=== PATIENT | female | born 1965 | race Caucasian/White ===

== ENCOUNTER → 2018-05-04 23:05 | Outpatient (CLI) | payer MEDICAID, SELFPAY ==
--- OUTSIDE RECORDS SUMMARY | 2018-06-16 17:43 | XMS RPT_ITS ---
:1965 Author Organization OHIP Care Team Providers Name Role Phone LISE REID Referring Unavailable VITO GUILLAUME Referring Unavailable VITO GUILLAUME Admitting Unavailable VITO GUILLAUME Attending Unavailable JEFF DESHPANDE Consulting Unavailable STEPHANIE WAGNER (PA) Referring Unavailable WAGNERSTEPHANIE KINGSLEY (PA) Referring Unavailable BORRERO, THEO Admitting Unavailable BORRERO, THEO Attending Unavailable EMMANUELLE ARAGON Consulting Unavailable PROVIDER, UNKNOWN Referring Unavailable Jaspreet Lance Primary Care Unavailable Kirby Garcia Attending Unavailable PROVIDER, UNKNOWN Referring Unavailable Jaspreet Lance Primary Care Unavailable Josep Tran Attending Unavailable Lalo Patterson FINANCIAL SYSTEMS ANALYST-C Attending Unavailable Nicollee, Efewongbe Referring Unavailable Melquiades Soto FINANCIAL SYSTEMS ANALYST-C Attending Unavailable Armando Sotoa FINANCIAL SYSTEMS ANALYST-C Referring Unavailable Olejuane, Efewongbe Primary Care Unavailable VITO GUILLAUME B Attending Unavailable LISE REID Referring Unavailable BRAYDON WILSON Attending Unavailable VIOLETA LUNA (PAC) Attending Unavailable VITO GIULLAUME Referring Unavailable VITO GUILLAUME B Attending Unavailable VITO GUILLAUME Referring Unavailable SHAYY MILLER (UNEMPLOYMENT SPECIALIST) Attending Unavailable CHARLES, MELQUIADES Issa Referring Unavailable SHAYY MILLER (UNEMPLOYMENT SPECIALIST) Attending Unavailable CHARLES, MELQUIADES L Referring Unavailable PROBLEMS PROBLEMS DATE TYPE CONDITION / CODE ATTENDING STATUS SOURCE 05/05/2018 Active Cutaneous abscess, BORRERO, Active [place] unspecified / THEO Clinic Other L02.91(ICD-10) [place] Repository 05/05/2018 Active Abnormal results of BORRERO, Active [place] liver function [facility] Other studies / [place] R94.5(ICD-10) Repository 05/05/2018 Unknown L02.222 - Furuncle Charles, Active [place] of back [any part, Melquiades FINANCIAL SYSTEMS ANALYST-C Community except buttock] / Hospital L02.222(ICD-10) Repository 05/05/2018 Unknown 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, 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 Melquiades FINANCIAL SYSTEMS ANALYST-C 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 / Z22.322(ICD-10) 02/05/2018 Admitting Opioid abuse, Radha, Active Office [facility] Diagnosis uncomplicated / [facility] F11.10(ICD-10) Repository 02/05/2018 Admitting Anxiety disorder, Radah, Active Office [facility] Diagnosis unspecified / [facility] F41.9(ICD-10) Repository 02/05/2018 Admitting Essential (primary) Radha, Active Office [facility] Diagnosis hypertension / [facility] I10(ICD-10) Repository 02/05/2018 Admitting Pure Radha, Active Office [facility] Diagnosis hypercholesterolemia [facility] , unspecified / Repository E78.00(ICD-10) 02/05/2018 Admitting Acquired absence of Radha, 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 / Repository Z90.710(ICD-10) 02/05/2018 Admitting Nicotine dependence, Radha, Active Office [facility] Diagnosis cigarettes, [facility] uncomplicated / Repository F17.210(ICD-10) 02/05/2018 Admitting Allergy status to Radha, Active Office [facility] Diagnosis oth drug/meds/biol [facility] subst status / Repository Z88.8(ICD-10) 02/05/2018 Admitting Allergy status to Radha, Active Office [facility] Diagnosis penicillin / [facility] Z88.0(ICD-10) Repository 02/05/2018 Admitting Allergy status to Radha, Active Office [facility] Diagnosis other antibiotic [facility] agents status / Repository Z88.1(ICD-10) 09/22/2017 Active Unknown / SHEDLOCK, Active [place] UNK(Unknown) VIOLETA (PAC) Clinic Main [place] Repository 09/04/2017 Active Unilateral primary NA Active [place] osteoarthritis, left Clinic Other knee / [place] M17.12(ICD-10) Repository 09/04/2017 Active Unspecified mood NA Active [place] (affective) disorder Clinic Other / F39(ICD-10) [place] Repository 09/04/2017 Active Anxiety disorder, NA Active [place] unspecified / Clinic Other F41.9(ICD-10) [place] Repository 09/04/2017 Active Hyperlipidemia, NA Active [place] unspecified / Clinic Other E78.5(ICD-10) [place] Repository 09/04/2017 Active Essential (primary) NA Active [place] hypertension / Clinic Other I10(ICD-10) [place] Repository 09/04/2017 Active Encounter for other NA Active [place] preprocedural Clinic Other examination / [place] Z01.818(ICD-10) Repository 08/08/2017 Active Pain, unspecified / NA [facility] R52(ICD-10) Clinic Other [place] Repository PROCEDURES PROCEDURES No Procedure Records FoundRESULTS RESULTS PROGRESS Observed: 05/21/2018 Status: COMPLETED Source: [place] 2:39 PM [facility] REPOSITORY HNO ID: [id number] Author: Shayy Miller Service: (none) Author Type: Nurse Practitioner Type: Progress Notes Filed: 05/21/2018 2:45 PM Note Text: ESTABLISHED PATIENT Paulina Finn is a 52 year old female presenting for Follow Up. HISTORY OF PRESENT ILLNESS Paulina is two weeks post op from an IANDD of an abscess of the upper right back. SHe is doing BID wet to dry dressings, the wound looks significantly improved with minimal surrounding induration and erythema. The size remains essentially the same however the base of the wound has pink granulation tissue. SHe will follow up in ne week and continue BID dressing changes. HISTORIES FAMILY HISTORY Problem Relation Age of Onset - Lipids Mother - Arthritis Mother - other (htn) Mother - None Father PAST MEDICAL HISTORY Diagnosis Date - Anxiety - Arthritis of left knee 09/04/2017 - Dyslipidemia, goal to be determined - HTN (hypertension) - Mood swings - Osteoarthritis PAST SURGICAL HISTORY Procedure Laterality Date - CARPAL TUNNEL - KNEE SCOPE,FULL SYNOVECT Left - PART. HYSTERECTOMY W/WO RMVL OVARIES/TUBES - PAST SURGICAL HISTORY OF 05/06/2018 Incision and drainage of right back anahi, - REMOVE TONSILS/ADENOIDS,<12 Y/O - TOTAL KNEE REPLACEMENT Right 2007 Social History Marital status: Single Spouse name: Years of education: Number of children: Social History Main Topics Smoking status: Current Every Day Smoker Packs/day: 1.00 Years: 11.00 Types: Cigarettes Start date: 06/09/2005 Smokeless tobacco: Never Used Comment: patient is trying to quit - down to 7 cigarettes per day Alcohol use: No Drug use: No Allergies: ALLERGIES Allergen Reactions - Omnicef [Cefdinir] Hives - Penicillins Hives - Vancomycin Hives - Zithromax [Azithrom* Hives - Cortisone Intolerance INCREASE IN BP FOR SEVERAL WEEKS. Medications: hydroCHLOROthiazide (HYDRODIURIL, ESIDRIX) 25 mg tablet Take 25 mg by mouth once daily. ibuprofen (MOTRIN) 600 mg tablet Take 1 tablet by mouth every 8 hours as needed for Pain. lisinopril (ZESTRIL, PRINIVIL) 40 mg tablet Take 40 mg by mouth every evening. metoprolol tartrate, short acting, (LOPRESSOR) 50 mg tablet Take 1 tablet by mouth once daily. sertraline (ZOLOFT) 100 mg tablet Take 2 tablets by mouth once daily. simvastatin (ZOCOR) 40 mg tablet Take 40 mg by mouth every evening. REVIEW OF SYSTEMS PAIN ASSESSMENT: Negative for pain, history of chronic pain, or current treatment for a chronic pain condition. GENERAL: No weight loss, malaise or fevers SKIN: See HPI PSYCH: Depression HEMATOLOGY/LYMPHOLOGY: Negative for prolonged bleeding, bruising easily or swollen nodes PHYSICAL EXAM Temp 36.6 ?C (97.8 ?F) General Appearance: Well appearing, alert, in no acute distress, well-hydrated, well nourished.. Skin: See HPI. Lungs: lungs clear to auscultation. No wheezing, rhonchi, rales. Heart: RRR without murmur, gallop, or rubs. No ectopy. Lymph Nodes: No cervical lymphadenopathy, No supraclavicular lymphadenopathy and No axillary lymphadenopathy.. Assessment IMPRESSION/PLAN ASSESSMENT/PLAN: 1. Abscess of back - ICD9: 682.2, ICD10: L02.212 - Follow up for recheck in one week - IBUPROFEN 600 MG TABLET Shayy Miller, DIANNE.MORRIS Paulina is two weeks post op from an IANDD of an abscess of the upper right back. SHe is doing BID wet to dry dressings, the wound looks significantly improved with minimal surrounding induration and erythema. The size remains essentially the same however the base of the wound has pink granulation tissue. SHe will follow up in ne week and continue BID dressing changes. CNOV Observed: 05/20/2018 Status: COMPLETED Source: [place] 2:30 PM [facility] REPOSITORY Office Visit (GENKITA) PAULINA FINN ([id number]) 1965 F Date Time Provider Department 05/20/18 2:30 PM SHAYY MILLER (MORRIS) [place] During your visit today, we recorded the following information about you: Temperature 97.8 degrees Shayy Miller APRN.CNP 05/21/2018 2:45 PM Signed ESTABLISHED PATIENT Paulina Finn is a 52 year old female presenting for Follow Up. HISTORY OF PRESENT ILLNESS Paulina is two weeks post op from an IANDD of an abscess of the upper right back. SHe is doing BID wet to dry dressings, the wound looks significantly improved with minimal surrounding induration and erythema. The size remains essentially the same however the base of the wound has pink granulation tissue. SHe will follow up in ne week and continue BID dressing changes. HISTORIES FAMILY HISTORY Problem Relation Age of Onset - Lipids Mother - Arthritis Mother - other (htn) Mother - None Father PAST MEDICAL HISTORY Diagnosis Date - Anxiety - Arthritis of left knee 09/04/2017 - Dyslipidemia, goal to be determined - HTN (hypertension) - Mood swings - Osteoarthritis PAST SURGICAL HISTORY Procedure Laterality Date - CARPAL TUNNEL - KNEE SCOPE,FULL SYNOVECT Left - PART. HYSTERECTOMY W/WO RMVL OVARIES/TUBES - PAST SURGICAL HISTORY OF 05/06/2018 Incision and drainage of right back Dr.Rose anahi - REMOVE TONSILS/ADENOIDS,<12 Y/O - TOTAL KNEE REPLACEMENT Right 2007 Social History Marital status: Single Spouse name: Years of education: Number of children: Social History Main Topics Smoking status: Current Every Day Smoker Packs/day: 1.00 Years: 11.00 Types: Cigarettes Start date: 06/09/2005 Smokeless tobacco: Never Used Comment: patient is trying to quit - down to 7 cigarettes per day Alcohol use: No Drug use: No Allergies: ALLERGIES Allergen Reactions - Omnicef [Cefdinir] Hives - Penicillins Hives - Vancomycin Hives - Zithromax [Azithrom* Hives - Cortisone Intolerance INCREASE IN BP FOR SEVERAL WEEKS. Medications: hydroCHLOROthiazide (HYDRODIURIL, ESIDRIX) 25 mg tablet Take 25 mg by mouth once daily. ibuprofen (MOTRIN) 600 mg tablet Take 1 tablet by mouth every 8 hours as needed for Pain. lisinopril (ZESTRIL, PRINIVIL) 40 mg tablet Take 40 mg by mouth every evening. metoprolol tartrate, short acting, (LOPRESSOR) 50 mg tablet Take 1 tablet by mouth once daily. sertraline (ZOLOFT) 100 mg tablet Take 2 tablets by mouth once daily. simvastatin (ZOCOR) 40 mg tablet Take 40 mg by mouth every evening. REVIEW OF SYSTEMS PAIN ASSESSMENT: Negative for pain, history of chronic pain, or current treatment for a chronic pain condition. GENERAL: No weight loss, malaise or fevers SKIN: See HPI PSYCH: Depression HEMATOLOGY/LYMPHOLOGY: Negative for prolonged bleeding, bruising easily or swollen nodes PHYSICAL EXAM Temp 36.6 ?C (97.8 ?F) General Appearance: Well appearing, alert, in no acute distress, well-hydrated, well nourished.. Skin: See HPI. Lungs: lungs clear to auscultation. No wheezing, rhonchi, rales. Heart: RRR without murmur, gallop, or rubs. No ectopy. Lymph Nodes: No cervical lymphadenopathy, No supraclavicular lymphadenopathy and No axillary lymphadenopathy.. Assessment IMPRESSION/PLAN ASSESSMENT/PLAN: 1. Abscess of back - ICD9: 682.2, ICD10: L02.212 - Follow up for recheck in one week - IBUPROFEN 600 MG TABLET Shayy Miller APRN.MORRIS Paulina is two weeks post op from an IANDD of an abscess of the upper right back. SHe is doing BID wet to dry dressings, the wound looks significantly improved with minimal surrounding induration and erythema. The size remains essentially the same however the base of the wound has pink granulation tissue. SHe will follow up in ne week and continue BID dressing changes. Referring Provider: MELQUIADES SOTO [[id number]] Allergies As of Date: 05/20/2018 Noted Allergy Reaction OMNICEF (CEFDINIR) 12/15/2006 4 - Hives PENICILLINS 12/15/2006 4 - Hives VANCOMYCIN 12/15/2006 4 - Hives ZITHROMAX (AZITHROMYCIN) 12/15/2006 4 - Hives CORTISONE 12/15/2006 5 - Intolerance Comments: INCREASE IN BP FOR SEVERAL WEEKS. Date Reviewed: 05/20/2018 Reviewed by: Judie Magdaleno LPN - Fully Assessed Reason for Visit: Follow Up [171] Primary Visit Diagnosis:Abscess of back [L02.212] Order(s):sertraline (ZOLOFT) 100 mg tabletTake 2 tablets by mouth once daily.Disp: 60 tabletRfl: 0 metoprolol tartrate, short acting, (LOPRESSOR) 50 mg tabletTake 1 tablet by mouth once daily.Disp: 30 tabletRfl: 0 ibuprofen (MOTRIN) 600 mg tabletTake 1 tablet by mouth every 8 hours as needed for Pain.Disp: 90 tabletRfl: 0 Prescriptions as of 05/20/2018 Sig: HYDROCHLOROTHIAZIDE 25 MG TAB* Take 25 mg by mouth once adam* IBUPROFEN 600 MG TABLET Take 1 tablet by mouth every * LISINOPRIL 40 MG TABLET Take 40 mg by mouth every onelia* METOPROLOL TARTRATE 50 MG TAB* Take 1 tablet by mouth once d* SERTRALINE 100 MG TABLET Take 2 tablets by mouth once * SIMVASTATIN 40 MG TABLET Take 40 mg by mouth every onelia* Problem List As Of Date 05/20/2018 Noted Resolved Lumbago [M54.5] INVALID FOR*09/04/2017 Osteoarthrosis, unspecified whether generalized*INVALID FOR*09/04/2017 Pain in joint, lower leg [M25.569] INVALID FOR*09/04/2017 Sprain of cruciate ligament of knee [S83.509A] INVALID FOR*09/04/2017 Tear of medial cartilage or meniscus of knee, c*INVALID FOR*09/04/2017 Osteoarthritis of right knee [M17.11] INVALID FOR*09/04/2017 Prepatellar bursitis [M70.40] INVALID FOR*09/04/2017 RSD lower limb [G90.529] INVALID FOR* Mechanical complication of internal orthopedic *INVALID FOR*10/03/2011 Mechanical back pain [M54.9] INVALID FOR*09/04/2017 Lumbar strain [S39.012A] INVALID FOR*09/04/2017 Lumbar spondylosis [M47.816] INVALID FOR* DDD (degenerative disc disease), lumbar [M51.36]INVALID FOR* Arthritis of knee, degenerative [M17.10] INVALID FOR*09/08/2017 More... HTN (hypertension) [I10] INVALID FOR* Dyslipidemia, goal to be determined [E78.5] INVALID FOR* Anxiety [F41.9] INVALID FOR* Mood swings (HCC) [R45.86] INVALID FOR* Arthritis of left knee [M17.12] INVALID FOR* Post-operative state [Z98.890] INVALID FOR* Sepsis (HCC) [A41.9] INVALID FOR* Cutaneous abscess of back excluding buttocks [L*INVALID FOR* Nicotine use disorder, F17.2 [F17.200] INVALID FOR* Prescriptions ordered this encounter Disp Refills Start End SERTRALINE 100 MG TABLET 60 t* 0 05/20/2018 06/19/2018 Route: ORAL Sig: Take 2 tablets by mouth once daily. METOPROLOL TARTRATE 50 MG TABLET 30 t* 0 05/20/2018 06/19/2018 Route: ORAL Sig: Take 1 tablet by mouth once daily. IBUPROFEN 600 MG TABLET 90 t* 0 05/20/2018 06/19/2018 Route: ORAL Sig: Take 1 tablet by mouth every 8 hours as needed for Pain. Medications Discontinued During This Encounter sertraline (ZOLOFT) 100 mg tablet 05/20/2018 Class: Historical Med Route: ORAL Sig: Take 200 mg by mouth once daily. Disc: Reason for discontinue is not on file. metoprolol tartrate, short acting, (* 05/20/2018 Class: Historical Med Route: ORAL Sig: Take 50 mg by mouth once daily. Disc: Reason for discontinue is not on file. Encounter Status:Closed by SHAYY MILLER on 05/21/18 PROGRESS Observed: 05/13/2018 Status: COMPLETED Source: [place] 2:20 PM [facility] REPOSITORY O ID: [id number] Author: Shayy (Pam Miller Service: (none) Author Type: Nurse Practitioner Type: Progress Notes Filed: 05/15/2018 10:29 AM Note Text: ESTABLISHED PATIENT Paulina Finn is a 52 year old female presenting for Post Op (Incision and drainage of right back carbuncle). HISTORY OF PRESENT ILLNESS: Paulina is here for follow up post op from a large abscess of the upper right back that was unroofed in the OR a week ago. The wound bed is pink and moist, skin edges are rolled. Wound measures about 3 x 3.5 CM. Dressing changed, wet to dry. She will follow up in a week. HISTORIES FAMILY HISTORY Problem Relation Age of Onset - Lipids Mother - Arthritis Mother - other (htn) Mother - None Father PAST MEDICAL HISTORY Diagnosis Date - Anxiety - Arthritis of left knee 09/04/2017 - Dyslipidemia, goal to be determined - HTN (hypertension) - Mood swings - Osteoarthritis PAST SURGICAL HISTORY Procedure Laterality Date - CARPAL TUNNEL - KNEE SCOPE,FULL SYNOVECT Left - PART. HYSTERECTOMY W/WO RMVL OVARIES/TUBES - PAST SURGICAL HISTORY OF 05/06/2018 Incision and drainage of right back carbuncle, - REMOVE TONSILS/ADENOIDS,<12 Y/O - TOTAL KNEE REPLACEMENT Right 2007 Social History Marital status: Single Spouse name: Years of education: Number of children: Social History Main Topics Smoking status: Current Every Day Smoker Packs/day: 1.00 Years: 11.00 Types: Cigarettes Start date: 06/09/2005 Smokeless tobacco: Never Used Comment: patient is trying to quit - down to 7 cigarettes per day Alcohol use: No Drug use: No Allergies: ALLERGIES Allergen Reactions - Omnicef [Cefdinir] Hives - Penicillins Hives - Vancomycin Hives - Zithromax [Azithrom* Hives - Cortisone Intolerance INCREASE IN BP FOR SEVERAL WEEKS. Medications: sulfamethoxazole-trimethoprim (BACTRIM DS) 800-160 mg per tablet Take 2 tablets by mouth twice daily for 7 days. HYDROcodone-acetaminophen (NORCO) 5-325 mg per tablet Take 1 tablet by mouth every 8 hours as needed for up to 5 days. oxyCODONE-acetaminophen (PERCOCET) 5-325 mg tablet Take 1 tablet by mouth every 6 hours as needed for up to 7 days. hydroCHLOROthiazide (HYDRODIURIL, ESIDRIX) 25 mg tablet Take 25 mg by mouth once daily. lisinopril (ZESTRIL, PRINIVIL) 40 mg tablet Take 40 mg by mouth every evening. simvastatin (ZOCOR) 40 mg tablet Take 40 mg by mouth every evening. sertraline (ZOLOFT) 100 mg tablet Take 200 mg by mouth once daily. metoprolol tartrate, short acting, (LOPRESSOR) 50 mg tablet Take 50 mg by mouth once daily. REVIEW OF SYSTEMS PAIN ASSESSMENT: Negative for pain, history of chronic pain, or current treatment for a chronic pain condition. GENERAL: No weight loss, malaise or fevers RESPIRATORY: Negative for cough, hemoptysis, wheezing, COPD, dyspnea or shortness of breath CARDIOVASCULAR: Negative for chest pain, leg swelling, hypertension, CHF or palpitations GI: No nausea, vomiting, or diarrhea SKIN: See [facility] PHYSICAL EXAM There were no vitals taken for this visit. General Appearance: Well appearing, alert, in no acute distress, well-hydrated, well nourished. and Thin. Skin: See HPI. Lungs: lungs clear to auscultation. No wheezing, rhonchi, rales. Heart: RRR without murmur, gallop, or rubs. No ectopy. Lymph Nodes: No axillary lymphadenopathy.. Assessment IMPRESSION/PLAN Paulina is here for follow up post op from a large abscess of the upper right back that was unroofed in the OR a week ago. The wound bed is pink and moist, skin edges are rolled. Wound measures about 3 x 3.5 CM. Dressing changed, wet to dry. She will follow up in a week. PETER Observed: 05/13/2018 Status: COMPLETED Source: [place] 1:30 PM [facility] REPOSITORY Office Visit ([facility]AND) PAULINA FINN ([id number]) 1965 F Date Time Provider Department 05/13/18 1:30 PM EVY, SHAYY GORDILLO During your visit today, we recorded the following information about you: Shayy Miller APRN.CNP 05/15/2018 10:29 AM Signed ESTABLISHED PATIENT Paulina Finn is a 52 year old female presenting for Post Op (Incision and drainage of right back carbuncle). HISTORY OF PRESENT ILLNESS: Paulina is here for follow up post op from a large abscess of the upper right back that was unroofed in the OR a week ago. The wound bed is pink and moist, skin edges are rolled. Wound measures about 3 x 3.5 CM. Dressing changed, wet to dry. She will follow up in a week. HISTORIES FAMILY HISTORY Problem Relation Age of Onset - Lipids Mother - Arthritis Mother - other (htn) Mother - None Father PAST MEDICAL HISTORY Diagnosis Date - Anxiety - Arthritis of left knee 09/04/2017 - Dyslipidemia, goal to be determined - HTN (hypertension) - Mood swings - Osteoarthritis PAST SURGICAL HISTORY Procedure Laterality Date - CARPAL TUNNEL - KNEE SCOPE,FULL SYNOVECT Left - PART. HYSTERECTOMY W/WO RMVL OVARIES/TUBES - PAST SURGICAL HISTORY OF 05/06/2018 Incision and drainage of right back carbuncle, - REMOVE TONSILS/ADENOIDS,<12 Y/O - TOTAL KNEE REPLACEMENT Right 2007 Social History Marital status: Single Spouse name: Years of education: Number of children: Social History Main Topics Smoking status: Current Every Day Smoker Packs/day: 1.00 Years: 11.00 Types: Cigarettes Start date: 06/09/2005 Smokeless tobacco: Never Used Comment: patient is trying to quit - down to 7 cigarettes per day Alcohol use: No Drug use: No Allergies: ALLERGIES Allergen Reactions - Omnicef [Cefdinir] Hives - Penicillins Hives - Vancomycin Hives - Zithromax [Azithrom* Hives - Cortisone Intolerance INCREASE IN BP FOR SEVERAL WEEKS. Medications: sulfamethoxazole-trimethoprim (BACTRIM DS) 800-160 mg per tablet Take 2 tablets by mouth twice daily for 7 days. HYDROcodone-acetaminophen (NORCO) 5-325 mg per tablet Take 1 tablet by mouth every 8 hours as needed for up to 5 days. oxyCODONE-acetaminophen (PERCOCET) 5-325 mg tablet Take 1 tablet by mouth every 6 hours as needed for up to 7 days. hydroCHLOROthiazide (HYDRODIURIL, ESIDRIX) 25 mg tablet Take 25 mg by mouth once daily. lisinopril (ZESTRIL, PRINIVIL) 40 mg tablet Take 40 mg by mouth every evening. simvastatin (ZOCOR) 40 mg tablet Take 40 mg by mouth every evening. sertraline (ZOLOFT) 100 mg tablet Take 200 mg by mouth once daily. metoprolol tartrate, short acting, (LOPRESSOR) 50 mg tablet Take 50 mg by mouth once daily. REVIEW OF SYSTEMS PAIN ASSESSMENT: Negative for pain, history of chronic pain, or current treatment for a chronic pain condition. GENERAL: No weight loss, malaise or fevers RESPIRATORY: Negative for cough, hemoptysis, wheezing, COPD, dyspnea or shortness of breath CARDIOVASCULAR: Negative for chest pain, leg swelling, hypertension, CHF or palpitations GI: No nausea, vomiting, or diarrhea SKIN: See HPI PHYSICAL EXAM There were no vitals taken for this visit. General Appearance: Well appearing, alert, in no acute distress, well-hydrated, well nourished. and Thin. Skin: See HPI. Lungs: lungs clear to auscultation. No wheezing, rhonchi, rales. Heart: RRR without murmur, gallop, or rubs. No ectopy. Lymph Nodes: No axillary lymphadenopathy.. Assessment IMPRESSION/PLAN Paulina is here for follow up post op from a large abscess of the upper right back that was unroofed in the OR a week ago. The wound bed is pink and moist, skin edges are rolled. Wound measures about 3 x 3.5 CM. Dressing changed, wet to dry. She will follow up in a week. Referring Provider: MELQUIADES SOTO [[id number]] Allergies As of Date: 05/13/2018 Noted Allergy Reaction OMNICEF (CEFDINIR) 12/15/2006 4 - Hives PENICILLINS 12/15/2006 4 - Hives VANCOMYCIN 12/15/2006 4 - Hives ZITHROMAX (AZITHROMYCIN) 12/15/2006 4 - Hives CORTISONE 12/15/2006 5 - Intolerance Comments: INCREASE IN BP FOR SEVERAL WEEKS. Date Reviewed: 05/13/2018 Reviewed by: Shayy Miller - Fully Assessed Reason for Visit: Post Op [174] Cmt: Incision and drainage of right back carbuncle Reason For Visit History Recorded Primary Visit Diagnosis:Cutaneous abscess of back excluding buttocks [L02.212] Prescriptions as of 05/13/2018 Sig: SULFAMETHOXAZOLE 800 MG-TRIME* Take 2 tablets by mouth twice* HYDROCODONE 5 MG-ACETAMINOPHE* Take 1 tablet by mouth every * OXYCODONE-ACETAMINOPHEN 5 MG-* Take 1 tablet by mouth every * HYDROCHLOROTHIAZIDE 25 MG TAB* Take 25 mg by mouth once adam* LISINOPRIL 40 MG TABLET Take 40 mg by mouth every onelia* SIMVASTATIN 40 MG TABLET Take 40 mg by mouth every onelia* SERTRALINE 100 MG TABLET Take 200 mg by mouth once lennie* METOPROLOL TARTRATE 50 MG TAB* Take 50 mg by mouth once adam* Problem List As Of Date 05/13/2018 Noted Resolved Lumbago [M54.5] INVALID FOR*09/04/2017 Osteoarthrosis, unspecified whether generalized*INVALID FOR*09/04/2017 Pain in joint, lower leg [M25.569] INVALID FOR*09/04/2017 Sprain of cruciate ligament of knee [S83.509A] INVALID FOR*09/04/2017 Tear of medial cartilage or meniscus of knee, c*INVALID FOR*09/04/2017 Osteoarthritis of right knee [M17.11] INVALID FOR*09/04/2017 Prepatellar bursitis [M70.40] INVALID FOR*09/04/2017 RSD lower limb [G90.529] INVALID FOR* Mechanical complication of internal orthopedic *INVALID FOR*10/03/2011 Mechanical back pain [M54.9] INVALID FOR*09/04/2017 Lumbar strain [S39.012A] INVALID FOR*09/04/2017 Lumbar spondylosis [M47.816] INVALID FOR* DDD (degenerative disc disease), lumbar [M51.36]INVALID FOR* Arthritis of knee, degenerative [M17.10] INVALID FOR*09/08/2017 More... HTN (hypertension) [I10] INVALID FOR* Dyslipidemia, goal to be determined [E78.5] INVALID FOR* Anxiety [F41.9] INVALID FOR* Mood swings (HCC) [R45.86] INVALID FOR* Arthritis of left knee [M17.12] INVALID FOR* Post-operative state [Z98.890] INVALID FOR* Sepsis (HCC) [A41.9] INVALID FOR* Cutaneous abscess of back excluding buttocks [L*INVALID FOR* Nicotine use disorder, F17.2 [F17.200] INVALID FOR* Encounter Status:Closed by SHAYY MILLER on 05/15/18 CASE MANAGEM Observed: 05/10/2018 Status: COMPLETED Source: [place] 2:30 PM [facility] OTHER [place] REPOSITORY HNO ID: [id number] Author: Shayy NealRn) ROSITA Cruz Service: Case Management Author Type: Registered Nurse Type: Care Mgt Progress Note Filed: 05/10/2018 4:37 PM Note Text: CARE MANAGEMENT PROGRESS NOTE SERVICE DATE: 05/10/2018 SERVICE TIME: 4:36 PM LOS: 5 days [facility] updated in [facility] SIGNATURE: Shayy Cruz RN PATIENT NAME: Paulina Finn DATE: May 10, 2018 TIME: 4:36 PM PAGER/CONTACT #: [phone] CASE MANAGEM Observed: 05/10/2018 Status: COMPLETED Source: [place] 2:30 PM [facility] OTHER [place] REPOSITORY HNO ID: [id number] Author: Shayy Fine) ROSITA Cruz Service: Case Management Author Type: Registered Nurse Type: Care Mgt Progress Note Filed: 05/10/2018 4:56 PM Note Text: CARE MANAGEMENT DISCHARGE NOTE SERVICE DATE: 05/10/2018 SERVICE TIME: 4:38 PM LOS: 5 days Admission Date: 05/05/2018 DISCHARGE ARRANGEMENT (list agency and phone number) Home Care - Nursing Provider: [facility] CAREGIVER ASSESSMENT: Caregiver is ready, willing and able to meet the patient's needs as recommended by the inter-professional team? Yes Patient's transition needs and plan for meeting these needs: na Does the patient have an acute stroke diagnosis, or has the patient had a stroke during this admission? No HANDOFF COMMUNICATION: Primary Care Physician: Melquiades Soto NP TRANSPORTATION ARRANGEMENTS: Car Family will transport ADDITIONAL CONTACT RESOURCES: na Discharge Information Row Name [place] in [place] on 05/06/2018 ED to Hosp-Admission (Discharged) from 05/05/2018 in [facility] Follow-Up Appointment Specialty ? ? Provider Name ? ? Address ? ? City, State, Zip ? ? Phone Number ? ? Additonal Instructions ? ? Home Health Care Agency ? [facility] Phone# ? [phone] Needs Prior to Discharge: Ready for Discharge Discharge order written for today, patient discharged home with [facility]. [facility] updated, patient agrees with discharge plan. Family will transport. SIGNATURE: Shayy Cruz RN PATIENT NAME: Paulina Finn DATE: May 10, 2018 TIME: 4:38 PM PAGER/CONTACT #: [phone] CONSULT PROG Observed: 05/10/2018 Status: COMPLETED Source: [place] 12:30 PM CLINIC OTHER CAMPUS REPOSITORY HNO ID: [id number] Author: Jamar Tyson MD Service: Infectious Disease Author Type: Physician Type: Consult Progress Note Filed: 05/10/2018 10:35 PM Note Text: INFECTIOUS DISEASE PROGRESS NOTE Patient Name: Paulina Finn INTERVAL HISTORY: Status post IANDD. Cultures w MRSA. No fevers. Back pain is better. ROS checked in details. All qs answered. Patient Active Hospital Problem List: Sepsis (HCC) (05/05/2018) Cutaneous abscess of back excluding buttocks (05/06/2018) Nicotine use disorder, F17.2 (05/07/2018) ASSESSMENT: Sepsis Cutaneous abscess of back excluding buttocks Nicotine use disorder HTN HLD OA ? PLAN: Vancomycin Vanco T and adjust as needed Follow cultures Packing and dressing changes per surgery OK to discharge on PO bactrim DS 2 tabs PO BID x 1 week MEDICATIONS: reviewed. No current hospital medications on file. PHYSICAL EXAM: Vital signs: BP 158/79 Pulse 68 Temp 36.3 ?C (97.3 ?F) (Oral) Resp 18 Ht 160 cm (5' 3) Wt 54.4 kg (120 lb) SpO2 99% BMI 21.26 kg/m? Temp (24hrs), Av.7 ?C (98.1 ?F), Min:36.2 ?C (97.2 ?F), Max:37 ?C (98.6 ?F) General: alert, oriented, NAD Lungs: bilaterally clear to auscultation Heart: regular rate and rhythm Abdomen: soft, non tender, non distended, BS+ Extremities: no edema No rashes Back abscess No joint inflammation Neck supple Lines ok No CVAT Labs: Recent Labs 05/10/18 0549 05/09/18 0528 05/08/18 0526 WBC 8.14 8.90 7.46 HB 11.4* 10.9* 10.9* HCT 35.2* 33.9* 34.4* PLT 413* 401* 373 NA 140 140 142 K 4.0 4.0 4.2 CHLOR 104 105 108* CO2 28 26 25 BUN 7 7 7 CREAT 0.66 0.65 0.61 Microbiology data: reviewed Imaging data: reviewed Jamar Tyson MD Pager: CONSULT PROG Observed: 05/10/2018 Status: COMPLETED Source: [place] 12:05 PM CLINIC OTHER CAMPUS REPOSITORY HNO ID: [id number] Author: Praful Bryant Service: General Surgery Author Type: Physician Type: Consult Progress Note Filed: 05/10/2018 12:08 PM Note Text: CONSULT PROGRESS NOTE SERVICE DATE: 05/10/2018 SERVICE TIME: 12:05 PM CONSULTING SERVICE: surgery Subjective INTERVAL HPI: doing better. DC planning completed Current hospital medications: HYDROmorphone HCl 1 mg injection (DILAUDID) 1 mg INTRAVENOUS q 3 H PRN prochlorperazine 10 mg injection (COMPAZINE) 10 mg INTRAVENOUS q 6 H PRN ondansetron orally disintegrating 4 mg tab(s) (ZOFRAN ODT) 4 mg ORAL q 6 H PRN ondansetron (PF) 4 mg injection (ZOFRAN) 4 mg INTRAVENOUS q 6 H PRN simvastatin 40 mg tab(s) (ZOCOR) 40 mg ORAL AT BEDTIME lisinopril 40 mg tab(s) (ZESTRIL, PRINIVIL) 40 mg ORAL AT BEDTIME metoprolol tartrate (short acting) 50 mg tab(s) (LOPRESSOR) 50 mg ORAL DAILY sertraline 200 mg tab(s) (ZOLOFT) 200 mg ORAL DAILY NaCl 0.9% iv infusion 100 mL/hr INTRAVENOUS CONTINUOUS acetaminophen 650 mg tab(s) (TYLENOL) 650 mg ORAL q 6 H PRN linezolid in dextrose 5% 600 mg PREMIX piggyback (ZYVOX) 600 mg INTRAVENOUS q 12 H nicotine 14 mg/24 hr 1 Patch (NICODERM) 1 Patch TRANSDERMAL DAILY nicotine -- REMOVE patch OTHER DAILY nicotine - verify patch OTHER q 8 H Objective PHYSICAL EXAM: Physical Exam Performed: GENERAL: Alert, no distress, cooperative BACK: Dressing dry and intact BP 158/79 Pulse 68 Temp (Src) 97.3 (Oral) Resp 16 Ht 5' 3 (1.60m) Wt 120 lb (54.4kg) SpO2 99% BMI 21.26 kg/(m2). DATA: Diagnostic tests reviewed for today's visit: Most recent labs and imaging results. Impression/Recommendations S/i debridement of back abscess Cont dressing changes BID @ home Home ABX per ID Ok for DC from surgery standpoin Follow up with Dr Geoff Panchal next week -- call SIGNATURE: Praful Bryant MD PATIENT NAME: Paulina Finn DATE: May 10, 2018 TIME: 12:05 PM PAGER: CASE MANAGEM Observed: 05/10/2018 Status: COMPLETED Source: [place] 10:51 AM [facility] REPOSITORY HNO ID: [id number] Author: Shayy (Rn) ROSITA Cruz Service: Case Management Author Type: Registered Nurse Type: Care Mgt Progress Note Filed: 05/10/2018 10:53 AM Note Text: CARE MANAGEMENT PROGRESS NOTE SERVICE DATE: 05/10/2018 SERVICE TIME: 10:51 AM LOS: 5 days Needs Prior to Discharge: Home Care Order;Other: See Comment;IV Antibiotics (Medical Clearance) Per RN, [facility]. Patient has been accepted, F2F and discharge order to be faxed to [phone]. Family will transport. SIGNATURE: Shayy Cruz RN PATIENT NAME: Paulina Finn DATE: May 10, 2018 TIME: 10:51 AM PAGER/CONTACT #: [phone] CNDS Observed: 05/10/2018 Status: COMPLETED Source: [place] 10:15 AM [facility] OTHER [place] REPOSITORY HNO ID: [id number] Author: Shane Gunn Service: General Internal Medicine Author Type: Physician Type: Discharge Summaries Filed: 05/10/2018 11:25 AM Note Text: DISCHARGE SUMMARY PATIENT NAME: Paulina Finn Code Status: Not on file Highest Readmission Risk Score: 17 The 30 day readmissions risk score is derived from an internally validated risk model which evaluates patient level characteristics, utilization history, medication orders and lab results up until the day of discharge. Patients with a score of 40 or above are considered highest risk for readmission. Specific patient level drivers will be listed at the bottom of the summary. Admission Information Admission Information ADMIT DATE: 05/05/2018 DISCHARGE DATE: 05/10/2018 MY DOCTORS AND MEDICAL TEAM: My Main Hospital Doctor: Theo Tyson Primary Care Provider: Melquiades Soto NP My Medical Team Members: Treatment Team: Attending Provider: Theo Tyson Consulting: Jamar Tyson MD Consulting: Emmanuelle Aragon MY CONDITION AT DISCHARGE: Stable. REASON I WAS IN THE HOSPITAL: Abscess of back, sepsis. SUMMARY OF WHAT HAPPENED WHILE I WAS IN THE HOSPITAL: Patient was admitted for above. Pt was given iv abx, I/d was done. ID and GS eval was done. Pt improved. Pt was discharged home with [facility]. OTHER PROBLEMS/DIAGNOSIS: Active Problems: Sepsis (HCC) Cutaneous abscess of back excluding buttocks Nicotine use disorder, F17.2 Resolved Problems: * No resolved hospital problems. * OPERATIONS PERFORMED WHILE IN THE HOSPITAL: IMPORTANT TEST/PROCEDURES: TEST RESULTS NOT AVAILABLE AT THIS TIME: No pending results Discharge Disposition Activity When You Leave the Hospital Resume pre-hospital activity Diet Instructions Resume your pre-hospital diet Follow Up Appointments Follow-Up Appointment When: In 4 days Patient/Parents to call for appointment?: Yes Melquiades Soto [phone] [address] PCP Requested Referral FOLLOW-UP APPOINTMENTS ALREADY SCHEDULED WITH A [facility] PROVIDER: No future appointments. Discharge Information Row Name [place] on 05/06/2018 ED to Hosp-Admission (Current) from 05/05/2018 in [facility] Medical Follow-Up Appointment Specialty ? ? Provider Name ? ? Address ? ? City, State, Zip ? ? Phone Number ? ? Additonal Instructions ? ? Home Health Care Agency ? [facility] Phone# ? [phone] ALLERGIES Allergen Reactions - Omnicef [Cefdinir] Hives - Penicillins Hives - Vancomycin Hives - Zithromax [Azithrom* Hives - Cortisone Intolerance INCREASE IN BP FOR SEVERAL WEEKS. DISCHARGE MEDICATION: Current Discharge Medication List START taking these medications sulfamethoxazole-trimethoprim (BACTRIM DS,SEPTRA DS) 2 tablets Take 2 tablets by mouth twice daily. Qty: 28 tablet Refills: 0 HYDROcodone-acetaminophen (NORCO) 1 tablet Take 1 tablet by mouth every 8 hours as needed. Earliest Fill Date: 05/10/18 Qty: 10 tablet Refills: 0 Associated Diagnoses:Abscess CONTINUE these medications which have NOT CHANGED hydroCHLOROthiazide (HYDRODIURIL, ESIDRIX) 25 mg Take 25 mg by mouth once daily. lisinopril (ZESTRIL, PRINIVIL) 40 mg Take 40 mg by mouth every evening. simvastatin (ZOCOR) 40 mg Take 40 mg by mouth every evening. sertraline (ZOLOFT) 200 mg Take 200 mg by mouth once daily. metoprolol tartrate (short acting) (LOPRESSOR) 50 mg Take 50 mg by mouth once daily. Discharge Physical Exam: VITAL SIGNS: BP 158/79 Pulse 68 Temp 36.3 ?C (97.3 ?F) (Oral) Resp 16 Ht 160 cm (5' 3) Wt 54.4 kg (120 lb) SpO2 99% BMI 21.26 kg/m? GENERAL: Alert, no distress, cooperative LUNGS: Lungs clear to auscultation, Good diaphragmatic excursion CARDIAC: Normal S1 and S2; no rubs, murmurs, or gallops The patient's risk for 30-day readmission is determined using the following contributing factors: Pt variables contributing to increased readmission risk: 12 Active Medication Orders 9.5 First Resulted Calcium During Admission 7 Most Recent BUN Result 1 Previous ED Visit (6 mos.)? 1 Number of Previous ED Visits (6 mos.) 1 Insurance - Medicaid 1 Discharge Disposition - Home Health Care 1 Number of Hospitalizations (12 mos.) TIME OF CARE: Discharge Management: I personally spent greater than 30 minutes involved in the discharge management of this patient. SIGNATURE: Shane Gunn MD PAGER/CONTACT #: DATE: May 10, 2018 TIME: 11:24 AM CBC Collected: 05/10/2018 Status: F Source: [place] 5:49 AM CLINIC OTHER CAMPUS REPOSITORY TYPE CODE TESTS RESULT OUT OF REFERENCE UNITS RANGE LAB WBC 3.70-11.00 k/uL WBC 8.14 LAB RBC 3.90-5.20 m/uL RBC 3.97 LAB HGB 11.5-15.5 g/dL Low Hemoglobin 11.4 LAB HCT 36.0-46.0 % Low Hematocrit 35.2 LAB MCV 80.0-100.0 fL MCV 88.7 LAB MCH 26.0-34.0 pG MCH 28.7 LAB MCHC 30.5-36.0 g/dL MCHC 32.4 LAB RDWCV 11.5-15.0 % RDW-CV 12.9 LAB PLTCT 150-400 k/uL Platelet High Count 413 LAB MPV 9.0-12.7 fL Low MPV 8.3 Performed By: #### CBC, CMP #### [facility] [address] [phone] COMP METABOLIC PANEL Collected: 05/10/2018 Status: F Source: [place] 5:49 AM CLINIC OTHER CAMPUS REPOSITORY TYPE CODE TESTS RESULT OUT OF REFERENCE UNITS RANGE LAB TP 6.3-8.0 g/dL Low Protein, Total 5.4 LAB ALB 3.9-4.9 g/dL Low Albumin 3.0 LAB CA 8.5-10.2 mg/dL Calcium, Total 8.5 LAB TBIL 0.2-1.3 mg/dL Low Bilirubin, Total <0.1 LAB ALKP 34-123 U/L Alkaline Phosphatase 82 LAB AST 13-35 U/L AST 34 LAB GLU 74-99 mg/dL Glucose High 102 Result Comment: The [place] [employer] (ADA) provides guidance for cutoff values for fasting glucose and random glucose. The ADA defines fasting as no caloric intake for at least 8 hours. Fas ting plasma glucose results between 100 to 125 mg/dL indicate increased risk for diabetes (prediabetes). Fasting plasma glucose results greater than or equal to 126 mg/dL meet the criteria for diagnosis of diabetes. In the absence of unequivocal hyperglycemia, results should be confirmed by repeat testing. In a patient with classic symptoms of hyperglycemia or hyperglycemic crisis, random plasma glucose results greater than or equal to 200 mg/dL meet the criteria for diagnosis of diabetes. Reference: Standards of Medical Care in Diabetes 2016, [place] [employer]. Diabetes Care. 2016.39(Suppl 1). LAB BUN 7-21 mg/dL BUN 7 LAB CRET 0.58-0.96 mg/dL Creatinine 0.66 LAB NA 136-144 mmol/L Sodium 140 LAB K 3.7-5.1 mmol/L Potassium 4.0 LAB CL 97-105 mmol/L Chloride 104 LAB CO2 22-30 mmol/L CO2 28 LAB AGAP 9-18 mmol/L Anion Gap Low 8 LAB ALT 7-38 U/L ALT 17 LAB GFRAA eGFR- Amer. >60 LAB GFRNAA . eGFR-All Other Races >60 Result Comment: eGFR (Estimated GFR) Units of measure: mL/min/1.73 meters squared eGFR is derived from the reexpressed MDRD Study equation using the following parameters: serum creatinine, age, gender and race. The creatinine assay has been calibrated to be traceable to IDMS. An eGFR <60 mL/min/1.73m2 for >3 months is consistent with chronic kidney disease. Refer to KDOQI guidelines for clinical interpretation. In patients with unstable renal function, e.g. those with acute kidney injury, the eGFR may not accurately reflect actual GFR. Performed By: #### CBC, CMP #### [facility] [address] [phone] PROGRESS Observed: 05/09/2018 Status: COMPLETED Source: [place] 10:35 AM [facility] OTHER CAMPUS REPOSITORY [facility] ID: [id number] Author: Shane Gunn Service: General Internal Medicine Author Type: Physician Type: Progress Notes Filed: 05/09/2018 10:57 AM Note Text: INTERNAL MEDICINE PROGRESS NOTE ADMITTING PHYSICIAN: Theo Tyson Subjective CHIEF COMPLAINT: s/p I and D in OR Pain is better No fever Current Facility-Administered Medications: HYDROmorphone HCl 1 mg injection (DILAUDID) 1 mg INTRAVENOUS q 3 H PRN prochlorperazine 10 mg injection (COMPAZINE) 10 mg INTRAVENOUS q 6 H PRN ondansetron orally disintegrating 4 mg tab(s) (ZOFRAN ODT) 4 mg ORAL q 6 H PRN Or ondansetron (PF) 4 mg injection (ZOFRAN) 4 mg INTRAVENOUS q 6 H PRN simvastatin 40 mg tab(s) (ZOCOR) 40 mg ORAL AT BEDTIME lisinopril 40 mg tab(s) (ZESTRIL, PRINIVIL) 40 mg ORAL AT BEDTIME metoprolol tartrate (short acting) 50 mg tab(s) (LOPRESSOR) 50 mg ORAL DAILY sertraline 200 mg tab(s) (ZOLOFT) 200 mg ORAL DAILY NaCl 0.9% iv infusion 100 mL/hr INTRAVENOUS CONTINUOUS acetaminophen 650 mg tab(s) (TYLENOL) 650 mg ORAL q 6 H PRN linezolid in dextrose 5% 600 mg PREMIX piggyback (ZYVOX) 600 mg INTRAVENOUS q 12 H nicotine 14 mg/24 hr 1 Patch (NICODERM) 1 Patch TRANSDERMAL DAILY And nicotine -- REMOVE patch OTHER DAILY And nicotine - verify patch OTHER q 8 H Objective PHYSICAL EXAM: BP 160/87 Pulse 80 Temp 37.1 ?C (98.8 ?F) (Oral) Resp 18 Ht 160 cm (5' 3) Wt 54.4 kg (120 lb) SpO2 96% BMI 21.26 kg/m? GENERAL: Alert, Mild Distress, Cooperative BACK: Back abscess is draining s/p I and D LUNGS: Lungs clear to auscultation. G CARDIAC: Normal S1 and S2; ABDOMEN: Abdomen soft, non-tender, BS normal, No masses or organomegaly EXTREMITIES: Extremities normal, no deformities, edema, clubbing or skin discoloration. Good capillary refill., No ulcers DATA: Diagnostic tests reviewed for today's visit: Most recent labs Assessment/Plan Active Problems: Sepsis (HCC) POA Cutaneous abscess of back s/p I and D HTN Anxiety Nicotine use disorder ? PLAN: Continue wound packing Await cultures IV antibiotics, fluids Pain control ID and surgical consult appreciated Resume home meds Nicotine patch Anticipate DC tomorrow Needs wound packed - C vs family to do it Medication and Non-Pharmacologic VTE Prophylaxis/Anticoagulants 05/06/181999 vte pharmacologic prophylaxis contraindicated ([place] 05/06/181999 pneumatic compression stockings ([place] 05/06/181999 activity - mobilize patient ([place] 05/05/182144 pneumatic compression stockings ([place] 05/05/182144 activity - mobilize patient ([place] VTE Prophylaxis: VTE prophylaxis appropriate SIGNATURE: Shane Gunn MD PATIENT NAME: Paulina Koo Aakash CONSULT PROG Observed: 05/09/2018 Status: COMPLETED Source: [place] 8:32 AM CLINIC OTHER CAMPUS REPOSITORY HNO ID: [id number] Author: Praful Bryant Service: General Surgery Author Type: Physician Type: Consult Progress Note Filed: 05/09/2018 8:35 AM Note Text: CONSULT PROGRESS NOTE SERVICE DATE: 05/09/2018 SERVICE TIME: 8:32 AM CONSULTING SERVICE: surgery Subjective INTERVAL HPI: doing well. Less back pain. No fevers. Tolerating dressing changes Current hospital medications: HYDROmorphone HCl 1 mg injection (DILAUDID) 1 mg INTRAVENOUS q 3 H PRN prochlorperazine 10 mg injection (COMPAZINE) 10 mg INTRAVENOUS q 6 H PRN ondansetron orally disintegrating 4 mg tab(s) (ZOFRAN ODT) 4 mg ORAL q 6 H PRN ondansetron (PF) 4 mg injection (ZOFRAN) 4 mg INTRAVENOUS q 6 H PRN simvastatin 40 mg tab(s) (ZOCOR) 40 mg ORAL AT BEDTIME lisinopril 40 mg tab(s) (ZESTRIL, PRINIVIL) 40 mg ORAL AT BEDTIME metoprolol tartrate (short acting) 50 mg tab(s) (LOPRESSOR) 50 mg ORAL DAILY sertraline 200 mg tab(s) (ZOLOFT) 200 mg ORAL DAILY NaCl 0.9% iv infusion 100 mL/hr INTRAVENOUS CONTINUOUS acetaminophen 650 mg tab(s) (TYLENOL) 650 mg ORAL q 6 H PRN linezolid in dextrose 5% 600 mg PREMIX piggyback (ZYVOX) 600 mg INTRAVENOUS q 12 H nicotine 14 mg/24 hr 1 Patch (NICODERM) 1 Patch TRANSDERMAL DAILY nicotine -- REMOVE patch OTHER DAILY nicotine - verify patch OTHER q 8 H Objective PHYSICAL EXAM: Physical Exam Performed: GENERAL: Alert, no distress, cooperative BACK: dressing removed and wound base looks good. BP 160/87 Pulse 59 Temp (Src) 98.8 (Oral) Resp 18 Ht 5' 3 (1.60m) Wt 120 lb (54.4kg) SpO2 96% BMI 21.26 kg/(m2). DATA: Diagnostic tests reviewed for today's visit: Most recent labs and imaging results. Impression/Recommendations S/i debridement of back abscess Cont dressing changes BID IV ABX per ID Ok for DC from surgery standpoint once wound care and ABX have been arranged SIGNATURE: Praful Bryant MD PATIENT NAME: Paulina Finn DATE: May 09, 2018 TIME: 8:32 AM PAGER: CBC Collected: 05/09/2018 Status: F Source: [place] 5:28 AM CLINIC OTHER CAMPUS REPOSITORY TYPE CODE TESTS RESULT OUT OF REFERENCE UNITS RANGE LAB WBC 3.70-11.00 k/uL WBC 8.90 LAB RBC 3.90-5.20 m/uL Low RBC 3.80 LAB HGB 11.5-15.5 g/dL Low Hemoglobin 10.9 LAB HCT 36.0-46.0 % Low Hematocrit 33.9 LAB MCV 80.0-100.0 fL MCV 89.2 LAB MCH 26.0-34.0 pG MCH 28.7 LAB MCHC 30.5-36.0 g/dL MCHC 32.2 LAB RDWCV 11.5-15.0 % RDW-CV 12.9 LAB PLTCT 150-400 k/uL Platelet High Count 401 LAB MPV 9.0-12.7 fL Low MPV 8.4 Performed By: #### CBC, CMP #### [facility] [address] [phone] COMP METABOLIC PANEL Collected: 05/09/2018 Status: F Source: [place] 5:28 AM CLINIC OTHER CAMPUS REPOSITORY TYPE CODE TESTS RESULT OUT OF REFERENCE UNITS RANGE LAB TP 6.3-8.0 g/dL Low Protein, Total 5.5 LAB ALB 3.9-4.9 g/dL Low Albumin 3.1 LAB CA 8.5-10.2 mg/dL Low Calcium, Total 8.3 LAB TBIL 0.2-1.3 mg/dL Low Bilirubin, Total 0.1 LAB ALKP 34-123 U/L Alkaline Phosphatase 85 LAB AST 13-35 U/L AST 29 LAB GLU 74-99 mg/dL Glucose 99 Result Comment: The [place] [employer] (ADA) provides guidance for cutoff values for fasting glucose and random glucose. The ADA defines fasting as no caloric intake for at least 8 hours. Fas ting plasma glucose results between 100 to 125 mg/dL indicate increased risk for diabetes (prediabetes). Fasting plasma glucose results greater than or equal to 126 mg/dL meet the criteria for diagnosis of diabetes. In the absence of unequivocal hyperglycemia, results should be confirmed by repeat testing. In a patient with classic symptoms of hyperglycemia or hyperglycemic crisis, random plasma glucose results greater than or equal to 200 mg/dL meet the criteria for diagnosis of diabetes. Reference: Standards of Medical Care in Diabetes 2016, [place] [employer]. Diabetes Care. 2016.39(Suppl 1). LAB BUN 7-21 mg/dL BUN 7 LAB CRET 0.58-0.96 mg/dL Creatinine 0.65 LAB NA 136-144 mmol/L Sodium 140 LAB K 3.7-5.1 mmol/L Potassium 4.0 LAB CL 97-105 mmol/L Chloride 105 LAB CO2 22-30 mmol/L CO2 26 LAB AGAP 9-18 mmol/L Anion Gap 9 LAB ALT 7-38 U/L ALT 14 LAB GFRAA eGFR- Amer. >60 LAB GFRNAA . eGFR-All Other Races >60 Result Comment: eGFR (Estimated GFR) Units of measure: mL/min/1.73 meters squared eGFR is derived from the reexpressed MDRD Study equation using the following parameters: serum creatinine, age, gender and race. The creatinine assay has been calibrated to be traceable to IDMS. An eGFR <60 mL/min/1.73m2 for >3 months is consistent with chronic kidney disease. Refer to KDOQI guidelines for clinical interpretation. In patients with unstable renal function, e.g. those with acute kidney injury, the eGFR may not accurately reflect actual GFR. Performed By: #### CBC, CMP #### [facility] [address] [phone] CONSULT PROG Observed: 05/08/2018 Status: COMPLETED Source: [place] 5:34 PM CLINIC OTHER CAMPUS REPOSITORY [facility] ID: [id number] Author: Jamar Tyson MD Service: Infectious Disease Author Type: Physician Type: Consult Progress Note Filed: 05/08/2018 10:36 PM Note Text: INFECTIOUS DISEASE PROGRESS NOTE Patient Name: Paulina Finn INTERVAL HISTORY: Status post IANDD. Cultures w MRSA. No fevers. Back pain is better. ROS checked in details. All qs answered. Patient Active Hospital Problem List: Sepsis (HCC) (05/05/2018) Cutaneous abscess of back excluding buttocks (05/06/2018) Nicotine use disorder, F17.2 (05/07/2018) ASSESSMENT: Sepsis Cutaneous abscess of back excluding buttocks Nicotine use disorder HTN HLD OA ? PLAN: Vancomycin Vanco T and adjust as needed Follow cultures Packing and dressing changes per surgery OK to discharge on PO bactrim DS 2 tabs PO BID x 1 week MEDICATIONS: reviewed. Current hospital medications: HYDROmorphone HCl 1 mg injection (DILAUDID) 1 mg INTRAVENOUS q 3 H PRN prochlorperazine 10 mg injection (COMPAZINE) 10 mg INTRAVENOUS q 6 H PRN ondansetron orally disintegrating 4 mg tab(s) (ZOFRAN ODT) 4 mg ORAL q 6 H PRN ondansetron (PF) 4 mg injection (ZOFRAN) 4 mg INTRAVENOUS q 6 H PRN simvastatin 40 mg tab(s) (ZOCOR) 40 mg ORAL AT BEDTIME lisinopril 40 mg tab(s) (ZESTRIL, PRINIVIL) 40 mg ORAL AT BEDTIME metoprolol tartrate (short acting) 50 mg tab(s) (LOPRESSOR) 50 mg ORAL DAILY sertraline 200 mg tab(s) (ZOLOFT) 200 mg ORAL DAILY NaCl 0.9% iv infusion 100 mL/hr INTRAVENOUS CONTINUOUS acetaminophen 650 mg tab(s) (TYLENOL) 650 mg ORAL q 6 H PRN linezolid in dextrose 5% 600 mg PREMIX piggyback (ZYVOX) 600 mg INTRAVENOUS q 12 H nicotine 14 mg/24 hr 1 Patch (NICODERM) 1 Patch TRANSDERMAL DAILY nicotine -- REMOVE patch OTHER DAILY nicotine - verify patch OTHER q 8 H PHYSICAL EXAM: Vital signs: BP 173/91 Pulse 70 Temp 36.9 ?C (98.4 ?F) (Oral) Resp 16 Ht 160 cm (5' 3) Wt 54.4 kg (120 lb) SpO2 99% BMI 21.26 kg/m? Temp (24hrs), Av.7 ?C (98.1 ?F), Min:36.2 ?C (97.2 ?F), Max:37 ?C (98.6 ?F) General: alert, oriented, NAD Lungs: bilaterally clear to auscultation Heart: regular rate and rhythm Abdomen: soft, non tender, non distended, BS+ Extremities: no edema No rashes Back abscess No joint inflammation Neck supple Lines ok No CVAT Labs: Recent Labs 05/08/18 0526 05/07/18 0442 05/06/18 0503 WBC 7.46 8.70 13.75* HB 10.9* 10.4* 11.5 HCT 34.4* 33.0* 35.5* PLT 373 339 346 NA 142 139 140 K 4.2 4.1 3.5* CHLOR 108* 106* 102 CO2 25 24 26 BUN 7 9 13 CREAT 0.61 0.62 0.71 Microbiology data: reviewed Imaging data: reviewed Jamar Tyson MD Pager: CONSULT PROG Observed: 05/08/2018 Status: COMPLETED Source: [place] 1:56 PM CLINIC OTHER CAMPUS REPOSITORY HNO ID: [id number] Author: Shayy Miller Service: General Surgery Author Type: Nurse Practitioner Type: Consult Progress Note Filed: 05/08/2018 2:00 PM Note Text: INPATIENT PROGRESS NOTE SERVICE DATE: 05/08/2018 SERVICE TIME: 1:56 PM INTERVAL HPI: Paulina is more comfortable today, her wound dressing was changed for a moderate amount of serous drainage. Base of wound is pink, there is yellow exudate, wound edges are rolled. No odor. Induration and redness surrounding is improved today. No fevers. Assessment/Plan Active Problems: Sepsis (HCC) POA: Yes Assessment AND Plan: per primary Cutaneous abscess of back excluding buttocks POA: Yes Assessment AND Plan: BID wet to dry dressing changes. Nicotine use disorder, F17.2 POA: Unknown Assessment AND Plan: per primary Resolved Problems: * No resolved hospital problems. * Current hospital medications: HYDROmorphone HCl 1 mg injection (DILAUDID) 1 mg INTRAVENOUS q 3 H PRN prochlorperazine 10 mg injection (COMPAZINE) 10 mg INTRAVENOUS q 6 H PRN ondansetron orally disintegrating 4 mg tab(s) (ZOFRAN ODT) 4 mg ORAL q 6 H PRN ondansetron (PF) 4 mg injection (ZOFRAN) 4 mg INTRAVENOUS q 6 H PRN simvastatin 40 mg tab(s) (ZOCOR) 40 mg ORAL AT BEDTIME lisinopril 40 mg tab(s) (ZESTRIL, PRINIVIL) 40 mg ORAL AT BEDTIME metoprolol tartrate (short acting) 50 mg tab(s) (LOPRESSOR) 50 mg ORAL DAILY sertraline 200 mg tab(s) (ZOLOFT) 200 mg ORAL DAILY NaCl 0.9% iv infusion 100 mL/hr INTRAVENOUS CONTINUOUS acetaminophen 650 mg tab(s) (TYLENOL) 650 mg ORAL q 6 H PRN linezolid in dextrose 5% 600 mg PREMIX piggyback (ZYVOX) 600 mg INTRAVENOUS q 12 H nicotine 14 mg/24 hr 1 Patch (NICODERM) 1 Patch TRANSDERMAL DAILY nicotine -- REMOVE patch OTHER DAILY nicotine - verify patch OTHER q 8 H Objective PHYSICAL EXAM: BP 138/86 Pulse 71 Temp (Src) 98.2 (Oral) Resp 18 Ht 5' 3 (1.60m) Wt 120 lb (54.4kg) SpO2 95% BMI 21.26 kg/(m2). GENERAL: Alert, no distress, cooperative SKIN: Skin color, texture, turgor normal. No rashes or lesions. LUNGS: Lungs clear to auscultation, Good diaphragmatic excursion CARDIAC: Normal S1 and S2; no rubs, murmurs, or gallops ABDOMEN: Abdomen soft, non-tender, BS normal, No masses or organomegaly EXTREMITIES: Extremities normal, no deformities, edema, clubbing or skin discoloration. Good capillary refill., No ulcers NEURO: Gait normal. Reflexes normal and symmetric. Sensation grossly intact, Cranial nerves II-XII intact PULSES: 2+ radial, 2+ carotid RECTAL: Exam deferred WOUND: Good granulation tissue , Wound edges not approximated, Reddened, Drainage serous, Erythema DATA: Diagnostic tests reviewed for today's visit: Most recent labs and imaging results. SIGNATURE: Shayy Miller APRN.CNP PATIENT NAME: Paulina Finn DATE: May 08, 2018 TIME: 1:56 PM PAGER: [phone] CASE MANAGEM Observed: 05/08/2018 Status: COMPLETED Source: [place] 12:33 PM CLINIC OTHER CAMPUS REPOSITORY HNO ID: [id number] Author: Whitney (Rn) ROSITA Anton Service: Case Management Author Type: Registered Nurse Type: Care Mgt Progress Note Filed: 05/08/2018 12:35 PM Note Text: CARE MANAGEMENT PROGRESS NOTE SERVICE DATE: 05/08/2018 SERVICE TIME: 12:33 PM LOS: 3 days Needs Prior to Discharge: Home Care Order;Other: See Comment;IV Antibiotics (Medical Clearance) EMR reviewed. [facility] can accept patient at discharge. Awaiting final ID recommendations for antibiotics. CM assigned will continue to follow. SIGNATURE: Whitney Anton RN PATIENT NAME: Paulina Finn DATE: May 08, 2018 TIME: 12:33 PM PAGER/CONTACT #: [phone] PROGRESS Observed: 05/08/2018 Status: COMPLETED Source: [place] 12:32 PM CLINIC OTHER CAMPUS REPOSITORY O ID: [id number] Author: Theo Tyson Service: General Internal Medicine Author Type: Physician Type: Progress Notes Filed: 05/08/2018 1:33 PM Note Text: INTERNAL MEDICINE PROGRESS NOTE ADMITTING PHYSICIAN: Theo Tyson Subjective CHIEF COMPLAINT: s/p I and D in OR Pain is better No fever Current Facility-Administered Medications: HYDROmorphone HCl 1 mg injection (DILAUDID) 1 mg INTRAVENOUS q 3 H PRN prochlorperazine 10 mg injection (COMPAZINE) 10 mg INTRAVENOUS q 6 H PRN ondansetron orally disintegrating 4 mg tab(s) (ZOFRAN ODT) 4 mg ORAL q 6 H PRN Or ondansetron (PF) 4 mg injection (ZOFRAN) 4 mg INTRAVENOUS q 6 H PRN simvastatin 40 mg tab(s) (ZOCOR) 40 mg ORAL AT BEDTIME lisinopril 40 mg tab(s) (ZESTRIL, PRINIVIL) 40 mg ORAL AT BEDTIME metoprolol tartrate (short acting) 50 mg tab(s) (LOPRESSOR) 50 mg ORAL DAILY sertraline 200 mg tab(s) (ZOLOFT) 200 mg ORAL DAILY NaCl 0.9% iv infusion 100 mL/hr INTRAVENOUS CONTINUOUS acetaminophen 650 mg tab(s) (TYLENOL) 650 mg ORAL q 6 H PRN linezolid in dextrose 5% 600 mg PREMIX piggyback (ZYVOX) 600 mg INTRAVENOUS q 12 H nicotine 14 mg/24 hr 1 Patch (NICODERM) 1 Patch TRANSDERMAL DAILY And nicotine -- REMOVE patch OTHER DAILY And nicotine - verify patch OTHER q 8 H Objective PHYSICAL EXAM: BP 138/86 Pulse 71 Temp 36.8 ?C (98.2 ?F) (Oral) Resp 18 Ht 160 cm (5' 3) Wt 54.4 kg (120 lb) SpO2 95% BMI 21.26 kg/m? GENERAL: Alert, Mild Distress, Cooperative BACK: Back abscess is draining s/p I and D LUNGS: Lungs clear to auscultation. Good diaphragmatic excursion. CARDIAC: Normal S1 and S2; no rubs, murmurs, or gallops ABDOMEN: Abdomen soft, non-tender, BS normal, No masses or organomegaly EXTREMITIES: Extremities normal, no deformities, edema, clubbing or skin discoloration. Good capillary refill., No ulcers DATA: Diagnostic tests reviewed for today's visit: Most recent labs Assessment/Plan Active Problems: Sepsis (HCC) POA Cutaneous abscess of back s/p I and D HTN Anxiety Nicotine use disorder ? PLAN: Continue wound packing Await cultures IV antibiotics, fluids Pain control ID and surgical consult appreciated Resume home meds Nicotine patch Anticipate DC tomorrow Needs wound packed - [facility] vs family to do it Medication and Non-Pharmacologic VTE Prophylaxis/Anticoagulants 05/06/181999 vte pharmacologic prophylaxis contraindicated ([place], [place]) 05/06/181999 pneumatic compression stockings ([place] 05/06/181999 activity - mobilize patient ([place]) 05/05/182144 pneumatic compression stockings ([place]) 05/05/182144 activity - mobilize patient ([place]) VTE Prophylaxis: VTE prophylaxis appropriate SIGNATURE: Theo Tyson MD PATIENT NAME: Paulina Finn CBC Collected: 05/08/2018 Status: F Source: [place] 5:26 AM [facility] OTHER CAMPUS REPOSITORY TYPE CODE TESTS RESULT OUT OF REFERENCE UNITS RANGE LAB WBC 3.70-11.00 k/uL WBC 7.46 LAB RBC 3.90-5.20 m/uL Low RBC 3.77 LAB HGB 11.5-15.5 g/dL Low Hemoglobin 10.9 LAB HCT 36.0-46.0 % Low Hematocrit 34.4 LAB MCV 80.0-100.0 fL MCV 91.2 LAB MCH 26.0-34.0 pG MCH 28.9 LAB MCHC 30.5-36.0 g/dL MCHC 31.7 LAB RDWCV 11.5-15.0 % RDW-CV 13.4 LAB PLTCT 150-400 k/uL Platelet Count 373 LAB MPV 9.0-12.7 fL Low MPV 8.5 Performed By: #### CBC, CMP #### [facility] [address] [phone] COMP METABOLIC PANEL Collected: 05/08/2018 Status: F Source: [place] 5:26 AM [facility] OTHER CAMPUS REPOSITORY TYPE CODE TESTS RESULT OUT OF REFERENCE UNITS RANGE LAB TP 6.3-8.0 g/dL Low Protein, Total 5.6 LAB ALB 3.9-4.9 g/dL Low Albumin 3.1 LAB CA 8.5-10.2 mg/dL Calcium, Total 8.6 LAB TBIL 0.2-1.3 mg/dL Low Bilirubin, Total 0.1 LAB ALKP 34-123 U/L Alkaline Phosphatase 87 LAB AST 13-35 U/L AST 27 LAB GLU 74-99 mg/dL Glucose High 115 Result Comment: The [place] [employer] (ADA) provides guidance for cutoff values for fasting glucose and random glucose. The ADA defines fasting as no caloric intake for at least 8 hours. Fas ting plasma glucose results between 100 to 125 mg/dL indicate increased risk for diabetes (prediabetes). Fasting plasma glucose results greater than or equal to 126 mg/dL meet the criteria for diagnosis of diabetes. In the absence of unequivocal hyperglycemia, results should be confirmed by repeat testing. In a patient with classic symptoms of hyperglycemia or hyperglycemic crisis, random plasma glucose results greater than or equal to 200 mg/dL meet the criteria for diagnosis of diabetes. Reference: Standards of Medical Care in Diabetes 2016, [place] [employer]. Diabetes Care. 2016.39(Suppl 1). LAB BUN 7-21 mg/dL BUN 7 LAB CRET 0.58-0.96 mg/dL Creatinine 0.61 LAB NA 136-144 mmol/L Sodium 142 LAB K 3.7-5.1 mmol/L Potassium 4.2 LAB CL 97-105 mmol/L Chloride High 108 LAB CO2 22-30 mmol/L CO2 25 LAB AGAP 9-18 mmol/L Anion Gap 9 LAB ALT 7-38 U/L ALT 12 LAB GFRAA eGFR- Amer. >60 LAB GFRNAA . eGFR-All Other Races >60 Result Comment: eGFR (Estimated GFR) Units of measure: mL/min/1.73 meters squared eGFR is derived from the reexpressed MDRD Study equation using the following parameters: serum creatinine, age, gender and race. The creatinine assay has been calibrated to be traceable to IDMS. An eGFR <60 mL/min/1.73m2 for >3 months is consistent with chronic kidney disease. Refer to KDOQI guidelines for clinical interpretation. In patients with unstable renal function, e.g. those with acute kidney injury, the eGFR may not accurately reflect actual GFR. Performed By: #### CBC, CMP #### [facility] [address] [phone] CONSULT PROG Observed: 05/07/2018 Status: COMPLETED Source: [place] 12:38 PM CLINIC OTHER CAMPUS REPOSITORY HNO ID: [id number] Author: Jamar Tyson MD Service: Infectious Disease Author Type: Physician Type: Consult Progress Note Filed: 05/07/2018 12:40 PM Note Text: INFECTIOUS DISEASE PROGRESS NOTE Patient Name: Paulina Finn INTERVAL HISTORY: Status post IANDD yesterday. Cultures w GPCs. No fevers. ROS checked in details. All qs answered. Patient Active Hospital Problem List: Sepsis (HCC) (05/05/2018) Cutaneous abscess of back excluding buttocks (05/06/2018) Nicotine use disorder, F17.2 (05/07/2018) ASSESSMENT: Sepsis Cutaneous abscess of back excluding buttocks Nicotine use disorder HTN HLD OA ? PLAN: Vancomycin Vanco T and adjust as needed Follow cultures Packing and dressing changes per surgery MEDICATIONS: reviewed. Current hospital medications: HYDROmorphone HCl 1 mg injection (DILAUDID) 1 mg INTRAVENOUS q 3 H PRN prochlorperazine 10 mg injection (COMPAZINE) 10 mg INTRAVENOUS q 6 H PRN ondansetron orally disintegrating 4 mg tab(s) (ZOFRAN ODT) 4 mg ORAL q 6 H PRN ondansetron (PF) 4 mg injection (ZOFRAN) 4 mg INTRAVENOUS q 6 H PRN simvastatin 40 mg tab(s) (ZOCOR) 40 mg ORAL AT BEDTIME lisinopril 40 mg tab(s) (ZESTRIL, PRINIVIL) 40 mg ORAL AT BEDTIME metoprolol tartrate (short acting) 50 mg tab(s) (LOPRESSOR) 50 mg ORAL DAILY sertraline 200 mg tab(s) (ZOLOFT) 200 mg ORAL DAILY NaCl 0.9% iv infusion 100 mL/hr INTRAVENOUS CONTINUOUS acetaminophen 650 mg tab(s) (TYLENOL) 650 mg ORAL q 6 H PRN ketorolac 15 mg injection (TORADOL) 15 mg INTRAVENOUS q 6 H PRN linezolid in dextrose 5% 600 mg PREMIX piggyback (ZYVOX) 600 mg INTRAVENOUS q 12 H nicotine 14 mg/24 hr 1 Patch (NICODERM) 1 Patch TRANSDERMAL DAILY nicotine -- REMOVE patch OTHER DAILY nicotine - verify patch OTHER q 8 H PHYSICAL EXAM: Vital signs: BP 149/97 Pulse 66 Temp 36.4 ?C (97.6 ?F) Resp 18 Ht 160 cm (5' 3) Wt 54.4 kg (120 lb) SpO2 96% BMI 21.26 kg/m? Temp (24hrs), Av.7 ?C (98.1 ?F), Min:36.2 ?C (97.2 ?F), Max:37 ?C (98.6 ?F) General: alert, oriented, NAD Lungs: bilaterally clear to auscultation Heart: regular rate and rhythm Abdomen: soft, non tender, non distended, BS+ Extremities: no edema No rashes Back abscess No joint inflammation Neck supple Lines ok No CVAT Labs: Recent Labs 05/07/18 0442 05/06/18 0503 05/05/18 1815 WBC 8.70 13.75* 20.26* HB 10.4* 11.5 13.8 HCT 33.0* 35.5* 42.1 PLT 339 346 396 INR -- -- 1.0 NA 139 140 133* K 4.1 3.5* 4.2 CHLOR 106* 102 93* CO2 24 26 27 BUN 9 13 11 CREAT 0.62 0.71 0.56* Microbiology data: reviewed Imaging data: reviewed Jamar Tyson MD Pager: Date of service: 05/07/2018 Time of service: 12:39 PM This note is not final until Authenticated by responsible provider. PROGRESS Observed: 05/07/2018 Status: COMPLETED Source: [place] 12:09 PM CLINIC OTHER CAMPUS REPOSITORY HNO ID: [id number] Author: Theo Tyson Service: General Internal Medicine Author Type: Physician Type: Progress Notes Filed: 05/07/2018 12:11 PM Note Text: INTERNAL MEDICINE PROGRESS NOTE ADMITTING PHYSICIAN: Theo Tyson Subjective CHIEF COMPLAINT: s/p I and D in OR Pain is better No fever Current Facility-Administered Medications: HYDROmorphone HCl 1 mg injection (DILAUDID) 1 mg INTRAVENOUS q 3 H PRN prochlorperazine 10 mg injection (COMPAZINE) 10 mg INTRAVENOUS q 6 H PRN ondansetron orally disintegrating 4 mg tab(s) (ZOFRAN ODT) 4 mg ORAL q 6 H PRN Or ondansetron (PF) 4 mg injection (ZOFRAN) 4 mg INTRAVENOUS q 6 H PRN simvastatin 40 mg tab(s) (ZOCOR) 40 mg ORAL AT BEDTIME lisinopril 40 mg tab(s) (ZESTRIL, PRINIVIL) 40 mg ORAL AT BEDTIME metoprolol tartrate (short acting) 50 mg tab(s) (LOPRESSOR) 50 mg ORAL DAILY sertraline 200 mg tab(s) (ZOLOFT) 200 mg ORAL DAILY NaCl 0.9% iv infusion 100 mL/hr INTRAVENOUS CONTINUOUS acetaminophen 650 mg tab(s) (TYLENOL) 650 mg ORAL q 6 H PRN ketorolac 15 mg injection (TORADOL) 15 mg INTRAVENOUS q 6 H PRN linezolid in dextrose 5% 600 mg PREMIX piggyback (ZYVOX) 600 mg INTRAVENOUS q 12 H nicotine 14 mg/24 hr 1 Patch (NICODERM) 1 Patch TRANSDERMAL DAILY And nicotine -- REMOVE patch OTHER DAILY And nicotine - verify patch OTHER q 8 H Objective PHYSICAL EXAM: BP 149/97 Pulse 66 Temp 36.4 ?C (97.6 ?F) Resp 18 Ht 160 cm (5' 3) Wt 54.4 kg (120 lb) SpO2 96% BMI 21.26 kg/m? GENERAL: Alert, Mild Distress, Cooperative BACK: Back abscess is draining s/p I and D LUNGS: Lungs clear to auscultation. Good diaphragmatic excursion. CARDIAC: Normal S1 and S2; no rubs, murmurs, or gallops ABDOMEN: Abdomen soft, non-tender, BS normal, No masses or organomegaly EXTREMITIES: Extremities normal, no deformities, edema, clubbing or skin discoloration. Good capillary refill., No ulcers DATA: Diagnostic tests reviewed for today's visit: Most recent labs Assessment/Plan Active Problems: Sepsis (HCC) POA Cutaneous abscess of back s/p I and D HTN Anxiety Nicotine use disorder ? PLAN: Await cultures IV antibiotics, fluids Pain control ID and surgical consult appreciated Resume home meds Nicotine patch Medication and Non-Pharmacologic VTE Prophylaxis/Anticoagulants 05/06/181999 vte pharmacologic prophylaxis contraindicated ([place]) 05/06/181999 pneumatic compression stockings ([place] 05/06/181999 activity - mobilize patient ([place]) 05/05/182144 pneumatic compression stockings ([place]) 05/05/182144 activity - mobilize patient ([place]) VTE Prophylaxis: VTE prophylaxis appropriate SIGNATURE: Theo Tyson MD PATIENT NAME: Paulina Finn CASE MANAGEM Observed: 05/07/2018 Status: COMPLETED Source: [place] 10:45 AM [facility] OTHER CAMPUS REPOSITORY HNO ID: [id number] Author: Whitney Anton RN Service: Case Management Author Type: Registered Nurse Type: Care Mgt Progress Note Filed: 05/07/2018 2:15 PM Note Text: CARE MANAGEMENT PROGRESS NOTE SERVICE DATE: 05/07/2018 SERVICE TIME: 10:46 AM LOS: 2 days FREEDOM OF CHOICE GIVEN: Yes 05/08/2018 Financial Disclosure Provided The patient and/or family has been given the Provider List: Yes Provider List: Home Care Preference: [facility] or [facility] Needs Prior to Discharge: To Be Determined;Home Care Order;Other: See Comment (Medical Clearance) EMR reviewed. Anticipate [facility] for wound care/dressing changes. RN CM met with patient at bedside to discuss discharge plans. Patient is agreeable to [facility] and requests a referral to [facility] as she has used them in the past or [facility]. Patient indicates that she has someone available to learn how to do dressing changes. Discharge antibiotic needs to be determined. ID consult and would cultures are pending. CM assigned will continue to follow. 1230-[facility] cannot accept. [facility] would need a [facility] Physician to follow for which patient's PCP is not. Patient is agreeable to a referral to [facility]. [facility] can accept patient when medically ready for d/c. Awaitng final ID recommendations. SIGNATURE: Whitney Anton RN PATIENT NAME: Paulina Finn DATE: May 07, 2018 TIME: 10:45 AM PAGER/CONTACT #: [phone] CONSULT PROG Observed: 05/07/2018 Status: COMPLETED Source: [place] 9:55 AM [facility] OTHER CAMPUS REPOSITORY HNO ID: [id number] Author: Shayy Miller Service: General Surgery Author Type: Nurse Practitioner Type: Consult Progress Note Filed: 05/07/2018 10:03 AM Note Text: INPATIENT PROGRESS NOTE SERVICE DATE: 05/07/2018 SERVICE TIME: 9:55 AM INTERVAL HPI: POD #1 from IANDD of a right back abscess, Dr. Panchal in to change dressing. Wound is approximately 3 x 4 cm and 0.5 - 1 cm deep. Skin edges are rolled, base of wound is pink with some yellow tissue. Surrounding induration and errythema remains 4-5 cm out from wound. She reports less pain. Drainage was bloody. Wet to dry dressing which needs to be done twice daily for at least one week. Discussed home care with case management. WBC 8.70 Assessment/Plan Active Problems: Sepsis (HCC) POA: Yes Assessment AND Plan: BID dressing changes, okay for discharge when home care is arranged. Pain medications and antibiotics per primary for home going. Cutaneous abscess of back excluding buttocks POA: Yes Assessment AND Plan: as above Nicotine use disorder, F17.2 POA: Unknown Assessment AND Plan: per primary Resolved Problems: * No resolved hospital problems. * Current hospital medications: HYDROmorphone HCl 1 mg injection (DILAUDID) 1 mg INTRAVENOUS q 3 H PRN prochlorperazine 10 mg injection (COMPAZINE) 10 mg INTRAVENOUS q 6 H PRN ondansetron orally disintegrating 4 mg tab(s) (ZOFRAN ODT) 4 mg ORAL q 6 H PRN ondansetron (PF) 4 mg injection (ZOFRAN) 4 mg INTRAVENOUS q 6 H PRN simvastatin 40 mg tab(s) (ZOCOR) 40 mg ORAL AT BEDTIME lisinopril 40 mg tab(s) (ZESTRIL, PRINIVIL) 40 mg ORAL AT BEDTIME metoprolol tartrate (short acting) 50 mg tab(s) (LOPRESSOR) 50 mg ORAL DAILY sertraline 200 mg tab(s) (ZOLOFT) 200 mg ORAL DAILY NaCl 0.9% iv infusion 100 mL/hr INTRAVENOUS CONTINUOUS acetaminophen 650 mg tab(s) (TYLENOL) 650 mg ORAL q 6 H PRN ketorolac 15 mg injection (TORADOL) 15 mg INTRAVENOUS q 6 H PRN linezolid in dextrose 5% 600 mg PREMIX piggyback (ZYVOX) 600 mg INTRAVENOUS q 12 H nicotine 14 mg/24 hr 1 Patch (NICODERM) 1 Patch TRANSDERMAL DAILY nicotine -- REMOVE patch OTHER DAILY nicotine - verify patch OTHER q 8 H Objective PHYSICAL EXAM: BP 154/84 Pulse 72 Temp (Src) 98.6 (Oral) Resp 18 Ht 5' 3 (1.60m) Wt 120 lb (54.4kg) SpO2 96% BMI 21.26 kg/(m2). GENERAL: Alert, no distress, cooperative SKIN: See HPI LUNGS: Lungs clear to auscultation, Good diaphragmatic excursion CARDIAC: Normal S1 and S2; no rubs, murmurs, or gallops WOUND: Wound edges not approximated, Drainage serosanguinous, Erythema DATA: Diagnostic tests reviewed for today's visit: Most recent labs and imaging results. SIGNATURE: Shayy Miller APRN.CNP PATIENT NAME: Paulina Finn DATE: May 07, 2018 TIME: 9:55 AM PAGER: [phone] CBC Collected: 05/07/2018 Status: F Source: [place] 4:42 AM [facility] REPOSITORY TYPE CODE TESTS RESULT OUT OF REFERENCE UNITS RANGE LAB WBC 3.70-11.00 k/uL WBC 8.70 LAB RBC 3.90-5.20 m/uL Low RBC 3.60 LAB HGB 11.5-15.5 g/dL Low Hemoglobin 10.4 LAB HCT 36.0-46.0 % Low Hematocrit 33.0 LAB MCV 80.0-100.0 fL MCV 91.7 LAB MCH 26.0-34.0 pG MCH 28.9 LAB MCHC 30.5-36.0 g/dL MCHC 31.5 LAB RDWCV 11.5-15.0 % RDW-CV 13.6 LAB PLTCT 150-400 k/uL Platelet Count 339 LAB MPV 9.0-12.7 fL Low MPV 8.8 Performed By: #### CBC, CMP #### [facility] [address] [place] [address] COMP METABOLIC PANEL Collected: 05/07/2018 Status: F Source: [place] 4:42 AM [facility] REPOSITORY TYPE CODE TESTS RESULT OUT OF REFERENCE UNITS RANGE LAB TP 6.3-8.0 g/dL Low Protein, Total 5.2 LAB ALB 3.9-4.9 g/dL Low Albumin 2.8 LAB CA 8.5-10.2 mg/dL Low Calcium, Total 8.1 LAB TBIL 0.2-1.3 mg/dL Low Bilirubin, Total <0.1 LAB ALKP 34-123 U/L Alkaline Phosphatase 85 LAB AST 13-35 U/L AST 24 LAB GLU 74-99 mg/dL Glucose High 140 Result Comment: The [place] [employer] (ADA) provides guidance for cutoff values for fasting glucose and random glucose. The ADA defines fasting as no caloric intake for at least 8 hours. Fas ting plasma glucose results between 100 to 125 mg/dL indicate increased risk for diabetes (prediabetes). Fasting plasma glucose results greater than or equal to 126 mg/dL meet the criteria for diagnosis of diabetes. In the absence of unequivocal hyperglycemia, results should be confirmed by repeat testing. In a patient with classic symptoms of hyperglycemia or hyperglycemic crisis, random plasma glucose results greater than or equal to 200 mg/dL meet the criteria for diagnosis of diabetes. Reference: Standards of Medical Care in Diabetes 2016, [place] [employer]. Diabetes Care. 2016.39(Suppl 1). LAB BUN 7-21 mg/dL BUN 9 LAB CRET 0.58-0.96 mg/dL Creatinine 0.62 LAB NA 136-144 mmol/L Sodium 139 LAB K 3.7-5.1 mmol/L Potassium 4.1 LAB CL 97-105 mmol/L Chloride High 106 LAB CO2 22-30 mmol/L CO2 24 LAB AGAP 9-18 mmol/L Anion Gap 9 LAB ALT 7-38 U/L ALT 12 LAB GFRAA eGFR- Amer. >60 LAB GFRNAA . eGFR-All Other Races >60 Result Comment: eGFR (Estimated GFR) Units of measure: mL/min/1.73 meters squared eGFR is derived from the reexpressed MDRD Study equation using the following parameters: serum creatinine, age, gender and race. The creatinine assay has been calibrated to be traceable to IDMS. An eGFR <60 mL/min/1.73m2 for >3 months is consistent with chronic kidney disease. Refer to KDOQI guidelines for clinical interpretation. In patients with unstable renal function, e.g. those with acute kidney injury, the eGFR may not accurately reflect actual GFR. Performed By: #### CBC, CMP #### [facility] [address] [place] [address] ANES POST Observed: 05/06/2018 Status: COMPLETED Source: [place] 5:57 PM [facility] REPOSITORY HNO ID: [id number] Author: Jason Garcia Service: Anesthesiology Author Type: Anesthesiologist Type: Anesthesia PostOp Filed: 05/06/2018 5:58 PM Note Text: POST ANESTHESIA EVALUATION NOTE SERVICE DATE: 05/06/2018 SERVICE TIME: 5:57 PM : 1965 Vitals: 05/06/18 0723 05/06/18 1136 05/06/18 1429 05/06/18 1718 Temp: 36.7 ?C (98.1 ?F) 36.8 ?C (98.2 ?F) 36.9 ?C (98.4 ?F) 36.2 ?C (97.2 ?F) 05/06/18 1429 05/06/18 1718 05/06/18 1730 05/06/18 1745 BP: 145/90 96/56 119/71 109/71 05/06/18 1429 05/06/18 1718 05/06/18 1730 05/06/18 1745 Pulse: 88 78 76 72 05/06/18 1530 05/06/18 1718 05/06/18 1730 05/06/18 1745 Resp: 16 16 16 16 05/06/18 1429 05/06/18 1718 05/06/18 1730 05/06/18 1745 SpO2: 100% 94% 99% 95% Validated Vital Signs: Yes POST ANES STATUS: No apparent anesthetic complications. The patient is appropriately hydrated with stable respiratory and cardiovascular status. Patient has safe and adequate airway control. The patient has appropriate pain relief and no significant post operative nausea or vomiting. The patient has achieved baseline mental status. Further assessment by Anesthesia Service: None Other Remarks: SIGNATURE: Jason Garcia MD PATIENT NAME: Paulina Finn DATE: May 06, 2018 TIME: 5:57 PM PAGER/CONTACT #: [phone] BRIEF OP NOT Observed: 05/06/2018 Status: COMPLETED Source: [place] 5:18 PM [facility] REPOSITORY HNO ID: [id number] Author: Ty Panchal Service: General Surgery Author Type: Physician Type: Brief Op Note Filed: 05/06/2018 5:19 PM Note Text: BRIEF OPERATIVE / PROCEDURE NOTE LOG ID: [id number] SURGERY/PROCEDURE DATE: 05/06/2018 INCISION/PROCEDURE START TIME: 5:03 PM INCISION CLOSE/PROCEDURE END TIME: 5:13 PM SURGEON(S)/PROCEDURALIST(S) AND DEAF/HARD OF HEARING SPECIALIST(S): Surgeon(s) and Role: * Ty Panchal - Primary No Additional Staff SURGERY/PROCEDURE(S): Incision and drainage right back carbuncle ANESTHESIA: General FINDINGS: deep SQ carbuncle ESTIMATED BLOOD LOSS: under 10 mls SPECIMENS: debrided tissue COMPLICATIONS: None PRE-OP/PRE-PROCEDURE DIAGNOSIS: same POST-OP/POST-PROCEDURE DIAGNOSIS: Back abscess SIGNATURE: Ty Panchal MD PATIENT NAME: Paulina Finn DATE: May 06, 2018 TIME: 5:18 PM PAGER/CONTACT #: SURGICAL PATHOLOGY Observed: 05/06/2018 Status: F Source: [place] 5:15 PM [facility] OTHER CAMPUS REPOSITORY Specimen originated from [facility] Specimen #: [id number] Submitting Physician: Ty Panchal M.D. FINAL DIAGNOSIS Soft tissue, right upper back, excision - Soft tissue with extensive necrosis and abscess formation. BPR/kmr 05/11/18 Benny Thornton M.D., PhD (Electronic Signature) SPECIMEN SUBMITTED A: RIGHT UPPER BACK ABSCESS CLINICAL DATA BACK ABSCESS, LMP: N/A GROSS DESCRIPTION A. Received in formalin labeled as right upper back abscess is a piece of redding-white friable soft tissue measuring 2.5 x 2.2 x 1.7 cm. Sectioning reveals a redding-white cut surface. Opener [employer] cross sections are submitted in one cassette. CARLEEN/wilda 05/07/2018 Gross examination performed at [facility], [address] [place] [address] Date of Report: 05/11/2018 Date of Procedure: 05/06/2018 Date of Receipt: 05/07/2018 Submitted by: Ty Panchal M.D. Location: 2 S Diagnostic interpretation performed at [facility], [address] [place] [address]. Performed By: #### PATHS #### [employer] [address] [place] [address] [phone] ANES PREOP Observed: 05/06/2018 Status: COMPLETED Source: [place] 4:32 PM [facility] OTHER CAMPUS REPOSITORY HNO ID: [id number] Author: Jason Garcia Service: Anesthesiology Author Type: Anesthesiologist Type: Anesthesia PreOp Filed: 05/06/2018 4:32 PM Note Text: ANESTHESIOLOGY DAY OF SURGERY NOTE SERVICE DATE: 05/06/2018 SERVICE TIME: 4:32 PM : 1965 Procedure(s) (LRB): INCISION AND DRAINAGE ABSCESS BACK SIMPLE OR SINGLE (N/A) Surgeon(s): Ty Panchal Estimated body mass index is 21.26 kg/m? as calculated from the following: Height as of this encounter: 160 cm (5' 3). Weight as of this encounter: 54.4 kg (120 lb). Most recent hematocrit and potassium results: Hematocrit 35.5 05/06/2018 Potassium 3.5 05/06/2018 ANES DOS/PREOP NOTE: Vitals: 05/06/18 1136 05/06/18 1200 05/06/18 1429 05/06/18 1530 BP: 121/77 145/90 Pulse: 76 88 Resp: Temp: 36.8 ?C (98.2 ?F) 36.9 ?C (98.4 ?F) TempSrc: Oral Oral SpO2: 99% 100% Weight: Height: ACTIVE PROBLEM LIST Rsd Lower Limb Lumbar Spondylosis Ddd (Degenerative Disc Disease), Lumbar Htn (Hypertension) Dyslipidemia, Goal to Be Determined Anxiety Mood Swings Arthritis of Left Knee Post-Operative State Sepsis (Hcc) Cutaneous Abscess of Back Excluding Buttocks PAST MEDICAL HISTORY Diagnosis Date - Anxiety - Arthritis of left knee 09/04/2017 - Dyslipidemia, goal to be determined - HTN (hypertension) - Mood swings (HCC) - Osteoarthritis PAST SURGICAL HISTORY Procedure Laterality Date - CARPAL TUNNEL - KNEE SCOPE,FULL SYNOVECT Left - PART. HYSTERECTOMY W/WO RMVL OVARIES/TUBES - REMOVE TONSILS/ADENOIDS,<12 Y/O - TOTAL KNEE REPLACEMENT Right 2008 FAMILY HISTORY Problem Relation Age of Onset - Lipids Mother - Arthritis Mother - other (htn) Mother - None Father Social History: Social History Substance Use Topics - Smoking status: Current Every Day Smoker Packs/day: 1.00 Years: 11.00 Types: Cigarettes Start date: 06/09/2005 - Smokeless tobacco: Never Used Comment: patient is trying to quit - down to 7 cigarettes per day - Alcohol use No No current facility-administered medications on file prior to encounter. Current Outpatient Prescriptions on File Prior to Encounter: sertraline (ZOLOFT) 100 mg tablet Take 200 mg by mouth once daily. metoprolol tartrate, short acting, (LOPRESSOR) 50 mg tablet Take 50 mg by mouth once daily. Current Facility-Administered Medications: [MAR Hold due to Transfer] morphine 4 mg injection 4 mg INTRAVENOUS q 3 H PRN Ty Panchal [MAR Hold due to Transfer] morphine 8 mg injection 8 mg INTRAVENOUS q 3 H PRN Ty Panchal [MAR Hold due to Transfer] HYDROmorphone HCl 1 mg injection (DILAUDID) 1 mg INTRAVENOUS q 3 H PRN Theo Marbella 1 mg at 05/06/18 1436 [MAR Hold due to Transfer] prochlorperazine 10 mg injection (COMPAZINE) 10 mg INTRAVENOUS q 6 H PRN Theo Marbella 10 mg at 05/06/18 1437 [MAR Hold due to Transfer] ondansetron orally disintegrating 4 mg tab(s) (ZOFRAN ODT) 4 mg ORAL q 6 H PRN Theo Marbella Or [MAR Hold due to Transfer] ondansetron (PF) 4 mg injection (ZOFRAN) 4 mg INTRAVENOUS q 6 H PRN Theo Marbella [MAR Hold due to Transfer] influenza vaccine 60 mcg (Patients 3 to 64 years) (PF) (FLUZONE 2018-) 0.5 mL INTRAMUSCULAR ONCE (IMMUNIZATION) Theo Tyson [MAR Hold due to Transfer] simvastatin 40 mg tab(s) (ZOCOR) 40 mg ORAL AT BEDTIME Theo Marbella 40 mg at 05/05/182232 [MAR Hold due to Transfer] lisinopril 40 mg tab(s) (ZESTRIL, PRINIVIL) 40 mg ORAL AT BEDTIME Theo Marbella 40 mg at 05/05/182232 [MAR Hold due to Transfer] metoprolol tartrate (short acting) 50 mg tab(s) (LOPRESSOR) 50 mg ORAL DAILY Theo Marbella 50 mg at 05/06/1843 [AUG Hold due to Transfer] sertraline 200 mg tab(s) (ZOLOFT) 200 mg ORAL DAILY Theo Marbella 200 mg at 05/06/18 0943 [AUG Hold due to Transfer] NaCl 0.9% iv infusion 100 mL/hr INTRAVENOUS CONTINUOUS Theo Marbella Last Rate: 100 mL/hr at 05/06/18 1107 100 mL/hr at 05/06/18 1107 [AUG Hold due to Transfer] acetaminophen 650 mg tab(s) (TYLENOL) 650 mg ORAL q 6 H PRN Theo Marbella [MAR Hold due to Transfer] ketorolac 15 mg injection (TORADOL) 15 mg INTRAVENOUS q 6 H PRN Theo Marbella 15 mg at 05/05/182238 [MAR Hold due to Transfer] linezolid in dextrose 5% 600 mg PREMIX piggyback (ZYVOX) 600 mg INTRAVENOUS q 12 H Theo Marbella Last Rate: 300 mL/hr at 05/06/18 0944 600 mg at 05/06/18 0944 [MAR Hold due to Transfer] nicotine 14 mg/24 hr 1 Patch (NICODERM) 1 Patch TRANSDERMAL DAILY Theo Marbella 1 Patch at 05/06/18 0945 And [AUG Hold due to Transfer] nicotine -- REMOVE patch OTHER DAILY Theo Marbella And [MAR Hold due to Transfer] nicotine - verify patch OTHER q 8 H Theo Marbella Allergies: ALLERGIES Allergen Reactions - Omnicef [Cefdinir] Hives - Penicillins Hives - Vancomycin Hives - Zithromax [Azithrom* Hives - Cortisone Intolerance INCREASE IN BP FOR SEVERAL WEEKS. DOS EXAM: Adequate NPO status: Yes Anesthetic risks, benefits, alternatives, personnel and consent discussed: Yes Patient agrees to proceed: Yes Previous Anesthesia: No history of adverse event. Airway Assessment: MP 2; Neck ROM: Full ROM without neurologic symptoms; Airway Evaluation: No significant abnormalities Symptoms of Sleep Apnea: None Dentition: Teeth intact Additional Physical Exam: Lungs: Patient health status unchanged since recent history and physical. See history and physical for exam findings. Cardiac: Patient health status unchanged since recent history and physical. See history and physical for exam findings. Additional Pertinent Findings: N/A Blood Products: Not anticipated for this procedure. Anesthetic Plan: General, Standard ASA Monitors Pain Management Plan: Parenteral or Oral ASA Class: 2 Other Medical Problems: None I have interviewed and examined the patient. I have reviewed the medical record and/or the pre-anesthesia evaluation, pertinent labs, and test results. Significant changes in the patient's condition since the History and Physical, not otherwise documented in primary service progress notes: No This contains updated information obtained within 48 hours of Surgery/Procedure. SIGNATURE: Jason Garcia MD PATIENT NAME: Paulina Finn DATE: May 06, 2018 TIME: 4:32 PM CSN: [id number] NURSING PROG Observed: 05/06/2018 Status: COMPLETED Source: [place] 4:04 PM [facility] OTHER CAMPUS REPOSITORY O ID: [id number] Author: Mary Bryant (Rosita) ROSITA Mckay Service: (none) Author Type: Registered Nurse Type: Nursing Progress Note Filed: 05/06/2018 4:07 PM Note Text: Nursing Progress Note Patient Name: Paulina Finn Patient Location: [place] [id number] Daily Note: 1400 Patient scheduled for surgery at 1700 Hrs. Report given to ROSITA Markham who stated pt. Would be transported in approximately 20 min. Or so. Patient is assisted up to bathroom before transport comes. This note was completed by: Mary Mckay RN Observed: 05/06/2018 Status: F Source: [place] TISSUE CULT / STAIN 4:00 PM [facility] OTHER [place] REPOSITORY Sp. Request/Comment: - Specimen received in sterile container. Smear Result - Rare Gram positive cocci --> ABNORMAL ALERT Moderate Polymorphonuclear leukocytes (NOTE) Positive result called to and read back by:Elicia YAO [address] 05/07/2018 Valerie Shields Culture Result - Few Methicillin resistant Staphylococcus aureus --> ABNORMAL ALERT ORGANISM: Methicillin resistant Staphylococcus aureus METHOD: Minimum inhibitory concentration(Vitek) Antibiotic Interp PAULIE Status Erythromycin RESISTANT >=8 F Clindamycin SUSCEPTIBLE 0.25 F Testing for inducible clindamycin resistance was performed. Tetracycline SUSCEPTIBLE <=1 F Vancomycin SUSCEPTIBLE 1 F Oxacillin RESISTANT >=4 F Oxacillin resistant staphylococci are resistant to all beta lactam antibiotics (except new cephalosporins with anti MRSA activity). Trimeth sulfameth SUSCEPTIBLE <=10 F Gentamicin SUSCEPTIBLE <=0.5 F Rifampin SUSCEPTIBLE <=0.5 F Rifampin should not be used alone for antimicrobial therapy. Daptomycin SUSCEPTIBLE 0.25 F Linezolid SUSCEPTIBLE 2 F Doxycycline SUSCEPTIBLE <=0.5 F Performed By: #### TISCUL #### [facility] [address] [place] [address] Observed: 05/06/2018 Status: F Source: [place] ANAEROBE CULTURE 4:00 PM [facility] REPOSITORY Sp. Request/Comment: - Specimen received in sterile container. Culture Result - Negative for anaerobes. Performed By: #### ANACUL #### [facility] [address] [place] [address] NURSING PROG Observed: 05/06/2018 Status: COMPLETED Source: [place] 2:16 PM [facility] REPOSITORY O ID: [id number] Author: Mary Bryant (Rn) ROSITA Mckay Service: (none) Author Type: Registered Nurse Type: Nursing Progress Note Filed: 05/06/2018 2:19 PM Note Text: Nursing Progress Note Patient Name: Paulina Finn Patient Location: [id number] Daily Note: 1415 Dr. Tyson called regarding pt. Nausea and pain. VORB for Dilaudid IV 1mg. 3 every hours PRN and Compazine 10mg Iv every 6 hr. PRN. Doctor thought changing pain medication may help pt. Order put in. This note was completed by: Mary Mckay RN CONSULT Observed: 05/06/2018 Status: COMPLETED Source: [place] 12:29 PM [facility] OTHER CAMPUS REPOSITORY HNO ID: [id number] Author: Jamar Tyson MD Service: Infectious Disease Author Type: Physician Type: Consults Filed: 05/07/2018 12:38 PM Note Text: ID CONSULT PRIMARY CARE PHYSICIAN: Melquiades Soto NP Subjective CHIEF COMPLAINT: Back abscess HPI: This is a 52 year old female who presents with HTN, OA, anxiety who presents with increasing painful swelling on the right upper back with some purulent drainage. She also has weakness and chills. She was prescribed PO Abx by PCP but this has continued to grow. She has not had recurrent problems w SSSI. PAST MEDICAL HISTORY Diagnosis Date - Anxiety - Arthritis of left knee 09/04/2017 - Dyslipidemia, goal to be determined - HTN (hypertension) - Mood swings (HCC) - Osteoarthritis PAST SURGICAL HISTORY Procedure Laterality Date - CARPAL TUNNEL - KNEE SCOPE,FULL SYNOVECT Left - PART. HYSTERECTOMY W/WO RMVL OVARIES/TUBES - REMOVE TONSILS/ADENOIDS,<12 Y/O - TOTAL KNEE REPLACEMENT Right 2007 FAMILY HISTORY Problem Relation Age of Onset - Lipids Mother - Arthritis Mother - other (htn) Mother - None Father Social History Substance Use Topics - Smoking status: Current Every Day Smoker Packs/day: 1.00 Years: 11.00 Types: Cigarettes Start date: 06/09/2005 - Smokeless tobacco: Never Used Comment: patient is trying to quit - down to 7 cigarettes per day - Alcohol use No Prescriptions Prior to Admission: hydroCHLOROthiazide (HYDRODIURIL, ESIDRIX) 25 mg tablet Take 25 mg by mouth once daily. Disp: Rfl: 05/04/2018 at 0800 lisinopril (ZESTRIL, PRINIVIL) 40 mg tablet Take 40 mg by mouth every evening. Disp: Rfl: 05/04/2018 at 2000 simvastatin (ZOCOR) 40 mg tablet Take 40 mg by mouth every evening. Disp: Rfl: 05/04/2018 at 2000 sertraline (ZOLOFT) 100 mg tablet Take 200 mg by mouth once daily. Disp: Rfl: 05/04/2018 at 0800 metoprolol tartrate, short acting, (LOPRESSOR) 50 mg tablet Take 50 mg by mouth once daily. Disp: Rfl: 05/04/2018 at 0800 ALLERGIES Allergen Reactions - Omnicef [Cefdinir] Hives - Penicillins Hives - Vancomycin Hives - Zithromax [Azithrom* Hives - Cortisone Intolerance INCREASE IN BP FOR SEVERAL WEEKS. COMPLETE REVIEW OF SYSTEMS: All systems reviewed and negative except as noted above. Objective PHYSICAL EXAM: Physical Exam Performed: Temp (24hrs), Av.7 ?C (98.1 ?F), Min:36.2 ?C (97.2 ?F), Max:37 ?C (98.6 ?F) GENERAL: Alert, Severe Distress, Cooperative SKIN: Skin color, texture, turgor normal. No rashes or lesions. HEAD/SINUSES: No significant findings EYES: PERRLA, EOMI EARS: External ears normal, canals clear NOSE: Nares normal. Septum midline. OROPHARYNX: Lips, mucosa, and tongue normal. Teeth and gums normal. Oropharynx normal. NECK: No jugulovenous distention, No carotid bruits, Carotid pulse normal contour, Supple BACK: Normal curvature, No CVAT., Positive findings: large fluctuant abscess on right upper back LUNGS: Lungs clear to auscultation, Good diaphragmatic excursion CARDIAC: Normal S1 and S2; no rubs, murmurs, or gallops ABDOMEN: Abdomen soft, non-tender, BS normal, No masses or organomegaly EXTREMITIES: Extremities normal, no deformities, edema, clubbing or skin discoloration. Good capillary refill., No ulcers NEURO: Gait normal. Reflexes normal and symmetric. Sensation grossly intact, Cranial nerves II-XII intact PULSES: 2+ radial, 2+ carotid BP 149/97 Pulse 66 Temp (Src) 97.6 (Oral) Resp 18 Ht 5' 3 (1.60m) Wt 120 lb (54.4kg) SpO2 96% BMI 21.26 kg/(m2). DATA: Diagnostic tests reviewed for today's visit: Reviewed Labs: Recent Labs 05/07/18 0442 05/06/18 0503 05/05/18 1815 WBC 8.70 13.75* 20.26* HB 10.4* 11.5 13.8 HCT 33.0* 35.5* 42.1 PLT 339 346 396 INR -- -- 1.0 NA 139 140 133* K 4.1 3.5* 4.2 CHLOR 106* 102 93* CO2 24 26 27 BUN 9 13 11 CREAT 0.62 0.71 0.56* Assessment/Plan Sepsis Cutaneous abscess of back excluding buttocks Nicotine use disorder HTN HLD OA PLAN: Vancomycin Vanco T and adjust as needed Follow cultures Packing and dressing changes per surgery SIGNATURE: Jamar Tyson MD PATIENT NAME: Paulina Finn DATE: May 06, 2018 TIME: 12:30 PM PAGER/CONTACT #: [phone] CASE MANAGEM Observed: 05/06/2018 Status: COMPLETED Source: [place] 10:20 AM [facility] OTHER [place] REPOSITORY HNO ID: [id number] Author: Whitney (Rn) ROSITA Anton Service: Case Management Author Type: Registered Nurse Type: Care Mgt Progress Note Filed: 05/06/2018 10:22 AM Note Text: CARE MANAGEMENT PROGRESS NOTE SERVICE DATE: 05/06/2018 SERVICE TIME: 10:20 AM LOS: 1 day Needs Prior to Discharge: To Be Determined;Home Care Order;IV Antibiotics;Other: See Comment (Medical Clearance) EMR reviewed. Patient admitted with Sepsis. Per General Surgery note, plan for OR for IANDD of back abscess. ID consult pending. Discharge needs to be determined. Possible HHC/Pharmacy. CM assigned will continue to follow. SIGNATURE: Whitney Anton RN PATIENT NAME: Paulina Finn DATE: May 06, 2018 TIME: 10:20 AM PAGER/CONTACT #: [phone] CONSULT Observed: 05/06/2018 Status: COMPLETED Source: [place] 9:30 AM [facility] OTHER CAMPUS REPOSITORY HNO ID: [id number] Author: Ty Panchal Service: General Surgery Author Type: Physician Type: Consults Filed: 05/06/2018 11:01 AM Note Text: CONSULT: General Surgery SERVICE SERVICE DATE: 05/06/2018 SERVICE TIME: 9:30 AM REASON FOR CONSULT: abscess to right upper back REQUESTING PHYSICIAN: Dr. Ayanna Tyson MD PRIMARY CARE PHYSICIAN: Melquiades Soto NP Subjective Ms. Finn is a 52 year old female who presents for a large abscess to her right upper back x 1 week. She states it started out as a pimple, to which she started applying peroxide to it but it continued to grow. She sought treatment at her PCP's office this past Friday when it began to weep, whom started her on a PO antibiotic regimen consisting of Flagyl and Bactrim. She was advised to go to the ED because her PCP felt the area required an IANDD. Patient states she has been taking the PO antibiotics as prescribed until she came to the hospital. Review of patients MAR indicates patient is now receiving Zyvox 600mg IV q12h. Assessment of area shows a large draining abscess to patients right upper back, with approximate measurements reading 9cm x 9cm. The central region is open and draining a moderate amount of serosanguinous discharge that is purulent. Area is negative for any foul odor. Surrounding tissue is edematous, erythematous, and positive for induration. Approximately 1.5cm- 2cm in circumference. A small area of fluctuance is noted at approximately 3 o' clock. WBC has a downward trend from initiation of IV ATB yesterday, going from 20.26 to 13.75 today. Wound culture does read positive for rare gram positive cocci without polymorphnuclear leukocytes. Blood cultures are negative for growth x 24 hours. Impression/Recommendations Active Problems: Sepsis (HCC) POA: Yes Assessment AND Plan: Continue IV ATB q12h per positive wound culture results. Area does require additional surgical intervention via IANDD to site, but patient is unwilling to have a bedside procedure completed. She is requesting to have it completed in the OR; Dr. Aragon has been notified. Patient placed NPO with instructions provided to patient. Nursing staff notified. Continue to dress area PRN with ABD, and admin PRN pain medication as prescribed. FUNCTIONAL STATUS: Independent PAST MEDICAL HISTORY Diagnosis Date - Anxiety - Arthritis of left knee 09/04/2017 - Dyslipidemia, goal to be determined - HTN (hypertension) - Mood swings (HCC) - Osteoarthritis PAST SURGICAL HISTORY Procedure Laterality Date - CARPAL TUNNEL - KNEE SCOPE,FULL SYNOVECT Left - PART. HYSTERECTOMY W/WO RMVL OVARIES/TUBES - REMOVE TONSILS/ADENOIDS,<12 Y/O - TOTAL KNEE REPLACEMENT Right 2007 FAMILY HISTORY Problem Relation Age of Onset - Lipids Mother - Arthritis Mother - other (htn) Mother - None Father Social History Substance Use Topics - Smoking status: Current Every Day Smoker Packs/day: 1.00 Years: 11.00 Types: Cigarettes Start date: 06/09/2005 - Smokeless tobacco: Never Used Comment: patient is trying to quit - down to 7 cigarettes per day - Alcohol use No Prescriptions Prior to Admission: hydroCHLOROthiazide (HYDRODIURIL, ESIDRIX) 25 mg tablet Take 25 mg by mouth once daily. Disp: Rfl: 05/04/2018 at 0800 lisinopril (ZESTRIL, PRINIVIL) 40 mg tablet Take 40 mg by mouth every evening. Disp: Rfl: 05/04/2018 at 1999 simvastatin (ZOCOR) 40 mg tablet Take 40 mg by mouth every evening. Disp: Rfl: 05/04/2018 at 1999 sertraline (ZOLOFT) 100 mg tablet Take 200 mg by mouth once daily. Disp: Rfl: 05/04/2018 at 0800 metoprolol tartrate, short acting, (LOPRESSOR) 50 mg tablet Take 50 mg by mouth once daily. Disp: Rfl: 05/04/2018 at 0800 Current hospital medications: influenza vaccine 60 mcg (Patients 3 to 64 years) (PF) (FLUZONE 2017-) 0.5 mL INTRAMUSCULAR ONCE (IMMUNIZATION) simvastatin 40 mg tab(s) (ZOCOR) 40 mg ORAL AT BEDTIME lisinopril 40 mg tab(s) (ZESTRIL, PRINIVIL) 40 mg ORAL AT BEDTIME metoprolol tartrate (short acting) 50 mg tab(s) (LOPRESSOR) 50 mg ORAL DAILY sertraline 200 mg tab(s) (ZOLOFT) 200 mg ORAL DAILY NaCl 0.9% iv infusion 100 mL/hr INTRAVENOUS CONTINUOUS ondansetron orally disintegrating 4 mg tab(s) (ZOFRAN ODT) 4 mg ORAL q 6 H PRN ondansetron (PF) 4 mg injection (ZOFRAN) 4 mg INTRAVENOUS q 6 H PRN acetaminophen 650 mg tab(s) (TYLENOL) 650 mg ORAL q 6 H PRN ketorolac 15 mg injection (TORADOL) 15 mg INTRAVENOUS q 6 H PRN linezolid in dextrose 5% 600 mg PREMIX piggyback (ZYVOX) 600 mg INTRAVENOUS q 12 H nicotine 14 mg/24 hr 1 Patch (NICODERM) 1 Patch TRANSDERMAL DAILY nicotine -- REMOVE patch OTHER DAILY nicotine - verify patch OTHER q 8 H morphine 2 mg injection 2 mg INTRAVENOUS q 3 H PRN Allergies As of Date: 05/05/2018 Allergen Noted Reaction OMNICEF [CEFDINIR] 12/15/2006 Hives PENICILLINS 12/15/2006 Hives VANCOMYCIN 12/15/2006 Hives ZITHROMAX [AZITHROMYCIN] 12/15/2006 Hives CORTISONE 12/15/2006 Intolerance Fully Assessed 05/05/2018 COMPLETE REVIEW OF SYSTEMS: PAIN ASSESSMENT: CURRENTLY HAVING PAIN; LOCATION/DISTRIBUTION: right upper back PAIN SCALE: 10 on 0-10 scale per patient PAIN CHARACTER: soreness, tenderness and throbbing GENERAL: No weight loss, malaise or fevers HEENT: Negative for frequent or significant headaches, No changes in hearing or vision, no nose bleeds or other nasal problems NECK: Negative for lumps, goiter, pain and significant neck swelling RESPIRATORY: Cough; dry, patient is a current everyday smoker CARDIOVASCULAR: Negative for chest pain, leg swelling, CHF or palpitations, Hypertension GI: No nausea, vomiting, or diarrhea : No history of dysuria, frequency or incontinence [id number] ARMOR CREWMAN: Not reviewed MUSCULOSKELETAL: Negative for joint pain or swelling, back pain or muscle pain SKIN: Positive for frequent acne with scarring PSYCH: Positive for mood swings HEMATOLOGY/LYMPHOLOGY: Negative for prolonged bleeding, bruising easily or swollen nodes ENDOCRINE: Negative for cold or heat intolerance, polyuria, polydipsia and goiter NEURO: No history of headaches, syncope, paralysis, seizures or tremors Objective PHYSICAL EXAM: GENERAL: Alert, Severe Distress, Cooperative SKIN: Positive findings: Erythema: back, Scar: back HEAD/SINUSES: No significant findings EYES: EOMI EARS: External ears normal, canals clear NOSE: Nares normal. Septum midline. OROPHARYNX: Lips, mucosa, and tongue normal. Teeth and gums normal. Oropharynx normal. NECK: No jugulovenous distention, No carotid bruits, Carotid pulse normal contour, Supple BACK: Back symmetric, Normal curvature, ROM normal, No CVAT. LUNGS: Positive findings: diminished breath sounds R mid posterior, R lower posterior, L mid posterior and L lower posterior CARDIAC: Normal S1 and S2; no rubs, murmurs, or gallops BREASTS: Symmetrical to inspection., No dimpling or skin changes., Normal consistency, no palpable masses., Normal nipples without discharge., No axillary lymphadenopathy., Exam deferred ABDOMEN: Soft, nontender EXTREMITIES: Extremities normal, no deformities, edema, clubbing or skin discoloration. Good capillary refill., No ulcers NEURO: Gait normal. Reflexes normal and symmetric. Sensation grossly intact, Cranial nerves II-XII intact PULSES: 2+ radial RECTAL: Exam deferred WOUND: Wound edges not approximated, Reddened, Drainage serosanguinous and purulent, Erythema, edema, non-odorous, 9cm x 9cm with induration 1.5cm-2cm circumference and fluctuance at 3 o'clock PRESSURE ULCERS: None Patient Vitals for the past 24 hrs: BP Temp Temp src Pulse Resp SpO2 Height Weight 05/06/18 0723 133/77 36.7 ?C (98.1 ?F) Oral 82 18 97 % - - 05/06/18 0446 128/80 37.2 ?C (99 ?F) Oral 78 20 99 % - - 05/05/18 2316 117/66 37.3 ?C (99.1 ?F) Oral 90 18 97 % - - 05/05/18 2105 114/67 36.7 ?C (98.1 ?F) Oral 88 18 95 % 160 cm (5' 3) 54.4 kg (120 lb) 05/05/18 1738 132/70 36.7 ?C (98.1 ?F) Oral (!) 120 18 97 % - 54.4 kg (120 lb) Body mass index is 21.26 kg/m?. DATA: Diagnostic tests reviewed for today's visit: Most recent labs and imaging results. Impression/Recommendations Active Problems: Sepsis (HCC) POA: Yes Assessment AND Plan: Continue IV ATB q12h per positive wound culture results. Area does require additional surgical intervention via IANDD to site, but patient is unwilling to have a bedside procedure completed. She is requesting to have it completed in the OR; Dr. Aragon has been notified. Patient placed NPO with instructions provided to patient. Nursing staff notified. Continue to dress area PRN with ABD, and admin PRN pain medication as prescribed. Resolved Problems: * No resolved hospital problems. * SIGNATURE: Sepideh Wharton Apn Student PATIENT NAME: Paulina Finn DATE: May 06, 2018 TIME: 9:30 AM PAGER: [phone] Attending Note I have personally performed a face to face assessment of the patient and have reviewed the DERREK note. My lamas findings include: Exam is significant for the large carbuncle as noted. Will proceed with operative IANDD this afternoon. Other additions or changes: As edited Signature: Ty Panchal MD Date: 05/06/2018 Time: 11:00 AM HISTORY PHYSICAL Observed: 05/06/2018 Status: COMPLETED Source: [place] 9:00 AM CLINIC OTHER CAMPUS REPOSITORY HNO ID: [id number] Author: Theo Tyson Service: General Internal Medicine Author Type: Physician Type: HANDP Filed: 05/07/2018 12:24 AM Note Text: HISTORY AND PHYSICAL EXAMINATION SERVICE DATE: 05/06/2018 SERVICE TIME: 9 AM PRIMARY CARE PHYSICIAN: Melquiades Soto NP Subjective CHIEF COMPLAINT: Abscess on upper back HPI: This is a 52 year old female with a PMH of HTN, OA, anxiety who presents with increasing painful swelling on the right upper back with some purulent drainage. She also has weakness and chills. She was prescribed PO Abx by PCP but this has continued to grow PAST MEDICAL HISTORY Diagnosis Date - Anxiety - Arthritis of left knee 09/04/2017 - Dyslipidemia, goal to be determined - HTN (hypertension) - Mood swings (HCC) - Osteoarthritis PAST SURGICAL HISTORY Procedure Laterality Date - CARPAL TUNNEL - KNEE SCOPE,FULL SYNOVECT Left - PART. HYSTERECTOMY W/WO RMVL OVARIES/TUBES - REMOVE TONSILS/ADENOIDS,<12 Y/O - TOTAL KNEE REPLACEMENT Right 2007 FAMILY HISTORY Problem Relation Age of Onset - Lipids Mother - Arthritis Mother - other (htn) Mother - None Father Social History Substance Use Topics - Smoking status: Current Every Day Smoker Packs/day: 1.00 Years: 11.00 Types: Cigarettes Start date: 06/09/2005 - Smokeless tobacco: Never Used Comment: patient is trying to quit - down to 7 cigarettes per day - Alcohol use No Prescriptions Prior to Admission: hydroCHLOROthiazide (HYDRODIURIL, ESIDRIX) 25 mg tablet Take 25 mg by mouth once daily. Disp: Rfl: 05/04/2018 at 0800 lisinopril (ZESTRIL, PRINIVIL) 40 mg tablet Take 40 mg by mouth every evening. Disp: Rfl: 05/04/2018 at 1999 simvastatin (ZOCOR) 40 mg tablet Take 40 mg by mouth every evening. Disp: Rfl: 05/04/2018 at 1999 sertraline (ZOLOFT) 100 mg tablet Take 200 mg by mouth once daily. Disp: Rfl: 05/04/2018 at 0800 metoprolol tartrate, short acting, (LOPRESSOR) 50 mg tablet Take 50 mg by mouth once daily. Disp: Rfl: 05/04/2018 at 0800 ALLERGIES Allergen Reactions - Omnicef [Cefdinir] Hives - Penicillins Hives - Vancomycin Hives - Zithromax [Azithrom* Hives - Cortisone Intolerance INCREASE IN BP FOR SEVERAL WEEKS. COMPLETE REVIEW OF SYSTEMS: All systems reviewed and negative except as noted above. Objective PHYSICAL EXAM: Physical Exam Performed: BP 135/79 Pulse 80 Temp (Src) 98.6 (Oral) Resp 18 Ht 5' 3 (1.60m) Wt 120 lb (54.4kg) SpO2 97% BMI 21.26 kg/(m2). GENERAL: Alert, Severe Distress, Cooperative SKIN: Skin color, texture, turgor normal. No rashes or lesions. HEAD/SINUSES: No significant findings EYES: PERRLA, EOMI EARS: External ears normal, canals clear NOSE: Nares normal. Septum midline. OROPHARYNX: Lips, mucosa, and tongue normal. Teeth and gums normal. Oropharynx normal. NECK: No jugulovenous distention, No carotid bruits, Carotid pulse normal contour, Supple BACK: Normal curvature, No CVAT., Positive findings: large fluctuant abscess on right upper back LUNGS: Lungs clear to auscultation, Good diaphragmatic excursion CARDIAC: Normal S1 and S2; no rubs, murmurs, or gallops ABDOMEN: Abdomen soft, non-tender, BS normal, No masses or organomegaly EXTREMITIES: Extremities normal, no deformities, edema, clubbing or skin discoloration. Good capillary refill., No ulcers NEURO: Gait normal. Reflexes normal and symmetric. Sensation grossly intact, Cranial nerves II-XII intact PULSES: 2+ radial, 2+ carotid DATA: Diagnostic tests reviewed for today's visit: Most recent labs Most recent imaging Assessment/Plan Active Problems: Sepsis (HCC) POA Cutaneous abscess of back HTN Anxiety Nicotine use disorder PLAN: IV antibiotics, fluids Pain control ID and surgical consult appreciated Resume home meds Nicotine patch Medication and Non-Pharmacologic VTE Prophylaxis/Anticoagulants 05/06/181999 vte pharmacologic prophylaxis contraindicated ([place], [place]) 05/06/181999 pneumatic compression stockings ([place] 05/06/181999 activity - mobilize patient ([place] 05/05/182144 pneumatic compression stockings ([place] 05/05/182144 activity - mobilize patient ([place]) VTE Prophylaxis: VTE prophylaxis appropriate SIGNATURE: Theo Tyson MD PATIENT NAME: Paulina Finn DATE: May 06, 2018 CBC Collected: 05/06/2018 Status: F Source: [place] 5:03 AM [facility] REPOSITORY TYPE CODE TESTS RESULT OUT OF REFERENCE UNITS RANGE LAB WBC 3.70-11.00 k/uL WBC High 13.75 LAB RBC 3.90-5.20 m/uL RBC 3.92 LAB HGB 11.5-15.5 g/dL Hemoglobin 11.5 LAB HCT 36.0-46.0 % Low Hematocrit 35.5 LAB MCV 80.0-100.0 fL MCV 90.6 LAB MCH 26.0-34.0 pG MCH 29.3 LAB MCHC 30.5-36.0 g/dL MCHC 32.4 LAB RDWCV 11.5-15.0 % RDW-CV 13.6 LAB PLTCT 150-400 k/uL Platelet Count 346 LAB MPV 9.0-12.7 fL Low MPV 8.8 Performed By: #### CBC, CMP #### [facility] [address] [place] [address] COMP METABOLIC PANEL Collected: 05/06/2018 Status: F Source: [place] 5:03 AM [facility] OTHER [place] REPOSITORY TYPE CODE TESTS RESULT OUT OF REFERENCE UNITS RANGE LAB TP 6.3-8.0 g/dL Low Protein, Total 5.7 LAB ALB 3.9-4.9 g/dL Low Albumin 3.1 LAB CA 8.5-10.2 mg/dL Low Calcium, Total 8.3 LAB TBIL 0.2-1.3 mg/dL Bilirubin, Total 0.2 LAB ALKP 34-123 U/L Alkaline High Phosphatase 128 LAB AST 13-35 U/L AST 31 LAB GLU 74-99 mg/dL Glucose 96 Result Comment: The [place] Diabetes [employer] (ADA) provides guidance for cutoff values for fasting glucose and random glucose. The ADA defines fasting as no caloric intake for at least 8 hours. Fas ting plasma glucose results between 100 to 125 mg/dL indicate increased risk for diabetes (prediabetes). Fasting plasma glucose results greater than or equal to 126 mg/dL meet the criteria for diagnosis of diabetes. In the absence of unequivocal hyperglycemia, results should be confirmed by repeat testing. In a patient with classic symptoms of hyperglycemia or hyperglycemic crisis, random plasma glucose results greater than or equal to 200 mg/dL meet the criteria for diagnosis of diabetes. Reference: Standards of Medical Care in Diabetes 2016, [place] Diabetes Association. Diabetes Care. 2016.39(Suppl 1). LAB BUN 7-21 mg/dL BUN 13 LAB CRET 0.58-0.96 mg/dL Creatinine 0.71 LAB NA 136-144 mmol/L Sodium 140 LAB K 3.7-5.1 mmol/L Potassium Low 3.5 LAB CL 97-105 mmol/L Chloride 102 LAB CO2 22-30 mmol/L CO2 26 LAB AGAP 9-18 mmol/L Anion Gap 12 LAB ALT 7-38 U/L ALT 17 LAB GFRAA eGFR- Amer. >60 LAB GFRNAA . eGFR-All Other Races >60 Result Comment: eGFR (Estimated GFR) Units of measure: mL/min/1.73 meters squared eGFR is derived from the reexpressed MDRD Study equation using the following parameters: serum creatinine, age, gender and race. The creatinine assay has been calibrated to be traceable to IDMS. An eGFR <60 mL/min/1.73m2 for >3 months is consistent with chronic kidney disease. Refer to KDOQI guidelines for clinical interpretation. In patients with unstable renal function, e.g. those with acute kidney injury, the eGFR may not accurately reflect actual GFR. Performed By: #### CBC, CMP #### [facility] [address] [place] [address] OPERATIVE NO Observed: 05/06/2018 Status: COMPLETED Source: [place] 12:00 AM CLINIC OTHER CAMPUS REPOSITORY O ID: [id number] Author: Ty Panchal Service: General Surgery Author Type: Physician Type: Operative Report Filed: 05/07/2018 6:35 AM Note Text: [facility] - Operative Report PAULINA FINN : 1965 AGE: 52. SEX: F PATIENT TYPE: I HOSP [facility] [place]: [facility] LOCATION: [facility] ATTENDING PHYSICIAN: Ty Panchal M.D. CSN NUMBER: [id number] DATE OF SURGERY/PROCEDURE: 05/06/2018 INCISION/PROCEDURE START TIME: 5:03 PM INCISION CLOSE/PROCEDURE END TIME: 5:13 PM PREOPERATIVE DIAGNOSIS: Large carbuncle of the right upper back. POSTOPERATIVE DIAGNOSIS: Large carbuncle of the right upper back. SURGEON: Ty Panchal M.D. DEAF/HARD OF HEARING SPECIALIST: No Additional Staff SURGERY/PROCEDURE: Incision and drainage of right back carbuncle. ANESTHESIA: General INDICATIONS: The patient is a nearly 53-year-old female who presented with about a 10-day history reported of infection on her back. It has expanded to about 10 x 10 centimeters with a large necrotic center and multiple draining pustular sites consistent with a large carbuncle. She presents now for surgical debridement. DESCRIPTION OF PROCEDURE: After evaluation, the patient was taken to the operating room and placed on the operating table in the prone candi-knife position. After administration of conscious awake sedation, the upper back area was prepped with ChloraPrep and draped in a sterile manner. Xylocaine 1% plain mixed with Marcaine 0.5% with epinephrine was injected locally, total volume infused approximately 12 mL. An elliptical incision was made including the entire necrotic core of the middle of the wound, and dissection was carried down sharply to the fascia. All that area was excised. There were still pockets of purulence beneath the edges of the wound. These were opened using the cautery to allow complete drainage through the midpoint of the wound. No undrained pockets of purulence were identified at the end of the procedure. After hemostasis was obtained with cautery, a dry dressing was applied. The patient was awakened and transported to the recovery room in stable condition, having tolerated the procedure well. Sponge and needle counts were correct. Ty Panchal M.D. [id number] /[id number] NURSING PROG Observed: 05/05/2018 Status: COMPLETED Source: [place] 9:42 PM [facility] REPOSITORY HNO ID: [id number] Author: Jenna NealRn) ROSITA Llanos Service: (none) Author Type: Registered Nurse Type: Nursing Progress Note Filed: 05/05/2018 9:44 PM Note Text: Nursing Progress Note Patient Name: Paulina Finn Patient Location: [facility]/[id number] Daily Note: Pt admitted to [facility] in stable condition. Admission assessment completed, orders received. 2 home medications put in tower: SMZ-TMP DS 800-160mg tablets, metronidazole 250mg tablets, 1 pack of cigarettes. Pt educated on safety plan and fall prevention. Call light in place This note was completed by: Jenna Llanos RN CASE MANAGEM Observed: 05/05/2018 Status: COMPLETED Source: [place] 8:32 PM [facility] REPOSITORY HNO ID: [id number] Author: Dora NealRn) ROSITA Galeas Service: (none) Author Type: Registered Nurse Type: Care Mgt Progress Note Filed: 05/05/2018 8:51 PM Note Text: CARE MANAGEMENT: ASSESSMENT AND DISCHARGE PLAN SERVICE DATE: 05/05/2018 SERVICE TIME: 8:32 PM facilities engineer met with patient at bedside in the emergency department. Introduction made and role of case management explained. Patient states she is agreeable to assessment questions. Assessment information provided by electronic medical record and patient. 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 No Advance Directive: Current Advance Directive: None Poly Area Supervisor Attempted to Assist with AD Completion: Yes Action: Patient Unwilling Patient declines copies of Advance Directives. Health Literacy: 1. How often do you need to have someone help you when you read instructions, pamphlets, or other written material from your doctor or pharmacy? Sometimes - 3 2. How confident are you filling out medical forms by yourself? Somewhat - 3 If Patient scores > 3 on either question, the following interventions were put into place: Use of plain language and active listening with Patient and family, Teach back methods employed to ensure comprehension and Use concrete and specific phrases, avoid medical jargon FUNCTIONAL AND COGNITIVE/BEHAVIORAL PRIOR TO ADMISSION: Baseline Mental Status: Alert AND Oriented, Person, Place , Time and Situation Functional Status: Independent Does Patient Currently Receive Any Community Services or Home Care? None Equipment Prior to Admission: None Has the Patient Been in a [facility] Facility in the Past 30 days? No SOCIAL: Living Arrangement: Home Lives With: Friend/Curtis Financial Resources: Unemployed Primary Contact: Primary Emergency Contact: Marianne Palacios [address] [place] [address] [facility] Mobile Relation: Mother Supportive: Yes Other Important Patient Contacts: None Caregiver Assessment: Caregiver is ready, willing and able to meet the patient's needs as recommended by the inter-professional team? No Caregiver Needed Patient's transition needs and plan for meeting these needs: Home/Self Care Does the patient have an acute stroke diagnosis, or has the patient had a stroke during this admission? No Medication Adherence: I am convinced of the importance of my prescription medication: Agree completely - 0 I worry that my prescription medication will do more harm than good to me Disagree completely - 0 I feel financially burdened by my [id number]-[id number] expenses for my prescription medication: Disagree completely - 0 Patient is categorized as low risk < 2 Patient states her pharmacy preference is: [facility] in [place] Are you interested in bedside delivery of your medications? No Food Concerns: In the Last Month, Have You had Trouble Getting Food? No trouble getting food During the Last Month, Have You Worried Whether Your Food Would Run Out Before You Had Enough Money to Buy More? No Is the Patient Psychosocially Complex? No ASSESSMENT AND PLAN: Medical Needs: 2 or more chronic diseases Psychosocial Needs: Mental Health Diagnosis: Anxiety - Mood Swings FREEDOM OF CHOICE EXPLAINED: Yes Commerce of Choice explained to patient POTENTIAL TRANSITION PLANS Discharge Needs: To Be Determined Potential discharge Need May include Home IV Antibiotics [facility] Patient informed Care Management is available to aid in discharge planning needs. Primary Care Physician: Melquiades Soto FINANCIAL SYSTEMS ANALYST - Summary of Care to be sent at discharge. SIGNATURE: Dora Galeas RN PATIENT NAME: Paulina Finn DATE: May 05, 2018 TIME: 8:32 PM PAGER/CONTACT #: [phone] PLAN OF CARE Observed: 05/05/2018 Status: COMPLETED Source: [place] 8:13 PM CLINIC OTHER CAMPUS REPOSITORY O ID: [id number] Author: Dhara Josue (Pharmacist) Service: Pharmacy Author Type: Pharmacist Type: Plan of Care Filed: 05/05/2018 8:20 PM Note Text: MEDICATION HISTORY Patient Name:nNeka Finn : 1965 Source of history:Patient: Reliability of source: Appears reliable, clearly identified: Medication name, Medication dose, Medication route, Medication frequency and Timing of last dose Medication Nonadherence Identified: No barriers noted; unable to confirm fill history with pharmacy (pharmacy currently closed); last fill dates linked in [facility] are from November, December, and January 2018 for 15 or 30 days supply of all medications The above information represents the best possible medication history: Yes Additional comments: ? Medications removed: ? Alprazolam ? Vitamin C ? Aspirin ? Percocet 5/325 mg ? Medications adjusted: ? Lisinopril - sig (dose AND route) ? Simvastatin - sig (route) ? Medications added: ? None ? Allergy list modifications: ? None Allergies: ALLERGIES Allergen Reactions - Omnicef [Cefdinir] Hives - Penicillins Hives - Vancomycin Hives - Zithromax [Azithrom* Hives - Cortisone Intolerance INCREASE IN BP FOR SEVERAL WEEKS. Preferred Pharmacy: [facility] [place] Current FOREST EXAMINER Medications: Prior to Admission medications as of 05/05/182012 Medication Sig Last Dose Taking hydroCHLOROthiazide (HYDRODIURIL, ESIDRIX) 25 mg tablet Take 25 mg by mouth once daily. 05/05/2018 at 0800 Yes lisinopril (ZESTRIL, PRINIVIL) 40 mg tablet Take 40 mg by mouth every evening. 05/04/2018 at 1999 Yes simvastatin (ZOCOR) 40 mg tablet Take 40 mg by mouth every evening. 05/04/2018 at 1999 Yes sertraline (ZOLOFT) 100 mg tablet Take 200 mg by mouth once daily. metoprolol tartrate, short acting, (LOPRESSOR) 50 mg tablet Take 50 mg by mouth once daily. DHARA JOSUE, PHARMACIST May 05, 2018 8:13 PM WOUND Observed: 05/05/2018 Status: F Source: [place] CULTURE/STAIN 7:08 PM [facility] OTHER [place] REPOSITORY Sp. Request/Comment: - Eswab Smear Result - Rare Gram positive cocci --> ABNORMAL ALERT No Polymorphonuclear Leukocytes Culture Result - Many Methicillin resistant Staphylococcus aureus --> ABNORMAL ALERT ORGANISM: Methicillin resistant Staphylococcus aureus METHOD: Minimum inhibitory concentration(Vitek) Antibiotic Interp PAULIE Status Erythromycin RESISTANT >=8 F Clindamycin SUSCEPTIBLE 0.25 F Testing for inducible clindamycin resistance was performed. Tetracycline SUSCEPTIBLE <=1 F Vancomycin SUSCEPTIBLE 1 F Oxacillin RESISTANT >=4 F Oxacillin resistant staphylococci are resistant to all beta lactam antibiotics (except new cephalosporins with anti MRSA activity). Trimeth sulfameth SUSCEPTIBLE <=10 F Gentamicin SUSCEPTIBLE <=0.5 F Rifampin SUSCEPTIBLE <=0.5 F Rifampin should not be used alone for antimicrobial therapy. Daptomycin SUSCEPTIBLE 0.25 F Linezolid SUSCEPTIBLE 2 F Doxycycline SUSCEPTIBLE <=0.5 F Performed By: #### WCUL #### [facility] [address] [address] C-REACTIVE PROTEIN Collected: 05/05/2018 Status: F Source: [place] 6:30 PM [facility] REPOSITORY TYPE CODE TESTS RESULT OUT OF REFERENCE UNITS RANGE LAB CRP <0.9 mg/dL High C-Reactive 24.4 Protein Performed By: #### CRP #### [facility] [address] [place] [address] #### WSR #### [facility] [address] [address] SED RATE WESTERGREN Collected: 05/05/2018 Status: F Source: [place] 6:30 PM [facility] REPOSITORY TYPE CODE TESTS RESULT OUT OF REFERENCE UNITS RANGE LAB WSR 0-20 mm/hr Sed Rate High W[place]gren 43 Performed By: #### CRP #### [facility] [address] [facility] [phone] #### WSR #### [facility] [address] [place], [place] [address] ED NOTE Observed: 05/05/2018 Status: COMPLETED Source: [place] 6:27 PM [facility] OTHER [place] REPOSITORY HNO ID: [id number] Author: Mukund (Medic) Enzo Douglas Service: (none) Author Type: Legislative Advocate and Weatherseal Technician Type: ED Notes Filed: 05/05/2018 6:27 PM Note Text: Blood cultures drawn and sent X 2 Observed: 05/05/2018 Status: F Source: [place] BLOOD CULTURE 6:25 PM [facility] REPOSITORY Culture Result - No growth 5 days Performed By: #### BLCUL #### [facility] [address] [address] PROTIME Collected: 05/05/2018 Status: F Source: [place] 6:15 PM [facility] REPOSITORY TYPE CODE TESTS RESULT OUT OF RANGE REFERENCE UNITS LAB PSEC 9.7-13.0 sec PT Sec 10.6 LAB INR 0.9-1.3 PT INR 1.0 Result Comment: Vitamin K Antagonist (VKA) Therapeutic Range: INR 2 to 3 (Target INR of 2.5) Note: For patients treated with VKA drugs, such as warfarin, the [place] [employer] 2012 Guideline recommends a therapeutic INR range of 2 to 3 (target INR of 2.5). This recommendation includes high-risk patients with antiphospholipid syndrome with previous arterial or venous thromboembolism, current-generation mechanical or bioprosthetic aortic heart valve replacement. Note: Patients with mechanical aortic valve replacement and additional risk factors for thromboembolic events (atrial fibrillation, previous thromboembolism, LV dysfunction, hypercoagulable conditions) or an older generation mechanical AVR (i.e., ball in-Cage) or any mechanical MVR should have a INR therapeutic range of 2.5 to 3.5 (target INR of 3). Wendy GH, et al. Chest 2012, 141:7S-47S May RA, et al. [facility] 2017, 70: 252-289 Performed By: #### PT, CMP, CBCDIF #### [facility] [address] [facility] [phone] COMP METABOLIC PANEL Collected: 05/05/2018 Status: F Source: [place] 6:15 PM CLINIC OTHER CAMPUS REPOSITORY TYPE CODE TESTS RESULT OUT OF REFERENCE UNITS RANGE LAB TP 6.3-8.0 g/dL Protein, Total 7.2 LAB ALB 3.9-4.9 g/dL Low Albumin 3.8 LAB CA 8.5-10.2 mg/dL Calcium, Total 9.5 LAB TBIL 0.2-1.3 mg/dL Bilirubin, Total 0.3 LAB ALKP 34-123 U/L Alkaline High Phosphatase 156 LAB AST 13-35 U/L AST High 46 LAB GLU 74-99 mg/dL Glucose High 160 Result Comment: The [place] Diabetes Association (ADA) provides guidance for cutoff values for fasting glucose and random glucose. The ADA defines fasting as no caloric intake for at least 8 hours. Fas ting plasma glucose results between 100 to 125 mg/dL indicate increased risk for diabetes (prediabetes). Fasting plasma glucose results greater than or equal to 126 mg/dL meet the criteria for diagnosis of diabetes. In the absence of unequivocal hyperglycemia, results should be confirmed by repeat testing. In a patient with classic symptoms of hyperglycemia or hyperglycemic crisis, random plasma glucose results greater than or equal to 200 mg/dL meet the criteria for diagnosis of diabetes. Reference: Standards of Medical Care in Diabetes 2016, [place] [employer] Association. Diabetes Care. 2016.39(Suppl 1). LAB BUN 7-21 mg/dL BUN 11 LAB CRET 0.58-0.96 mg/dL Creatinine Low 0.56 LAB NA 136-144 mmol/L Sodium Low 133 LAB K 3.7-5.1 mmol/L Potassium 4.2 LAB CL 97-105 mmol/L Chloride Low 93 LAB CO2 22-30 mmol/L CO2 27 LAB AGAP 9-18 mmol/L Anion Gap 13 LAB ALT 7-38 U/L ALT 24 LAB GFRAA eGFR- Amer. >60 LAB GFRNAA . eGFR-All Other Races >60 Result Comment: eGFR (Estimated GFR) Units of measure: mL/min/1.73 meters squared eGFR is derived from the reexpressed MDRD Study equation using the following parameters: serum creatinine, age, gender and race. The creatinine assay has been calibrated to be traceable to IDMS. An eGFR <60 mL/min/1.73m2 for >3 months is consistent with chronic kidney disease. Refer to KDOQI guidelines for clinical interpretation. In patients with unstable renal function, e.g. those with acute kidney injury, the eGFR may not accurately reflect actual GFR. Performed By: #### PT, CMP, CBCDIF #### [facility] [address] [place] [address] CBC AND DIFFERENTIAL Collected: 05/05/2018 Status: F Source: [place] 6:15 PM CLINIC OTHER [place] REPOSITORY TYPE CODE TESTS RESULT OUT OF REFERENCE UNITS RANGE LAB WBC 3.70-11.00 k/uL WBC High 20.26 LAB RBC 3.90-5.20 m/uL RBC 4.71 LAB HGB 11.5-15.5 g/dL Hemoglobin 13.8 LAB HCT 36.0-46.0 % Hematocrit 42.1 LAB MCV 80.0-100.0 fL MCV 89.4 LAB MCH 26.0-34.0 pG MCH 29.3 LAB MCHC 30.5-36.0 g/dL MCHC 32.8 LAB RDWCV 11.5-15.0 % RDW-CV 13.8 LAB PLTCT 150-400 k/uL Platelet Count 396 LAB MPV 9.0-12.7 fL MPV Low 8.6 LAB NEUT % Neut% 95 LAB ALYMP % Lymph% 4 LAB AMONO % [place]% 1 LAB RBCMOR Red Cell Morph SEE COMMENT Result Comment: Unremarkable LAB PLTEST Platelet Platelet Estimate estimate adequate Performed By: #### PT, CMP, CBCDIF #### [facility] [address] [place] [address] Observed: 05/05/2018 Status: F Source: [place] BLOOD CULTURE 6:15 PM [facility] REPOSITORY Culture Result - No growth 5 days Performed By: #### BLCUL #### [facility] [address] [place], [place] [address] ED PROV NOTE Observed: 05/05/2018 Status: COMPLETED Source: [place] 5:59 PM [facility] OTHER [place] REPOSITORY HNO ID: [id number] Author: Rosales Perales MD Service: (none) Author Type: Physician Type: ED Provider Notes Filed: 05/05/2018 9:38 PM Note Text: ED Provider Note Patient Name: Paulina Finn SERVICE DATE: 05/05/18 History Patient presents with: Abscess This is a 52-year-old female presenting to the ER with complaints of an abscess to the right side of her upper back for a week. She states she's been hot and cold but not sure if she's been running a fever. She saw a physician at [place] yesterday was placed on Flagyl and Bactrim which she has been taking. She was told it would need to be cut out. It is open and draining. Denies IV drug abuse. PAST MEDICAL HISTORY Diagnosis Date - Anxiety - Arthritis of left knee 09/04/2017 - Dyslipidemia, goal to be determined - HTN (hypertension) - Mood swings (HCC) - Osteoarthritis PAST SURGICAL HISTORY Procedure Laterality Date - CARPAL TUNNEL - KNEE SCOPE,FULL SYNOVECT Left - PART. HYSTERECTOMY W/WO RMVL OVARIES/TUBES - REMOVE TONSILS/ADENOIDS,<12 Y/O - TOTAL KNEE REPLACEMENT Right 2007 FAMILY HISTORY Problem Relation Age of Onset - Lipids Mother - Arthritis Mother - other (htn) Mother - None Father Social History Social History Main Topics - Smoking status: Current Every Day Smoker Packs/day: 1.00 Years: 11.00 Types: Cigarettes Start date: 06/09/2005 - Smokeless tobacco: Never Used Comment: patient is trying to quit - down to 7 cigarettes per day - Alcohol use No - Drug use: No - Sexual activity: Not on file ALLERGIES Allergen Reactions - Omnicef [Cefdinir] Hives - Penicillins Hives - Vancomycin Hives - Zithromax [Azithrom* Hives - Cortisone Intolerance INCREASE IN BP FOR SEVERAL WEEKS. Review of Systems Constitutional: Negative. Negative for activity change, chills and fever. HENT: Negative. Negative for congestion, ear pain, rhinorrhea and sore throat. Eyes: Negative. Negative for pain, discharge and redness. Respiratory: Negative. Negative for cough, chest tightness and shortness of breath. Cardiovascular: Negative. Negative for chest pain. Gastrointestinal: Negative. Negative for abdominal pain, diarrhea, nausea and vomiting. Endocrine: Negative. Genitourinary: Negative. Negative for dysuria, frequency and urgency. Musculoskeletal: Negative. Negative for arthralgias, back pain and myalgias. Skin: Positive for wound. Neurological: Negative. Negative for dizziness, weakness, light-headedness and headaches. Psychiatric/Behavioral: Negative. Physical Exam BP 132/70 Pulse 120 Temp (Src) 98.1 (Oral) Resp 18 Wt 120 lb (54.4kg) SpO2 97% Physical Exam Constitutional: She is oriented to person, place, and time. She appears well-developed and well-nourished. HENT: Head: Normocephalic and atraumatic. Mouth/Throat: Oropharynx is clear and moist. Eyes: Pupils are equal, round, and reactive to light. Conjunctivae and EOM are normal. Neck: Normal range of motion. Neck supple. Cardiovascular: Regular rhythm, normal heart sounds and intact distal pulses. tachycardia Pulmonary/Chest: Effort normal and breath sounds normal. Abdominal: Soft. Bowel sounds are normal. Musculoskeletal: Normal range of motion. Neurological: She is alert and oriented to person, place, and time. Skin: Skin is warm and dry. There is erythema. Large grapefruit size abscess to the right upper back with purulent discharge Psychiatric: She has a normal mood and affect. Vitals reviewed. Diagnostic Testing ED Labs Ordered and Reviewed COMP METABOLIC PANEL - Abnormal; Notable for the following: Result Value Ref Range Albumin 3.8 (*) 3.9 - 4.9 g/dL Alkaline Phosphatase 156 (*) 34 - 123 U/L AST 46 (*) 13 - 35 U/L Glucose 160 (*) 74 - 99 mg/dL Creatinine 0.56 (*) 0.58 - 0.96 mg/dL Sodium 133 (*) 136 - 144 mmol/L Chloride 93 (*) 97 - 105 mmol/L All other components within normal limits CBC + DIFF - Abnormal; Notable for the following: WBC 20.26 (*) 3.70 - 11.00 k/uL MPV 8.6 (*) 9.0 - 12.7 fL All other components within normal limits PROTHROMBIN TIME/PT BLOOD CULTURE DRAW BLOOD CULTURE DRAW WOUND CULTURE AND GRAM STAIN Procedures ED Course / Clinical Impression Clinical Impressions as of May 05 1943 Abscess Elevated liver function tests MDM / Disposition / Plan MDM The medical record is reviewed The nursing notes are reviewed The vitals are reviewed and patient is tachycardia Comorbid conditions include: none Hx, exam and clinical data are most suggestive of 52-year-old having an abscess to the right side of her upper back for a week that is open and draining in the size of a grapefruit. She was placed on Flagyl and Bactrim yesterday. Alkaline phosphatase is 156 AST is 46 sodium is 133 she is receiving fluids. Glucose is 160. INR is 1. Her white count is 20.26. She was started on linezolid. Blood cultures are pending. She'll be admitted to the hospital with a surgical consult. The patient was ADMITTED TO: Regular nursing floor. Condition at time of disposition: stable SIGNATURE: MAX Jeffries (Pa) 05/05/181942 Attending Note I have personally performed a face to face assessment of the patient and have reviewed the PA/CLASSICS TEACHER note. My lamas findings include: History is Patient came in for a wound check. She said over the past several days she is developed swelling of her upper back which she thinks is an abscess. She has never had this before. She has felt hot and cold, but is unaware of any fever. No rash or swelling elsewhere. No other acute complaints. Exam is a large swollen erythematous raised area which is fluctuant on the middle of her upper back. There is diffuse induration and central ulceration of the superficial skin. The rest of her back exam is normal. She appears to have localized abscess with cellulitis. Lungs are clear. Heart regular rate and rhythm. The rest of her preliminary exam unremarkable. Assessment/Plan are IV on x-ray given. Labs are sent. She does have an elevated white blood cell count. Glucose was 160. We did not feel comfortable draining this right away. I believe that IV antiemetics were initially necessary prior to drainage based on the appearance. Patient was admitted to regular nursing floor please refer to DEIRDRE dictation for further details. Other additions or changes: None Signature: Rosales Perales MD Date: 05/05/2018 Time: 9:36 PM Rosales Perales MD 05/05/[id number] ED NOTE Observed: 05/05/2018 Status: COMPLETED Source: [place] 5:41 PM CLINIC OTHER CAMPUS REPOSITORY HNO ID: [id number] Author: Paola NealRn) ROSITA Villanueva Service: Nursing Author Type: Registered Nurse Type: ED Notes Filed: 05/05/2018 5:42 PM Note Text: Pt has abscess on her back that her doctor said should be assessed in the ER. She has abx prescribed yesterday from doc. Abscess has been present for 1 week. OFFICE VISIT Observed: 05/05/2018 Status: F Source: [place] 11:54 AM [facility] REPOSITORY After Hours [facility] Medicine [address] [place] [address] OFFICE VISIT Date of Service: 05/04/18 MR#: [id number] Acct: [id number] Name: PAULINA FINN Rep #: [id number] : 1965 Provider: ACACIA Soto Age/Sex: 52/F Location: [facility] Status: Signed Intake Vital Signs05/04/18 Height 5 ft 3 in 05/04/18 Weight: 125 lb Intake Visit Reasons: PIMPLE/CYST ON BACK Allergies Penicillins Allergy (Severe, Verified 02/26/18 10:47) rash cortisone Adverse Reaction (Severe, Verified 02/26/18 10:47) Other Medications acetaminophen 500 mg tablet 500 mg PO BID PRN #60 tab 02/26/18 [Rx Confirmed 02/26/18] buspirone 5 mg tablet 5 mg PO BID #60 tab 02/26/18 [Rx Confirmed 02/26/18] gabapentin 100 mg tablet 100 mg PO TID tab 02/26/18 [History Confirmed 02/26/18] guaifenesin ER 600 mg tablet, extended release 12 hr 600 mg PO Q12H #20 tab 02/26/18 [Rx Confirmed 02/26/18] loperamide 2 mg tablet 2 mg PO BID PRN #10 tab 02/26/18 [Rx Confirmed 02/26/18] melatonin 10 mg tablet 10 mg PO HS PRN #30 tab 02/26/18 [Rx Confirmed 02/26/18] metoprolol tartrate 25 mg tablet 25 mg PO BID 02/26/18 [History Confirmed 02/26/18] sertraline 100 mg tablet 200 mg PO DAILY tab 02/26/18 [History Confirmed 02/26/18] simvastatin 40 mg tablet 40 mg PO QHS 02/26/18 [History Confirmed 02/26/18] hydrochlorothiazide 12.5 mg tablet 12.5 mg PO DAILY #30 tab 05/04/18 [Rx Confirmed 05/04/18] lisinopril 40 mg tablet 40 mg PO QHS #30 tab 05/04/18 [Rx Confirmed 05/04/18] metronidazole 250 mg tablet 250 mg PO TID 10 Days #30 tab 05/04/18 [Rx Confirmed 05/04/18] sulfamethoxazole 800 mg-trimethoprim 160 mg tablet 1 tab PO BID 10 Days #20 tab 05/04/18 [Rx Confirmed 05/04/18] PFSH Medical History Anxiety (Chronic) History of substance abuse (Acute) Hypertension (Chronic) History of hysterectomy (Acute) Arthritis (Chronic) Surgical History History of carpal tunnel release (Acute) History of knee replacement (Acute) Family History Mother Arthritis Hypertension Diabetes Father Arthritis Anxiety Grandmother Cancer pancreas Social History Smoking Status: Current every day smoker alcohol intake: never substance use type: former substance user Date of last use: 02/11/2018, heroin what type of physical activity do you participate in: walking frequency: daily HPI HPI (General) HPI HPI: PAULINA FINN, is a 52 F who presents to the office today for huge open boil on her upper back She states it started as a little pimple and has grown to a huge hard mas thta was oozing pus She is currently living with a friend. She states she has not been picking at it she states its been ruining her clothes and draining everywhere. I discussed the fact I cannot doing anything she needs to see a surgeon I did cultures aerobic and anaerobic and started her a bactrim and metronidazole for now May be MRSA not sure till cultures return. She also need her BP meds refilled and can do that today ROS Skin Skin: Positive for lesions, skin swelling, wounds and skin ulcer Exam Const Constitutional: Yes cooperative, Yes healthy appearing Orientation: Yes alert and awake Resp Effort AND Inspection: Yes normal respiratory effort Auscultation: Yes clear to auscultation bilaterally Cardio Palpitation: Yes normal PMI Rate: Yes regular rate Rhythm: Yes regular rhythm GI Inspection: Yes normal to inspection Auscultation: Yes normal bowel sounds Skin General: no rashes or lesions noted Lesions: Yes no lesions Wounds: Yes wounds noted (upper back boil open and huge ) Neuro General: Yes alert Psych Appearance: Positive grossly normal Mood: Positive congruent mood Affect: Positive normal affect Assessment AND Plan Problems 1. MRSA (methicillin resistant staph aureus) culture positive Z22.322 2. Boil, back L02.222 3. Essential hypertension I10 Patient Instructions Take the antibiotics and the metronidazole till gone with food or after eating Go to the hospital for surgical removal cultures done of the wound aerobic and anaerobics follow up after for further refills Orders Orders: Medications New: Refilled: Coding Level of Care Code Off vis,est,level 3 Diagnoses MRSA (methicillin resistant staph aureus) culture positive Z22.322 Boil, back L02.222 Essential hypertension I10 Hypertension type: essential hypertension 05/05/18 1154 <Electronically signed by Melquiades HOBBS> Date Melquiades HOBBS CC: GEETA Observed: 05/05/2018 Status: COMPLETED Source: [place] 12:00 AM CLINIC OTHER CAMPUS REPOSITORY Letter Text May 05, 2018 Paulina Finn [address] [facility] [address] Dear Ms. Finn, The nurses and staff of [facility] hope this letter finds you feeling well and progressing in your recovery. Our staff would like to thank you for trusting and choosing us for your health care needs. It was an honor for us to provide your nursing care. We know that placing our Patients First and maintaining a culture of continuous improvement each and every day, are essential to the success of our organization. I hope your stay with us has been positive. We want to hear from you. If you have any comments, questions or concerns about your hospital stay, please feel free to contact me, Ana Jimenez RN ([phone]) or email me at, [email or web address] Additionally, you will receive a survey in the mail asking you to rate the care you received while in the hospital. Please take the time to complete and send back the survey, as it is essential to our continued success. I personally review all the results and would appreciate your feedback. Thank you in advance for your participation and thank you for choosing the [facility] for your health needs. Sincerely, Nurse Continuous Washer Operator: Ana Jimenez RN ([phone]) [facility] Unit: 2 [facility] Letter Text May 10, 2018 Paulina Finn [address] [facility] [address] Dear Ms. Finn, The nurses and staff of [facility] hope this letter finds you feeling well and progressing in your recovery. Our staff would like to thank you for trusting and choosing us for your health care needs. It was an honor for us to provide your nursing care. We know that placing our Patients First and maintaining a culture of continuous improvement each and every day, are essential to the success of our organization. I hope your stay with us has been positive. We want to hear from you. If you have any comments, questions or concerns about your hospital stay, please feel free to contact me, Ana Jimenez RN ([phone]) or email me at, [email or web address] Additionally, you will receive a survey in the mail asking you to rate the care you received while in the hospital. Please take the time to complete and send back the survey, as it is essential to our continued success. I personally review all the results and would appreciate your feedback. Thank you in advance for your participation and thank you for choosing the [facility] for your health needs. Sincerely, Nurse Continuous Washer Operator: Ana Jimenez RN ([phone]) [facility] Unit: 2 [facility] Observed: 05/05/2018 Status: COMPLETED Source: [place] 12:00 AM CLINIC OTHER CAMPUS REPOSITORY Patient:Paulina Finn MRN: <[id number]> Height:5' 3(1.6 m) Weight:120 lb (54.432 kg) Outpatient Medications as of 05/06/18: hydroCHLOROthiazide (HYDRODIURIL, ESIDRIX) 25 mg tablet lisinopril (ZESTRIL, PRINIVIL) 40 mg tablet simvastatin (ZOCOR) 40 mg tablet sertraline (ZOLOFT) 100 mg tablet metoprolol tartrate, short acting, (LOPRESSOR) 50 mg tablet Admission/Clinic Administered Medications as of 05/06/18: morphine 4 mg injection morphine 8 mg injection HYDROmorphone HCl 1 mg injection (DILAUDID) prochlorperazine 10 mg injection (COMPAZINE) ondansetron orally disintegrating 4 mg tab(s) (ZOFRAN ODT) ondansetron (PF) 4 mg injection (ZOFRAN) influenza vaccine 60 mcg (Patients 3 to 64 years) (PF) (FLUZONE 2018) simvastatin 40 mg tab(s) (ZOCOR) lisinopril 40 mg tab(s) (ZESTRIL, PRINIVIL) metoprolol tartrate (short acting) 50 mg tab(s) (LOPRESSOR) sertraline 200 mg tab(s) (ZOLOFT) NaCl 0.9% iv infusion acetaminophen 650 mg tab(s) (TYLENOL) ketorolac 15 mg injection (TORADOL) linezolid in dextrose 5% 600 mg PREMIX piggyback (ZYVOX) nicotine 14 mg/24 hr 1 Patch (NICODERM) nicotine -- REMOVE patch nicotine - verify patch Problem List: RSD lower limb [G90.529] Lumbar spondylosis [M47.816] DDD (degenerative disc disease), lumbar [M51.36] HTN (hypertension) [I10] Dyslipidemia, goal to be determined [E78.5] Anxiety [F41.9] Mood swings [R45.86] Arthritis of left knee [M17.12] Post-operative state [Z98.890] Sepsis (HCC) [A41.9] Cutaneous abscess of back excluding buttocks [L02.212] Allergies: Omnicef [Cefdinir] Penicillins Vancomycin Zithromax [Azithromycin] Cortisone Date Verified: 05/06/18 Lab Values Lab Value Units Date High Low POTA* 3.5 mmol/L 05/06/2018 5.1 3.7 PAUL* 35.5 % 05/06/2018 46.0 36.0 No progress notes entered within the past 30 days Observed: 05/04/2018 Status: F Source: [place] CULTURE, DEEP WOUND 8:15 PM [facility] REPOSITORY Gram Stain Gram Stain 3+ White Blood Cells 1+ Red Blood Cells 1+ Gram positive cocci in clusters Wound Culture RESULTS CALLED TO MELQUIADES SOTO 05/07/18 0942 Yoon Carrillo. Copy of report sent to Infection Control Printer [id number] 05/07/18 9062 DCANNON. ORGANISM 1: Meth. resistant Staph. aureus Amount Growth 3+ Meth. resistant Staph. aureus: REACTION Benzylpenicillin NF >=0.5 R Cefoxitin *NF + Clindamycin $$ <=0.25 S Inducable Clindamycin Resistan - Erythromycin $ >=8 R Gentamicin $ <=0.5 S Levofloxacin $ 0.25 S Linezolid $$$$ 2 S Oxacillin NF >=4 R Tigecycline $$$$ <=0.12 S Rifampin $$ <=0.5 S Tetracycline NF <=1 S Trimethoprim/Sulfametho $ <=10 S Vancomycin $ 1 S (NF) indicates non-formulary drug at [facility]. Approval by Infectious Disease Specialist required before non-formulary drugs may be ordered and/or dispensed. * CLSI guidelines does not recommend testing of cephalosporins. This interpretation is deduced from Beta-lactam/penicillin results. Cult, Anaerobic No anaerobic bacteria isolated. Performed By: #### M100.1500 #### [facility] [address] [place], [address] INTERNAL MEDICINE Observed: 02/27/2018 Status: F Source: [place] OFFICE VISIT 5:13 PM [facility] REPOSITORY [facility] [address] [place] [address] [place] [address] OFFICE VISIT Date of Service: 02/26/18 MR#: [id number] Acct: [id number] Name: PAULINA FINN Rep #: [id number] : 1965 Provider: Lalo Patterson NP Age/Sex: 52/F Location: [facility] Status: Signed Intake Vital Signs02/26/18 Height 5 ft 3 in Intake Visit Reasons: [facility] PHYSICAL Chief Complaint: BP medication needs regulated Is patient in pain?: Yes (slight headache) Pain scale (1-10): 4 Allergies Penicillins Allergy (Severe, Verified 02/26/18 10:47) rash cortisone Adverse Reaction (Severe, Verified 02/26/18 10:47) Other Medications acetaminophen 500 mg tablet 500 mg PO BID PRN #60 tab 02/26/18 [Rx Confirmed 02/26/18] buspirone 5 mg tablet 5 mg PO BID #60 tab 02/26/18 [Rx Confirmed 02/26/18] gabapentin 100 mg tablet 100 mg PO TID tab 02/26/18 [History Confirmed 02/26/18] guaifenesin ER 600 mg tablet, extended release 12 hr 600 mg PO Q12H #20 tab 02/26/18 [Rx Confirmed 02/26/18] hydrochlorothiazide 12.5 mg tablet 12.5 mg PO DAILY 02/26/18 [History Confirmed 02/26/18] lisinopril 40 mg tablet 40 mg PO QHS #30 tab 02/26/18 [Rx Confirmed 02/26/18] loperamide 2 mg tablet 2 mg PO BID PRN #10 tab 02/26/18 [Rx Confirmed 02/26/18] melatonin 10 mg tablet 10 mg PO HS PRN #30 tab 02/26/18 [Rx Confirmed 02/26/18] metoprolol tartrate 25 mg tablet 25 mg PO BID 02/26/18 [History Confirmed 02/26/18] sertraline 100 mg tablet 200 mg PO DAILY tab 02/26/18 [History Confirmed 02/26/18] simvastatin 40 mg tablet 40 mg PO QHS 02/26/18 [History Confirmed 02/26/18] PFSH Medical History Anxiety (Chronic) History of substance abuse (Acute) Hypertension (Chronic) History of carpal tunnel release (Acute) Arthritis (Chronic) Surgical History History of hysterectomy (Acute) History of knee replacement (Acute) Family History Mother Arthritis Hypertension Diabetes Father Arthritis Anxiety Grandmother Cancer pancreas Social History Smoking Status: Current every day smoker alcohol intake: never substance use type: former substance user Date of last use: 02/11/2018, heroin what type of physical activity do you participate in: walking frequency: daily HPI HPI Chief Complaint: BP medication needs regulated Details: PAULINA FINN, is a 52 F who presents to the office today for acute visit of anxiety, insomnia, and diarrhea. She is currently in the [facility] program for heroin use. Her past medical history includes anxiety, HTN, and HX of substance abuse. Patient entered detox on February 11, 2018 at [facility]. Patient stated she last used heroin that was snorted on February 11, 2018. Patient stated she was placed on gabapentin to help with her detox symptoms for 30 days. A list was provided of her medications from the [facility] and reviewed with patient. Patient also had concerns of insomnia. Patient stated at the detox center she was provided trazodone 50 mg at bedtime to help her sleep. At the [facility] she is not currently taking anything for her insomnia and is no longer permitted to utilize trazodone throughout the program. Patient stated that she has a history of anxiety and before was prescribed Xanax. She currently takes Zoloft but stated it is not controlling her anxiety and that she has increased anxiety after going through detox. Patient also stated that she has diarrhea every time that she eats meals after going through detox program and has been taking Imodium as needed with relief. She is requesting a prescription for Imodium. Patient stated that she had a URI that started a couple of weeks ago and had a chest xray which was negative that was done at the detox center. She stated her symptoms are improving with the use of Mucinex. patient is requesting a prescription for Mucinex. Patient stated she smokes 1/2 pack of cigarettes per day and is not interesting in quitting at this time. Otherwise, patient denies headache, chest pain or tightness, SOB, n/v, palpitations, or syncope episodes. ROS Const Constitutional: Positive for sleep problems (trouble falling asleep and staying asleep) and headache(s); no weight change, body ache, chills, fatigue, fever(s), change in appetite, snoring, weakness, frequent falls or excessive sweating Eyes Eyes: No change in vision, eye pain, light sensitivity or blurry vision ENT ENT: Positive for headache(s); no abnormal hearing, ear pain, tinnitus, nasal congestion, sore throat or neck pain Resp Respiratory: Positive for wheezing; no snoring, cough or shortness of breath Cardio Cardiology: No excessive sweating, chest pain at rest, chest pain with exertion, shortness of breath, dyspnea on exertion, palpitations, orthopnea or lightheadedness Gastro GI: Positive for diarrhea; no abdominal pain, change in bowel habits, constipation, vomiting, nausea/dyspepsia or cramping Genitourinary-Female: No burning urination, painful urination, urinary incontinence, urinary frequency, abnormal vaginal bleeding, pelvic pain or other Musc Musculoskeletal: No neck pain, abnormal walking, joint pain, back pain, limited range of motion, numbness, tingling or muscle weakness Skin Skin: No redness, dry skin, itching, lesions, wounds or rash Neuro Neurology: Positive for headache(s) and other (shakiness); no weakness, frequent falls, abnormal hearing, abnormal walking, numbness, tingling, abnormal speech, dizziness or memory loss Psych Psychiatric: No change in appetite, No memory loss, Positive for anxiety, No depression, No Thoughts of harming yourself/Others Endo Endocrine: No fatigue, excessive sweating, cold intolerance, increased thirst/drinking, heat intolerance, flushing or increased hunger Aller/Imm Allergy/Immunologic: Positive for wheezing; no itchy eyes, hives or seasonal allergy symptoms Paul/Lymp Hematologic/Lymphatic: No easy bleeding, easy bruising or enlarged lymph nodes Exam Const General: cooperative, comfortable, no acute distress Nutritional Appearance: average body habitus, well nourished Orientation: alert, oriented x3 Limitations: mental status not altered [facility] Head: normal to inspection Ears: hearing grossly normal bilaterally Nose: external nose normal Eyes General: appearance normal, both eyes and all related structures Resp Effort AND Inspection: normal respiratory effort, able to speak in complete sentences Auscultation: Left: Inspiratory Wheezes (bases scattered), Right: Inspiratory Wheezes (bases scattered), Bilateral: Clear to Auscultation Cardio Palpation: normal PMI Rate: regular rate Heart Sounds: S1 normal, S2 normal, normal S1 and S2, no click, no gallops, no murmurs, no rubs GI Inspection: normal to inspection Auscultation: normal bowel sounds, no hyperactive bowel sounds, no hypoactive bowel sounds Palpation: soft, no hepatosplenomegaly Musc Musculoskeletal: No joint tenderness, decreased ROM or muscle weakness Skin General: no rashes or lesions noted, elasticity normal, turgor normal Lesions: no lesions Rashes: no rashes Neuro General: alert, awake, oriented x3, CN's II-XI intact bilaterally Speech: speech normal Gait: normal gait Motor: muscle tone normal throughout Extrem General: normal to inspection, normal gait, no edema, no pedal edema Psych Appearance: grossly normal Mental Status: mental status grossly normal Mood: anxious mood Affect: anxious affect Speech and Movement: speech and movement normal Attitude: cooperative Thought Process: flight of ideas (moving from subject to subject quickly ) Judgment: fair Assessment AND Plan 1. HTN (hypertension) I10 Plan Hypertension: Controlled on current medications, will not make any adjustments at this time. Will continue with current medication regimen, risk factor reduction, and lifestyle modifications. Discussed dietary changes that should be considered which include reducing the amount of sodium intake. Patient to follow up in 2-4 weeks to formally establish care as this visit was mainly focused on acute concerns. Will request records from previous pcp. Discussed red flag symptoms and when to seek urgent medical attention. 2. Anxiety F41.9 Plan Patient has a chronic history of anxiety which has increased after going through the detox program. patient will be started on buspirone 5 mg BID. Discussed red flag symptoms and when to seek urgent medical care. 3. Insomnia G47.00 Plan Patient started to have insomnia while going through detox. patient will be prescribed melatonin 10 mg QHS prn. Discussed sleep hygiene and limiting caffeine intake. 4. URI, acute J06.9 Plan Symptoms are resolving, continue to take Mucinex as needed. 5. History of substance abuse Z87.898 Plan Patient will continue to remain at the [facility] for substance abuse rehab. 6. Tobacco abuse Z72.0 Plan Patient smokes 1/2 packs of cigarettes per day. Denies discussion of smoking cessation at this time. 7. Diarrhea R19.7 Plan Patient started to develop diarrhea while going through detox program. Patient to continue to take Imodium as needed. Diarrhea is most likely secondary to her withdrawal symptoms and has been gradually improving. If it continues to be a problem may need further investigation. Plan Detail Other Medications New: Follow Up Follow up in 2-4 weeks to establish care Coding Level of Care Code Off vis,new,level 3 Diagnoses HTN (hypertension) I10 Anxiety F41.9 Insomnia G47.00 URI, acute J06.9 History of substance abuse Z87.898 Tobacco abuse Z72.0 Diarrhea R19.7 02/27/18 1713 <Electronically signed by Lalo HOBBS> Date Lalo HOBBS Cosigner Signature: Date (if applicable) CC: Observed: 02/16/2018 Status: F Source: [employer] INFLUENZA/RSV BY PCR 3:37 PM SYSTEM REPOSITORY Flu A PCR --> Status: F NEGATIVE Flu B PCR --> Status: F NEGATIVE RSV PCR --> Status: F NEGATIVE Method: FDA-Approved PCR Assay by Cepheid Method: FDA-Approved PCR Assay by Cepheid Performed By: #### INFPC #### [facility] [address] [place] [id number] QUANTIFERON Collected: 02/16/2018 Status: F Source: [employer] 3:17 PM SYSTEM REPOSITORY TYPE CODE TESTS RESULT OUT OF REFERENCE UNITS RANGE LAB QTF Negative NA Quantiferon Negative Performed By: #### QTF #### [facility] [address] [place] [address] CR CHEST PA/LAT Observed: 02/16/2018 Status: F Source: [employer] 3:14 PM SYSTEM REPOSITORY Patient Name: PAULINA FINN Diagnostic Radiology Exam Date/Time 02/16/2018 14:50:16 EDT Exam CR Chest PA/LAT Ordering Physician MORRIS MILLS RITA A Accession Number [id number] CPT4 Codes 18967 () Reason For Exam congestion; diminished breath sounds; wheezing/rhonchi; concern for pneumonia Report CLINICAL INDICATION: Detox. Heroin Abuse Frontal and lateral plain films of the chest were obtained. COMPARISON: None FINDINGS: The cardiac silhouette is within normal limits. No focal consolidation is seen within the lungs. No pleural effusion or pneumothorax is identified. IMPRESSION: No acute cardiopulmonary disease. Report Dictated on Final Dictated: 02/16/2018 3:14 pm Dictating Physician: MD DISLA LAURA Signed Date and Time: 02/16/2018 3:16 pm Signed by: MD DISLA LAURA Transcribed Date and Time: 02/16/2018 3:14 WBC COUNT,AUTO Collected: 02/15/2018 Status: F Source: [employer] 6:10 AM SYSTEM REPOSITORY TYPE CODE TESTS RESULT OUT OF RANGE REFERENCE UNITS LAB IWBC 3.6-10.7 10*3/uL Normal WBC 8.1 Performed By: #### WBCNT, BMP3 #### [facility] [address] [place] [address] BASIC METABOLIC PANEL Collected: 02/15/2018 Status: F Source: [employer] 6:10 AM SYSTEM REPOSITORY TYPE CODE TESTS RESULT OUT OF RANGE REFERENCE UNITS LAB NA3 135-145 mmol/L Sodium Normal 142 LAB K3 3.5-5.1 mmol/L Normal Potassium 4.1 LAB CL3 98-109 mmol/L Chloride Normal 106 LAB CO23 21-32 mmol/L Carbon Normal Dioxide 29 LAB ANIN3 NA Anion Gap 7 LAB GLUC3 70-100 mg/dL High Glucose 131 LAB BUN3 7-25 mg/dL Urea Normal Nitrogen 13 LAB CRET3 0.55-1.40 mg/dL Normal Creatinine 0.76 LAB GF3BR >60 mL/min eGFR > 60.0 LAB GF3WR >60 mL/min eGFR OTHER > 60.0 Result Comment: Source- MDRD equation with creatinine calibration to IDMS(NKDEP) eGFR not recommended for drug dose adjustment LAB CA3 8.2-10.1 mg/dL Normal Calcium 8.4 Performed By: #### WBCNT, BMP3 #### [employer] [address] [address] WBC COUNT,AUTO Collected: 02/13/2018 Status: F Source: [employer] 6:33 AM SYSTEM REPOSITORY TYPE CODE TESTS RESULT OUT OF RANGE REFERENCE UNITS LAB IWBC 3.6-10.7 10*3/uL High WBC 11.2 Performed By: #### WBCNT #### [facility] [address] [place] [id number] HEMOGRAM W/ AUTODIFF Collected: 02/11/2018 Status: F Source: [employer] 6:25 PM SYSTEM REPOSITORY TYPE CODE TESTS RESULT OUT OF REFERENCE UNITS RANGE LAB IWBC 3.6-10.7 10*3/uL WBC High 16.6 LAB RBC 3.80-5.20 10*6/uL RBC Normal 4.71 LAB HGB 11.7-16.0 g/dL Hemoglobin Normal 13.7 LAB HCT 35.0-47.0 % Hematocrit Normal 41.1 LAB MCV 79.0-98.0 fL MCV Normal 87.3 LAB MCH 26.0-34.0 pg MCH Normal 29.2 LAB MCHC 32.0-36.0 % MCHC Normal 33.5 LAB RDW 11.5-14.5 % RDW Normal 14.0 LAB PLT 140-440 10*3/uL Platelet Normal 380 LAB MPV 7.4-10.4 fL MPV Normal 7.5 LAB GRAN% 40.0-80.0 % Granulocytes Normal 67.8 LAB LYMP% 20.0-40.0 % Lymphocytes Normal 23.7 LAB MONO% 2.0-10.0 % Monocytes Normal 7.3 LAB EOS% 1.0-6.0 % Low Eosinophils 0.7 LAB BAS% 0.0-2.0 % Basophils Normal 0.5 LAB ANC 1.8-7.0 10*3/uL Abs High Neutrophile Cnt 11.3 LAB ALC 1.0-4.3 10*3/uL Abs Lymph Cnt Normal 3.9 LAB AMC 0.0-0.8 10*3/uL Abs Monocyte High Cnt 1.2 LAB AEC 0.0-0.5 10*3/uL Abs Eosin Cnt Normal 0.1 LAB ABC 0.0-0.2 10*3/uL Abs Baso Cnt Normal 0.1 Performed By: #### HEMDF, CMP3, ETOH4 #### [facility] [address] [place] [phone] COMP METABOLIC PANEL Collected: 02/11/2018 Status: F Source: [employer] 6:25 PM SYSTEM REPOSITORY TYPE CODE TESTS RESULT OUT OF RANGE REFERENCE UNITS LAB NA3 137-145 mmol/L Sodium Normal 141 LAB K3 3.5-5.1 mmol/L Low Potassium 3.1 LAB CL3 98-107 mmol/L Chloride Normal 98 LAB CO23 22-30 mmol/L High Carbon Dioxide 36 LAB ANIN3 NA Anion Gap 7 LAB GLUC3 70-100 mg/dL High Glucose 114 LAB BUN3 7-20 mg/dL Urea Normal Nitrogen 19 LAB CRET3 0.52-1.25 mg/dL Normal Creatinine 0.76 LAB GF3BR >60 mL/min eGFR > 60.0 LAB GF3WR >60 mL/min eGFR OTHER > 60.0 Result Comment: Source- MDRD equation with creatinine calibration to IDMS(NKDEP) eGFR not recommended for drug dose adjustment LAB CA3 8.4-10.4 mg/dL Calcium Normal 9.5 LAB ALB3 3.5-5.0 g/dL Albumin, Serum Normal 4.5 LAB TP3 6.3-8.2 g/dL Total Protein Normal 7.1 LAB BILT3 0.2-1.3 mg/dL Normal Bilirubin,Total 0.3 LAB ALKP3 38-126 U/L Alkaline Normal Phosphatase 99 LAB ALT3 13-69 U/L ALT (SGPT) Normal 25 LAB AST3 15-46 U/L High AST (SGOT) 53 Performed By: #### HEMDF, CMP3, ETOH4 #### [facility] [address] [place] [id number] ETHANOL SERUM/PLASMA Collected: 02/11/2018 Status: F Source: [employer] 6:25 PM SYSTEM REPOSITORY TYPE CODE TESTS RESULT OUT OF RANGE REFERENCE UNITS LAB ETOH3 0.000-0.010 g/dL Normal < 0.010 Ethanol-Seru m/Plasma Result Comment: NOTE: This result is for medical treatment only. Analysis performed using non-forensic procedures. Performed By: #### HEMDF, CMP3, ETOH4 #### [facility] [address] [place] [id number] DRUGS OF ABUSE Collected: 02/11/2018 Status: F Source: [employer] 6:25 PM SYSTEM REPOSITORY TYPE CODE TESTS RESULT OUT OF REFERENCE UNITS RANGE LAB AMP3 NA Amphetamines, Ur Negative LAB BARB3 NA Barbiturates, Ur Negative LAB BENZ3 NA Benzodiazepines, Negative Ur LAB COC3 NA Cocaine, Ur Negative LAB METH3 NA Methadone, Ur Negative LAB OPI3 NA Opiates, Ur Positive LAB OXY3 NA Oxycodone/Oxymorph Negative ine,Ur LAB PCP3 NA Phencyclidine (PCP), Ur Negative Result Comment: The expected value for all of the drugs listed above is Negative. The following drugs or drug groups have been screened for by Immunoassay at the following thresholds: Amphetamine class (1000 ng/mL), Barbiturates (200 ng/mL), Benzodiazepines (200 ng/mL), Cocaine (300 ng/mL), Methadone (300 ng/mL), Opiates (300 ng/mL), Oxycodone (100 ng/mL), and PCP (25 ng/mL). NOTE: These results are for medical treatment only. Analysis performed using non-forensic procedures. Performed By: #### DRGA4, UAMAC, UAMIC #### [facility] [address] [address] URINALYSIS,MACRO Collected: 02/11/2018 Status: F Source: [employer] 6:25 PM SYSTEM REPOSITORY TYPE CODE TESTS RESULT OUT OF REFERENCE UNITS RANGE LAB APPUR Clear NA Appearance slcloudy LAB COLUR Lt. Yellow NA Color yellow LAB USG 1.005-1.030 NA Specific Normal [place],Urine 1.010 LAB UPH 5.0-8.0 NA pH,Urine Normal 8.0 LAB ULUK Negative NA Leukocytes NEG LAB UNIT Negative NA Nitrites NEG LAB UPRO Negative mg/dL Total Protein,Urine 25 LAB UGLU Negative mg/dL Glucose,Urine NORM LAB UKET Negative mg/dL Ketone,Urine NEG LAB UURO 0-1 mg/dL Urobilinogen NORM LAB UBIL Negative NA Bilirubin,Ur NEG LAB UBLD Negative {RBC}/uL Occult Blood,Ur 250 Performed By: #### DRGA4, UAMAC, UAMIC #### [facility] [employer] [address] [address] URINALYSIS,MICROSCOPIC Collected: Status: F Source: [facility] 02/11/2018 6:25 PM HEALTH SYSTEM REPOSITORY TYPE CODE TESTS RESULT OUT OF REFERENCE UNITS RANGE LAB WBCU 0-5 /[HPF] WBC,Urine 0 - 2 LAB RBCU 0-2 /[HPF] RBC,Urine 26 - 50 LAB EPIU 3-5 /[HPF] Epithelial Cells 0 - 2 LAB JENIFFER Negative NA Bacteria Few (1-5) Performed By: #### DRGA4, UAMAC, UAMIC #### [facility] [employer] [address] [address] HEMOGRAM W/ AUTODIFF Collected: 02/05/2018 Status: F Source: [employer] 2:44 PM SYSTEM REPOSITORY TYPE CODE TESTS RESULT OUT OF REFERENCE UNITS RANGE LAB IWBC 3.6-10.7 10*3/uL WBC Normal 7.6 LAB RBC 3.80-5.20 10*6/uL RBC Normal 4.76 LAB HGB 11.7-16.0 g/dL Hemoglobin Normal 13.8 LAB HCT 35.0-47.0 % Hematocrit Normal 41.8 LAB MCV 79.0-98.0 fL MCV Normal 87.8 LAB MCH 26.0-34.0 pg MCH Normal 29.0 LAB MCHC 32.0-36.0 % MCHC Normal 33.0 LAB RDW 11.5-14.5 % RDW Normal 14.5 LAB PLT 140-440 10*3/uL Platelet Normal 324 LAB MPV 7.4-10.4 fL Low MPV 7.1 LAB GRAN% 40.0-80.0 % Granulocytes High 86.6 LAB LYMP% 20.0-40.0 % Low Lymphocytes 11.0 LAB MONO% 2.0-10.0 % Monocytes Normal 2.2 LAB EOS% 1.0-6.0 % Low Eosinophils 0.0 LAB BAS% 0.0-2.0 % Basophils Normal 0.2 LAB ANC 1.8-7.0 10*3/uL Abs Normal Neutrophile Cnt 6.6 LAB ALC 1.0-4.3 10*3/uL Low Abs Lymph Cnt 0.8 LAB AMC 0.0-0.8 10*3/uL Abs Monocyte Normal Cnt 0.2 LAB AEC 0.0-0.5 10*3/uL Abs Eosin Cnt Normal 0.0 LAB ABC 0.0-0.2 10*3/uL Abs Baso Cnt Normal 0.0 Performed By: #### HEMDF, CMP3, MG3, LIPA4 #### [facility] [address] [place] [id number] COMP METABOLIC PANEL Collected: 02/05/2018 Status: F Source: [employer] 2:44 PM SYSTEM REPOSITORY TYPE CODE TESTS RESULT OUT OF RANGE REFERENCE UNITS LAB NA3 137-145 mmol/L Sodium Normal 141 LAB K3 3.5-5.1 mmol/L Normal Potassium 4.1 LAB CL3 98-107 mmol/L Chloride Normal 103 LAB CO23 22-30 mmol/L Carbon Normal Dioxide 30 LAB ANIN3 NA Anion Gap 8 LAB GLUC3 70-100 mg/dL High Glucose 167 LAB BUN3 7-20 mg/dL Urea Normal Nitrogen 18 LAB CRET3 0.52-1.25 mg/dL Normal Creatinine 0.63 LAB GF3BR >60 mL/min eGFR > 60.0 LAB GF3WR >60 mL/min eGFR OTHER > 60.0 Result Comment: Source- MDRD equation with creatinine calibration to IDMS(NKDEP) eGFR not recommended for drug dose adjustment LAB CA3 8.4-10.4 mg/dL Calcium Normal 9.7 LAB ALB3 3.5-5.0 g/dL Albumin, Serum Normal 4.7 LAB TP3 6.3-8.2 g/dL Total Protein Normal 7.4 LAB BILT3 0.2-1.3 mg/dL Normal Bilirubin,Total 0.6 LAB ALKP3 38-126 U/L Alkaline Normal Phosphatase 83 LAB ALT3 13-69 U/L ALT (SGPT) Normal 18 LAB AST3 15-46 U/L High AST (SGOT) 54 Performed By: #### HEMDF, CMP3, MG3, LIPA4 #### [facility] [address] [place] [address] MAGNESIUM Collected: 02/05/2018 Status: F Source: [employer] 2:44 PM SYSTEM REPOSITORY TYPE CODE TESTS RESULT OUT OF RANGE REFERENCE UNITS LAB MG3 1.6-2.3 mg/dL Normal Magnesium 1.8 Performed By: #### HEMDF, CMP3, MG3, LIPA4 #### [facility] [address] [place] [address] LIPASE Collected: 02/05/2018 Status: F Source: [employer] 2:44 PM SYSTEM REPOSITORY TYPE CODE TESTS RESULT OUT OF RANGE REFERENCE UNITS LAB LIPA4 23-300 U/L Normal Lipase 66 Performed By: #### HEMDF, CMP3, MG3, LIPA4 #### [facility] [address] [place] [id number] HCG,URINE QUAL Collected: 02/05/2018 Status: F Source: [employer] 2:[employer] PM SYSTEM REPOSITORY TYPE CODE TESTS RESULT OUT OF REFERENCE UNITS RANGE LAB HCGUR Negative NA Negative HCG,Urine Qual Result Comment: is the most common reason for HCG in urine, although choriocarcinoma, hydatidiform mole, and certain nontropho- blastic malignancies also result in detectable urinary HCG levels. Sensitivity = 20mIU/mL. Performed By: #### HCGUR, UAMAC, UAMIC #### [facility] [address] [place] [id number] URINALYSIS,MACRO Collected: 02/05/2018 Status: F Source: [employer] 2:44 PM SYSTEM REPOSITORY TYPE CODE TESTS RESULT OUT OF REFERENCE UNITS RANGE LAB APPUR Clear NA Appearance slcloudy LAB COLUR Lt. Yellow NA Color yellow LAB USG 1.005-1.030 NA Specific Normal [place],Urine 1.010 LAB UPH 5.0-8.0 NA pH,Urine Normal 8.0 LAB ULUK Negative NA Leukocytes NEG LAB UNIT Negative NA Nitrites NEG LAB UPRO Negative mg/dL Total Protein,Urine 25 LAB UGLU Negative mg/dL Glucose,Urine NORM LAB UKET Negative mg/dL Ketone,Urine NEG LAB UURO 0-1 mg/dL Urobilinogen NORM LAB UBIL Negative NA Bilirubin,Ur NEG LAB UBLD Negative {RBC}/uL Occult Blood,Ur NEG Performed By: #### HCGUR, UAMAC, UAMIC #### [facility] [address] [place] [address] URINALYSIS,MICROSCOPIC Collected: Status: F Source: [facility] 02/05/2018 2:44 PM HEALTH SYSTEM REPOSITORY TYPE CODE TESTS RESULT OUT OF REFERENCE UNITS RANGE LAB WBCU 0-5 /[HPF] 0 WBC,Urine - 2 LAB RBCU 0-2 /[HPF] 1 RBC,Urine - 3 LAB EPIU 3-5 /[HPF] 6 Epithelial Cells - 15 LAB JENIFFER Negative NA Bacteria Moderate (6-50) LAB AMPH Negative NA Amorphous Many (51-100) Phosphates Performed By: #### HCGUR, UAMAC, UAMIC #### [facility] [address] [place] [address] OBSOLETE Observed: 11/25/2017 Status: COMPLETED Source: [facility] 12:00 AM CLINIC OTHER CAMPUS REPOSITORY Refill (ME4S) PAULINA FINN ([id number]) 1965 F Date Time Provider Department 11/25/17 VITO GUILLAUME ME4S During your visit today, we recorded the following information about you: Gene Gonzalez, PSA 11/25/2017 10:49 AM Signed Paulina is requesting refill of percocet. She is taking 2 tabs every 8 hours around the clock. She has 4 tabs left and will run out tomorrow. Please advise. Pt will need called to [facility] when prescribed. Lance Loya APRN.UNEMPLOYMENT SPECIALIST 11/25/2017 1:26 PM Signed I called and spoke with Paulina. I asked what else she was doing to wean herself from the Percocet. She instructed me she has been taking Advil in between to help with the pain. She has recently gone back to work and has had difficulty performing her job due to the pain. I will wean her prescription down to Percocet 1 tab every 12 hours as needed for 7 days. I instructed her to take Tylenol in place of the Percocet and continue with the Advil. I told her I would not write any more narcotic medication for her. She agreed with this treatment plan. Lance Loya APRN.UNEMPLOYMENT SPECIALIST November 25, 2017 1:24 PM Allergies As of Date: 11/25/2017 Noted Allergy Reaction OMNICEF (CEFDINIR) 12/15/2006 4 - Hives PENICILLINS 12/15/2006 4 - Hives VANCOMYCIN 12/15/2006 4 - Hives ZITHROMAX (AZITHROMYCIN) 12/15/2006 4 - Hives CORTISONE 12/15/2006 5 - Intolerance Comments: INCREASE IN BP FOR SEVERAL WEEKS. Date Reviewed: 11/05/2017 Reviewed by: Vida Ceballos Ma - Fully Assessed Reason for Visit: Refill Request [94] Visit Diagnosis:Acute post-operative pain [G89.18] Order(s):Order #: [id number] Prescriptions as of 11/25/2017 Sig: OXYCODONE-ACETAMINOPHEN 5 MG-* Take 1 tablet by mouth every * ASCORBIC ACID (VITAMIN C) 500* Take 1 tablet by mouth twice * ASPIRIN 325 MG TABLET,DELAYED* Take 1 tablet by mouth twice * SERTRALINE 100 MG TABLET Take 200 mg by mouth once lennie* METOPROLOL TARTRATE 50 MG TAB* Take 50 mg by mouth once adam* LISINOPRIL 40 MG TABLET DAILY AT 6 PM. SIMVASTATIN 40 MG TABLET 40 mg DAILY AT 6 PM. HYDROCHLOROTHIAZIDE 25 MG TAB* Take 25 mg by mouth once adam* ALPRAZOLAM 0.5 MG TABLET Take one tablet as needed for* Problem List As Of Date 11/25/2017 Noted Resolved Lumbago [M54.5] INVALID FOR*09/04/2017 Osteoarthrosis, unspecified whether generalized*INVALID FOR*09/04/2017 Pain in joint, lower leg [M25.569] INVALID FOR*09/04/2017 Sprain of cruciate ligament of knee [S83.509A] INVALID FOR*09/04/2017 Tear of medial cartilage or meniscus of knee, c*INVALID FOR*09/04/2017 Osteoarthritis of right knee [M17.11] INVALID FOR*09/04/2017 Prepatellar bursitis [M70.40] INVALID FOR*09/04/2017 RSD lower limb [G90.529] INVALID FOR* Mechanical complication of internal orthopedic *INVALID FOR*10/03/2011 Mechanical back pain [M54.9] INVALID FOR*09/04/2017 Lumbar strain [S39.012A] INVALID FOR*09/04/2017 Lumbar spondylosis [M47.816] INVALID FOR* DDD (degenerative disc disease), lumbar [M51.36]INVALID FOR* Arthritis of knee, degenerative [M17.10] INVALID FOR*09/08/2017 More... HTN (hypertension) [I10] INVALID FOR* Dyslipidemia, goal to be determined [E78.5] INVALID FOR* Anxiety [F41.9] INVALID FOR* Mood swings (HCC) [F39] INVALID FOR* Arthritis of left knee [M17.12] INVALID FOR* Post-operative state [Z98.890] INVALID FOR* Prescriptions ordered this encounter Disp Refills Start End OXYCODONE-ACETAMINOPHEN 5 MG-325 MG * 14 t* 0 11/25/2017 12/02/2017 Class: Print RX Route: ORAL Sig: Take 1 tablet by mouth every 12 hours as needed for Pain (acute post op pain) for up to 7 days. Earliest Fill Date: 11/25/17 Medications Discontinued During This Encounter oxyCODONE-acetaminophen (PERCOCET) 5* 42 t* 0 11/19/2017 11/25/2017 Class: Print RX Route: ORAL Sig: Take 1-2 tablets by mouth every 8 hours as needed for Pain (acute post op pain) for up to 7 days. Earliest Fill Date: 11/19/17 Disc: Reason for discontinue is not on file. Encounter Status:Closed by LANCE LOYA on 11/25/17 OBSOLETE Observed: 11/18/2017 Status: COMPLETED Source: [facility] 12:00 AM CLINIC OTHER CAMPUS REPOSITORY Refill (ME4S) PAULINA FINN ([id number]) 1965 F Date Time Provider Department 11/18/17 VITO GUILLAUME ME4S During your visit today, we recorded the following information about you: Gene Gonzalez, PSA 11/18/2017 10:01 AM Signed Patient requesting another refill of percocet. She is aware Violeta is trying to wean her down. She is hoping for one more refill. Would like to [facility] in [place] tomorrow. Please advise how you would like to address this. Thanks. Violeta Luna M.S. PA-C 11/18/2017 10:33 AM Signed OK to write Christiano. Thanks Vega Coleman PA-C, APRN.UNEMPLOYMENT SPECIALIST 11/18/2017 10:39 AM Signed Patient is S/P L TKA. OARRS checked and patient is being weaned and taking medication appropriately. Verified with DEIRDRE Mcdaniel. Will refill rx. Allergies As of Date: 11/18/2017 Noted Allergy Reaction OMNICEF (CEFDINIR) 12/15/2006 4 - Hives PENICILLINS 12/15/2006 4 - Hives VANCOMYCIN 12/15/2006 4 - Hives ZITHROMAX (AZITHROMYCIN) 12/15/2006 4 - Hives CORTISONE 12/15/2006 5 - Intolerance Comments: INCREASE IN BP FOR SEVERAL WEEKS. Date Reviewed: 11/05/2017 Reviewed by: Vida Ceballos Ma - Fully Assessed Reason for Visit: Refill Request [94] Visit Diagnosis:Acute post-operative pain [G89.18] Order(s):[START ON 11/19/2017] Order #: [id number] Prescriptions as of 11/18/2017 Sig: OXYCODONE-ACETAMINOPHEN 5 MG-* Take 1-2 tablets by mouth onelia* MELOXICAM 7.5 MG TABLET Take 1 tablet by mouth once d* ASCORBIC ACID (VITAMIN C) 500* Take 1 tablet by mouth twice * ASPIRIN 325 MG TABLET,DELAYED* Take 1 tablet by mouth twice * SERTRALINE 100 MG TABLET Take 200 mg by mouth once lennie* METOPROLOL TARTRATE 50 MG TAB* Take 50 mg by mouth once adam* LISINOPRIL 40 MG TABLET DAILY AT 6 PM. SIMVASTATIN 40 MG TABLET 40 mg DAILY AT 6 PM. HYDROCHLOROTHIAZIDE 25 MG TAB* Take 25 mg by mouth once adam* ALPRAZOLAM 0.5 MG TABLET Take one tablet as needed for* Problem List As Of Date 11/18/2017 Noted Resolved Lumbago [M54.5] INVALID FOR*09/04/2017 Osteoarthrosis, unspecified whether generalized*INVALID FOR*09/04/2017 Pain in joint, lower leg [M25.569] INVALID FOR*09/04/2017 Sprain of cruciate ligament of knee [S83.509A] INVALID FOR*09/04/2017 Tear of medial cartilage or meniscus of knee, c*INVALID FOR*09/04/2017 Osteoarthritis of right knee [M17.11] INVALID FOR*09/04/2017 Prepatellar bursitis [M70.40] INVALID FOR*09/04/2017 RSD lower limb [G90.529] INVALID FOR* Mechanical complication of internal orthopedic *INVALID FOR*10/03/2011 Mechanical back pain [M54.9] INVALID FOR*09/04/2017 Lumbar strain [S39.012A] INVALID FOR*09/04/2017 Lumbar spondylosis [M47.816] INVALID FOR* DDD (degenerative disc disease), lumbar [M51.36]INVALID FOR* Arthritis of knee, degenerative [M17.10] INVALID FOR*09/08/2017 More... HTN (hypertension) [I10] INVALID FOR* Dyslipidemia, goal to be determined [E78.5] INVALID FOR* Anxiety [F41.9] INVALID FOR* Mood swings (HCC) [F39] INVALID FOR* Arthritis of left knee [M17.12] INVALID FOR* Post-operative state [Z98.890] INVALID FOR* Prescriptions ordered this encounter Disp Refills Start End OXYCODONE-ACETAMINOPHEN 5 MG-325 MG * 42 t* 0 11/19/2017 11/26/2017 Class: Print RX Route: ORAL Sig: Take 1-2 tablets by mouth every 8 hours as needed for Pain (acute post op pain) for up to 7 days. Earliest Fill Date: 11/19/17 Medications Discontinued During This Encounter oxyCODONE-acetaminophen (PERCOCET) 5* 42 t* 0 11/11/2017 11/18/2017 Class: Print RX Route: ORAL Sig: Take 1-2 tablets by mouth every 8 hours as needed for up to 7 days. for pain. Earliest Fill Date: 11/11/17 Disc: Reason for discontinue is not on file. Encounter Status:Closed by LANCE LOYA on 11/18/17 OBSOLETE Observed: 11/11/2017 Status: COMPLETED Source: [place] 12:00 AM [facility] REPOSITORY Refill (ME4S) PAULINA FINN ([id number]) 1965 F Date Time Provider Department 11/11/17 VITO GUILLAUME ME4S During your visit today, we recorded the following information about you: ARMIN Pena 11/11/2017 3:32 PM Signed Paulina calling to get refill. Saw dr guillaume last week who modified her work restrictions. 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 Pt agreeable to switching to 1 every 6 hours per Marlene request. Violeta Luna M.S. PA-C 11/11/2017 3:56 PM Signed Rx printed and given to Gene for brass pickler. Violeta uLna M.S. PA-C Allergies As of Date: 11/11/2017 Noted Allergy Reaction OMNICEF (CEFDINIR) 12/15/2006 4 - Hives PENICILLINS 12/15/2006 4 - Hives VANCOMYCIN 12/15/2006 4 - Hives ZITHROMAX (AZITHROMYCIN) 12/15/2006 4 - Hives CORTISONE 12/15/2006 5 - Intolerance Comments: INCREASE IN BP FOR SEVERAL WEEKS. Date Reviewed: 11/05/2017 Reviewed by: Vida Ceballos Ma - Fully Assessed Reason for Visit: Refill Request [94] Visit Diagnosis:Acute post-operative pain [G89.18] Order(s):Order #: [id number] Prescriptions as of 11/11/2017 Sig: OXYCODONE-ACETAMINOPHEN 5 MG-* Take 1-2 tablets by mouth onelia* MELOXICAM 7.5 MG TABLET Take 1 tablet by mouth once d* ASCORBIC ACID (VITAMIN C) 500* Take 1 tablet by mouth twice * ASPIRIN 325 MG TABLET,DELAYED* Take 1 tablet by mouth twice * SERTRALINE 100 MG TABLET Take 200 mg by mouth once lennie* METOPROLOL TARTRATE 50 MG TAB* Take 50 mg by mouth once adam* LISINOPRIL 40 MG TABLET DAILY AT 6 PM. SIMVASTATIN 40 MG TABLET 40 mg DAILY AT 6 PM. HYDROCHLOROTHIAZIDE 25 MG TAB* Take 25 mg by mouth once adam* ALPRAZOLAM 0.5 MG TABLET Take one tablet as needed for* Problem List As Of Date 11/11/2017 Noted Resolved Lumbago [M54.5] INVALID FOR*09/04/2017 Osteoarthrosis, unspecified whether generalized*INVALID FOR*09/04/2017 Pain in joint, lower leg [M25.569] INVALID FOR*09/04/2017 Sprain of cruciate ligament of knee [S83.509A] INVALID FOR*09/04/2017 Tear of medial cartilage or meniscus of knee, c*INVALID FOR*09/04/2017 Osteoarthritis of right knee [M17.11] INVALID FOR*09/04/2017 Prepatellar bursitis [M70.40] INVALID FOR*09/04/2017 RSD lower limb [G90.529] INVALID FOR* Mechanical complication of internal orthopedic *INVALID FOR*10/03/2011 Mechanical back pain [M54.9] INVALID FOR*09/04/2017 Lumbar strain [S39.012A] INVALID FOR*09/04/2017 Lumbar spondylosis [M47.816] INVALID FOR* DDD (degenerative disc disease), lumbar [M51.36]INVALID FOR* Arthritis of knee, degenerative [M17.10] INVALID FOR*09/08/2017 More... HTN (hypertension) [I10] INVALID FOR* Dyslipidemia, goal to be determined [E78.5] INVALID FOR* Anxiety [F41.9] INVALID FOR* Mood swings (HCC) [F39] INVALID FOR* Arthritis of left knee [M17.12] INVALID FOR* Post-operative state [Z98.890] INVALID FOR* Prescriptions ordered this encounter Disp Refills Start End OXYCODONE-ACETAMINOPHEN 5 MG-325 MG * 42 t* 0 11/11/2017 11/18/2017 Class: Print RX Route: ORAL Sig: Take 1-2 tablets by mouth every 8 hours as needed for up to 7 days. for pain. Earliest Fill Date: 11/11/17 Medications Discontinued During This Encounter oxyCODONE-acetaminophen (PERCOCET) 5* 60 t* 0 11/05/2017 11/11/2017 Class: Print RX Route: ORAL Sig: Take 1-2 tablets by mouth every 6 hours as needed for up to 7 days. for pain. Disc: Reason for discontinue is not on file. Encounter Status:Closed by GENE GONZALEZ on 11/12/17 PROGRESS Observed: 11/05/2017 Status: COMPLETED Source: [place] 11:17 AM [facility] [place] REPOSITORY HNO ID: [id number] Author: Vito Guillaume Service: (none) Author Type: Physician Type: Progress Notes Filed: 11/05/2017 11:36 AM Note Text: Ortho Knee Follow Up Note Narrative Referring Provider: Vito Guillaume MD [facility] [address] [address] PCP: Lise Garcia MD IMPRESSION/PLAN: Patient follows up now 6 weeks from a left total knee replacement. She has return to work is walking quite a bit which I feel is responsible for the swelling in her left leg. Although she has completed home therapy, she was not referred for outpatient therapy which we will begin now. She will continue to stay on meloxicam 7.5 milligrams a day and she was given additional prescription for Percocet. She will follow-up in 3 months. Additionally we will restrict her work routine. She will remain on the care path until the next visit. 52 year old female s/p Left Total Knee Replacement completed on 09-08-2017. IMPRESSION: At normal post-operative stage of recovery. PLAN: Continue current conservative treatment. Modify medical management: Continue current medications. Patient Reassurance: Normal post-operative course discussed with patient. Progress appears to be with the normal speed of recovery. Patient reassured and supported. All questions answered. Follow up 3 months No X-Rays Needed Paulina Finn presents today for a a routine 1st post-op visit ACTIVE PROBLEM LIST Rsd Lower Limb Lumbar Spondylosis Ddd (Degenerative Disc Disease), Lumbar Htn (Hypertension) Dyslipidemia, Goal to Be Determined Anxiety Mood Swings (Hcc) Arthritis of Left Knee Post-Operative State Status post op: Left Total Knee Replacement BMI: Body mass index is 19.49 kg/m?. Post-operative recovery was complicated by uneventful/none. Patient rates his condition as improving. Does the patient still experience pain? see MIDAS Form Post Op discharge patient location: in home. Functional Assessment is as follows: completed home PT and is ready to begin outpatient PT. Functional difficulties: Interferes with sleep and Arising from chair. Pain Medication: Narcotic and Non-narcotic Currently Ambulating with: no ambulation aides EXAM: POST OP KNEE Left Post-Operative Knee Ambulates with a: limp favoring the left. SKIN: Appropriate postop appearance, No evidence of erythema, warmth, discharge or drainage and No evidence of warmth or erythema. Range of motion is lacking a few degrees secondary to tight hamstrings degrees in extension and 100 degrees of flexion. Extension La degrees Pain with ROM:No There is Mild effusion. Mal-alignment: No Tender to the palpation of Medial femoral condyle Neurovascular Status: Sensation Intact and Moves foot and ankle up AND down Stability:Anterior/Posterior- Yes, stable and Varus/Valgus- Yes, stable Quad strength: improving Imagin. Implants are well aligned. Implants are well fixed. Provider: Vito Guillaume MD FACS Completed by: Vito Guillaume MD FACS CNOV Observed: 11/05/2017 Status: COMPLETED Source: [place] 11:00 AM [facility] REPOSITORY Office Visit (ORTHBR) PAULINA FINN ([id number]) 1965 F Date Time Provider Department 11/05/17 11:00 AM VITO GUILLAUME During your visit today, we recorded the following information about you: Weight Height 49.9 kg 1.6 m Vito Guillaume MD FACS 11/05/2017 11:36 AM Signed Ortho Knee Follow Up Note Narrative Referring Provider: Vito Guillaume MD FACS [address] [address] PCP: Lise Garcia MD IMPRESSION/PLAN: Patient follows up now 6 weeks from a left total knee replacement. She has return to work is walking quite a bit which I feel is responsible for the swelling in her left leg. Although she has completed home therapy, she was not referred for outpatient therapy which we will begin now. She will continue to stay on meloxicam 7.5 milligrams a day and she was given additional prescription for Percocet. She will follow-up in 3 months. Additionally we will restrict her work routine. She will remain on the care path until the next visit. 52 year old female s/p Left Total Knee Replacement completed on 09-08-2017. IMPRESSION: At normal post-operative stage of recovery. PLAN: Continue current conservative treatment. Modify medical management: Continue current medications. Patient Reassurance: Normal post-operative course discussed with patient. Progress appears to be with the normal speed of recovery. Patient reassured and supported. All questions answered. Follow up 3 months No X-Rays Needed Paulina Finn presents today for a a routine 1st post-op visit ACTIVE PROBLEM LIST Rsd Lower Limb Lumbar Spondylosis Ddd (Degenerative Disc Disease), Lumbar Htn (Hypertension) Dyslipidemia, Goal to Be Determined Anxiety Mood Swings (Hcc) Arthritis of Left Knee Post-Operative State Status post op: Left Total Knee Replacement BMI: Body mass index is 19.49 kg/m?. Post-operative recovery was complicated by uneventful/none. Patient rates his condition as improving. Does the patient still experience pain? see MIDAS Form Post Op discharge patient location: in home. Functional Assessment is as follows: completed home PT and is ready to begin outpatient PT. Functional difficulties: Interferes with sleep and Arising from chair. Pain Medication: Narcotic and Non-narcotic Currently Ambulating with: no ambulation aides EXAM: POST OP KNEE Left Post-Operative Knee Ambulates with a: limp favoring the left. SKIN: Appropriate postop appearance, No evidence of erythema, warmth, discharge or drainage and No evidence of warmth or erythema. Range of motion is lacking a few degrees secondary to tight hamstrings degrees in extension and 100 degrees of flexion. Extension La degrees Pain with ROM:No There is Mild effusion. Mal-alignment: No Tender to the palpation of Medial femoral condyle Neurovascular Status: Sensation Intact and Moves foot and ankle up AND down Stability:Anterior/Posterior- Yes, stable and Varus/Valgus- Yes, stable Quad strength: improving Imagin. Implants are well aligned. Implants are well fixed. Provider: Vito Guillaume MD FACS Completed by: Vito Guillaume MD FACS Referring Provider: VITO GUILLAUME [[id number]] Allergies As of Date: 11/05/2017 Noted Allergy Reaction OMNICEF (CEFDINIR) 12/15/2006 4 - Hives PENICILLINS 12/15/2006 4 - Hives VANCOMYCIN 12/15/2006 4 - Hives ZITHROMAX (AZITHROMYCIN) 12/15/2006 4 - Hives CORTISONE 12/15/2006 5 - Intolerance Comments: INCREASE IN BP FOR SEVERAL WEEKS. Date Reviewed: 11/05/2017 Reviewed by: Vida Ceballos Ma - Fully Assessed Reason for Visit: Post Op Left Knee [Other] Visit Diagnosis:Acute post-operative pain [G89.18] Order(s):PHYSICAL THERAPY EVALUATION [[id number]] Order #: [id number]: 1 oxyCODONE-acetaminophen (PERCOCET) 5-325 mg tabletTake 1-2 tablets by mouth every 6 hours as needed for up to 7 days. for pain.Disp: 60 tabletRfl: 0 Prescriptions as of 11/05/2017 Sig: OXYCODONE-ACETAMINOPHEN 5 MG-* Take 1-2 tablets by mouth onelia* MELOXICAM 7.5 MG TABLET Take 1 tablet by mouth once d* SERTRALINE 100 MG TABLET Take 200 mg by mouth once lennie* METOPROLOL TARTRATE 50 MG TAB* Take 50 mg by mouth once adam* LISINOPRIL 40 MG TABLET DAILY AT 6 PM. SIMVASTATIN 40 MG TABLET 40 mg DAILY AT 6 PM. HYDROCHLOROTHIAZIDE 25 MG TAB* Take 25 mg by mouth once adam* ALPRAZOLAM 0.5 MG TABLET Take one tablet as needed for* ASCORBIC ACID (VITAMIN C) 500* Take 1 tablet by mouth twice * ASPIRIN 325 MG TABLET,DELAYED* Take 1 tablet by mouth twice * Problem List As Of Date 11/05/2017 Noted Resolved Lumbago [M54.5] INVALID FOR*09/04/2017 Osteoarthrosis, unspecified whether generalized*INVALID FOR*09/04/2017 Pain in joint, lower leg [M25.569] INVALID FOR*09/04/2017 Sprain of cruciate ligament of knee [S83.509A] INVALID FOR*09/04/2017 Tear of medial cartilage or meniscus of knee, c*INVALID FOR*09/04/2017 Osteoarthritis of right knee [M17.11] INVALID FOR*09/04/2017 Prepatellar bursitis [M70.40] INVALID FOR*09/04/2017 RSD lower limb [G90.529] INVALID FOR* Mechanical complication of internal orthopedic *INVALID FOR*10/03/2011 Mechanical back pain [M54.9] INVALID FOR*09/04/2017 Lumbar strain [S39.012A] INVALID FOR*09/04/2017 Lumbar spondylosis [M47.816] INVALID FOR* DDD (degenerative disc disease), lumbar [M51.36]INVALID FOR* Arthritis of knee, degenerative [M17.10] INVALID FOR*09/08/2017 More... HTN (hypertension) [I10] INVALID FOR* Dyslipidemia, goal to be determined [E78.5] INVALID FOR* Anxiety [F41.9] INVALID FOR* Mood swings (HCC) [F39] INVALID FOR* Arthritis of left knee [M17.12] INVALID FOR* Post-operative state [Z98.890] INVALID FOR* Prescriptions ordered this encounter Disp Refills Start End OXYCODONE-ACETAMINOPHEN 5 MG-325 MG * 60 t* 0 11/05/2017 11/12/2017 Class: Print RX Route: ORAL Sig: Take 1-2 tablets by mouth every 6 hours as needed for up to 7 days. for pain. Medications Discontinued During This Encounter oxyCODONE-acetaminophen (PERCOCET) 5* 84 t* 0 10/08/2017 11/05/2017 Class: Print RX Route: ORAL Sig: Take 1-2 tablets by mouth every 4 hours as needed for Pain (acute post op pain) for up to 7 days. Disc: Reason for discontinue is not on file. oxyCODONE-acetaminophen (PERCOCET) 5* 56 t* 0 10/29/2017 11/05/2017 Class: Print RX Route: ORAL Sig: Take 1-2 tablets by mouth every 6 hours as needed for up to 7 days. for pain. Earliest Fill Date: 10/29/17 Disc: Reason for discontinue is not on file. Letter Text Paulina Finn [facility] Vito Guillaume M.D. [address] [place] [address] Paulina [place] [address] [facility] [address] November 05, 2017 TO WHOM IT MAY CONCERN: This is to certify that Paulina Finn has been under my care and is able to work with the following restriction: she is limited to working 5 hours a day, and is to elevate the knee when swollen. Sincerely yours, Vito Guillaume M.D. (Electronically signed) Encounter Status:Closed by VITO GUILLAUME MD, FACS on 11/05/17 OBSOLETE Observed: 10/29/2017 Status: COMPLETED Source: [place] 12:00 AM CLINIC OTHER CAMPUS REPOSITORY Refill (ME4S) PAULINA FINN ([id number]) 1965 F Date Time Provider Department 10/29/17 VITO GUILLAUME ME4S During your visit today, we recorded the following information about you: Gene Nakitaana maria, PSA 10/29/2017 9:38 AM Signed Paulina requesting refill of oxycodone. She is taking about 6 pills a day. She is back to work and having a hard time with being up on her feet all day. She has follow up on 11/05. Would like to brass pickler script tomorrow at [place] [facility]. Please call patient to confirm when script will be ready. Thanks. Violeta Luna M.S. PA-C 10/29/2017 1:31 PM Signed Rx printed and given to Vida to call patient for brass pickler tomorrow. Vega Coleman PA-C, Ma 10/29/2017 1:57 PM Signed Left a detailed voice mail Script is at [facility] Allergies As of Date: 10/29/2017 Noted Allergy Reaction OMNICEF (CEFDINIR) 12/15/2006 4 - Hives PENICILLINS 12/15/2006 4 - Hives VANCOMYCIN 12/15/2006 4 - Hives ZITHROMAX (AZITHROMYCIN) 12/15/2006 4 - Hives CORTISONE 12/15/2006 5 - Intolerance Comments: INCREASE IN BP FOR SEVERAL WEEKS. Date Reviewed: 09/22/2017 Reviewed by: Violeta Luna (Pac) - Fully Assessed Reason for Visit: Refill Request [94] Visit Diagnosis:Acute post-operative pain [G89.18] Order(s):Order #: [id number] Prescriptions as of 10/29/2017 Sig: OXYCODONE-ACETAMINOPHEN 5 MG-* Take 1-2 tablets by mouth onelia* MELOXICAM 7.5 MG TABLET Take 1 tablet by mouth once d* OXYCODONE-ACETAMINOPHEN 5 MG-* Take 1-2 tablets by mouth onelia* ASCORBIC ACID (VITAMIN C) 500* Take 1 tablet by mouth twice * ASPIRIN 325 MG TABLET,DELAYED* Take 1 tablet by mouth twice * SERTRALINE 100 MG TABLET Take 200 mg by mouth once lennie* METOPROLOL TARTRATE 50 MG TAB* Take 50 mg by mouth once adam* LISINOPRIL 40 MG TABLET DAILY AT 6 PM. SIMVASTATIN 40 MG TABLET 40 mg DAILY AT 6 PM. HYDROCHLOROTHIAZIDE 25 MG TAB* Take 25 mg by mouth once adam* ALPRAZOLAM 0.5 MG TABLET Take one tablet as needed for* Problem List As Of Date 10/29/2017 Noted Resolved Lumbago [M54.5] INVALID FOR*09/04/2017 Osteoarthrosis, unspecified whether generalized*INVALID FOR*09/04/2017 Pain in joint, lower leg [M25.569] INVALID FOR*09/04/2017 Sprain of cruciate ligament of knee [S83.509A] INVALID FOR*09/04/2017 Tear of medial cartilage or meniscus of knee, c*INVALID FOR*09/04/2017 Osteoarthritis of right knee [M17.11] INVALID FOR*09/04/2017 Prepatellar bursitis [M70.40] INVALID FOR*09/04/2017 RSD lower limb [G90.529] INVALID FOR* Mechanical complication of internal orthopedic *INVALID FOR*10/03/2011 Mechanical back pain [M54.9] INVALID FOR*09/04/2017 Lumbar strain [S39.012A] INVALID FOR*09/04/2017 Lumbar spondylosis [M47.816] INVALID FOR* DDD (degenerative disc disease), lumbar [M51.36]INVALID FOR* Arthritis of knee, degenerative [M17.10] INVALID FOR*09/08/2017 More... HTN (hypertension) [I10] INVALID FOR* Dyslipidemia, goal to be determined [E78.5] INVALID FOR* Anxiety [F41.9] INVALID FOR* Mood swings (HCC) [F39] INVALID FOR* Arthritis of left knee [M17.12] INVALID FOR* Post-operative state [Z98.890] INVALID FOR* Prescriptions ordered this encounter Disp Refills Start End OXYCODONE-ACETAMINOPHEN 5 MG-325 MG * 56 t* 0 10/29/2017 11/05/2017 Class: Print RX Route: ORAL Sig: Take 1-2 tablets by mouth every 6 hours as needed for up to 7 days. for pain. Earliest Fill Date: 10/29/17 Medications Discontinued During This Encounter oxyCODONE-acetaminophen (PERCOCET) 5* 56 t* 0 10/22/2017 10/29/2017 Class: Print RX Route: ORAL Sig: Take 1-2 tablets by mouth every 6 hours as needed for up to 7 days. for pain. Earliest Fill Date: 10/22/17 Disc: Reason for discontinue is not on file. Encounter Status:Closed by VIDA CEBALLOS MA on 10/29/17 OBSOLETE Observed: 10/21/2017 Status: COMPLETED Source: [place] 12:00 AM CL[facility] OTHER CAMPUS REPOSITORY Refill (ME4S) PAULINA FINN ([id number]) 1965 F Date Time Provider Department 10/21/17 VITO GUILLAUME ME4S During your visit today, we recorded the following information about you: Gene Gonzalez, PSA 10/21/2017 3:40 PM Signed Paulina gomes voicemail requesting refill of percocet. TKA 09/08/17. She can be called at [phone]. Please advise. 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 She would like one more refill of the Percocet. I told her that this would be the last refill of Percocet and we would have to give her something license clerk next time. I am going to start her on Mobic 7.5 mg daily. Thelma Hawthorne APRN.UNEMPLOYMENT SPECIALIST 9:26 AM Allergies As of Date: 10/21/2017 Noted Allergy Reaction OMNICEF (CEFDINIR) 12/15/2006 4 - Hives PENICILLINS 12/15/2006 4 - Hives VANCOMYCIN 12/15/2006 4 - Hives ZITHROMAX (AZITHROMYCIN) 12/15/2006 4 - Hives CORTISONE 12/15/2006 5 - Intolerance Comments: INCREASE IN BP FOR SEVERAL WEEKS. Date Reviewed: 09/22/2017 Reviewed by: Violeta Luna (Pac) - Fully Assessed Reason for Visit: Refill Request [94] Visit Diagnosis:Acute post-operative pain [G89.18] Order(s):Order #: [id number] Order #: [id number] Prescriptions as of 10/21/2017 Sig: OXYCODONE-ACETAMINOPHEN 5 MG-* Take 1-2 tablets by mouth onelia* MELOXICAM 7.5 MG TABLET Take 1 tablet by mouth once d* OXYCODONE-ACETAMINOPHEN 5 MG-* Take 1-2 tablets by mouth onleia* ASCORBIC ACID (VITAMIN C) 500* Take 1 tablet by mouth twice * ASPIRIN 325 MG TABLET,DELAYED* Take 1 tablet by mouth twice * SERTRALINE 100 MG TABLET Take 200 mg by mouth once lennie* METOPROLOL TARTRATE 50 MG TAB* Take 50 mg by mouth once adam* LISINOPRIL 40 MG TABLET DAILY AT 6 PM. SIMVASTATIN 40 MG TABLET 40 mg DAILY AT 6 PM. HYDROCHLOROTHIAZIDE 25 MG TAB* Take 25 mg by mouth once adam* ALPRAZOLAM 0.5 MG TABLET Take one tablet as needed for* Problem List As Of Date 10/21/2017 Noted Resolved Lumbago [M54.5] INVALID FOR*09/04/2017 Osteoarthrosis, unspecified whether generalized*INVALID FOR*09/04/2017 Pain in joint, lower leg [M25.569] INVALID FOR*09/04/2017 Sprain of cruciate ligament of knee [S83.509A] INVALID FOR*09/04/2017 Tear of medial cartilage or meniscus of knee, c*INVALID FOR*09/04/2017 Osteoarthritis of right knee [M17.11] INVALID FOR*09/04/2017 Prepatellar bursitis [M70.40] INVALID FOR*09/04/2017 RSD lower limb [G90.529] INVALID FOR* Mechanical complication of internal orthopedic *INVALID FOR*10/03/2011 Mechanical back pain [M54.9] INVALID FOR*09/04/2017 Lumbar strain [S39.012A] INVALID FOR*09/04/2017 Lumbar spondylosis [M47.816] INVALID FOR* DDD (degenerative disc disease), lumbar [M51.36]INVALID FOR* Arthritis of knee, degenerative [M17.10] INVALID FOR*09/08/2017 More... HTN (hypertension) [I10] INVALID FOR* Dyslipidemia, goal to be determined [E78.5] INVALID FOR* Anxiety [F41.9] INVALID FOR* Mood swings (HCC) [F39] INVALID FOR* Arthritis of left knee [M17.12] INVALID FOR* Post-operative state [Z98.890] INVALID FOR* Prescriptions ordered this encounter Disp Refills Start End OXYCODONE-ACETAMINOPHEN 5 MG-325 MG * 56 t* 0 10/22/2017 10/29/2017 Class: Print RX Route: ORAL Sig: Take 1-2 tablets by mouth every 6 hours as needed for up to 7 days. for pain. Earliest Fill Date: 10/22/17 MELOXICAM 7.5 MG TABLET 30 t* 0 10/22/2017 11/21/2017 Route: ORAL Sig: Take 1 tablet by mouth once daily. Medications Discontinued During This Encounter oxyCODONE-acetaminophen (PERCOCET) 5* 56 t* 0 10/15/2017 10/22/2017 Class: Print RX Route: ORAL Sig: Take 1-2 tablets by mouth every 6 hours as needed for up to 7 days. for pain. Earliest Fill Date: 10/15/17 Disc: Reason for discontinue is not on file. Encounter Status:Closed by GENE GONZALEZ on 10/24/17 OBSOLETE Observed: 10/14/2017 Status: COMPLETED Source: [place] 12:00 AM [facility] [place] REPOSITORY Refill (ME4S) PAULINA FINN ([id number]) 1965 F Date Time Provider Department 10/14/17 VITO GUILLAUME ME4S During your visit today, we recorded the following information about you: Gene Gonzalez (Psa) 10/14/2017 4:02 PM Signed Pt requesting refill of percocet. She is taking mainly 2 every 6 hours. Would like to brass pickler in our outpt pharmacy tomorrow morning. Has had a rough transition back to work. 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 She is to discuss with Dr Guillaume next week or will call back if it gets worse. Thelma Hawthorne (Dairy Cattle Farmer) 10/15/2017 8:54 AM Signed Patient still using her Percocet regularly; working her job. Will refill. Thelma Hawthorne APRN.UNEMPLOYMENT SPECIALIST 8:53 AM Allergies As of Date: 10/14/2017 Noted Allergy Reaction OMNICEF (CEFDINIR) 12/15/2006 4 - Hives PENICILLINS 12/15/2006 4 - Hives VANCOMYCIN 12/15/2006 4 - Hives ZITHROMAX (AZITHROMYCIN) 12/15/2006 4 - Hives CORTISONE 12/15/2006 5 - Intolerance Comments: INCREASE IN BP FOR SEVERAL WEEKS. Date Reviewed: 09/22/2017 Reviewed by: Violeta Luna ([facility]) - Fully Assessed Reason for Visit: Refill Request [94] Visit Diagnosis:Acute post-operative pain [G89.18] Order(s):Order #: [id number] Prescriptions as of 10/14/2017 Sig: OXYCODONE-ACETAMINOPHEN 5 MG-* Take 1-2 tablets by mouth onelia* OXYCODONE-ACETAMINOPHEN 5 MG-* Take 1-2 tablets by mouth onelia* ASCORBIC ACID (VITAMIN C) 500* Take 1 tablet by mouth twice * ASPIRIN 325 MG TABLET,DELAYED* Take 1 tablet by mouth twice * SERTRALINE 100 MG TABLET Take 200 mg by mouth once lennie* METOPROLOL TARTRATE 50 MG TAB* Take 50 mg by mouth once adam* LISINOPRIL 40 MG TABLET DAILY AT 6 PM. SIMVASTATIN 40 MG TABLET 40 mg DAILY AT 6 PM. HYDROCHLOROTHIAZIDE 25 MG TAB* Take 25 mg by mouth once adam* ALPRAZOLAM 0.5 MG TABLET Take one tablet as needed for* Problem List As Of Date 10/14/2017 Noted Resolved Lumbago [M54.5] INVALID FOR*09/04/2017 Osteoarthrosis, unspecified whether generalized*INVALID FOR*09/04/2017 Pain in joint, lower leg [M25.569] INVALID FOR*09/04/2017 Sprain of cruciate ligament of knee [S83.509A] INVALID FOR*09/04/2017 Tear of medial cartilage or meniscus of knee, c*INVALID FOR*09/04/2017 Osteoarthritis of right knee [M17.11] INVALID FOR*09/04/2017 Prepatellar bursitis [M70.40] INVALID FOR*09/04/2017 RSD lower limb [G90.529] INVALID FOR* Mechanical complication of internal orthopedic *INVALID FOR*10/03/2011 Mechanical back pain [M54.9] INVALID FOR*09/04/2017 Lumbar strain [S39.012A] INVALID FOR*09/04/2017 Lumbar spondylosis [M47.816] INVALID FOR* DDD (degenerative disc disease), lumbar [M51.36]INVALID FOR* Arthritis of knee, degenerative [M17.10] INVALID FOR*09/08/2017 More... HTN (hypertension) [I10] INVALID FOR* Dyslipidemia, goal to be determined [E78.5] INVALID FOR* Anxiety [F41.9] INVALID FOR* Mood swings (HCC) [F39] INVALID FOR* Arthritis of left knee [M17.12] INVALID FOR* Post-operative state [Z98.890] INVALID FOR* Prescriptions ordered this encounter Disp Refills Start End OXYCODONE-ACETAMINOPHEN 5 MG-325 MG * 56 t* 0 10/15/2017 10/22/2017 Class: Print RX Route: ORAL Sig: Take 1-2 tablets by mouth every 6 hours as needed for up to 7 days. for pain. Earliest Fill Date: 10/15/17 Medications Discontinued During This Encounter oxyCODONE-acetaminophen (PERCOCET) 5* 56 t* 0 10/08/2017 10/15/2017 Class: Print RX Route: ORAL Sig: Take 1-2 tablets by mouth every 6 hours as needed for up to 7 days. for pain. Earliest Fill Date: 10/08/17 Disc: Reason for discontinue is not on file. Encounter Status:Closed by THELMA HAWTHORNE CNP on 10/15/17 OBSOLETE Observed: 10/08/2017 Status: COMPLETED Source: [place] 12:00 AM [facility] OTHER [facility] REPOSITORY Refill (ME4S) PAULINA FINN ([id number]) 1965 F Date Time Provider Department 10/08/17 VITO GUILLAUME ME4S During your visit today, we recorded the following information about you: ARMIN Pena 10/08/2017 9:37 AM Signed Pt requesting refill of percocet. Will brass pickler in our outpt pharmacy. Allergies As of Date: 10/08/2017 Noted Allergy Reaction OMNICEF (CEFDINIR) 12/15/2006 4 - Hives PENICILLINS 12/15/2006 4 - Hives VANCOMYCIN 12/15/2006 4 - Hives ZITHROMAX (AZITHROMYCIN) 12/15/2006 4 - Hives CORTISONE 12/15/2006 5 - Intolerance Comments: INCREASE IN BP FOR SEVERAL WEEKS. Date Reviewed: 09/22/2017 Reviewed by: Violeta Luna (Pac) - Fully Assessed Reason for Visit: Refill Request [94] Visit Diagnosis:Acute post-operative pain [G89.18] Order(s):Order #: [id number] Prescriptions as of 10/08/2017 Sig: OXYCODONE-ACETAMINOPHEN 5 MG-* Take 1-2 tablets by mouth onelia* OXYCODONE-ACETAMINOPHEN 5 MG-* Take 1-2 tablets by mouth onelia* X OXYCODONE-ACETAMINOPHEN 5 MG-* Take 1-2 tablets by mouth onelia* DOCUSATE SODIUM 100 MG CAPSULE Take 1 capsule by mouth twice* POLYETHYLENE GLYCOL 3350 17 G* Take 1 Packet by mouth once d* ASCORBIC ACID (VITAMIN C) 500* Take 1 tablet by mouth twice * ASPIRIN 325 MG TABLET,DELAYED* Take 1 tablet by mouth twice * SERTRALINE 100 MG TABLET Take 200 mg by mouth once lennie* METOPROLOL TARTRATE 50 MG TAB* Take 50 mg by mouth once adam* LISINOPRIL 40 MG TABLET DAILY AT 6 PM. SIMVASTATIN 40 MG TABLET 40 mg DAILY AT 6 PM. HYDROCHLOROTHIAZIDE 25 MG TAB* Take 25 mg by mouth once adam* ALPRAZOLAM 0.5 MG TABLET Take one tablet as needed for* Problem List As Of Date 10/08/2017 Noted Resolved Lumbago [M54.5] INVALID FOR*09/04/2017 Osteoarthrosis, unspecified whether generalized*INVALID FOR*09/04/2017 Pain in joint, lower leg [M25.569] INVALID FOR*09/04/2017 Sprain of cruciate ligament of knee [S83.509A] INVALID FOR*09/04/2017 Tear of medial cartilage or meniscus of knee, c*INVALID FOR*09/04/2017 Osteoarthritis of right knee [M17.11] INVALID FOR*09/04/2017 Prepatellar bursitis [M70.40] INVALID FOR*09/04/2017 RSD lower limb [G90.529] INVALID FOR* Mechanical complication of internal orthopedic *INVALID FOR*10/03/2011 Mechanical back pain [M54.9] INVALID FOR*09/04/2017 Lumbar strain [S39.012A] INVALID FOR*09/04/2017 Lumbar spondylosis [M47.816] INVALID FOR* DDD (degenerative disc disease), lumbar [M51.36]INVALID FOR* Arthritis of knee, degenerative [M17.10] INVALID FOR*09/08/2017 More... HTN (hypertension) [I10] INVALID FOR* Dyslipidemia, goal to be determined [E78.5] INVALID FOR* Anxiety [F41.9] INVALID FOR* Mood swings (HCC) [F39] INVALID FOR* Arthritis of left knee [M17.12] INVALID FOR* Post-operative state [Z98.890] INVALID FOR* Prescriptions ordered this encounter Disp Refills Start End OXYCODONE-ACETAMINOPHEN 5 MG-325 MG * 56 t* 0 10/08/2017 10/15/2017 Class: Print RX Route: ORAL Sig: Take 1-2 tablets by mouth every 6 hours as needed for up to 7 days. for pain. Earliest Fill Date: 10/08/17 Medications Discontinued During This Encounter oxyCODONE-acetaminophen (PERCOCET) 5* 56 t* 0 10/01/2017 10/08/2017 Class: Print RX Route: ORAL Sig: Take 1-2 tablets by mouth every 6 hours as needed for up to 7 days. for pain. Earliest Fill Date: 10/01/17 Disc: Reason for discontinue is not on file. Encounter Status:Closed by THELMA HAWTHORNE CNP on 10/08/17 CNCO Observed: 10/08/2017 Status: COMPLETED Source: [place] 12:00 AM [facility] REPOSITORY Letter Text Paulina Finn [facility] Vito Guillaume M.D. [address] [place] [address] Paulina A Aakash [address] [place] [id number] October 08, 2017 TO WHOM IT MAY CONCERN: This is to certify that Paulina Finn has been under my care and can return to work from , October 09 every other day for 5 hours for 3 weeks and then we will re assess and progress her activity as tolerated. Paulina Finn may return to work on October 09 with the following instructions: work every other day for 5 hours with a break as needed. . Sincerely yours, Vito Guillaume M.D. (Electronically signed) OBSOLETE Observed: 10/01/2017 Status: COMPLETED Source: [place] 12:00 AM [facility] OTHER CAMPUS REPOSITORY Refill (ME4S) PAULINA FINN ([id number]) 1965 F Date Time Provider Department 10/01/17 VITO GUILLAUME4S During your visit today, we recorded the following information about you: Gene Gonzalez, PSA 10/01/2017 10:33 AM Signed Paulina requesting refill of pain meds. Taking 2 tabs every 6 hours. Still having trouble with steps And ROM has improved since she saw Violeta. Would like to brass pickler in our outpt pharmacy around 12pm today. Thelma Hawthorne APRN.MORRIS 10/01/2017 11:16 AM Signed Patient is S/P Left TKA of 09/08/17 and decreasing Walton use. Will refill. Thelma Hawthorne APRN.M[facility]RIS 11:14 AM Allergies As of Date: 10/01/2017 Noted Allergy Reaction OMNICEF (CEFDINIR) 12/15/2006 4 - Hives PENICILLINS 12/15/2006 4 - Hives VANCOMYCIN 12/15/2006 4 - Hives ZITHROMAX (AZITHROMYCIN) 12/15/2006 4 - Hives CORTISONE 12/15/2006 5 - Intolerance Comments: INCREASE IN BP FOR SEVERAL WEEKS. Date Reviewed: 09/22/2017 Reviewed by: Violeta Luna (Pac) - Fully Assessed Reason for Visit: Refill Request [94] Visit Diagnosis:Acute post-operative pain [G89.18] Order(s):Order #: [id number] Prescriptions as of 10/01/2017 Sig: OXYCODONE-ACETAMINOPHEN 5 MG-* Take 1-2 tablets by mouth onelia* OXYCODONE-ACETAMINOPHEN 5 MG-* Take 1-2 tablets by mouth onelia* DOCUSATE SODIUM 100 MG CAPSULE Take 1 capsule by mouth twice* POLYETHYLENE GLYCOL 3350 17 G* Take 1 Packet by mouth once d* ASCORBIC ACID (VITAMIN C) 500* Take 1 tablet by mouth twice * ASPIRIN 325 MG TABLET,DELAYED* Take 1 tablet by mouth twice * SERTRALINE 100 MG TABLET Take 200 mg by mouth once lennie* METOPROLOL TARTRATE 50 MG TAB* Take 50 mg by mouth once adam* LISINOPRIL 40 MG TABLET DAILY AT 6 PM. SIMVASTATIN 40 MG TABLET 40 mg DAILY AT 6 PM. HYDROCHLOROTHIAZIDE 25 MG TAB* Take 25 mg by mouth once adam* ALPRAZOLAM 0.5 MG TABLET Take one tablet as needed for* Problem List As Of Date 10/01/2017 Noted Resolved Lumbago [M54.5] INVALID FOR*09/04/2017 Osteoarthrosis, unspecified whether generalized*INVALID FOR*09/04/2017 Pain in joint, lower leg [M25.569] INVALID FOR*09/04/2017 Sprain of cruciate ligament of knee [S83.509A] INVALID FOR*09/04/2017 Tear of medial cartilage or meniscus of knee, c*INVALID FOR*09/04/2017 Osteoarthritis of right knee [M17.11] INVALID FOR*09/04/2017 Prepatellar bursitis [M70.40] INVALID FOR*09/04/2017 RSD lower limb [G90.529] INVALID FOR* Mechanical complication of internal orthopedic *INVALID FOR*10/03/2011 Mechanical back pain [M54.9] INVALID FOR*09/04/2017 Lumbar strain [S39.012A] INVALID FOR*09/04/2017 Lumbar spondylosis [M47.816] INVALID FOR* DDD (degenerative disc disease), lumbar [M51.36]INVALID FOR* Arthritis of knee, degenerative [M17.10] INVALID FOR*09/08/2017 More... HTN (hypertension) [I10] INVALID FOR* Dyslipidemia, goal to be determined [E78.5] INVALID FOR* Anxiety [F41.9] INVALID FOR* Mood swings (HCC) [F39] INVALID FOR* Arthritis of left knee [M17.12] INVALID FOR* Post-operative state [Z98.890] INVALID FOR* Prescriptions ordered this encounter Disp Refills Start End OXYCODONE-ACETAMINOPHEN 5 MG-325 MG * 56 t* 0 10/01/2017 10/08/2017 Class: Print RX Route: ORAL Sig: Take 1-2 tablets by mouth every 6 hours as needed for up to 7 days. for pain. Earliest Fill Date: 10/01/17 Medications Discontinued During This Encounter oxyCODONE-acetaminophen (PERCOCET) 5* 56 t* 0 09/22/2017 10/01/2017 Class: Print RX Route: ORAL Sig: Take 1-2 tablets by mouth every 6 hours as needed for up to 7 days. for pain. Disc: Reason for discontinue is not on file. Encounter Status:Closed by THELMA HAWTHORNE CNP on 10/01/17 PROGRESS Observed: 09/22/2017 Status: COMPLETED Source: [place] 2:59 PM [facility] [place] REPOSITORY HNO ID: [id number] Author: Violeta Luna (Pac) Service: (none) Author Type: Physician Bottom Brusher Type: Progress Notes Filed: 09/22/2017 3:02 PM Note Text: Paulina is status post a left total knee replacement done September 08, 2017. Patient was staying with her mother for only a few days because they do not get along. She's been taking care of herself and doing quite a bit of stuff herself. She did get a lot of swelling which has resolved. She is having home physical therapy. She denies any calf pain or shortness of breath. Patient's insurance would not cover Lovenox so she is taking aspirin twice a day. On exam surgical wound is well approximated with no evidence of infection. Range of motion is 0-75?. Calf is soft and nontender. Patella tracks midline. Today the ends of Monocryl suture were snipped. Postoperative wound care was discussed with the patient. Today she was given a prescription for Percocet No. 56. She'll follow-up with Dr. Guillaume in 1 month. She'll call she has any questions or concerns. Violeta Luna M.S. PA-C This note was partially generated using gBox voice recognition system. CNOV Observed: 09/22/2017 Status: COMPLETED Source: [place] 2:30 PM [facility] REPOSITORY Office Visit (ORMDNA) PAULINA FINN ([id number]) 1965 F Date Time Provider Department 09/22/17 2:30 PM VIOLETA LUNA ([facility]) VINCE During your visit today, we recorded the following information about you: Amie Self Ma 09/22/2017 2:37 PM Signed Patient presents with: Surgical Followup: L TKA 09/08/17 Violeta Luna M.S. PA-C 09/22/2017 3:02 PM Signed Paulina is status post a left total knee replacement done September 08, 2017. Patient was staying with her mother for only a few days because they do not get along. She's been taking care of herself and doing quite a bit of stuff herself. She did get a lot of swelling which has resolved. She is having home physical therapy. She denies any calf pain or shortness of breath. Patient's insurance would not cover Lovenox so she is taking aspirin twice a day. On exam surgical wound is well approximated with no evidence of infection. Range of motion is 0-75?. Calf is soft and nontender. Patella tracks midline. Today the ends of Monocryl suture were snipped. Postoperative wound care was discussed with the patient. Today she was given a prescription for Percocet No. 56. She'll follow-up with Dr. Guillaume in 1 month. She'll call she has any questions or concerns. Violeta Luna M.S. MAX This note was partially generated using gBox voice recognition system. Referring Provider: VITO GUILLAUME [[id number]] Allergies As of Date: 09/22/2017 Noted Allergy Reaction OMNICEF (CEFDINIR) 12/15/2006 4 - Hives PENICILLINS 12/15/2006 4 - Hives VANCOMYCIN 12/15/2006 4 - Hives ZITHROMAX (AZITHROMYCIN) 12/15/2006 4 - Hives CORTISONE 12/15/2006 5 - Intolerance Comments: INCREASE IN BP FOR SEVERAL WEEKS. Date Reviewed: 09/22/2017 Reviewed by: Violeta (Lew Luna - Fully Assessed Reason for Visit: Surgical Followup [104] Cmt: L TKA 09/08/17 Primary Visit Diagnosis:Acute post-operative pain [G89.18] Other Visit Diagnosis:Post-operative state [Z98.890] Order(s):oxyCODONE-acetaminophen (PERCOCET) 5-325 mg tabletTake 1-2 tablets by mouth every 6 hours as needed for up to 7 days. for pain.Disp: 56 tabletRfl: 0 Prescriptions as of 09/22/2017 Sig: OXYCODONE-ACETAMINOPHEN 5 MG-* Take 1-2 tablets by mouth onelia* ASCORBIC ACID (VITAMIN C) 500* Take 1 tablet by mouth twice * ASPIRIN 325 MG TABLET,DELAYED* Take 1 tablet by mouth twice * SERTRALINE 100 MG TABLET Take 200 mg by mouth once lennie* METOPROLOL TARTRATE 50 MG TAB* Take 50 mg by mouth once adam* LISINOPRIL 40 MG TABLET DAILY AT 6 PM. SIMVASTATIN 40 MG TABLET 40 mg DAILY AT 6 PM. HYDROCHLOROTHIAZIDE 25 MG TAB* Take 25 mg by mouth once adam* ALPRAZOLAM 0.5 MG TABLET Take one tablet as needed for* OXYCODONE-ACETAMINOPHEN 5 MG-* Take 1-2 tablets by mouth onelia* DOCUSATE SODIUM 100 MG CAPSULE Take 1 capsule by mouth twice* POLYETHYLENE GLYCOL 3350 17 G* Take 1 Packet by mouth once d* Medication notes this encounter DOCUSATE SODIUM 100 MG CAPSULE >> Amie Self Ma 09/22/2017 2:37 PM >> AMIE SELF MA [facility] Sep 22, 2017 2:37 PM D/C POLYETHYLENE GLYCOL 3350 17 GRAM ORAL POWDER PACKET >> Amie Self Ma 09/22/2017 2:37 PM >> AMIE SELF MA [facility] Sep 22, 2017 2:37 PM D/C Problem List As Of Date 09/22/2017 Noted Resolved Lumbago [M54.5] INVALID FOR*09/04/2017 Osteoarthrosis, unspecified whether generalized*INVALID FOR*09/04/2017 Pain in joint, lower leg [M25.569] INVALID FOR*09/04/2017 Sprain of cruciate ligament of knee [S83.509A] INVALID FOR*09/04/2017 Tear of medial cartilage or meniscus of knee, c*INVALID FOR*09/04/2017 Osteoarthritis of right knee [M17.11] INVALID FOR*09/04/2017 Prepatellar bursitis [M70.40] INVALID FOR*09/04/2017 RSD lower limb [G90.529] INVALID FOR* Mechanical complication of internal orthopedic *INVALID FOR*10/03/2011 Mechanical back pain [M54.9] INVALID FOR*09/04/2017 Lumbar strain [S39.012A] INVALID FOR*09/04/2017 Lumbar spondylosis [M47.816] INVALID FOR* DDD (degenerative disc disease), lumbar [M51.36]INVALID FOR* Arthritis of knee, degenerative [M17.10] INVALID FOR*09/08/2017 More... HTN (hypertension) [I10] INVALID FOR* Dyslipidemia, goal to be determined [E78.5] INVALID FOR* Anxiety [F41.9] INVALID FOR* Mood swings (HCC) [F39] INVALID FOR* Arthritis of left knee [M17.12] INVALID FOR* Post-operative state [Z98.890] INVALID FOR* Visit Notes: >> Amie Self Ma [facility] Sep 22, 2017 2:34 PM Status: Signed Patient presents with: Surgical Followup: L TKA 09/08/17 Prescriptions ordered this encounter Disp Refills Start End OXYCODONE-ACETAMINOPHEN 5 MG-325 MG * 56 t* 0 09/22/2017 09/29/2017 Class: Print RX Route: ORAL Sig: Take 1-2 tablets by mouth every 6 hours as needed for up to 7 days. for pain. Encounter Status:Closed by Vega LUNA PA-C on 09/22/17 OBSOLETE Observed: 09/16/2017 Status: COMPLETED Source: [place] 12:00 AM CLINIC OTHER CAMPUS REPOSITORY Refill (ME4S) PAULINA FINN ([id number]) 1965 F Date Time Provider Department 09/16/17 PAULA RAYMUNDO W[place]4S During your visit today, we recorded the following information about you: Gene Gonzalez, ARMIN 09/16/2017 10:08 AM Signed Patient calling for a refill of percocet. She is taking 1- 2 every 4 hours and would like to brass pickler in our outpt pharmacy tomorrow (mother may come). Thelma Hawthorne APRN.CNP 09/16/2017 10:14 AM Signed Patient is S/P Left TKA of 09/08/17 and currently taking Percocet as prescribed. Will write. Thelma Hawthorne APRN.UNEMPLOYMENT SPECIALIST 10:11 AM Allergies As of Date: 09/16/2017 Noted Allergy Reaction OMNICEF (CEFDINIR) 12/15/2006 4 - Hives PENICILLINS 12/15/2006 4 - Hives VANCOMYCIN 12/15/2006 4 - Hives ZITHROMAX (AZITHROMYCIN) 12/15/2006 4 - Hives CORTISONE 12/15/2006 5 - Intolerance Comments: INCREASE IN BP FOR SEVERAL WEEKS. Date Reviewed: 09/09/2017 Reviewed by: Sanchez Fine) ROSITA Brown - Fully Assessed Reason for Visit: Refill Request [94] Visit Diagnosis:Primary osteoarthritis of left knee [M17.12] Order(s):Order #: [id number] Prescriptions as of 09/16/2017 Sig: OXYCODONE-ACETAMINOPHEN 5 MG-* Take 1-2 tablets by mouth onelia* DOCUSATE SODIUM 100 MG CAPSULE Take 1 capsule by mouth twice* POLYETHYLENE GLYCOL 3350 17 G* Take 1 Packet by mouth once d* ASCORBIC ACID (VITAMIN C) 500* Take 1 tablet by mouth twice * ASPIRIN 325 MG TABLET,DELAYED* Take 1 tablet by mouth twice * SERTRALINE 100 MG TABLET Take 200 mg by mouth once lennie* METOPROLOL TARTRATE 50 MG TAB* Take 50 mg by mouth once adam* LISINOPRIL 40 MG TABLET DAILY AT 6 PM. SIMVASTATIN 40 MG TABLET 40 mg DAILY AT 6 PM. HYDROCHLOROTHIAZIDE 25 MG TAB* Take 25 mg by mouth once adam* ALPRAZOLAM 0.5 MG TABLET Take one tablet as needed for* Problem List As Of Date 09/16/2017 Noted Resolved Lumbago [M54.5] INVALID FOR*09/04/2017 Osteoarthrosis, unspecified whether generalized*INVALID FOR*09/04/2017 Pain in joint, lower leg [M25.569] INVALID FOR*09/04/2017 Sprain of cruciate ligament of knee [S83.509A] INVALID FOR*09/04/2017 Tear of medial cartilage or meniscus of knee, c*INVALID FOR*09/04/2017 Osteoarthritis of right knee [M17.11] INVALID FOR*09/04/2017 Prepatellar bursitis [M70.40] INVALID FOR*09/04/2017 RSD lower limb [G90.529] INVALID FOR* Mechanical complication of internal orthopedic *INVALID FOR*10/03/2011 Mechanical back pain [M54.9] INVALID FOR*09/04/2017 Lumbar strain [S39.012A] INVALID FOR*09/04/2017 Lumbar spondylosis [M47.816] INVALID FOR* DDD (degenerative disc disease), lumbar [M51.36]INVALID FOR* Arthritis of knee, degenerative [M17.10] INVALID FOR*09/08/2017 More... HTN (hypertension) [I10] INVALID FOR* Dyslipidemia, goal to be determined [E78.5] INVALID FOR* Anxiety [F41.9] INVALID FOR* Mood swings (HCC) [F39] INVALID FOR* Arthritis of left knee [M17.12] INVALID FOR* Post-operative state [Z98.890] INVALID FOR* Prescriptions ordered this encounter Disp Refills Start End OXYCODONE-ACETAMINOPHEN 5 MG-325 MG * 84 t* 0 09/16/2017 09/23/2017 Class: Print RX Route: ORAL Sig: Take 1-2 tablets by mouth every 4 hours as needed for Pain (acute post op pain) for up to 7 days. Earliest Fill Date: 09/16/17 Medications Discontinued During This Encounter oxyCODONE-acetaminophen (PERCOCET) 5* 84 t* 0 09/09/2017 09/16/2017 Class: Print RX Route: ORAL Sig: Take 1-2 tablets by mouth every 4 hours as needed for Pain (acute post op pain) for up to 7 days. Disc: Reason for discontinue is not on file. Encounter Status:Closed by GENE GONZALEZ on 09/19/17 PLAN OF CARE Observed: 09/09/2017 Status: COMPLETED Source: [place] 4:03 PM [facility] OTHER CAMPUS REPOSITORY O ID: [id number] Author: Ana Hooper (Data Center Operator) Service: (none) Author Type: (none) Type: Plan of Care Filed: 09/09/2017 4:04 PM Note Text: RESEARCH AND DEVELOPMENT ENGINEER BEDSIDE DELIVERY SURVEY 1. Patient to use [facility] Bedside Delivery - YES 2. If fax, patient would like us to fax prescriptions to Pharmacy of choice a. Pharmacy: b. Location: c. Phone: 3. Insurance card on file - YES 4. Credit card for payment - YES PHARMACY BEDSIDE DELIVERY SERVICE Patient Name: Paulina Finn The marked outpatient medications were Filled at: [place] and delivered to the patient's bedside to 400-1 Medication List START taking these medications X ascorbic acid (vitamin C) 500 mg tablet Commonly known as: VITAMIN C Take 1 tablet by mouth twice daily with meals. X aspirin, enteric coated 325 mg EC tablet Commonly known as: ECOTRIN Take 1 tablet by mouth twice daily. X docusate sodium 100 mg capsule Commonly known as: COLACE Take 1 capsule by mouth twice daily. X oxyCODONE-acetaminophen 5-325 mg tablet Commonly known as: PERCOCET Take 1-2 tablets by mouth every 4 hours as needed for Pain (acute post op pain) for up to 7 days. X polyethylene glycol 3350 17 gram packet Commonly known as: MIRALAX, GLYCOLAX Take 1 Packet by mouth once daily. Start taking on: 09/10/2017 CONTINUE taking these medications ALPRAZolam 0.5 mg tablet Commonly known as: XANAX Take one tablet as needed for panic attacks hydroCHLOROthiazide 25 mg tablet Commonly known as: HYDRODIURIL, ESIDRIX Take 25 mg by mouth once daily. lisinopril 40 mg tablet Commonly known as: ZESTRIL, PRINIVIL DAILY AT 6 PM. metoprolol tartrate (short acting) 50 mg tablet Commonly known as: LOPRESSOR sertraline 100 mg tablet Commonly known as: ZOLOFT simvastatin 40 mg tablet Commonly known as: ZOCOR 40 mg DAILY AT 6 PM. STOP taking these medications ADVIL ORAL mupirocin 2 % ointment Commonly known as: BACTROBAN Ana Hooper (Lysanda) PAGER: [phone] September 09, 2017 4:03 PM PROGRESS Observed: 09/09/2017 Status: COMPLETED Source: [place] 3:42 PM [facility] REPOSITORY HNO ID: [id number] Author: Thelma Justin) Marine Service: Orthopaedic Surgery Author Type: Nurse Practitioner Type: Progress Notes Filed: 09/09/2017 3:46 PM Note Text: Patient refused to take the Lovenox injections at home. I instructed her to the possible risk of blood clots to the lung (Pulmonary Embolus), DVT (Deep Vein Thrombosis and possible . EC Aspirin will be substituted for Enoxaparin. I consulted with Dr. Guillaume and Dr. Deshpande for the discharge and orders. Patient signed a refusal for treatment form. Thelma Hawthorne APRN.[facility] 3:45 PM CASE MANAGEM Observed: 09/09/2017 Status: COMPLETED Source: [place] 3:20 PM [facility] REPOSITORY HNO ID: [id number] Author: Jami Ferreira RN Service: Case Management Author Type: Registered Nurse Type: Care Mgt Progress Note Filed: 09/09/2017 3:22 PM Note Text: CARE MANAGEMENT DISCHARGE NOTE SERVICE DATE: 09/09/2017 SERVICE TIME: 3:20 PM LOS: 1 day Admission Date: 09/08/2017 DISCHARGE ARRANGEMENT (list agency and phone number) Home care Provider: [facility] [employer] CAREGIVER ASSESSMENT: Caregiver is ready, willing and able to meet the patient's needs as recommended by the inter-professional team? Yes Patient's transition needs and plan for meeting these needs: [facility] Does the patient have an acute stroke diagnosis, or has the patient had a stroke during this admission? No HANDOFF COMMUNICATION: Primary Care Physician: Dr. Lance Vogel Summary of care being sent to PCP and [facility] TRANSPORTATION ARRANGEMENTS: Car - Mother to transport ADDITIONAL CONTACT RESOURCES: NA Discharge Information Patient Update from 08/18/2017 in Orthopaedics Admission (Current) from 09/08/2017 in [facility] Care Agency [facility] Start of Care 09/11/17 Needs Prior to Discharge: Ready for Discharge Discharge order written for today. Met with the patient and notified her that Lv MARMOLEJOS's name and number is listed on her discharge instructions with a start of care date of 09/11/17. Notified [employer] of patients discharge home today. SIGNATURE: Jami Ferreira PATIENT NAME: Paulina Finn DATE: September 09, 2017 TIME: 3:20 PM PAGER/CONTACT #: [phone] CNDS Observed: 09/09/2017 Status: COMPLETED Source: [place] 3:04 PM [facility] OTHER CAMPUS REPOSITORY HNO ID: [id number] Author: Vito Guillaume Service: Orthopaedic Surgery Author Type: Physician Type: Discharge Summaries Filed: 09/10/2017 8:49 AM Note Text: DISCHARGE SUMMARY PATIENT NAME: Paulina Finn Admission Information Admission Information ADMIT DATE: 09/08/2017 DISCHARGE DATE: 09/09/17 MY DOCTORS AND MEDICAL TEAM: My Main Hospital Doctor: Vito Guillaume Primary Care Provider: Lise Garcia MD My Medical Team Members: Treatment Team: Attending Provider: Vito Guillaume Consulting: Jeff Deshpande MY CONDITION AT DISCHARGE: Stable REASON I WAS IN THE HOSPITAL: Arthritis of the knee, degerative SUMMARY OF WHAT HAPPENED WHILE I WAS IN THE HOSPITAL: S/P Left Total Knee Arthroplasty was performed by Dr. Guillaume without complication. Both Physical and Occupational Therapy was initiated and you progressed to be discharged to home with home health care on 09/09/17. There were no signs of DVT (Deep Vein Thrombosis) or Pulmonary Embolus upon discharge. OTHER PROBLEMS/DIAGNOSIS: Principal Problem (Resolved): Arthritis of knee, degenerative Active Problems: Post-operative state OPERATIONS PERFORMED WHILE IN THE HOSPITAL: Left Total Knee Arthroplasty IMPORTANT TEST/PROCEDURES: No procedures performed TEST RESULTS NOT AVAILABLE AT THIS TIME: No pending results Patient signed AMA to take Enoxaparin. She was instructed on all risks including possible and verbalized understanding. EC Aspirin will be substituted. Discharge Disposition Discharge Disposition: Home With Home Care Additional Provider to Provider Information: Principal Problem (Resolved): Arthritis of knee, degenerative POA: Yes Assessment AND Plan: S/P Right Total Knee Arthroplasty Active Problems: Post-operative state POA: Yes Assessment AND Plan: continue Physical Therapy at home FOLLOW-UP APPOINTMENTS ALREADY SCHEDULED WITH A [facility] PROVIDER: Future Appointments Date Time Provider Department Center 09/22/2017 2:30 PM Violeta (Pac) Jimmie [facility] [place] DISCHARGE MEDICATION: Hide copied text Hover for attribution information POSTOP NOTE ORTHOPEDIC ? SERVICE DATE: 09/09/2017 SERVICE TIME: 9:04 AM ? IMPRESSION/PLAN: S/P Procedure(s) (LRB): ARTHROPLASTY REPLACE JOINT TOTAL KNEE (Left) on 09/08/2017 Physical Therapy evaluation DVT prophylaxis: with Lovenox and Intermittent pneumatic compression device (IPCD) Pain control; med changed to Percocet Antibiotics: Discontinuing Antibiotics after 24 hours Case Management for discharge planning ? A CTIVE PROBLEM LIST Rsd Lower Limb Lumbar Spondylosis Ddd (Degenerative Disc Disease), Lumbar Htn (Hypertension) Dyslipidemia, Goal to Be Determined Anxiety Mood Swings (Hcc) Arthritis of Left Knee Post-Operative State ? ? POST OPERATIVE COMPLICATIONS: Complicated by uneventful/none ? SUBJECTIVE: Patient states that they are comfortable Poor control knee(s) pain. Denies incisional pain. ? OBJECTIVE: VITAL SIGNS: BP 110/61 Pulse 76 Temp 36.8 ?C (98.2 ?F) (Oral) Resp 16 Ht 160 cm (5' 3) Wt 54.4 kg (120 lb) SpO2 97% BMI 21.26 kg/m2 INTAKE AND OUTPUT: ? Intake/Output Summary (Last 24 hours) at 09/09/17 09 Last data filed at 09/09/17627 ? Gross per 24 hour Intake 2514 ml Output 427 ml Net 2087 ml ? ?? PHYSICAL EXAMINATION: Left Lower Extremity: Dorsalis pedis pulses palpable. Posterior tibial pulses palpable. Dorsi flexion 5/5. Plantar flexion 5/5. Extensor hallucis extension: 5/5. Sensory intact to light touch L1-S1. Dressing clean, dry and intact. Surgical site no drainage and skin edges well approximated. ? Problem Review and Assessment: Skin and Abdominal Wall: Patient monitored, no new events overnight Cardiovascular and Vascular: Patient monitored, no new events overnight and HTN Respiratory: Patient monitored, no new events overnight; nicotine use Endocrine and Metabolic: Patient monitored, no new events overnight Gastrointestinal: Patient monitored, no new events overnight Genitourinary and Nephrology: Patient monitored, no new events overnight Behavioral, Cerebrovascular and Nervous: Patient monitored, no new events overnight and Anxiety, mood swings Infectious: Patient monitored, no new events overnight ? LABS: ? Recent Labs ? 09/09/17 0546 HB 10.4* HCT 33.1* ? ? DATA: Diagnostic tests reviewed for today's visit:? Most recent labs ? SIGNATURE: Thelma Hawthorne APRN.CNP PATIENT NAME: Paulina Finn DATE: September 09, 2017 TIME: 9:04 AM PAGER/CONTACT #: [phone] ? Cosigned by: Vito Guillaume at 09/09/2017 10:09 AM Revision History ? Date/Time User Provider Type Action ? 09/09/2017 10:09 AM Vito Guillaume Physician Cosign ? 09/09/2017 ?9:11 AM Thelma Jsutin) Marine Nurse Practitioner Sign ? 09/09/2017 ?9:10 AM Thelma Hawthorne Nurse Practitioner Sign ? View Details Report ? Patient was recommended to be discharged on Lovenox. The patient refused Lovenox understanding the significant increased risk due to both deep vein thrombosis and possible pulmonary embolism. The patient understands and assumes the risk that this is AGAINST MEDICAL ADVICE. Patient was given in order to take 325 milligrams of aspirin twice a day for 3 weeks. TIME OF CARE: Discharge Management: I personally spent greater than 30 minutes involved in the discharge management of this patient. More than 50% of my time was spent counseling patient on wound management, pain management, symptoms to notify our office and follow up. SIGNATURE: Thelma Hawthorne APRN.CNP PAGER/CONTACT #: DATE: September 09, 2017 TIME: 3:05 PM THERAPY NT Observed: 09/09/2017 Status: COMPLETED Source: [place] 2:46 PM [facility] OTHER CAMPUS REPOSITORY HNO ID: [id number] Author: Paulina (Ot/L) Teja Service: Occupational Therapy Author Type: Occupational Therapist Type: Therapy (PT/OT/Speech/Resp) Filed: 09/09/2017 3:23 PM Note Text: Occupational Therapy Evaluation SERVICE DATE: 09/09/2017 SERVICE TIME: 1400 to 1424 ROOM: [place] [address] Recommended Discharge Disposition: Home Recommended Discharge Disposition Comments: No post-acute OT needs identified at this time Anticipated Discharge Needs: Physical Assist at Home;Supervision at Home Physical Assist at Home for: Transportation;Shopping;Self Care;Safety;Meals;Laundry;Cleaning Supervision at Home due to: (initially for optimal safety post-op) OT Recommendations to Nursing: To Bathroom for ADL?s /and or Toileting;ADL?s in chair;Transfer to Chair;With assist of 1 person;OOB for meals Equipment: Commode-3 in 1;Wheeled Walker (gait belt) OT 6 Clicks Score: 20 Precautions/Activity Restrictions: Total Knee Replacement;Weight Bearing Restrictions;Fall Risk;Lines/Tubes/Drains Extremity With Weight Bearing Restricted: Left Lower Extremity Left Lower Extremity Weight Bearing Status: WBAT ASSESSMENT: Pt presents with expected pain, functional mobility and ADL performance impairments s/p L TKA, impacting her ability to function without assist from caregivers. Requires no more than SBA for bed mobility, sit to stand transfers, functional mobility (forward/retro steps) with FWW and simulated lower body dressing task. Pt receptive to therapist feedback/recommendations, however, appears anxious and distracted by family phone calls during session. Pt would benefit from an additional OT session during acute stay to address carryover of safe techniques for functional tasks, as limited session performed this date, secondary to pt's recent return to supine. Anticipate pt to progress well during acute stay and d/c home with no OT needs, as pt reports of family support. Patient Disposition at Start of Session: Supine in Bed (just returned to bed by PCNA) Patient Disposition at End of Session: Supine in Bed;Call Bobo in Reach;SCDs Tolerated Full Session (however, shortened session, as pt just returned to supine upon OT arrival) Occupational Therapy Problem List: Functional Mobility Impairment;Impaired Self Care Patient /Caregiver Goals: Go Home Goals for Plan of Care: Grooming with: Supervision (at sink) Lower Body Dressing with: Supervision Chair Transfer with: Supervision Toilet Transfer with: Supervision Progress Toward Goals: Progressing as expected Rehab Potential: Good PLAN: Treatment Frequency (times per week): 1 (one additional OT session) Current admission Treatment Interventions: Education;Self Care / Home Management;Functional Mobility Training Plan of Care developed with: Patient TREATMENT INTERVENTIONS: Therapy Diagnosis: Decreased activities of daily living (ADL) Interventions Provided: Evaluation;Therapeutic Activity (60627);Self Retirement Management (85285) $ Evaluation-Low (04844) Billed Units: 1 unit Therapeutic Activity (44501) Treatment Minutes: 4 0 units Skilled Intervention(s): Instructed pt in supine to sit pushing with upper extremities to sit up with safe technique. Instructed and verbally cued pt in sit to stand technique with proper hand placement and body positioning at edge of bed, as pt initially attempts to pull up on walker handles. Pt instructed and verbally cued in sequencing of steps, proper posture, effective use of BUEs and staying within frame of walker during functional mobility forward/retro. Instructed and verbally cued pt in stand to sit technique with lower extremities touching bed and reaching back for surface. Pt instructed in safe technique for sit to supine. Self Retirement Management (58898) Treatment Minutes: 11 1 unit Skilled Intervention(s): Pt educated in role of OT. Pt educated in importance of out of bed activity (active participation in daily care, sitting in chair for meals and throughout day for one hr increments if asymptomatic) for rehabilitation and to prevent functional decline. Pt educated in TKA post-op precautions and WB status LLE. Pt educated in safe technique to don/doff pants/underwear and socks. Pt educated on benefits of use of long handled sponge for increased independence during lower body bathing. Pt educated in home safety: Sitting versus standing for bathing/dressing, pet safety, use of walker bag/basket to carry items in order to keep hands on walker at all times, supervision during bathing, maintaining clear and well-lit pathways throughout home, assessing self for dizziness/lightheadedness upon changes in position. Pt provided with Total Knee Replacement OT instructional handout. Pt instructed and facilitated with how to properly don ice man and parameters for use. Pt educated in importance of use of call button for all needs and to call and wait for nursing/therapist assistance for all out of bed/chair activity. Education in OT POC and discharge recommendation with rationale. Total Timed Code Treatment Minutes: 15 Total Treatment Time (minutes): 24 (-3 min for UNEMPLOYMENT SPECIALIST) FUNCTIONAL G CODE: OT 6 Clicks Score: 20 (09/09/17 1400) Self Care Current Status (G8987): CJ (09/09/17 1400) Self Care Goal Status (G8988): CJ (09/09/17 1400) Based on clinical assessment and the score on the 6 Clicks Functional Assessment Tool, the G code and corresponding severity modifiers are documented above. SUBJECTIVE: Current Hospital Course: Chart reviewed; Patient is a 52 year old female s/p L TKA on 09/08/17. Reason for Occupational Therapy Consult: Recent changes in ability to perform self care s/p L TKA Relevant Past Medical History: Anxiety, R TKA Patient Report: I just want to know what's going on. Am I going home or not? My mom keeps calling and it's making my anxiety worse. Home Environment Patient Lives With: Self/Alone (will be staying with mother) Assistance Available: 24 Hour (from mother) Entry To Home: Stairs;With Rail Number Of Stairs Into Home: 4 Number Of Stairs To Bed/Bath: 1 (step to living room) Laundry: mother to complete Equipment Owned: Commode-Raised;Crutch(es);Grab Bars-Shower;Wheeled Walker Prior Functional Level: Within Functional Limits (Ind with ADLs, no use of AD, + driving, + working) OBJECTIVE: Responsiveness: Alert;Awake Follows Commands: 3-step Commands Psychosocial: Hx of anxiety; noted anxiety during session CURRENT FUNCTIONAL STATUS: Current Activities of Daily Living Assist Level Feeding Independent (per clinical judgment) Grooming Stand By Assistance (per clinical judgment at sink) Bathing Upper Body Set Up (per clinical judgment seated) Bathing Lower Body Minimal Assistance (per clinical judgment) Dressing Upper Body Set Up (per clinical judgment seated) Dressing Lower Body Stand By Assistance (simulated task for socks at EOB) Toileting Stand By Assistance (per clinical judgment) Functional Mobility Assist Level Rolling Supine to Sit Supervision (HOB flat; to R side) Sit to Supine Stand By Assistance (HOB flat; from R side) Scooting Supervision (to EOB) Sit to Stand Stand By Assistance (from bed to walker level) Stand to Sit Stand By Assistance (walker level to bed) Bed to Chair Toilet/Commode Functional Mobility Stand By Assistance (forward/retro steps (3x) ) Wheeled Walker -Gait belt used during functional mobility and transfers for optimal safety Hand Dominance: Right Range Of Motion: Within Functional Limits Strength: Within Functional Limits Balance: Dynamic Standing;Static Standing;Static Sitting;Dynamic Sitting Static Sitting Balance: Independent Dynamic Sitting Balance: Stand By Assistance Static Standing Balance: Stand By Assistance Dynamic Standing Balance: Stand By Assistance Activity Tolerance: (denied lightheadedness/dizziness) Vital Signs Pre Assessment: O2 Equipment Pre O2 Equipment: Room Air Please see discipline specific clinical documentation flowsheet for complete details for this therapy evaluation/treatment. SIGNATURE: Paulina Lezama OT/Issa PATIENT NAME: Paulina Arellanokendrick DATE: September 09, 2017 TIME: 2:47 PM PAGER: [phone] THERAPY NT Observed: 09/09/2017 Status: COMPLETED Source: [place] 1:48 PM [facility] REPOSITORY O ID: [id number] Author: Angela Black Service: Physical Therapy Author Type: Aviation Electrical Technician Type: Therapy (PT/OT/Speech/Resp) Filed: 09/09/2017 1:52 PM Note Text: Attestation signed by Mansi Roberson at 09/09/2017 5:22 PM I reviewed and agree with the documentation corresponding to this therapy visit. SIGNATURE: Mansi Roberson PT DATE: September 09, 2017 TIME: 5:22 PM Physical Therapy Treatment SERVICE DATE: 09/09/2017 SERVICE TIME: 1321 to 1342 ROOM: [place] [address] Recommended Discharge Disposition: Home PT Recommended Discharge Disposition Comments: Pt functioning below baseline with decline in performance in functional activity indicating a need for continued therapy post acute stay to safely progress strenthening, ROM and balance. Anticipated Discharge Needs: Physical Assist at Home;Supervision at Home Physical Assist at Home for: Cleaning;Laundry;Meals;Shopping;Transportation Supervision at Home due to: (initially for safety) Recommended Discharge Equipment: No equipment needs anticipated PT Recommendations to Nursing: Ambulate with device;To bathroom;In halls;Transfer to/from chair;OOB for Meals;With assist of 1 person Device: Wheeled Walker PT 6 Clicks Score: 22 Precautions/Activity Restrictions: Total Knee Replacement;Weight Bearing Restrictions;Fall Risk;Lines/Tubes/Drains Extremity With Weight Bearing Restricted: Left Lower Extremity Left Lower Extremity Weight Bearing Status: WBAT ASSESSMENT : Patient cooperative throughout session however, intermittently becomes agitated throughout session. Patient frustrated at potential of having to stay another night. Patient able to tolerate gait training and seated exercises with no adverse effects and minimal complaints of pain. Patient is no more than CGA/SBA with all functional mobility and gait training. Patient Disposition at Start of Session: Supine in Bed;SCDs Patient Disposition at End of Session: OOB in Chair;Call Bobo in Reach;SCDs (Ice to L Knee) Tolerated Full Session Physical Therapy Problem List: Pain;Safety Deficits;Decreased Activity Tolerance;Decreased Range Of Motion;Balance Impaired Patient /Caregiver Goals: Go Home (with Home PT and assist of mom) Goals for Plan of Care: Able to perform HEP with: Independent (to increase functional strength) Transfer supine to/from sit with: Supervision (HOB flat, no use of bed rails to sit EOB) Transfer sit to/from stand with: Supervision (LRAD to move bed to chair) Ambulate with: Supervision Distance: 150-200 Device: (LRAD to navigate home environment) Ambulate up and down curb step with: Stand By Assistance Device: (LRAD to reach living room) Ambulate up and down steps with: Stand By Assistance Number of steps: 4 Device: Rail (LRAD to enter home) Car transfer with: Verbal Cues Only (to safely enter/exit car. ) ROM: L knee AROM 0 - 90 degrees to increase ease with functional activity. Progress Toward Goals: Progressing as expected Rehab Potential: Good PLAN: Treatment Frequency (times per week): 7;BID Current admission Treatment Interventions: Education;Joint Mobility;Strengthening;Functional Mobility Training;Balance Training;Neuromuscular Re-education;Modalities Modalities: Ice Plan of Care developed with: Patient TREATMENT INTERVENTIONS: Therapy Diagnosis: Difficulty walking-musculoskeletal Interventions Provided: Therapeutic Exercise (37187);Therapeutic Activity (36119);Gait Training (95406) Therapeutic Exercise (55762) Treatment Minutes: 8 0 units Skilled Intervention(s): Instruction in seated therapeutic exercise for bilateral AP, GS with 5 second hold; L LE only heel slides, LAQ x 10 reps each Verbal and tactile cuing provided for correct performance of exercises Gait Training (24388) Treatment Minutes: 10 1 unit Skilled Intervention(s): Instruction in sequencing, gait pattern, step-to gait pattern Instruction in correction of gait deviations, cues for upright posture, safety, and increased heel/toe progression Instruction in WB precautions, WBAT L LE Instruction in use of equipment, cues for sequence and pattern Total Timed Code Treatment Minutes: 18 (-time for patient to use bathroom) Total Treatment Time (minutes): 21 FUNCTIONAL G CODE: PT 6 Clicks Score: 22 (09/09/17 1342) Mobility: Walking and Moving Around Current Status (G8978): CJ (09/08/17 1600) Mobility: Walking and Moving Around Goal Status (G8979): CH (09/08/17 1600) Based on clinical assessment and the score on the 6 Clicks Functional Assessment Tool, the G code and corresponding severity modifiers are documented above. SUBJECTIVE: Current Hospital Course: Chart reviewed and no significant medical updates relevant to therapy were noted Reason for Physical Therapy Consult : post musculoskeletal surgery Relevant Past Medical History: Pt presents s/p L TKA 09/08/2017. PMH: anxiety, HTN, HLD. PSH: R TKA Patient Report: Patient supine in bed upon arrival, agreeable to participate in PT. Patient states, The This morning said I could go home if I did good with therapy. I am doing good so I don't understand why I cannot go home. Patient appropriate for PT per RNSanchez. Home Environment Patient Lives With: Self/Alone (will be staying with mother) Assistance Available: 24 Hour (from mother) Entry To Home: Stairs;With Rail Number Of Stairs Into Home: 4 Number Of Stairs To Bed/Bath: 1 (step to living room) Laundry: mother to complete Equipment Owned: Commode-Raised;Crutch(es);Grab Bars-Shower;Wheeled Walker Prior Functional Level: Within Functional Limits (Ind with ADLs, no use of AD, + driving, + working) OBJECTIVE: CURRENT FUNCTIONAL STATUS: Current Functional Mobility Assist Level Additional Information Rolling Supine to Sit Supervision (HOB 20 degrees, no use of rails) Sit to Supine Other: See Comment (patient in bed side chair at end of treatment) Scooting Supervision (forward to EOB) Sit to Stand Stand By Assistance (with FWW) Stand to Sit Stand By Assistance (with FWW) Bed to Chair Toilet/Commode Contact Guard Assistance Gait Stand By Assistance (step-to gait) Gait Device: Wheeled Walker Gait Distance (feet): 100'x1 Stairs Contact Guard Assistance ([id number]) Stairs Device: Cane;Rail Number of Stairs: 4 (x2 consecutive trails) Curb Step Contact Guard Assistance Wheeled Walker Car Transfer Set Up Gait Deviations Left Lower Extremity: Weight bearing decreased;Heel strike during initial stance decreased;Push-off during terminal stance decreased;Step length decreased General Gait Deviations: Sandrita decreased;Step length decreased;Flexed trunk posture Patient sitting up in bedside chair, denies symptoms at this time, call bobo and personal belongings in reach, denies any further questions, concerns or needs from FOREST EXAMINER at this time. Gait belt in place for safety with all functional mobility. RN (Sanchez) aware of patient status. Discussed with patient sitting up for no longer than 1 hr and calling for assistance 100% of the time. Balance: Static Sitting;Dynamic Sitting;Static Standing;Dynamic Standing Static Sitting Balance: Independent Dynamic Sitting Balance: Independent Static Standing Balance: Stand By Assistance Dynamic Standing Balance: Stand By Assistance Please see discipline specific clinical documentation flowsheet for complete details for this therapy evaluation/treatment. SIGNATURE: Angela Black PTA PATIENT NAME: Paulina Finn DATE: September 09, 2017 TIME: 1:48 PM PAGER/CONTACT #: [phone] CASE MANAGEM Observed: 09/09/2017 Status: COMPLETED Source: [place] 12:30 PM [facility] REPOSITORY HNO ID: [id number] Author: Jami NealRn) ROSITA Ferreira Service: Case Management Author Type: Registered Nurse Type: Care Mgt Progress Note Filed: 09/09/2017 12:31 PM Note Text: CARE MANAGEMENT PROGRESS NOTE SERVICE DATE: 09/09/2017 SERVICE TIME: 12:31 PM LOS: 1 day Needs Prior to Discharge: Other: See Comment (Medical Clearance) [facility] able to accept, start of care 09/11/17. CM department will continue to follow for DC needs. SIGNATURE: Jami Ferreira PATIENT NAME: Paulina Finn DATE: September 09, 2017 TIME: 12:30 PM PAGER/CONTACT #: [phone] CASE MANAGEM Observed: 09/09/2017 Status: COMPLETED Source: [place] 12:04 PM [facility] REPOSITORY HNO ID: [id number] Author: Jami Fine) ROSITA Ferreira Service: Case Management Author Type: Registered Nurse Type: Care Mgt Progress Note Filed: 09/09/2017 12:05 PM Note Text: CARE MANAGEMENT PROGRESS NOTE SERVICE DATE: 09/09/2017 SERVICE TIME: 12:04 PM LOS: 1 day Needs Prior to Discharge: Other: See Comment (Accepting [facility] agency) [facility] Patients mother address sent to [facility]. CM department will continue to follow for DC needs. SIGNATURE: Jami Ferreira PATIENT NAME: Paulina Finn DATE: September 09, 2017 TIME: 12:04 PM PAGER/CONTACT #: [phone] THERAPY NT Observed: 09/09/2017 Status: COMPLETED Source: [place] 12:00 PM [facility] REPOSITORY HNO ID: [id number] Author: Angela Black Service: Physical Therapy Author Type: Aviation Electrical Technician Type: Therapy (PT/OT/Speech/Resp) Filed: 09/09/2017 12:05 PM Note Text: Attestation signed by Mansi (Pt) Karol at 09/09/2017 5:23 PM I reviewed and agree with the documentation corresponding to this therapy visit. SIGNATURE: Mansi Roberson, PT DATE: September 09, 2017 TIME: 5:23 PM Physical Therapy Treatment SERVICE DATE: 09/09/2017 SERVICE TIME: 1035 to 1112 ROOM: [place] [address] Recommended Discharge Disposition: Home PT Recommended Discharge Disposition Comments: Pt functioning below baseline with decline in performance in functional activity indicating a need for continued therapy post acute stay to safely progress strenthening, ROM and balance. Anticipated Discharge Needs: Physical Assist at Home;Supervision at Home Physical Assist at Home for: Cleaning;Laundry;Meals;Shopping;Transportation Supervision at Home due to: (initially for safety) Recommended Discharge Equipment: No equipment needs anticipated PT Recommendations to Nursing: Ambulate with device;To bathroom;In halls;Transfer to/from chair;OOB for Meals;With assist of 1 person Device: Wheeled Walker PT 6 Clicks Score: 22 Precautions/Activity Restrictions: Total Knee Replacement;Weight Bearing Restrictions;Fall Risk;Lines/Tubes/Drains Extremity With Weight Bearing Restricted: Left Lower Extremity Left Lower Extremity Weight Bearing Status: WBAT ASSESSMENT : Patient cooperative throughout session, notes poor pain control. Patient successfully able to progress ambulation distance, initiate stair training and perform seated exercises with no adverse effects. Patient is no more than CGA with all functional mobility and gait training. Patient Disposition at Start of Session: SCDs;Other: See Comment (L sidelying in bed) Patient Disposition at End of Session: Supine in Bed;Call Bobo in Reach;SCDs (Ice to L Knee) Tolerated Full Session Physical Therapy Problem List: Pain;Safety Deficits;Decreased Activity Tolerance;Decreased Range Of Motion;Balance Impaired Patient /Caregiver Goals: Go Home (with Home PT and assist of mom) Goals for Plan of Care: Able to perform HEP with: Independent (to increase functional strength) Transfer supine to/from sit with: Supervision (HOB flat, no use of bed rails to sit EOB) Transfer sit to/from stand with: Supervision (LRAD to move bed to chair) Ambulate with: Supervision Distance: 150-200 Device: (LRAD to navigate home environment) Ambulate up and down curb step with: Stand By Assistance Device: (LRAD to reach living room) Ambulate up and down steps with: Stand By Assistance Number of steps: 4 Device: Rail (LRAD to enter home) Car transfer with: Verbal Cues Only (to safely enter/exit car. ) ROM: L knee AROM 0 - 90 degrees to increase ease with functional activity. Progress Toward Goals: Progressing as expected Rehab Potential: Good PLAN: Treatment Frequency (times per week): 7;BID Current admission Treatment Interventions: Education;Joint Mobility;Strengthening;Functional Mobility Training;Balance Training;Neuromuscular Re-education;Modalities Modalities: Ice Plan of Care developed with: Patient TREATMENT INTERVENTIONS: Therapy Diagnosis: Difficulty walking-musculoskeletal Interventions Provided: Therapeutic Exercise (62709);Therapeutic Activity (51893);Gait Training (58894) Therapeutic Exercise (58112) Treatment Minutes: 10 1 unit Skilled Intervention(s): Instruction in seated therapeutic exercise for bilateral AP, QS with 5 sec hold, GS with 5 second hold; L LE only heel slides, LAQ x 10 reps each Verbal and tactile cuing provided for correct performance of exercises Re-emphasized the importance of frequent performance of anti-embolic exercises Therapeutic Activity (17292) Treatment Minutes: 5 0 units Skilled Intervention(s): Instructed patient in supine to sit pushing with upper extremities to sit up Instructed patient in sit to supine using safe, effective technique Instruction in sit to stand technique with proper hand placement and body positioning at edge of bed/chair Instruction in stand to sit technique with lower extremities touching chair/bed and reaching back for surface Educated patient on correct performance car transfers, patient verbalized understanding and has no further questions or concerns for FOREST EXAMINER. Gait Training (35743) Treatment Minutes: 20 1 unit Skilled Intervention(s): Instruction in sequencing, gait pattern, step-to gait pattern Instruction in correction of gait deviations, cues for upright posture, safety, and increased heel/toe progression Instruction in WB precautions, WBAT L LE Instruction in stair negotiation, [id number]. Demonstration provided for safety and sequencing. Patient with good follow through. Instruction in use of equipment, cues for sequence and pattern Total Timed Code Treatment Minutes: 35 (-time to obtain equipment) Total Treatment Time (minutes): 37 FUNCTIONAL G CODE: PT 6 Clicks Score: 22 (09/09/17 1112) Mobility: Walking and Moving Around Current Status (G8978): CJ (09/08/17 1600) Mobility: Walking and Moving Around Goal Status (G8979): CH (09/08/17 1600) Based on clinical assessment and the score on the 6 Clicks Functional Assessment Tool, the G code and corresponding severity modifiers are documented above. SUBJECTIVE: Current Hospital Course: Chart reviewed and no significant medical updates relevant to therapy were noted Reason for Physical Therapy Consult : post musculoskeletal surgery Relevant Past Medical History: Pt presents s/p L TKA 09/08/2017. PMH: anxiety, HTN, HLD. PSH: R TKA Patient Report: Patient supine in bed upon arrival, agreeable to participate in PT. Patient states, It is so painful and I am freezing. Patient appropriate for PT per RNSanchez. Home Environment Patient Lives With: Self/Alone (will be staying with mother) Assistance Available: 24 Hour (from mother) Entry To Home: Stairs;With Rail Number Of Stairs Into Home: 4 Number Of Stairs To Bed/Bath: 1 (step to living room) Laundry: mother to complete Equipment Owned: Commode-Raised;Crutch(es);Grab Bars-Shower;Wheeled Walker Prior Functional Level: Within Functional Limits (Ind with ADLs, no use of AD, + driving, + working) OBJECTIVE: CURRENT FUNCTIONAL STATUS: Current Functional Mobility Assist Level Additional Information Rolling Supine to Sit Supervision (HOB flat, no use of rails) Sit to Supine Supervision (HOB flat, no use of rails) Scooting Supervision (forward/retro in bed) Sit to Stand Stand By Assistance (with FWW) x3 trials from EOB, cues for hand placement (patient with poor follow through) Stand to Sit Stand By Assistance (with FWW) Cues for hand placement and L LE extension Bed to Chair Toilet/Commode Gait Stand By Assistance (step-to gait) Gait Device: Wheeled Walker Gait Distance (feet): 158'x1 Stairs Contact Guard Assistance ([id number]) Stairs Device: Cane;Rail Number of Stairs: 4 (x2 consecutive trails) Curb Step Contact Guard Assistance Wheeled Walker Car Transfer Set Up Discussed with patient, patient verbalizes understanding Gait Deviations Left Lower Extremity: Weight bearing decreased;Heel strike during initial stance decreased;Push-off during terminal stance decreased;Step length decreased General Gait Deviations: Sandrita decreased;Step length decreased;Flexed trunk posture Patient supine in bed, denies symptoms at this time, call bobo and personal belongings in reach, denies any further questions, concerns or needs from FOREST EXAMINER at this time. Gait belt in place for safety with all functional mobility. RN (Sanchez) aware of patient status. Discussed with patient sitting up for no longer than 1 hr and calling for assistance 100% of the time. Balance: Static Sitting;Dynamic Sitting;Static Standing;Dynamic Standing Static Sitting Balance: Independent Dynamic Sitting Balance: Independent Static Standing Balance: Stand By Assistance Dynamic Standing Balance: Stand By Assistance Please see discipline specific clinical documentation flowsheet for complete details for this therapy evaluation/treatment. SIGNATURE: Angela Black PTA PATIENT NAME: Paulina Finn DATE: September 09, 2017 TIME: 12:00 PM PAGER/CONTACT #: [phone] THERAPY NT Observed: 09/09/2017 Status: COMPLETED Source: [place] [facility] 10:50 AM CLINIC OTHER CAMPUS REPOSITORY O ID: [id number] Author: Paulina Espinal/Charito Lezama Service: Occupational Therapy Author Type: Occupational Therapist Type: Therapy (PT/OT/Speech/Resp) Filed: 09/09/2017 10:50 AM Note Text: OCCUPATIONAL THERAPY MISSED VISIT SERVICE DATE: 09/09/2017 SERVICE TIME: 1047 to 1047 ROOM: [place] [address] Attempted Evaluation. Patient not seen due to Another service at bedside: Physical Therapy. Will re-attempt as schedule allows. SIGNATURE: Paulina Lezama OT/Issa PATIENT NAME: Paulina Watkinsronikendrick DATE: September 09, 2017 TIME: 10:50 AM PAGER/CONTACT #: [phone] CASE MGT INIT Observed: 09/09/2017 Status: COMPLETED Source: [facility] 10:16 AM CLINIC OTHER CAMPUS REPOSITORY HNO ID: [id number] Author: Jami (Rn) ROSITA Ferreira Service: Case Management Author Type: Registered Nurse Type: Care Mgt Initial Assessment Filed: 09/09/2017 10:20 AM Note Text: CARE MANAGEMENT: ASSESSMENT AND DISCHARGE PLAN SERVICE DATE: 09/09/2017 SERVICE TIME: 10:16 AM PRIMARY CARE PHYSICIAN: Dr. 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 No Advance Directive: Current Advance Directive: None Poly Area Supervisor Assisted with AD Completion: No Unable to Assist Due To:: Other: See Comment (Patient stated she did not wish to receive the AD packet at this time) Health Literacy: 1. How often do you need to have someone help you when you read instructions, pamphlets, or other written material from your doctor or pharmacy? Never - 1 2. How confident are you filling out medical forms by yourself? Extremely - 1 If Patient scores > 3 on either question, the following interventions were put into place: Patient did not score > 3 FUNCTIONAL AND COGNITIVE/BEHAVIORAL PRIOR TO ADMISSION: Baseline Mental Status: Alert AND Oriented, Person, Place , Time and Situation Functional Status: Independent Does Patient Currently Receive Any Community Services or Home Care? None Equipment Prior to Admission: Crutches Walker Has the Patient Been in a [facility] Facility in the Past 30 days? No SOCIAL: Living Arrangement: Home Lives With: Alone Financial Resources: Unemployed Primary Contact: Extended Emergency Contact Information Primary Emergency Contact: Marianne Palacios Address: [address] Mobile Relation: Mother Supportive: Yes Other Important Patient Contacts: None Caregiver Assessment: Caregiver is ready, willing and able to meet the patient's needs as recommended by the inter-professional team? Yes Patient's transition needs and plan for meeting these needs: TBD Does the patient have an acute stroke diagnosis, or has the patient had a stroke during this admission? No Medication Adherence: I am convinced of the importance of my prescription medication: Agree completely - 0 I worry that my prescription medication will do more harm than good to me Disagree mostly - 0 I feel financially burdened by my [id number] expenses for my prescription medication: Disagree mostly -0 Patient is categorized as low risk < 2 Are you interested in bedside delivery of your medications? No Food Concerns: In the Last Month, Have You had Trouble Getting Food? No trouble getting food During the Last Month, Have You Worried Whether Your Food Would Run Out Before You Had Enough Money to Buy More? No Is the Patient Psychosocially Complex? No ASSESSMENT AND PLAN: Medical Needs: None Psychosocial Needs: None FREEDOM OF CHOICE EXPLAINED: Yes 09/09/17 Financial Disclosure Provided The patient and/or family has been given the Provider List: Yes Provider List: Home Care POTENTIAL TRANSITION PLANS Home OT/PT Review of the chart and met with the patient. The patient stated that she lives alone but will be staying at her mother's home for a while at discharge in [place]. P.T recommending home P.T. The patient stated she will call her mother and get her mother's address for [facility] services. [facility] list of agencies left with the patient to review. CM department will follow up for choices. CM department will continue to follow for DC needs. SIGNATURE: Jami Ferreira PATIENT NAME: Paulina Finn DATE: September 09, 2017 TIME: 10:16 AM PAGER/CONTACT #: [phone] NURSING PROG Observed: 09/09/2017 Status: COMPLETED Source: [facility] 9:46 AM CLINIC OTHER CAMPUS REPOSITORY O ID: [id number] Author: Sanchez (Rn) ROSITA Brown Service: Nursing Author Type: Registered Nurse Type: Nursing Progress Note Filed: 09/09/2017 9:48 AM Note Text: Nursing Progress Note Patient Name: Paulina Finn Patient Location: [id number] 0815- Assessment complete. Left knee latasha wrap DANDI. Patient very anxious, C/o 8/10 pain. Assisted patient to bathroom and bedside chair without incident. 0845- Medicated with Xanax 0.5 mg and Walton 2 tablets for pain and anxiety. Patient worried about going home with mom as they don't always get along. This note was completed by: Sanchez Brown RN PROGRESS Observed: 09/09/2017 Status: COMPLETED Source: [place] 9:34 AM CLINIC OTHER CAMPUS REPOSITORY HNO ID: [id number] Author: Jeff Deshpande Service: General Internal Medicine Author Type: Physician Type: Progress Notes Filed: 09/09/2017 3:03 PM Note Text: INPATIENT CONSULT PROGRESS NOTES Patient Name: Paulina Finn DATE of SERVICE: 09/09/17 TIME of SERVICE:8:34 CONSULTING SERVICE: Medicine,post op # 1 INTERVAL HPI: uneventful night, pain is fairly control, poor UO Patient seen and examined: Discussed with RN. Vitals/Meds/Labs/U/O reviewed Alert AND Oriented NO nausea, vomiting NO light headedness, NO shortness of breathe Dry oral mucosa CVS ? RRR Lungs ? Clear to auscultation Abdomen ? soft,NT, + BS LLE ? Ankle No edema RLE ? Ankle No edema MEDICATIONS: Current hospital medications: oxyCODONE-acetaminophen 5-325 mg 1-2 tablet (PERCOCET) 1-2 tablet ORAL q 4 H PRN ALPRAZolam 0.5 mg tab(s) (XANAX) 0.5 mg ORAL BID PRN simvastatin 40 mg tab(s) (ZOCOR) 40 mg ORAL DAILY AT 6 PM lisinopril 40 mg tab(s) (ZESTRIL, PRINIVIL) 40 mg ORAL DAILY AT 6 PM metoprolol tartrate (short acting) 50 mg tab(s) (LOPRESSOR) 50 mg ORAL DAILY sertraline 200 mg tab(s) (ZOLOFT) 200 mg ORAL DAILY hydroCHLOROthiazide 25 mg tab(s) (HYDRODIURIL, ESIDRIX) 25 mg ORAL DAILY NaCl 0.9% iv infusion 100 mL/hr INTRAVENOUS CONTINUOUS morphine 2 mg injection 2 mg INTRAVENOUS q 2 H PRN ketorolac 15 mg injection (TORADOL) 15 mg INTRAVENOUS q 6 H ondansetron orally disintegrating 4 mg tab(s) (ZOFRAN ODT) 4 mg ORAL q 6 H PRN ondansetron (PF) 4 mg injection (ZOFRAN) 4 mg INTRAVENOUS q 6 H PRN magnesium hydroxide 400 mg/5 mL 30 mL (MOM) 30 mL ORAL DAILY PRN aluminum-magnesium hydroxide-simethicone 200-200-20 mg/5 mL 30 mL (MAALOX,MYLANTA,MAG-AL PLUS) 30 mL ORAL q 6 H PRN ascorbic acid (vitamin C) 500 mg tab(s) (VITAMIN C) 500 mg ORAL BID w MEALS docusate sodium 100 mg cap(s) (COLACE) 100 mg ORAL BID enoxaparin 30 mg injection (LOVENOX) 30 mg SUBCUTANEOUS q 12 H polyethylene glycol 3350 17 g packet (MIRALAX, GLYCOLAX) 17 g ORAL DAILY PHYSICAL EXAM: Patient Vitals for the past 24 hrs: BP Temp Temp src Pulse Resp SpO2 09/09/17 0928 122/69 36.7 ?C (98.1 ?F) Oral 64 18 98 % 09/09/17 0821 110/61 - - 76 - - 09/09/17 0720 - - - - - 09/09/17 0530 - - - - - 09/09/17 0323 110/61 36.8 ?C (98.2 ?F) Oral 76 16 97 % 09/09/17 0032 - - - - - 09/09/17 0002 120/72 36.8 ?C (98.2 ?F) Oral 75 16 98 % 09/08/17 2350 - - - - - 09/08/17 2241 116/72 36.9 ?C (98.4 ?F) Oral 74 18 99 % 09/08/172151 - - - - - 96 % 09/08/172114 - - - - - 09/08/17 2020 92/59 36.8 ?C (98.2 ?F) Oral 74 20 96 % 09/08/17 1430 114/70 36.5 ?C (97.7 ?F) Oral 69 16 100 % 09/08/17 1352 120/74 36.4 ?C (97.5 ?F) Oral 71 16 100 % 09/08/17 1312 133/82 36.7 ?C (98.1 ?F) Oral 74 20 100 % 09/08/17 1254 121/80 - - 73 16 100 % 09/08/17 1245 130/86 - - 75 16 99 % 09/08/17 1230 126/88 - - 77 16 99 % 09/08/17 1215 130/95 - - 80 16 100 % 09/08/17 1202 127/81 37.2 ?C (99 ?F) Temporal Art 80 16 100 % Body mass index is 21.26 kg/(m2). DATA: CBC: Recent Labs 09/09/17 0546 WBC 7.74 RBC 3.55* HB 10.4* HCT 33.1* PLT 169 MCV 93.2 MCH 29.3 MPV 9.7 Coags: No results for input(s): INR, APTT in the last 24 hours. Invalid input(s): PT CMP: Recent Labs 09/09/17 0546 NA 141 K 3.5* CHLOR 104 CO2 29 BUN 23* CREAT 0.90 GLUC 150* CA 8.2* ANION 8* ASSESSMENT AND PLAN: A. OA S/P - Total Knee Unilateral: left, DVT prophylaxis with Lovenox and ICDs Continue PT/OT HTN stable HPL on statin Anxiety continue xanax Continue iv fluid SIGNATURE: Jeff Deshpande MD Discussed with Thelma Stack to discharge home. Med reviewed. PROGRESS Observed: 09/09/2017 Status: COMPLETED Source: [place] 9:03 AM CLINIC OTHER CAMPUS REPOSITORY O ID: [id number] Author: Thelma Akhtar (Pam Hawthorne Service: Orthopaedic Surgery Author Type: Nurse Practitioner Type: Progress Notes Filed: 09/09/2017 9:11 AM Note Text: POSTOP NOTE ORTHOPEDIC SERVICE DATE: 09/09/2017 SERVICE TIME: 9:04 AM IMPRESSION/PLAN: S/P Procedure(s) (LRB): ARTHROPLASTY REPLACE JOINT TOTAL KNEE (Left) on 09/08/2017 Physical Therapy evaluation DVT prophylaxis: with Lovenox and Intermittent pneumatic compression device (IPCD) Pain control; med changed to Percocet Antibiotics: Discontinuing Antibiotics after 24 hours Case Management for discharge planning ACTIVE PROBLEM LIST Rsd Lower Limb Lumbar Spondylosis Ddd (Degenerative Disc Disease), Lumbar Htn (Hypertension) Dyslipidemia, Goal to Be Determined Anxiety Mood Swings (Hcc) Arthritis of Left Knee Post-Operative State POST OPERATIVE COMPLICATIONS: Complicated by uneventful/none SUBJECTIVE: Patient states that they are comfortable Poor control knee(s) pain. Denies incisional pain. OBJECTIVE: VITAL SIGNS: BP 110/61 Pulse 76 Temp 36.8 ?C (98.2 ?F) (Oral) Resp 16 Ht 160 cm (5' 3) Wt 54.4 kg (120 lb) SpO2 97% BMI 21.26 kg/m2 INTAKE AND OUTPUT: Intake/Output Summary (Last 24 hours) at 09/09/17903 Last data filed at 09/09/17 0628 Gross per 24 hour Intake 2514 ml Output 427 ml Net 2087 ml PHYSICAL EXAMINATION: Left Lower Extremity: Dorsalis pedis pulses palpable. Posterior tibial pulses palpable. Dorsi flexion 5/5. Plantar flexion 5/5. Extensor hallucis extension: 5/5. Sensory intact to light touch L1-S1. Dressing clean, dry and intact. Surgical site no drainage and skin edges well approximated. Problem Review and Assessment: Skin and Abdominal Wall: Patient monitored, no new events overnight Cardiovascular and Vascular: Patient monitored, no new events overnight and HTN Respiratory: Patient monitored, no new events overnight; nicotine use Endocrine and Metabolic: Patient monitored, no new events overnight Gastrointestinal: Patient monitored, no new events overnight Genitourinary and Nephrology: Patient monitored, no new events overnight Behavioral, Cerebrovascular and Nervous: Patient monitored, no new events overnight and Anxiety, mood swings Infectious: Patient monitored, no new events overnight LABS: Recent Labs 09/09/17 0546 HB 10.4* HCT 33.1* DATA: Diagnostic tests reviewed for today's visit: Most recent labs SIGNATURE: Thelma Hawthorne APRN.MORRIS PATIENT NAME: Paulina Finn DATE: September 09, 2017 TIME: 9:04 AM PAGER/CONTACT #: [phone] CBC Collected: 09/09/2017 Status: F Source: [place] 5:46 AM CLINIC OTHER CAMPUS REPOSITORY TYPE CODE TESTS RESULT OUT OF REFERENCE UNITS RANGE LAB WBC 3.70-11.00 k/uL WBC 7.74 LAB RBC 3.90-5.20 m/uL Low RBC 3.55 LAB HGB 11.5-15.5 g/dL Low Hemoglobin 10.4 LAB HCT 36.0-46.0 % Low Hematocrit 33.1 LAB MCV 80.0-100.0 fL MCV 93.2 LAB MCH 26.0-34.0 pG MCH 29.3 LAB MCHC 30.5-36.0 g/dL MCHC 31.4 LAB RDWCV 11.5-15.0 % RDW-CV 12.1 LAB PLTCT 150-400 k/uL Platelet Count 169 LAB MPV 9.0-12.7 fL MPV 9.7 Performed By: #### CBC, BMP #### [facility] [address] [facility] [phone] BASIC METABOLIC PANL Collected: 09/09/2017 Status: F Source: [place] 5:46 AM CLINIC OTHER CAMPUS REPOSITORY TYPE CODE TESTS RESULT OUT OF REFERENCE UNITS RANGE LAB GLU 74-99 mg/dL High Glucose 150 Result Comment: The [place] [employer] (ADA) provides guidance for cutoff values for fasting glucose and random glucose. The ADA defines fasting as no caloric intake for at least 8 hours. Fas ting plasma glucose results between 100 to 125 mg/dL indicate increased risk for diabetes (prediabetes). Fasting plasma glucose results greater than or equal to 126 mg/dL meet the criteria for diagnosis of diabetes. In the absence of unequivocal hyperglycemia, results should be confirmed by repeat testing. In a patient with classic symptoms of hyperglycemia or hyperglycemic crisis, random plasma glucose results greater than or equal to 200 mg/dL meet the criteria for diagnosis of diabetes. Reference: Standards of Medical Care in Diabetes 2016, [place] [employer]. Diabetes Care. 2016.39(Suppl 1). LAB BUN 7-21 mg/dL BUN High 23 LAB CRET 0.58-0.96 mg/dL Creatinine 0.90 LAB NA 136-144 mmol/L Sodium 141 LAB K 3.7-5.1 mmol/L Low Potassium 3.5 LAB CL 97-105 mmol/L Chloride 104 LAB CO2 22-30 mmol/L CO2 29 LAB AGAP 9-18 mmol/L Low Anion Gap 8 LAB CA 8.5-10.2 mg/dL Low Calcium, Total 8.2 LAB GFRAA eGFR- Amer. >60 LAB GFRNAA . eGFR-All Other Races >60 Result Comment: eGFR (Estimated GFR) Units of measure: mL/min/1.73 meters squared eGFR is derived from the reexpressed MDRD Study equation using the following parameters: serum creatinine, age, gender and race. The creatinine assay has been calibrated to be traceable to IDMS. An eGFR <60 mL/min/1.73m2 for >3 months is consistent with chronic kidney disease. Refer to KDOQI guidelines for clinical interpretation. In patients with unstable renal function, e.g. those with acute kidney injury, the eGFR may not accurately reflect actual GFR. Performed By: #### CBC, BMP #### [facility] [address] [place] [address] NURSING PROG Observed: 09/08/2017 Status: COMPLETED Source: [place] 10:53 PM [facility] REPOSITORY HNO ID: [id number] Author: Yeimi (Rn) ROSITA Loera Service: (none) Author Type: Registered Nurse Type: Nursing Progress Note Filed: 09/08/2017 10:54 PM Note Text: Nursing Progress Note Patient Name: Paulina Finn Patient Location: [place] [address] Daily Note: 2245 Up to bedside commode to void. Voided 100 yellow urine. States feels she is emptying her bladder. No lightheadedness or dizziness when up. Bladder scan shows no residual urine. This note was completed by: Yeimi Loera RN THERAPY NT Observed: 09/08/2017 Status: COMPLETED Source: [place] 4:56 PM [facility] REPOSITORY HNO ID: [id number] Author: Mansi NealPt) Karol Service: Physical Therapy Author Type: Physical Therapist Type: Therapy (PT/OT/Speech/Resp) Filed: 09/08/2017 5:09 PM Note Text: Physical Therapy Evaluation SERVICE DATE: 09/08/2017 SERVICE TIME: 1600 to 1642 ROOM: [place] [address] Recommended Discharge Disposition: Home PT Recommended Discharge Disposition Comments: Pt functioning below baseline with decline in performance in functional activity indicating a need for continued therapy post acute stay to safely progress strenthening, ROM and balance. Anticipated Discharge Needs: Physical Assist at Home;Supervision at Home Physical Assist at Home for: Cleaning;Laundry;Meals;Shopping;Transportation Supervision at Home due to: (initially for safety) Recommended Discharge Equipment: No equipment needs anticipated PT Recommendations to Nursing: Ambulate with device;To bathroom;In halls;Transfer to/from chair;OOB for Meals;With assist of 1 person Device: Wheeled Walker PT 6 Clicks Score: 20 Precautions/Activity Restrictions: Total Knee Replacement;Weight Bearing Restrictions;Fall Risk;Lines/Tubes/Drains Extremity With Weight Bearing Restricted: Left Lower Extremity Left Lower Extremity Weight Bearing Status: WBAT ASSESSMENT : AAROM L knee flexion in supine to 55 degrees Patient presents with decreased strength, balance and left knee ROM s/p L TKA making functional activity difficult at this time. Pt is initially groggy but with increased movement pt becomes more alert and follows cues and commands appropriately throughout. Pt is CGA to SBA with activity, cane be impulsive but follows cues for slowed pace and safety with activity. Pt would benefit from continued PT post acute stay to address deficits and safely progress activity for increased safety and independence at home. Patient Disposition at Start of Session: Supine in Bed Patient Disposition at End of Session: OOB in Chair;Call Bobo in Re[place] (nursing present) Tolerated Full Session Physical Therapy Problem List: Pain;Safety Deficits;Decreased Activity Tolerance;Decreased Range Of Motion;Decreased Strength;Functional Mobility Impairment;Balance Impaired Patient /Caregiver Goals: Go Home Goals for Plan of Care: Able to perform HEP with: Independent (to increase functional strength) Transfer supine to/from sit with: Supervision (HOB flat, no use of bed rails to sit EOB) Transfer sit to/from stand with: Supervision (LRAD to move bed to chair) Ambulate with: Supervision Distance: 150-200 Device: (LRAD to navigate home environment) Ambulate up and down curb step with: Stand By Assistance Device: (LRAD to reach living room) Ambulate up and down steps with: Stand By Assistance Number of steps: 4 Device: Rail (LRAD to enter home) Car transfer with: Verbal Cues Only (to safely enter/exit car. ) ROM: L knee AROM 0 - 90 degrees to increase ease with functional activity. Rehab Potential: Good PLAN: Treatment Frequency (times per week): 7;BID Current admission Treatment Interventions: Education;Joint Mobility;Strengthening;Functional Mobility Training;Balance Training;Neuromuscular Re-education;Modalities Modalities: Ice Plan of Care developed with: Patient TREATMENT INTERVENTIONS: Therapy Diagnosis: Difficulty walking-musculoskeletal Interventions Provided: Evaluation;Therapeutic Activity (29636);Gait Training (03612) $ Evaluation-Low (81036) Billed Units: 1 unit Therapeutic Activity (78984) Treatment Minutes: 15 1 unit Skilled Intervention(s): Instructed patient in supine to sit pushing with upper extremities to sit up cued for safe pace and to avoid bed rails Instructed patient in sit to supine using safe, effective technique Education: Pt educated in role of PT during acute stay and PT POC, weight bearing status, TKA precautions with demonstrations provided, effects of nerve block/spinal, importance of OOB activity with nursing to reduce risk of functional decline, purpose of anti-embolic exercises and performs 10 reps ankle pumps, quad sets with 3-5 sec hold and glute sets and educated on parameters of performance, rationale for discharge recommendation of home PT, use of call light 100% of the time for assist, parameters for safe home going, rationale for equipment recommendation for safe ambulation and stair negotiation, caution with positioning of surgical LE if sleeping in recliner 10 reps LLE supine heel slides performed with knee ROM obtained - see above Discharge sheet issued with the following topics discussed: Indications and contraindications to activity, signs/symptoms of DVT and infections and actions to be taken if suspected, parameters of cryotherapy, proper technique for elevation, importance of balance between activity and rest. Verbal cues provided for safety with performing pericare while in standing Gait Training (79507) Treatment Minutes: 14 1 unit Skilled Intervention(s): Instruction in sit to stand technique with proper hand placement and body positioning at edge of bed/chair, reinforcement for proper hand placement and safe pace Instruction in stand to sit technique with LE's touching chair/bed and reaching back for surface, reinforcement for safe approach to surface, proper hand placement and controlled descent to sit Instruction in sequencing, gait pattern with step to pattern with initial demonstration provided and initial navigation of walker by PT Instruction in correction of gait deviations, safe distance to walker, safe walker placement, safe pace, improved posture and to maintain forward visual gaze as able Instruction in use of equipment, cues for sequence and pattern Modified stand pivot transfer from bed to chair to bed with use of wheeled walker for steps to turn with cues for increased use of UEs for assist Total Timed Code Treatment Minutes: 29 Total Treatment Time (minutes): 42 SUBJECTIVE: Current Hospital Course: Chart reviewed; Reason for Physical Therapy Consult : post musculoskeletal surgery Relevant Past Medical History: Pt presents s/p L TKA 09/08/2017. PMH: anxiety, HTN, HLD. PSH: R TKA Patient Report: Pt in bed upon entry and is agreeable to PT, ok per nursing to treat. Home Environment Patient Lives With: Self/Alone (will be staying with mother) Assistance Available: 24 Hour (from mother) Entry To Home: Stairs;With Rail Number Of Stairs Into Home: 4 Number Of Stairs To Bed/Bath: 1 (step to living room) Laundry: mother to complete Equipment Owned: Commode-Raised;Crutch(es);Grab Bars-Shower;Wheeled Walker Prior Functional Level: Within Functional Limits (Ind with ADLs, no use of AD, + driving, + working) OBJECTIVE: Range Of Motion: Within Functional Limits Except Location ROM Not WFL: Knee Left Knee ROM: AAROM flexion to 55 degrees, bulky dressing in place Strength: Within Functional Limits Except Location Strength Not WFL: Hip Flexion;Knee Flexion;Knee Extension;Ankle Dorsiflexion Left Hip Flexion Strength: 3-/5 Left Knee Flexion Strength: 3-/5 Left Knee Extension Strength: 3-/5 Left Ankle Dorsiflexion Strength: 4/5 CURRENT FUNCTIONAL STATUS: Current Functional Mobility Assist Level Additional Information Rolling Supine to Sit Stand By Assistance HOB flat, performed x 2 trials Sit to Supine Stand By Assistance Scooting Stand By Assistance Sit to Stand Contact Guard Assistance X 3 trials, steady throughout,quick pace noted Stand to Sit Contact Guard Assistance Bed to Chair Contact Guard Assistance Modified stand pivot from bed to BSC to bed with wheeled walker Toilet/Commode Gait Contact Guard Assistance Gait Device: Wheeled Walker Gait Distance (feet): 70 Step to pattern throughout, requires initial walker placement by PT as visual cue with good carry over thereafter Stairs Curb Step Car Transfer Gait Deviations Left Lower Extremity: Weight bearing decreased;Stance time decreased;Heel strike during initial stance decreased;Push- off during terminal stance decreased General Gait Deviations: Sandrita decreased;Step length decreased Balance: Static Sitting;Dynamic Sitting;Static Standing;Dynamic Standing Static Sitting Balance: Independent Dynamic Sitting Balance: Independent Static Standing Balance: Contact Guard Assistance Dynamic Standing Balance: Contact Guard Assistance -Patient in chair with nursing present post-treatment, call bobo and personal belongings in reach, RN notified of patient status, denies needs at this time. -Gait belt in place for safety with all functional mobility -Lines/Tubes/Drains: Intact and as follows: peripheral IV Please see discipline specific clinical documentation flowsheet for complete details for this therapy evaluation/treatment. SIGNATURE: Mansi Roberson, PT PATIENT NAME: Paulina Finn DATE: September 08, 2017 TIME: 4:56 PM PAGER/CONTACT #: [phone] NURSING PROG Observed: 09/08/2017 Status: COMPLETED Source: [place] 2:22 PM [facility] REPOSITORY HNO ID: [id number] Author: Skylar NealRn) Bharathi, RN Service: (none) Author Type: Registered Nurse Type: Nursing Progress Note Filed: 09/08/2017 2:26 PM Note Text: Nursing Progress Note Patient Name: Paulina Finn Patient Location: [facility]0400/OP-[id number] Daily Note:1330 Pt received via bed from PACU after left total knee replacement, and admitted to 400 bed 1. She is very sleepy but is able to answer admission questions. Denies pain at this time. Oriented to call system and bed controls. This note was completed by: Skylar Garvin, RN NURSING PROG Observed: 09/08/2017 Status: COMPLETED Source: [place] 1:50 PM [facility] OTHER [place] REPOSITORY HNO ID: [id number] Author: Angely NealRn) ROSITA Parrish Service: Nursing Author Type: Registered Nurse Type: Nursing Progress Note Filed: 09/08/2017 2:42 PM Note Text: Nursing Progress Note Patient Name: Paulina Finn Patient Location: [facility]-0400/TK-[id number]-5060-1 Daily Note: pt received from PACU. Report received. See assessment. Call light within reach. This note was completed by: Angely Parrish RN ANES POST Observed: 09/08/2017 Status: COMPLETED Source: [place] 1:29 PM [facility] OTHER CAMPUS REPOSITORY HNO ID: [id number] Author: Oriana Jimenes Service: Anesthesiology Author Type: Anesthesiologist Type: Anesthesia PostOp Filed: 09/08/2017 1:29 PM Note Text: POST ANESTHESIA EVALUATION NOTE SERVICE DATE: 09/08/2017 SERVICE TIME: 1:29 PM : 1965 Vitals: 09/08/17 0927 09/08/17 1202 09/08/17 1312 Temp: 36.6 ?C (97.9 ?F) 37.2 ?C (99 ?F) 36.7 ?C (98.1 ?F) 09/08/17 1230 09/08/17 1245 09/08/17 1254 09/08/17 1312 BP: 126/88 130/86 121/80 133/82 09/08/17 1230 09/08/17 1245 09/08/17 1254 09/08/17 1312 Pulse: 77 75 73 74 09/08/17 1230 09/08/17 1245 09/08/17 1254 09/08/17 1312 Resp: 16 16 16 20 09/08/17 1230 09/08/17 1245 09/08/17 1254 09/08/17 1312 SpO2: 99% 99% 100% 100% Validated Vital Signs: Yes POST ANES STATUS: No apparent anesthetic complications. The patient is appropriately hydrated with stable respiratory and cardiovascular status. Patient has safe and adequate airway control. The patient has appropriate pain relief and no significant post operative nausea or vomiting. The patient has achieved baseline mental status. Further assessment by Anesthesia Service: None Other Remarks: SIGNATURE: Oriana Jimenes MD PATIENT NAME: Paulina Finn DATE: September 08, 2017 TIME: 1:29 PM PAGER/CONTACT #: [phone] XR KNEE 2V AP/LAT Observed: 09/08/2017 Status: F Source: [facility] 12:26 PM [facility] REPOSITORY * * *Final Report* * * DATE OF EXAM: Sep 08 2017 12:26PM MDX 5206 - XR KNEE 2V AP/LAT LT / PROCEDURE REASON: Post-operative state * * * * Physician Interpretation * * * * PROCEDURE: Left knee INDICATION: Post-operative state. TECHNIQUE: XR KNEE 2V AP/LAT LT COMPARISON: 08/08/2017 FINDINGS: There is a new total knee arthroplasty in satisfactory position with associated postoperative soft tissue changes. No fracture is seen. 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: PSCB Transcribe Date/Time: Sep 08 2017 12:36P Dictated by : RAGHU SAMPSON MD This examination was interpreted and the report reviewed and electronically signed by: RAGHU SAMPSON MD on Sep 08 2017 12:36PM EST [id number] OP NOT Observed: 09/08/2017 Status: COMPLETED Source: [place] 11:36 AM [facility] REPOSITORY HNO ID: [id number] Author: Vito Guillaume Service: Orthopaedic Surgery Author Type: Physician Type: Brief Op Note Filed: 09/08/2017 11:40 AM Note Text: TOTAL KNEE ARTHROPLASTY BRIEF OPERATIVE / PROCEDURE NOTE LOG ID: [id number] Surgery/Procedure Date: 09/08/2017 Incision/Procedure Start Time: 10:26 AM Incision Close/Procedure End Time: Surgeon(s)/Proceduralist(s) and Bottom Brusher(s): Surgeon(s) and Role: * Vito Guillaume - Primary Nurse Practitioner: Paulina Jimenez Physician Bottom Brusher: Ameena Rojo Procedure(s): Procedure(s) (LRB): ARTHROPLASTY REPLACE JOINT TOTAL KNEE (Left) Anesthesia: General Peripheral Block Type: Saphenous/Adductor Approach: Median parapatellar Findings: OA left knee Estimated Blood Loss: 0 ml Specimens: None Complications: None Implant: Implant Name Type Inv. Item Serial No. Pepper Picker Lot No. LRB No. Used CEMENT SIMPLEX BONE HIGH VISCOSITY - [id number] Cement / Putty CEMENT SIMPLEX BONE HIGH VISCOSITY STRY/[facility] [id number] Left 1 INSERT TRIATHLON 2 X3 9MM TIBIAL CONDYLAR STABILIZED KNEE - [id number] Joint - Knee INSERT TRIATHLON 2 X3 9MM TIBIAL CONDYLAR STABILIZED KNEE [employer]Y/[employer] [id number] Left 1 COMPONENT TRIATHLON 3 FEMORAL CRUCIATE RETAIN CEMENTED KNEE LEFT - [id number] Joint - Hip COMPONENT TRIATHLON 3 FEMORAL CRUCIATE RETAIN CEMENTED KNEE LEFT [employer] [employer] [id number] Left 1 BASEPLATE TRIATHLON 2 TIBIAL PRIMARY CEMENT KNEE - [id number] Plate BASEPLATE TRIATHLON 2 TIBIAL PRIMARY CEMENT KNEE [employer] [id number] Left 1 COMPONENT TRIATHLON 32MM ASYMMETRIC X3 10MM PATELLAR KNEE - [id number] Joint - Patella COMPONENT TRIATHLON 32MM ASYMMETRIC X3 10MM PATELLAR KNEE [employer] [id number] Left 1 Bearing Surface: Fixed Fixation: Cemented SSI Risk Factors: None, non-antibiotic cement will be used. Constraint: Cruciate Retaining Other: None Pre-Op/Pre-Procedure Diagnosis: Arthritis of knee, degenerative [M17.10] Post-Op/Post-Procedure Diagnosis: Arthritis of knee, degenerative [M17.10] Weight Bearing Status: Full Weight Bearing SIGNATURE: Vito Guillaume MD [facility] PATIENT NAME: Paulina Finn DATE: September 08, 2017 TIME: 11:36 AM PAGER/CONTACT #: STEPHENIE PREOP Observed: 09/08/2017 Status: COMPLETED Source: [place] 9:23 AM [facility] REPOSITORY [facility] ID: [id number] Author: Oriana Jimenes Service: Anesthesiology Author Type: Anesthesiologist Type: Anesthesia PreOp Filed: 09/08/2017 9:26 AM Note Text: ANESTHESIOLOGY DAY OF SURGERY NOTE SERVICE DATE: 09/08/2017 SERVICE TIME: 9:23 AM : 1965 Procedure(s) (LRB): ARTHROPLASTY REPLACE JOINT TOTAL KNEE (Left) Surgeon(s): Vito Guillaume Estimated body mass index is 21.26 kg/(m2) as calculated from the following: Height as of 09/04/17: 160 cm (5' 3). Weight as of 09/04/17: 54.4 kg (120 lb). Most recent hematocrit and potassium results: Hematocrit 39.3 09/04/2017 Potassium 4.2 09/04/2017 ANES DOS/PREOP NOTE: Vitals: There were no vitals filed for this visit. ACTIVE PROBLEM LIST Rsd Lower Limb Lumbar Spondylosis Ddd (Degenerative Disc Disease), Lumbar Arthritis of Knee, Degenerative Htn (Hypertension) Dyslipidemia, Goal to Be Determined Anxiety Mood Swings (Hcc) Arthritis of Left Knee PAST MEDICAL HISTORY Diagnosis Date - Anxiety - Arthritis of left knee 09/04/2017 - Dyslipidemia, goal to be determined - HTN (hypertension) - Mood swings (HCC) - Osteoarthritis PAST SURGICAL HISTORY Procedure Laterality Date - CARPAL TUNNEL - KNEE SCOPE,FULL SYNOVECT Left - PART. HYSTERECTOMY W/WO RMVL OVARIES/TUBES - REMOVE TONSILS/ADENOIDS,<11 Y/O - TOTAL KNEE REPLACEMENT Right 2008 FAMILY HISTORY Problem Relation Age of Onset - Lipids Mother - Arthritis Mother - htn [OTHER] Mother - None Father Social History: Social History Substance Use Topics - Smoking status: Current Every Day Smoker Packs/day: 1.00 Years: 11.00 Types: Cigarettes Start date: 06/09/2005 - Smokeless tobacco: Never Used Comment: patient is trying to quit - down to 7 cigarettes per day - Alcohol use No No current facility-administered medications on file prior to encounter. Current Outpatient Prescriptions on File Prior to Encounter: LISINOPRIL 40 mg ORAL tablet DAILY AT 6 PM. SIMVASTATIN 40 mg ORAL tablet 40 mg DAILY AT 6 PM. hydrochlorothiazide 25 mg ORAL tablet Take 25 mg by mouth once daily. ALPRAZolam (XANAX) 0.5 mg ORAL tablet Take one tablet as needed for panic attacks Current Facility-Administered Medications: lactated ringers infusion 75 mL/hr INTRAVENOUS CONTINUOUS Violeta (Pac) S[place] Last Rate: 75 mL/hr at 09/08/17918 75 mL/hr at 09/08/17918 clindamycin 600 mg in D5W 50 mL (CLEOCIN) 600 mg INTRAVENOUS Pre-Op Once Violeta (Pac) Shedlock tranexamic acid 1,000 mg in NaCl 0.9% 100 mL (CYKLOKAPRON) 1,000 mg INTRAVENOUS Pre-Op Once Violeta (Pac) [place] tranexamic acid 1,000 mg in NaCl 0.9% 100 mL (CYKLOKAPRON) 1,000 mg INTRAVENOUS ONCE Violeta (Pac) S[place]lock Allergies: ALLERGIES Allergen Reactions - Omnicef [Cefdinir] Hives - Penicillins Hives - Vancomycin Hives - Zithromax [Azithrom* Hives - Cortisone Intolerance INCREASE IN BP FOR SEVERAL WEEKS. DOS EXAM: Adequate NPO Status: Yes Anesthetic Risks, Benefits, Alternatives, Personnel and Consent Discussed: Yes Patient agrees to proceed: Yes Previous Anesthesia: No history of adverse event Airway Assessment: MP 1; Neck ROM: Full ROM without neurologic symptoms; Airway Evaluation: No significant abnormalities Symptoms of Sleep Apnea: Hypertension and Age over 50 (52 year old) Dentition: Teeth intact Additional Physical Exam: Lungs: Patient health status unchanged since recent history and physical. See history and physical for exam findings. Cardiac: Patient health status unchanged since recent history and physical. See history and physical for exam findings. Additional Pertinent Findings: N/A Blood Products: Not anticipated for this procedure Anesthetic Plan: General Anesthetic Monitoring: Standard ASA Monitors Pain Management Plan: Parenteral or Oral and Peripheral Nerve Block ASA Class: 3 Other Medical Problems: None Chronic Beta Angelica medication administered within 24 hours: Yes I have interviewed and examined the patient. I have reviewed the medical record and/or the pre-anesthesia evaluation, pertinent labs, and test results. Significant changes in the patient's condition since the History and Physical, not otherwise documented in primary service progress notes: No This contains updated information obtained within 48 hours of Surgery/Procedure. SIGNATURE: Oriana Jimenes MD PATIENT NAME: Paulina Finn DATE: September 08, 2017 TIME: 9:23 AM CSN: [id number] PT ED Observed: 09/08/2017 Status: COMPLETED Source: [place] 9:20 AM [facility] REPOSITORY HNO ID: [id number] Author: Haja Fine) ROSITA Hughes Service: (none) Author Type: Registered Nurse Type: Patient Education Filed: 09/08/2017 9:20 AM Note Text: PRE OP LEARNING ASSESSMENT PROCEDURE/SURGERY: left total knee replacement READINESS TO LEARN COGNITIVE ABILITY: Alert and oriented MOTIVATION TO LEARN: Interested FAMILY SUPPORT: High - Very involved in pt care PATIENT LEARNS BEST BY: Individual Instruction FACTORS AFFECTING LEARNING: None PHYSICAL LIMITATIONS AFFECTING LEARNING: None Electronically Signed By: Haja Hughes RN In Department: [facility] SURGERY OPERATIVE NO Observed: 09/08/2017 Status: COMPLETED Source: [place] 12:00 AM [facility] REPOSITORY HNO ID: [id number] Author: Vtio Guillaume Service: Orthopaedic Surgery Author Type: Physician Type: Operative Report Filed: 09/08/2017 2:05 PM Note Text: [facility]- Operative Report PAULINA FINN : 1965 AGE: 52 SEX: F ACCTNUM: [id number] [facility]: [facility] LOCATION: [facility] ATTENDING PHYSICIAN: Vito Guillaume M.D. DATE OF PROCEDURE: 09/08/2017 SURGEON: Vito Guillaume M.D. DEAF/HARD OF HEARING SPECIALIST: Chen Mistry ANESTHESIA: General. PREOPERATIVE DIAGNOSIS(ES): Left knee primary osteoarthritis. POSTOPERATIVE DIAGNOSIS(ES): Same. NAME OF OPERATION: Left total knee replacement. INDICATIONS: The patient was seen with complaints of left knee pain attributable to the above problems and elected to undergo a surgical procedure. ESTIMATED BLOOD LOSS: 0. SPECIMENS: None. START TIME: 1026. COMPLETION TIME: 1145. PROCEDURE: The patient was brought to the operating room and laid supine on the operating table. General anesthesia was administered by the Anesthesia Department without complication. The left knee was prepped and draped in the usual sterile fashion. The left leg was then elevated and exsanguinated using an Esmarch bandage with the tourniquet elevated to 250 mmHg. Anterior longitudinal incision was made using a #10 blade scalpel. A median parapatellar incision was then made with the patella inverted laterally. The anterior horns of the medial and lateral meniscus were removed as was the fat pad for visualization. After pre-drilling, the distal femoral guide was placed, an intramedullary type guide. A distal cut was made appropriately as indicated on the femur. Osteophytes were removed from the medial and lateral aspects of the distal femur. After this had been completed, an extramedullary guide was applied around the tibia. The proximal tibial cut was made at the appropriate orientation ensuring not to disturb the distal fibers of the PCL attachment on the posterior aspect of the tibia. The anterior cruciate ligament, it should be noted, was absent upon entry into the knee. Next, the medial osteophytes were removed from the tibia. After these medial releases, the medial osteophytes had been removed. The knee was checked with the Bandtastic gap tool with joint needed to be balanced in extension. Next, the sizing guide was placed. Size was determined for the distal femur. The anterior, posterior, and chamfer cuts were made utilizing a 4-in-1 cutting guide. After this had been completed, the trial tibial base plate with the appropriate side was placed. Trial insert was placed and the femoral trial component was placed. The knee was taken through a full range of motion, was obtained with excellent medial and lateral stability in all phases of flexion. Next, the tibial articular surface was removed with a high-speed oscillating saw. The appropriate tibial component was applied over drill holes that were made. Excellent tracking was seen. All trial components were removed and drill holes were made to accept the pegs in the femoral component. All trial components had been removed. All bony surfaces pulsatile lavaged and suctioned dry. At this point, 60 cc of 0.25% Marcaine without epinephrine were injected into the posterior, medial, lateral aspects of the joint capsule in addition to the distal femoral periosteum and proximal tibial periosteum. Excess local was suctioned. The bony surfaces were dried with Ray-Danis and the following Bandtastic triiJenton components were utilized. A size 2 tibial base plate coupled with a size 3 cruciate retaining distal femoral component, which was cemented and then, a size 9 cruciate retaining fixed bearing polyethylene insert was snapped and locked into place. A 32-mm patellar button was cemented. Excess cement was removed sharply. The knee was held in extension. Patella was held clamped until cement had firmed. After the cement had firmed, the knee was again copiously lavaged and suctioned dry. Extensor mechanism was reapproximated using [id number] nonabsorbable braided suture. Skin was closed using absorbable subcutaneous suture followed by a subcuticular stitch and a bulky sterile compressive dressing was applied. The patient was taken from the operating room to recovery room in awake and stable condition. There were no complications. Primary surgeon performed the entire procedure with the first front ventilator helping with wound closure, dressing application, and protection of neurovascular structures. Vito Guillaume M.D. Orthopedic Surgery JBS:[id number] /[id number] SURGICAL PATHOLOGY Observed: 09/08/2017 Status: F Source: [place] 12:00 AM [facility] OTHER CAMPUS REPOSITORY Specimen originated from [facility] Specimen #: [id number] Submitting Physician: Vito Guillaume M.D. FINAL DIAGNOSIS Knee, left, arthroplasty - Degenerative joint disease. K/wilda 09/12/2017 Nilesh Hernadez MD (Electronic Signature) SPECIMEN SUBMITTED A: LEFT KNEE BONE CLINICAL DATA ARTHRITIS OF KNEE DEGENERATIVE LEFT TOTAL KNEE REPLACEMENT GROSS DESCRIPTION A. Received in formalin labeled left knee bone are multiple segments of bone with articulating surfaces aggregating to 14.7 x 7.4 x 1.4 cm. Sections consistent with tibial plateau and femoral condyle are present. The articulating cartilage is roughened. Areas of eburnation and osteophyte formation are not present. Upon sectioning, subchondral cysts and necrosis are not present. [employer] sections are submitted in formalin in one cassette following a period of decalcification. KVB/glw 09/09/2017 Gross examination performed at [facility], [address] [place] [address] Date of Report: 09/12/2017 Date of Procedure: 09/08/2017 Date of Receipt: 09/08/2017 Submitted by: Vito Guillaume M.D. Location: 4 S Diagnostic interpretation performed at [facility], [address] [place] [address]. Performed By: #### PATHS #### [employer] [address] [place] [address] [phone] CONSULT Observed: 09/08/2017 Status: COMPLETED Source: [place] 12:00 AM CLIN[facility] OTHER CAMPUS REPOSITORY HNO ID: [id number] Author: Jeff Deshpande Service: General Internal Medicine Author Type: Physician Type: Consults Filed: 09/14/2017 9:49 PM Note Text: [facility]- Consultation PAULINA FINN : 1965 AGE: 52 SEX: F [facility] [id number] [facility] LOCATION: [id number] ATTENDING PHYSICIAN: Vito Guillaume M.D. DATE OF CONSULTATION: 09/08/2017 REASON FOR CONSULTATION: Postop medical management. HISTORY: This is a 52-year-old white female whose significant medical history includes osteoarthritis, hypertension, hyperlipidemia, anxiety. The patient underwent elective left total knee arthroplasty under general anesthesia. The patient had an uneventful intraoperative course. Postoperatively, the patient did well with the first round of physical therapy without experiencing any nausea, lightheadedness, dizziness, shortness of breath, or palpitation. PAST MEDICAL HISTORY: As mentioned above. PAST SURGICAL HISTORY: Includes hysterectomy, carpal tunnel surgery, arthroscopic knee surgery, right total knee replacement in 2007. FAMILY HISTORY: Positive for arthritis. SOCIAL HISTORY: She smoked 1 pack for 11 years, quit in 2005. She does not drink alcohol. MEDICATIONS: Her current medication list reviewed. ALLERGIES: She is allergic to Omnicef, caused hives; penicillin, hives; vancomycin, hives; Zithromax, hives; cortisone, intolerance. REVIEW OF SYSTEMS: HEENT/Neck: No history of glaucoma. No history of TIA or CVA. No history of chronic cough, wheezing, dyspnea with exertion. No history of asthma or COPD. No history of coronary artery disease, congestive heart failure, cardiac arrhythmia. No history of rheumatic heart disease. No history of bleeding peptic ulcer disease, hepatitis, colitis. Claims good appetite. Regular bowel movement. No history of recent urinary tract infection. No history of renal calculi. No history of diabetes or hypothyroidism. No history of DVTs or paresthesia of the feet. PHYSICAL EXAM: General: Young white female. The patient is alert, oriented, in no acute distress. HEENT: Sclerae anicteric. Good carotid pulse felt. No carotid bruit. No thyromegaly appreciated. Lungs: Clear to auscultation bilaterally. Cardiac: Sounds S1, S2 regular. Unable to appreciate murmur, gallop, or rub. Abdomen: Soft, nontender, nondistended. No mass felt. Lower Extremities: No ankle edema noted. ASSESSMENT/PLAN: 1. Osteoarthritis, status post left total knee arthroplasty. Deep vein thrombosis prophylaxis ordered by Dr. Guillaume. 2. Hypertension. Continue lisinopril and metoprolol. 3. Hyperlipidemia. Continue simvastatin. 4. Anxiety. Continue alprazolam. 5. See parameters for the BP meds. Jeff Deshpande M.D. Internal Medicine [id number] NURSING PROG Observed: 09/05/2017 Status: COMPLETED Source: [place] 8:38 AM CLINIC OTHER CAMPUS REPOSITORY HNO ID: [id number] Author: Ale (Rn) ROSITA Snyder Service: (none) Author Type: Registered Nurse Type: Nursing Progress Note Filed: 09/05/2017 9:11 AM Note Text: PACC Nurse Progress Note History AND Physical: PACC Visit Date: 09/04/2017 Original HANDP Date: 09/04/2017 ED visit Date: N/A Outside HANDP Scanned Date: N/A Labs Within Last 6 Months: CBC: Date 09/04/2017 WNL BMP/CMP: Date 09/04/2017 within acceptable limits for planned procedure. glucose 91 HBA1C: Date 12/24/2016 = 6.4 Pre DM per patient UA: Date 09/04/2017 1+ blood noted in UA Urine C+S: Date 09/04/2017 results in process STAAMP: Date 09/04/2017- negative TYPE AND SCREEN: Date 09/04/2017 in [facility]. Has previous blood type in [facility] Iron TIBC, Ferritin 09/04/2017 WNL Imaging Within Last 12 Months: Knee X-ray 08/08/2017 results in [facility] Cardiac Testing: EKG in last 12 Months: Yes: Date: 09/04/2017, Comment: Final results pending, unconfirmed EKG results scanned in [facility] Last Menstrual Period: LMP Date: N/A Postmenopausal >1yr: Yes, S/P Hysterectomy: Yes BMI Percentile (PEDS): N/A Risk Assessment: N/A Anesthesia Review: N/A Narrative: Urine culture 09/04/2017 in process. Final EKG 09/04/2017 results pending ( unconfirmed results scanned in [facility]) Called and spoke to patient re: blood glucose 91 from 09/04/2017 and A1C results from 12/2016 = 6.4. Patient reports she has been told she is borderline/pre diabetic. Encouraged patient to follow prudent diet and follow up with PCP. Patient verbalized understanding. Pre-op Considerations: Hysterectomy Pre Diabetic Has previous blood type in [facility]. TANDS 09/04/2017 in [facility] Urine culture 09/04/2017 in process. FYI staff message sent to and Shakira Luna PA that urine culture results are still in process. Chart Check: Completed- Urine culture in process. Final EKG results pending Ale Snyder RN September 05, 2017 0908 CBC AND DIFFERENTIAL Collected: 09/04/2017 Status: F Source: [place] 12:11 PM CLINIC OTHER CAMPUS REPOSITORY TYPE CODE TESTS RESULT OUT OF REFERENCE UNITS RANGE LAB WBC 3.70-11.00 k/uL WBC 8.99 LAB RBC 3.90-5.20 m/uL RBC 4.22 LAB HGB 11.5-15.5 g/dL Hemoglobin 12.9 LAB HCT 36.0-46.0 % Hematocrit 39.3 LAB MCV 80.0-100.0 fL MCV 93.1 LAB MCH 26.0-34.0 pG MCH 30.6 LAB MCHC 30.5-36.0 g/dL MCHC 32.8 LAB RDWCV 11.5-15.0 % RDW-CV 12.0 LAB PLTCT 150-400 k/uL Platelet Count 280 LAB MPV 9.0-12.7 fL MPV 10.3 LAB ANEUT % Neut% 69.8 LAB AANEUT 1.45-7.50 k/uL Abs Neut 6.27 LAB ALYMP % Lymph% 22.1 LAB AALYMP 1.00-4.00 k/uL Abs Lymph 1.99 LAB AMONO % [place]% 6.1 LAB AAMONO <0.87 k/uL Abs [place] 0.55 LAB AEOS % Eosin% 1.6 LAB AAEOS <0.46 k/uL Abs Eosin 0.14 LAB ABASO % Baso% 0.4 LAB AABASO <0.11 k/uL Abs Baso 0.04 LAB AUNRBC 0 /100 WBC NRBCs 0.0 LAB ABNRBC <0.01 k/uL Absolute nRBC <0.01 LAB DTYP DTYPE Auto Diff Performed By: #### CBCDIF, CMP, IRON #### [facility] [address] [place] [id number] COMP METABOLIC PANEL Collected: 09/04/2017 Status: F Source: [place] 12:11 PM CLINIC OTHER CAMPUS REPOSITORY TYPE CODE TESTS RESULT OUT OF REFERENCE UNITS RANGE LAB TP 6.3-8.0 g/dL Protein, Total 6.6 LAB ALB 3.9-4.9 g/dL Albumin 4.1 LAB CA 8.5-10.2 mg/dL Calcium, Total 9.2 LAB TBIL 0.2-1.3 mg/dL Bilirubin, Total 0.3 LAB ALKP 32-117 U/L Alkaline Phosphatase 69 LAB AST 13-35 U/L AST High 38 LAB GLU 74-99 mg/dL Glucose 91 Result Comment: The [place] [employer] (ADA) provides guidance for cutoff values for fasting glucose and random glucose. The ADA defines fasting as no caloric intake for at least 8 hours. Fas ting plasma glucose results between 100 to 125 mg/dL indicate increased risk for diabetes (prediabetes). Fasting plasma glucose results greater than or equal to 126 mg/dL meet the criteria for diagnosis of diabetes. In the absence of unequivocal hyperglycemia, results should be confirmed by repeat testing. In a patient with classic symptoms of hyperglycemia or hyperglycemic crisis, random plasma glucose results greater than or equal to 200 mg/dL meet the criteria for diagnosis of diabetes. Reference: Standards of Medical Care in Diabetes 2016, [place] [employer]. Diabetes Care. 2016.39(Suppl 1). LAB BUN 7-21 mg/dL BUN 12 LAB CRET 0.58-0.96 mg/dL Creatinine 0.73 LAB NA 136-144 mmol/L Sodium 140 LAB K 3.7-5.1 mmol/L Potassium 4.2 LAB CL 97-105 mmol/L Chloride 98 LAB CO2 22-30 mmol/L CO2 High 31 LAB AGAP 9-18 mmol/L Anion Gap 11 LAB ALT 7-38 U/L ALT 11 LAB GFRAA eGFR- Amer. >60 LAB GFRNAA . eGFR-All Other Races >60 Result Comment: eGFR (Estimated GFR) Units of measure: mL/min/1.73 meters squared eGFR is derived from the reexpressed MDRD Study equation using the following parameters: serum creatinine, age, gender and race. The creatinine assay has been calibrated to be traceable to IDSC. An eGFR <60 mL/min/1.73m2 for >3 months is consistent with chronic kidney disease. Refer to KDOQI guidelines for clinical interpretation. In patients with unstable renal function, e.g. those with acute kidney injury, the eGFR may not accurately reflect actual GFR. Performed By: #### CBCDIF, CMP, IRON #### [facility] [address] [place] [id number] IRON AND TIBC Collected: 09/04/2017 Status: F Source: [place] 12:11 PM [facility] OTHER CAMPUS REPOSITORY TYPE CODE TESTS RESULT OUT OF REFERENCE UNITS RANGE LAB IRN 41-186 ug/dL Iron 51 LAB TIBC 232-386 ug/dL TIBC 349 LAB SAT 15-57 % Transferrin Saturatn 15 Performed By: #### CBCDIF, CMP, IRON #### [facility] [address] [place] [address] TYPE AND SCR (30D) Collected: 09/04/2017 Status: F Source: [place] 12:10 PM [facility] OTHER CAMPUS REPOSITORY TYPE CODE TESTS RESULT OUT OF REFERENCE UNITS RANGE LAB %ABR O ABO/RH(D) POSITIVE LAB % Antibody NEG Screen Performed By: #### [id number] #### [facility] [address] [facility] [phone] URINALYSIS WITH Collected: 09/04/2017 Status: F Source: [facility] 12:10 PM [facility] OTHER CAMPUS REPOSITORY TYPE CODE TESTS RESULT OUT OF RANGE REFERENCE UNITS LAB UCOL Yellow Color Yellow LAB [facility] Clear Clarity Abnormal Cloudy Alert LAB UGLUC Negative mg/dL Glucose, Urine Negative LAB UBIL Negative Bilirubin, Urine Negative LAB UKET Negative Ketones, Urine Negative LAB USPG 1.005-1.030 Specific [place], Ur 1.014 LAB UHGB Negative Abnormal Hemoglobin/Blood, 1+ Alert Ur LAB UPH 4.5-8.0 pH 6.0 LAB UPROT Negative mg/dL Protein, Urine Negative LAB UUROB Normal Urobilinogen Normal LAB UNITR Negative Nitrites Negative LAB ULKEST Negative Leukest Negative LAB UCOM Comments SEE COMMENT Result Comment: N/A LAB UMCOM Urine SEE Paulie Comment COMMENT Result Comment: N/A LAB UWBC 0-5 /HPF WBC 0-5 LAB URBC 0-3 /HPF RBC 0-3 LAB UEPI /HPF Epithelial SEE Cells COMMENT Result Comment: Few Squamous Epithelial Cells Performed By: #### UAWMIC #### [place] [id number] [place] [address] FERRITIN Collected: 09/04/2017 Status: F Source: [place] 12:10 PM [facility] REPOSITORY TYPE CODE TESTS RESULT OUT OF REFERENCE UNITS RANGE LAB FERR 14.7-205.1 ng/mL Ferritin 47.6 Performed By: #### FERR #### [place] [address] Observed: 09/04/2017 Status: F Source: [place] URINE CULTURE 12:10 PM [facility] REPOSITORY Sp. Request/Comment: - Specimen received in preservative Culture Result - <10,000 CFU/ml Lactose positive gram negative bacilli --> ABNORMAL ALERT Insignificant colony count. No further workup. --> ABNORMAL ALERT Performed By: #### URCUL #### [place] [address] HISTORY PHYSICAL Observed: 09/04/2017 Status: COMPLETED Source: [place] 11:46 AM [facility] REPOSITORY HNO ID: [id number] Author: Stephanie Wagner (Pa) Service: (none) Author Type: Physician Bottom Brusher Type: HANDP Filed: 09/05/2017 4:48 PM Note Text: HISTORY AND PHYSICAL EXAMINATION SERVICE DATE: 09/04/2017 SERVICE TIME: 11:46 AM PRIMARY CARE PHYSICIAN: Lise Garcia MD REASON FOR VISIT: Paulina Finn is a 52 year old female who is scheduled for left TKA at the request of Dr. Vito Guillaume for consultation. My final recommendation will be communicated back to the requesting physician by way of shared medical record or letter. The patient has the following: ACTIVE PROBLEM LIST Rsd Lower Limb Lumbar Spondylosis Ddd (Degenerative Disc Disease), Lumbar Arthritis of Knee, Degenerative Htn (Hypertension) Dyslipidemia, Goal to Be Determined Anxiety Mood Swings (Hcc) Arthritis of Left Knee Subjective CHIEF COMPLAINT: left knee pain HPI: Paulina Finn is a 52 year old female that presents c/o a 2 year history of left knee pain that has worsened with time. s/p left knee arthroscopy. No h/o injury. Pain is constant and described as throbbing, aching and shooting in nature. Pain does not radiate. +edema Aggravating factors include nothing. Alleviated by icing and elevation. Advil prn. Previous treatments include as above. Scheduled for left TKA on 09/08. Denies recent illness, fever or chills. PAST MEDICAL HISTORY Diagnosis Date - Anxiety - Arthritis of left knee 09/04/2017 - Dyslipidemia, goal to be determined - HTN (hypertension) - Mood swings (HCC) - Osteoarthritis PAST SURGICAL HISTORY Procedure Laterality Date - CARPAL TUNNEL - KNEE SCOPE,FULL SYNOVECT Left - PART. HYSTERECTOMY W/WO RMVL OVARIES/TUBES - REMOVE TONSILS/ADENOIDS,<11 Y/O - TOTAL KNEE REPLACEMENT Right 2007 FAMILY HISTORY Problem Relation Age of Onset - Lipids Mother - Arthritis Mother - htn [OTHER] Mother - None Father SOCIAL HISTORY: Social History Marital status: Single Spouse name: Years of education: Number of children: Social History Main Topics Smoking status: Current Every Day Smoker Packs/day: 1.00 Years: 11.00 Types: Cigarettes Start date: 06/09/2005 Smokeless status: Never Used Comment: patient is trying to quit - down to 7 cigarettes per day Alcohol use: No Drug use: No Prior to Admission medications as of 09/04/17 1146 Medication Sig Last Dose Taking metoprolol tartrate, short acting, (LOPRESSOR) 50 mg tablet Take 50 mg by mouth once daily. LISINOPRIL 40 mg ORAL tablet DAILY AT 6 PM. SIMVASTATIN 40 mg ORAL tablet 40 mg DAILY AT 6 PM. hydrochlorothiazide 25 mg ORAL tablet Take 25 mg by mouth once daily. ALPRAZolam (XANAX) 0.5 mg ORAL tablet Take one tablet as needed for panic attacks No medication comments found. ALLERGIES Allergen Reactions - Omnicef [Cefdinir] Hives - Penicillins Hives - Vancomycin Hives - Zithromax [Azithrom* Hives - Cortisone Intolerance INCREASE IN BP FOR SEVERAL WEEKS. REVIEW OF SYSTEMS: PAIN ASSESSMENT: Pain Pain Score: 7/10 Pain Location: Knee-Left Description: Aching Frequency: Continuous Intervention: Relaxation;Reposition;Cold;Heat General: No weight loss, malaise or fevers. 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 Respiratory: Smoker; No history of current cough, dyspnea, bronchitis or pneumonia in the last 6 weeks. No history of asthma or COPD Cardiovascular: HTN-treated; HLD-treated; Negative for chest pain, orthopnea, PND, dizziness, lightheadedness or syncope. Negative for heart murmur. Negative for palpitations or arrhythmia. Negative for h/o DVT/PE. Negative for LE edema. No WI or heart surgery. EKG 2012: Vent. Rate : 080 BPM ? ? Atrial Rate : 080 BPM P-R Int : 134 ms ?QRS Dur : 078 ms QT Int : 372 ms ? ? ? P-R-T Axes : 043 067 046 degrees QTc Int : 429 ms NORMAL SINUS RHYTHM NORMAL ECG NO PREVIOUS ECGS AVAILABLE GI: No history of GI symptoms or problems. No history of esophageal varices, recent ascites, or ETOH greater than 2 drinks per day. : h/o kidney stones with no surgical intervention; No UTI sxs; No CKD. 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 : Denies, No LMP recorded. Patient has had a hysterectomy. Endocrine: No history of diabetes. Has not taken steroids within the past 30 days. No history of endocrinological symptoms or problems. Hematology: No history of bleeding or clotting disorder. Pt is not taking anti-coagulation or platelet medications. No history of hematological symptoms or problems. Oncology: No history of CA metastasis, chemo within 30 days, or radiotherapy within 90 days. Has not lost 10% of body wt in 6 months. No history of oncological symptoms or problems. Psych: Anxiety, mood swings on RXs Musculoskeletal: See HPI; No back pain Skin: Negative for lesions, rash and itching. Objective PHYSICAL EXAM: VITALS: BP 103/78 Pulse 70 Temp (Src) 97.8 (Tympanic) Resp 16 Ht 5' 3 (1.60m) Wt 120 lb (54.4kg) SpO2 93% BMI 21.26 kg/(m2). General: Alert and oriented, No acute distress Skin: Normal color, no rash, no lesions. HEENT: EOM, pupils equal, round and reactive., No carotid bruits Cardiovascular: Normal S1 AND S2, no rubs, murmurs or gallops. No JVD. Pulse regular. Lungs: Normal breath sounds, no wheezes or crackles., No chest deformities or chest wall tenderness. Abdomen: Soft, non-tender, no rigidity., No masses or organomegaly. Extremities: No deformity, no edema or tenderness, no joint swelling or clubbing. Neurological: Normal cognition and motor skills. Gait normal. No weakness or sensory deficit. Pulses: Carotid and radial pulses normal +2. Diagnostic tests reviewed for today's visit: Lab Value Units Date High Low HB No results within date range. HCT No results within date range. WBC No results within date range. PLT No results within date range. NA No results within date range. K No results within date range. GLUC No results within date range. BUN No results within date range. CREAT No results within date range. PTSEC No results within date range. INR No results within date range. APTT No results within date range. ALT No results within date range. AST No results within date range. TBILI No results within date range. TSH No results within date range. Lab Value Units Date High Low HCGQT No results within date range. UHCG No results within date range. HCG, BODY* No results within date range. Lab Value Units Date High Low ABORHD No results within date range. ABSCREEN No results within date range. Hemoglobin A1C (%) Date Value 12/24/2016 6.4 09/18/2010 5.6 Most recent labs Most recent imaging Most recent EKG: see CV ROS All in Epic Assessment ASSESSMENT Patient has the following medical conditions: Multiple antibiotic allergies HTN-treated HLD-treated S/p right TKA Anxiety-RX Mood swings-RX Smoker METS: Climb a flight of stairs or walk up a hill (5.50 METs) Patient denies any chest pain or undue shortness of breath with the above physical activity. ASA Class: 2 ANESTHESIA FINDINGS: Intubation History: No history of difficult intubation Significant Anesthesia Considerations: None Airway Exam: General: Normal appearance Mallampati Score is CLASS I ULBT: Class I - Lower incisors can bite the upper lip above the keith line Neck: Normal appearance and function, Distance from hyoid to mentum during neck extension is at least 3 finger breaths Mouth: Normal tongue size and Mouth opening greater than 2 finger breaths Dentition: Intact Airway History: No abnormal airway history STOP BANG Score: Criteria: Hypertension Age over 50 (52 year old) Score = 2 PLAN This patient is optimally prepared for surgery pending LABS and EKG. RX for Mupirocin sent to pharmacy. Pt to begin today. Email sent to anesthesia requesting they review EKG and advise if cardiology consult needed befor surgery Friday. CONSULTS: Patient does not require consults for optimization at this time. see plan above. The Following Tests/Procedures Have Been Initiated: Orders Placed This Encounter SAPCR CBC + DIFF COMP METABOLIC PANEL FERRITIN BLD IRON + TIBC URINALYSIS WITH MICROSCOPIC TYPE + SCREEN,30 DAY URINE CULTURE Order Specific Question: Source Answer: URINE-MIDSTREAM CLEAN CATCH EKG Planned Anesthetic: General Instructions Given to Patient: Patient given verbal and written preop instructions and voices comprehension and compliance. SIGNATURE: Stephanie Wagner PA-C PATIENT NAME: Paulina Koo Aakash DATE: September 04, 2017 TIME: 11:46 AM PAGER/CONTACT #: [facility] PCR Collected: 09/04/2017 Status: F Source: [place] 11:30 AM [facility] REPOSITORY TYPE CODE TESTS RESULT OUT OF REFERENCE UNITS RANGE LAB SAS Nasal S aureus Spec Source LAB MRSRES Negative for MRSA MRSA by PCR. PCR LAB SARES Negative for Staph Staphylococcus aureus PCR aureus by PCR. Performed By: #### SAPCR #### [facility] [address] [place] [address] [facility] [address] [place] [address] HOSP Observed: 09/04/2017 Status: COMPLETED Source: [place] 11:20 AM [facility] REPOSITORY PAT (PREANME) PAULINA FINN ([id number]) 1965 F Date Time Provider Department 09/04/17 11:20 AM [facility] 1 PREANME During your visit today, we recorded the following information about you: Temperature Pulse Respiration Blood pressure 97.8 degrees 70/minute 16/minute 103/78 Weight Height 54.4 kg 1.6 m Stephanie Wagner PA-C 09/05/2017 4:48 PM Addendum HISTORY AND PHYSICAL EXAMINATION SERVICE DATE: 09/04/2017 SERVICE TIME: 11:46 AM PRIMARY CARE PHYSICIAN: Lise Garcia MD REASON FOR VISIT: Paulina Finn is a 52 year old female who is scheduled for left TKA at the request of Dr. Vito Guillaume for consultation. My final recommendation will be communicated back to the requesting physician by way of shared medical record or letter. The patient has the following: ACTIVE PROBLEM LIST Rsd Lower Limb Lumbar Spondylosis Ddd (Degenerative Disc Disease), Lumbar Arthritis of Knee, Degenerative Htn (Hypertension) Dyslipidemia, Goal to Be Determined Anxiety Mood Swings (Hcc) Arthritis of Left Knee Subjective CHIEF COMPLAINT: left knee pain HPI: Paulina Finn is a 52 year old female that presents c/o a 2 year history of left knee pain that has worsened with time. s/p left knee arthroscopy. No h/o injury. Pain is constant and described as throbbing, aching and shooting in nature. Pain does not radiate. +edema Aggravating factors include nothing. Alleviated by icing and elevation. Advil prn. Previous treatments include as above. Scheduled for left TKA on 09/08. Denies recent illness, fever or chills. PAST MEDICAL HISTORY Diagnosis Date - Anxiety - Arthritis of left knee 09/04/2017 - Dyslipidemia, goal to be determined - HTN (hypertension) - Mood swings (HCC) - Osteoarthritis PAST SURGICAL HISTORY Procedure Laterality Date - CARPAL TUNNEL - KNEE SCOPE,FULL SYNOVECT Left - PART. HYSTERECTOMY W/WO RMVL OVARIES/TUBES - REMOVE TONSILS/ADENOIDS,ANDlt;11 Y/O - TOTAL KNEE REPLACEMENT Right 2007 FAMILY HISTORY Problem Relation Age of Onset - Lipids Mother - Arthritis Mother - htn [OTHER] Mother - None Father SOCIAL HISTORY: Social History Marital status: Single Spouse name: Years of education: Number of children: Social History Main Topics Smoking status: Current Every Day Smoker Packs/day: 1.00 Years: 11.00 Types: Cigarettes Start date: 06/09/2005 Smokeless status: Never Used Comment: patient is trying to quit - down to 7 cigarettes per day Alcohol use: No Drug use: No Prior to Admission medications as of 09/04/17 1146 Medication Sig Last Dose Taking metoprolol tartrate, short acting, (LOPRESSOR) 50 mg tablet Take 50 mg by mouth once daily. LISINOPRIL 40 mg ORAL tablet DAILY AT 6 PM. SIMVASTATIN 40 mg ORAL tablet 40 mg DAILY AT 6 PM. hydrochlorothiazide 25 mg ORAL tablet Take 25 mg by mouth once daily. ALPRAZolam (XANAX) 0.5 mg ORAL tablet Take one tablet as needed for panic attacks No medication comments found. ALLERGIES Allergen Reactions - Omnicef [Cefdinir] Hives - Penicillins Hives - Vancomycin Hives - Zithromax [Azithrom* Hives - Cortisone Intolerance INCREASE IN BP FOR SEVERAL WEEKS. REVIEW OF SYSTEMS: PAIN ASSESSMENT: Pain Pain Score: 7/10 Pain Location: Knee-Left Description: Aching Frequency: Continuous Intervention: Relaxation;Reposition;Cold;Heat General: No weight loss, malaise or fevers. 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 Respiratory: Smoker; No history of current cough, dyspnea, bronchitis or pneumonia in the last 6 weeks. No history of asthma or COPD Cardiovascular: HTN-treated; HLD-treated; Negative for chest pain, orthopnea, PND, dizziness, lightheadedness or syncope. Negative for heart murmur. Negative for palpitations or arrhythmia. Negative for h/o DVT/PE. Negative for LE edema. No WI or heart surgery. EKG 2012: Vent. Rate : 080 BPM ? ? Atrial Rate : 080 BPM P-R Int : 134 ms ?QRS Dur : 078 ms QT Int : 372 ms ? ? ? P-R-T Axes : 043 067 046 degrees QTc Int : 429 ms NORMAL SINUS RHYTHM NORMAL ECG NO PREVIOUS ECGS AVAILABLE GI: No history of GI symptoms or problems. No history of esophageal varices, recent ascites, or ETOH greater than 2 drinks per day. : h/o kidney stones with no surgical intervention; No UTI sxs; No CKD. 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 : Denies, No LMP recorded. Patient has had a hysterectomy. Endocrine: No history of diabetes. Has not taken steroids within the past 30 days. No history of endocrinological symptoms or problems. Hematology: No history of bleeding or clotting disorder. Pt is not taking anti-coagulation or platelet medications. No history of hematological symptoms or problems. Oncology: No history of CA metastasis, chemo within 30 days, or radiotherapy within 90 days. Has not lost 10% of body wt in 6 months. No history of oncological symptoms or problems. Psych: Anxiety, mood swings on RXs Musculoskeletal: See HPI; No back pain Skin: Negative for lesions, rash and itching. Objective PHYSICAL EXAM: VITALS: BP 103/78 Pulse 70 Temp (Src) 97.8 (Tympanic) Resp 16 Ht 5' 3ANDquot; (1.60m) Wt 120 lb (54.4kg) SpO2 93% BMI 21.26 kg/(m2). General: Alert and oriented, No acute distress Skin: Normal color, no rash, no lesions. HEENT: EOM, pupils equal, round and reactive., No carotid bruits Cardiovascular: Normal S1 ANDamp; S2, no rubs, murmurs or gallops. No JVD. Pulse regular. Lungs: Normal breath sounds, no wheezes or crackles., No chest deformities or chest wall tenderness. Abdomen: Soft, non-tender, no rigidity., No masses or organomegaly. Extremities: No deformity, no edema or tenderness, no joint swelling or clubbing. Neurological: Normal cognition and motor skills. Gait normal. No weakness or sensory deficit. Pulses: Carotid and radial pulses normal +2. Diagnostic tests reviewed for today's visit: Lab Value Units Date High Low HB No results within date range. HCT No results within date range. WBC No results within date range. PLT No results within date range. NA No results within date range. K No results within date range. GLUC No results within date range. BUN No results within date range. CREAT No results within date range. PTSEC No results within date range. INR No results within date range. APTT No results within date range. ALT No results within date range. AST No results within date range. TBILI No results within date range. TSH No results within date range. Lab Value Units Date High Low HCGQT No results within date range. UHCG No results within date range. HCG, BODY* No results within date range. Lab Value Units Date High Low ABORHD No results within date range. ABSCREEN No results within date range. Hemoglobin A1C (%) Date Value 12/24/2016 6.4 09/18/2010 5.6 Most recent labs Most recent imaging Most recent EKG: see CV ROS All in Epic Assessment ASSESSMENT Patient has the following medical conditions: Multiple antibiotic allergies HTN-treated HLD-treated S/p right TKA Anxiety-RX Mood swings-RX Smoker METS: Climb a flight of stairs or walk up a hill (5.50 METs) Patient denies any chest pain or undue shortness of breath with the above physical activity. ASA Class: 2 ANESTHESIA FINDINGS: Intubation History: No history of difficult intubation Significant Anesthesia Considerations: None Airway Exam: General: Normal appearance Mallampati Score is CLASS I ULBT: Class I - Lower incisors can bite the upper lip above the keith line Neck: Normal appearance and function, Distance from hyoid to mentum during neck extension is at least 3 finger breaths Mouth: Normal tongue size and Mouth opening greater than 2 finger breaths Dentition: Intact Airway History: No abnormal airway history STOP BANG Score: Criteria: Hypertension Age over 50 (52 year old) Score = 2 PLAN This patient is optimally prepared for surgery pending LABS and EKG. RX for Mupirocin sent to pharmacy. Pt to begin today. Email sent to anesthesia requesting they review EKG and advise if cardiology consult needed befor surgery Friday. CONSULTS: Patient does not require consults for optimization at this time. see plan above. The Following Tests/Procedures Have Been Initiated: Orders Placed This Encounter SAPCR CBC + DIFF COMP METABOLIC PANEL FERRITIN BLD IRON + TIBC URINALYSIS WITH MICROSCOPIC TYPE + SCREEN,30 DAY URINE CULTURE Order Specific Question: Source Answer: URINE-MIDSTREAM CLEAN CATCH EKG Planned Anesthetic: General Instructions Given to Patient: Patient given verbal and written preop instructions and voices comprehension and compliance. SIGNATURE: Stephanie Wagner PA-C PATIENT NAME: Paulina Finn DATE: September 04, 2017 TIME: 11:46 AM PAGER/CONTACT #: Stephanie Wagner PA-C 09/04/2017 12:02 PM Signed PATIENT PREOPERATIVE INSTRUCTIONS Vito Guillaume MD has scheduled you for your procedure at this surgery center: [facility]: [phone] -- [address] [facility] [address]. Please read below carefully for your personalized instructions. Blood Thinning Medications: - Stop NSAIDS (Ibuprofen, Advil, Aleve, Motrin, Celebrex, Mobic, etc.) 7 days before surgery, as directed by your surgeon. - Stop Aspirin 7 days before surgery, as directed by your surgeon. - Stop Vitamin E, ALL multi-vitamins, herbals and dietary supplements 7 days before surgery. - You may take Tylenol (Acetaminophen) or any of your pain medications that do not contain aspirin or NSAIDS as needed. Dietary Restrictions: - No solid food after midnight. - You may have 12 ounces of clear liquids (water, clear juices such as apple juice or gatorade, carbonated beverages, clear tea, black coffee, jello) until 2 hours before scheduled arrival at facility. Pain Medications: - Your pain medication may cause thinning of your blood. Please see directions for Blood Thinning Medications. Medications: Approved medications to take the morning of surgery with a sip of water: Metoprolol, Simvastatin, Zoloft and Xanax - Your pain medication may cause thinning of your blood. Please see directions for Blood Thinning Medications. If you start any new medications after today's visit, please contact the surgery center above. Important Reminders: - Candy, mints, gum and tobacco products are NOT permitted the morning of surgery. - Hearing aids, dentures and glasses may be worn the morning of surgery. - NO jewelry, body piercings, makeup, nail chilean, hairpins or contacts are to be worn the day of surgery. - CHG wipes provided with instructions. If you develop symptoms such as a fever, cold, or flu, or have other changes to your health within TWO DAYS of scheduled surgery or the morning of surgery, please contact the surgery center above. Personal Belongings: - Leave ALL valuables and money at home or with family members. Arrival Time for Surgery: - The Surgery Center or hospital where you are having surgery will call the afternoon before surgery (or Friday for Friday surgery) with a scheduled arrival time. - If you have not heard by 4 pm, please contact the surgery center above. Please be aware that emergency situations arise, which may delay or change your surgical time. If this happens, we will notify you as soon as possible and regret any inconvenience. Stephanie Wagner PA-C Referring Provider: VITO GUILLAUME [[id number]] Allergies As of Date: 09/04/2017 Noted Allergy Reaction OMNICEF (CEFDINIR) 12/15/2006 4 - Hives PENICILLINS 12/15/2006 4 - Hives VANCOMYCIN 12/15/2006 4 - Hives ZITHROMAX (AZITHROMYCIN) 12/15/2006 4 - Hives CORTISONE 12/15/2006 5 - Intolerance Comments: INCREASE IN BP FOR SEVERAL WEEKS. Date Reviewed: 09/04/2017 Reviewed by: Stephanie Wagner (Pa) - Fully Assessed Reason for Visit: Pre-Op Exam [87] Cmt: left knee pain Reason For Visit History Recorded Primary Visit Diagnosis:Preop examination [Z01.818] Other Visit Diagnoses:Arthritis of left knee [M17.12] Essential hypertension [I10] Dyslipidemia, goal to be determined [E78.5] Anxiety [F41.9] Mood swings (HCC) [F39] Order(s):ECG COMPLETE W INTERPRETATION [ECG01] Order #: [id number] FUTURE STAPH AUREUS PCR [SQSAPCR] Order #: [id number]. #:[id number] mupirocin (BACTROBAN) 2 % ointmentApply 1/2 inch of ointment with a Qtip to both nostrils in the morning AND evening for 5 consecutive days before surgeryDisp: 1 TubeRfl: 0 CBC + DIFF [SQCBCDIF] Order #: [id number] FUTURE COMP METABOLIC PANEL [SQCMP] Order #: [id number] FUTURE TYPE + SCREEN,30 DAY [AGAFHN25] Order #: [id number] FUTURE FERRITIN BLD [SQFERR] Order #: [id number] FUTURE IRON + TIBC [SQIRON] Order #: [id number] FUTURE URINE CULTURE [SQURCUL] Order #: [id number] FUTURE URINALYSIS WITH MICROSCOPIC [SQUAWMIC] Order #: [id number] FUTURE Prescriptions as of 09/04/2017 Sig: SERTRALINE 100 MG TABLET Take 200 mg by mouth once lennie* ADVIL ORAL Take by mouth as needed. MUPIROCIN 2 % TOPICAL OINTMENT Apply 1/2 inch of ointment wi* METOPROLOL TARTRATE 50 MG TAB* Take 50 mg by mouth once adam* LISINOPRIL 40 MG TABLET DAILY AT 6 PM. SIMVASTATIN 40 MG TABLET 40 mg DAILY AT 6 PM. HYDROCHLOROTHIAZIDE 25 MG TAB* Take 25 mg by mouth once adam* ALPRAZOLAM 0.5 MG TABLET Take one tablet as needed for* Problem List As Of Date 09/04/2017 Noted Resolved Lumbago [M54.5] INVALID FOR*09/04/2017 Osteoarthrosis, unspecified whether generalized*INVALID FOR*09/04/2017 Pain in joint, lower leg [M25.569] INVALID FOR*09/04/2017 Sprain of cruciate ligament of knee [S83.509A] INVALID FOR*09/04/2017 Tear of medial cartilage or meniscus of knee, c*INVALID FOR*09/04/2017 Osteoarthritis of right knee [M17.11] INVALID FOR*09/04/2017 Prepatellar bursitis [M70.40] INVALID FOR*09/04/2017 RSD lower limb [G90.529] INVALID FOR* Mechanical complication of internal orthopedic *INVALID FOR*10/03/2011 Mechanical back pain [M54.9] INVALID FOR*09/04/2017 Lumbar strain [S39.012A] INVALID FOR*09/04/2017 Lumbar spondylosis [M47.816] INVALID FOR* DDD (degenerative disc disease), lumbar [M51.36]INVALID FOR* Arthritis of knee, degenerative [M17.10] INVALID FOR* More... HTN (hypertension) [I10] INVALID FOR* Dyslipidemia, goal to be determined [E78.5] INVALID FOR* Anxiety [F41.9] INVALID FOR* Mood swings (HCC) [F39] INVALID FOR* Arthritis of left knee [M17.12] INVALID FOR* Other instructions from your clinician: PATIENT PREOPERATIVE INSTRUCTIONS Vito Guillaume MD has scheduled you for your procedure at this surgery center: [facility]: [phone] -- [address] [facility] [address]. Please read below carefully for your personalized instructions. Blood Thinning Medications: - Stop NSAIDS (Ibuprofen, Advil, Aleve, Motrin, Celebrex, Mobic, etc.) 7 days before surgery, as directed by your surgeon. - Stop Aspirin 7 days before surgery, as directed by your surgeon. - Stop Vitamin E, ALL multi-vitamins, herbals and dietary supplements 7 days before surgery. - You may take Tylenol (Acetaminophen) or any of your pain medications that do not contain aspirin or NSAIDS as needed. Dietary Restrictions: - No solid food after midnight. - You may have 12 ounces of clear liquids (water, clear juices such as apple juice or gatorade, carbonated beverages, clear tea, black coffee, jello) until 2 hours before scheduled arrival at facility. Pain Medications: - Your pain medication may cause thinning of your blood. Please see directions for Blood Thinning Medications. Medications: Approved medications to take the morning of surgery with a sip of water: Metoprolol, Simvastatin, Zoloft and Xanax - Your pain medication may cause thinning of your blood. Please see directions for Blood Thinning Medications. If you start any new medications after today's visit, please contact the surgery center above. Important Reminders: - Candy, mints, gum and tobacco products are NOT permitted the morning of surgery. - Hearing aids, dentures and glasses may be worn the morning of surgery. - NO jewelry, body piercings, makeup, nail chilean, hairpins or contacts are to be worn the day of surgery. - CHG wipes provided with instructions. If you develop symptoms such as a fever, cold, or flu, or have other changes to your health within TWO DAYS of scheduled surgery or the morning of surgery, please contact the surgery center above. Personal Belongings: - Leave ALL valuables and money at home or with family members. Arrival Time for Surgery: - The Surgery Center or hospital where you are having surgery will call the afternoon before surgery (or Friday for Friday surgery) with a scheduled arrival time. - If you have not heard by 4 pm, please contact the surgery center above. Please be aware that emergency situations arise, which may delay or change your surgical time. If this happens, we will notify you as soon as possible and regret any inconvenience. Stephanie Wagner PA-C Prescriptions ordered this encounter Disp Refills Start End MUPIROCIN 2 % TOPICAL OINTMENT * 0 09/04/2017 Sig: Apply 1/2 inch of ointment with a Qtip to both nostrils in the morning AND evening for 5 consecutive days before surgery Medications Discontinued During This Encounter sertraline 100 mg ORAL tablet 0 12/11/2010 09/04/2017 Class: Med Update Route: ORAL Sig: Take 200 mg by mouth once daily. Disc: Reason for discontinue is not on file. Encounter Status:Closed by STEPHANIE WAGNER PA-C on 09/04/17 PROGRESS Observed: 09/04/2017 Status: COMPLETED Source: [place] 11:04 AM [facility] REPOSITORY HNO ID: [id number] Author: Braydon Wilson Service: (none) Author Type: Physician Type: Progress Notes Filed: 09/04/2017 11:05 AM Note Text: Subjective HPI Paulina Finn is a 52 year old female who presents with left ear blockage. Patient states for the last 5 months or so her left ear is been blocked. Patient is having no other complaints appearing loss on the left patient does have some neck pain as well patient is a smoker. ROS General Weight loss: No Fatigue: No Night sweats:No Cardiac Chest pain:No Fast heart rate:No Swelling in the feet:No Respiratory Short of breath:No Cough:No Wheezing:No Gastrointestinal Nausea:No Vomiting:No Indigestion:No Past medical history family history social history reviewed Objective Physical Exam PHYSICAL EXAM: There were no vitals taken for this visit. General: Patient is awake, alert, NAD. Voice is normal. Skin: normal Eyes: Extraocular motion and Gaze is normal. Ears: Right external auditory canal is normal. TMJ: normal. Bilateral cerumen removed Right tympanic membranes normal. Left external auditory canal is normal. Left tympanic membrane normal. Nose: Septum is normal. Turbinates are normal. Nasopharynx:normal Oral Cavity/Oropharynx: Lips normal Dentition normal Tongue normal. Tonsils normal. Palate and uvula normal. Pharynx posterior normal Hypopharynx: Base of tongue normal Pyriform sinus normal. Larynx: Vocal cords normal. Epiglottis normal. Post cricoid normal. Salivary glands: Parotid normal. Submandibular and sublingual normal. Thyroid: normal. Lymphatic/Neck: Lymph nodes normal. Neurologic: Facial nerve normal. ASSESSMENT/PLAN: 1. Conductive hearing loss of left ear with unrestricted hearing of right ear - ICD9: 389.05, ICD10: H90.12 (primary diagnosis) 2. Impacted cerumen of both ears - ICD9: 380.4, ICD10: H61.23 I'll up as needed Braydon Wilson MD CNOV Observed: 09/04/2017 Status: COMPLETED Source: [place] 9:30 AM [facility] REPOSITORY Office Visit (OTOLMM) PAULINA FINN ([id number]) 1965 F Date Time Provider Department 09/04/17 9:30 AM BRAYDON WILSON OTELENA During your visit today, we recorded the following information about you: Braydon Wilson MD 09/04/2017 11:05 AM Signed Subjective HPI Paulina Finn is a 52 year old female who presents with left ear blockage. Patient states for the last 5 months or so her left ear is been blocked. Patient is having no other complaints appearing loss on the left patient does have some neck pain as well patient is a smoker. ROS General Weight loss: No Fatigue: No Night sweats:No Cardiac Chest pain:No Fast heart rate:No Swelling in the feet:No Respiratory Short of breath:No Cough:No Wheezing:No Gastrointestinal Nausea:No Vomiting:No Indigestion:No Past medical history family history social history reviewed Objective Physical Exam PHYSICAL EXAM: There were no vitals taken for this visit. General: Patient is awake, alert, NAD. Voice is normal. Skin: normal Eyes: Extraocular motion and Gaze is normal. Ears: Right external auditory canal is normal. TMJ: normal. Bilateral cerumen removed Right tympanic membranes normal. Left external auditory canal is normal. Left tympanic membrane normal. Nose: Septum is normal. Turbinates are normal. Nasopharynx:normal Oral Cavity/Oropharynx: Lips normal Dentition normal Tongue normal. Tonsils normal. Palate and uvula normal. Pharynx posterior normal Hypopharynx: Base of tongue normal Pyriform sinus normal. Larynx: Vocal cords normal. Epiglottis normal. Post cricoid normal. Salivary glands: Parotid normal. Submandibular and sublingual normal. Thyroid: normal. Lymphatic/Neck: Lymph nodes normal. Neurologic: Facial nerve normal. ASSESSMENT/PLAN: 1. Conductive hearing loss of left ear with unrestricted hearing of right ear - ICD9: 389.05, ICD10: H90.12 (primary diagnosis) 2. Impacted cerumen of both ears - ICD9: 380.4, ICD10: H61.23 I'll up as needed Barydon Wilson MD Referring Provider: SELF [[id number]] Allergies As of Date: 09/04/2017 Noted Allergy Reaction OMNICEF (CEFDINIR) 12/15/2006 4 - Hives PENICILLINS 12/15/2006 4 - Hives VANCOMYCIN 12/15/2006 4 - Hives ZITHROMAX (AZITHROMYCIN) 12/15/2006 4 - Hives CORTISONE 12/15/2006 5 - Intolerance Comments: INCREASE IN BP FOR SEVERAL WEEKS. Date Reviewed: 09/04/2017 Reviewed by: Braydon Wilson - Fully Assessed Reason for Visit: Ear Problem [38] Cmt: left ear blocked for 5 months, no pain Primary Visit Diagnosis:Conductive hearing loss of left ear with unrestricted hearing of right ear [H90.12] Other Visit Diagnosis:Impacted cerumen of both ears [H61.23] Prescriptions as of 09/04/2017 Sig: METOPROLOL TARTRATE 50 MG TAB* Take 50 mg by mouth once adam* LISINOPRIL 40 MG TABLET DAILY AT 6 PM. SIMVASTATIN 40 MG TABLET 40 mg DAILY AT 6 PM. HYDROCHLOROTHIAZIDE 25 MG TAB* Take 25 mg by mouth once adam* SERTRALINE 100 MG TABLET Take 200 mg by mouth once lennie* ALPRAZOLAM 0.5 MG TABLET Take one tablet as needed for* Problem List As Of Date 09/04/2017 Noted Resolved LUMBAGO [M54.5] INVALID FOR* OSTEOARTHROS NOS-L/LEG [M17.10] INVALID FOR* PAIN IN JOINT, LOWER LEG [M25.569] INVALID FOR* SPRAIN CRUCIATE LIG KNEE [S83.509A] INVALID FOR* Tear of Medial Cartilage or Meniscus of Knee, C*INVALID FOR* Osteoarthritis of right knee [M17.11] INVALID FOR* Prepatellar bursitis [M70.40] INVALID FOR* RSD lower limb [G90.529] INVALID FOR* Mechanical complication of internal orthopedic *INVALID FOR*10/03/2011 Mechanical back pain [M54.9] INVALID FOR* Lumbar strain [S39.012A] INVALID FOR* Lumbar spondylosis [M47.816] INVALID FOR* DDD (degenerative disc disease), lumbar [M51.36]INVALID FOR* Arthritis of knee, degenerative [M17.10] INVALID FOR* More... Encounter Status:Closed by BRAYDON WILSON MD on 09/04/17 PROGRESS Observed: 09/01/2017 Status: COMPLETED Source: [place] 2:32 PM [facility] REPOSITORY HNO ID: [id number] Author: Christina Cochran (Pharmacist) Service: Pharmacy Author Type: Pharmacist Type: Progress Notes Filed: 09/01/2017 2:36 PM Note Text: MEDICATION HISTORY Patient Name:Nneka Finn : 1965 Source of history:Patient: Reliability of source: Appears reliable, clearly identified: Medication name, Medication dose, Medication route and Medication frequency Medication Nonadherence Identified: No barriers noted The above information represents the best possible medication history: Yes Additional comments: Patient was instructed to hold no medications before surgery. Patient was also instructed not to take HCTZ the morning of surgery. Patient is allowed to take metoprolol and sertraline the morning of surgery per PAT. Allergies were confirmed by patient. Patient has had an influenza vaccination within the past 12 months and is up to date on their vaccinations (pneumonia). Allergies: ALLERGIES Allergen Reactions - Omnicef [Cefdinir] Hives - Penicillins Hives - Vancomycin Hives - Zithromax [Azithrom* Hives - Cortisone Intolerance INCREASE IN BP FOR SEVERAL WEEKS. 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 Yes LISINOPRIL 40 mg ORAL tablet DAILY AT 6 PM. SIMVASTATIN 40 mg ORAL tablet 40 mg DAILY AT 6 PM. hydrochlorothiazide 25 mg ORAL tablet Take 25 mg by mouth once daily. sertraline 100 mg ORAL tablet Take 200 mg by mouth once daily. ALPRAZolam (XANAX) 0.5 mg ORAL tablet Take one tablet as needed for panic attacks Christina Cochran, Pharmacist September 01, 2017 2:32 PM HOSP Observed: 08/18/2017 Status: COMPLETED Source: [place] 12:00 AM [facility] REPOSITORY Patient:Paulina Finn MRN: <[id number]> Height:5' 3(1.6 m) Weight:120 lb (54.432 kg) Outpatient Medications as of 09/08/17: sertraline (ZOLOFT) 100 mg tablet IBUPROFEN (ADVIL ORAL) mupirocin (BACTROBAN) 2 % ointment metoprolol tartrate, short acting, (LOPRESSOR) 50 mg tablet LISINOPRIL 40 mg ORAL tablet SIMVASTATIN 40 mg ORAL tablet hydrochlorothiazide 25 mg ORAL tablet ALPRAZolam (XANAX) 0.5 mg ORAL tablet Admission/Clinic Administered Medications as of 09/08/17: lactated ringers infusion clindamycin 600 mg in D5W 50 mL (CLEOCIN) tranexamic acid 1,000 mg in NaCl 0.9% 100 mL (CYKLOKAPRON) tranexamic acid 1,000 mg in NaCl 0.9% 100 mL (CYKLOKAPRON) Problem List: RSD lower limb [G90.529] Lumbar spondylosis [M47.816] DDD (degenerative disc disease), lumbar [M51.36] Arthritis of knee, degenerative [M17.10] HTN (hypertension) [I10] Dyslipidemia, goal to be determined [E78.5] Anxiety [F41.9] Mood swings (HCC) [F39] Arthritis of left knee [M17.12] Allergies: Omnicef [Cefdinir] Penicillins Vancomycin Zithromax [Azithromycin] Cortisone Date Verified: 09/08/17 Lab Values Lab Value Units Date High Low POTA* 4.2 mmol/L 09/04/2017 5.1 3.7 PAUL* 39.3 % 09/04/2017 46.0 36.0 Progress Notes ([facility]): Braydon Wilson MD 09/04/2017 11:05 AM Signed Subjective HPI Paulina Finn is a 52 year old female who presents with left ear blockage. Patient states for the last 5 months or so her left ear is been blocked. Patient is having no other complaints appearing loss on the left patient does have some neck pain as well patient is a smoker. ROS General Weight loss: No Fatigue: No Night sweats:No Cardiac Chest pain:No Fast heart rate:No Swelling in the feet:No Respiratory Short of breath:No Cough:No Wheezing:No Gastrointestinal Nausea:No Vomiting:No Indigestion:No Past medical history family history social history reviewed Objective Physical Exam PHYSICAL EXAM: There were no vitals taken for this visit. General: Patient is awake, alert, NAD. Voice is normal. Skin: normal Eyes: Extraocular motion and Gaze is normal. Ears: Right external auditory canal is normal. TMJ: normal. Bilateral cerumen removed Right tympanic membranes normal. Left external auditory canal is normal. Left tympanic membrane normal. Nose: Septum is normal. Turbinates are normal. Nasopharynx:normal Oral Cavity/Oropharynx: Lips normal Dentition normal Tongue normal. Tonsils normal. Palate and uvula normal. Pharynx posterior normal Hypopharynx: Base of tongue normal Pyriform sinus normal. Larynx: Vocal cords normal. Epiglottis normal. Post cricoid normal. Salivary glands: Parotid normal. Submandibular and sublingual normal. Thyroid: normal. Lymphatic/Neck: Lymph nodes normal. Neurologic: Facial nerve normal. ASSESSMENT/PLAN: 1. Conductive hearing loss of left ear with unrestricted hearing of right ear - ICD9: 389.05, ICD10: H90.12 (primary diagnosis) 2. Impacted cerumen of both ears - ICD9: 380.4, ICD10: H61.23 I'll up as needed Braydon Wilson MD Progress Notes (): Christina Cochran, Pharmacist 09/01/2017 2:36 PM Signed MEDICATION HISTORY Patient Name:Nneka Finn : 1965 Source of history:Patient: Reliability of source: Appears reliable, clearly identified: Medication name, Medication dose, Medication route and Medication frequency Medication Nonadherence Identified: No barriers noted The above information represents the best possible medication history: Yes Additional comments: Patient was instructed to hold no medications before surgery. Patient was also instructed not to take HCTZ the morning of surgery. Patient is allowed to take metoprolol and sertraline the morning of surgery per PAT. Allergies were confirmed by patient. Patient has had an influenza vaccination within the past 12 months and is up to date on their vaccinations (pneumonia). Allergies: ALLERGIES Allergen Reactions - Omnicef [Cefdinir] Hives - Penicillins Hives - Vancomycin Hives - Zithromax [Azithrom* Hives - Cortisone Intolerance INCREASE IN BP FOR SEVERAL WEEKS. 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 Yes LISINOPRIL 40 mg ORAL tablet DAILY AT 6 PM. SIMVASTATIN 40 mg ORAL tablet 40 mg DAILY AT 6 PM. hydrochlorothiazide 25 mg ORAL tablet Take 25 mg by mouth once daily. sertraline 100 mg ORAL tablet Take 200 mg by mouth once daily. ALPRAZolam (XANAX) 0.5 mg ORAL tablet Take one tablet as needed for panic attacks Christina Cochran, Pharmacist September 01, 2017 2:32 PM Ale Snyder RN, RN 09/05/2017 9:11 AM Addendum PACC Nurse Progress Note History AND Physical: PACC Visit Date: 09/04/2017 Original HANDP Date: 09/04/2017 ED visit Date: N/A Outside HANDP Scanned Date: N/A Labs Within Last 6 Months: CBC: Date 09/04/2017 WNL BMP/CMP: Date 09/04/2017 within acceptable limits for planned procedure. glucose 91 HBA1C: Date 12/24/2016 = 6.4 Pre DM per patient UA: Date 09/04/2017 1+ blood noted in UA Urine C+S: Date 09/04/2017 results in process STAAMP: Date 09/04/2017- negative TYPE AND SCREEN: Date 09/04/2017 in [facility]. Has previous blood type in [facility] Iron TIBC, Ferritin 09/04/2017 WNL Imaging Within Last 12 Months: Knee X-ray 08/08/2017 results in [facility] Cardiac Testing: EKG in last 12 Months: Yes: Date: 09/04/2017, Comment: Final results pending, unconfirmed EKG results scanned in [facility] Last Menstrual Period: LMP Date: N/A Postmenopausal >1yr: Yes, S/P Hysterectomy: Yes BMI Percentile (PEDS): N/A Risk Assessment: N/A Anesthesia Review: N/A Narrative: Urine culture 09/04/2017 in process. Final EKG 09/04/2017 results pending ( unconfirmed results scanned in [facility]) Called and spoke to patient re: blood glucose 91 from 09/04/2017 and A1C results from 12/2016 = 6.4. Patient reports she has been told she is borderline/pre diabetic. Encouraged patient to follow prudent diet and follow up with PCP. Patient verbalized understanding. Pre-op Considerations: Hysterectomy Pre Diabetic Has previous blood type in [facility]. TANDS 09/04/2017 in [facility] Urine culture 09/04/2017 in process. I staff message sent to and Shakira GILMORE that urine culture results are still in process. Chart Check: Completed- Urine culture in process. Final EKG results pending Ale Snyder RN September 05, 2017 0908 Previous Version Haja Hughes RN, RN 09/08/2017 9:20 AM Signed PRE OP LEARNING ASSESSMENT PROCEDURE/SURGERY: left total knee replacement READINESS TO LEARN COGNITIVE ABILITY: Alert and oriented MOTIVATION TO LEARN: Interested FAMILY SUPPORT: High - Very involved in pt care PATIENT LEARNS BEST BY: Individual Instruction FACTORS AFFECTING LEARNING: None PHYSICAL LIMITATIONS AFFECTING LEARNING: None Electronically Signed By: Haja Hughes RN In Department: [facility] Oriana Jimenes MD 09/08/2017 9:26 AM Signed ANESTHESIOLOGY DAY OF SURGERY NOTE SERVICE DATE: 09/08/2017 SERVICE TIME: 9:23 AM : 1965 Procedure(s) (LRB): ARTHROPLASTY REPLACE JOINT TOTAL KNEE (Left) Surgeon(s): Vito Guillaume Estimated body mass index is 21.26 kg/(m2) as calculated from the following: Height as of 09/04/17: 160 cm (5' 3). Weight as of 09/04/17: 54.4 kg (120 lb). Most recent hematocrit and potassium results: Hematocrit 39.3 09/04/2017 Potassium 4.2 09/04/2017 ANES DOS/PREOP NOTE: Vitals: There were no vitals filed for this visit. ACTIVE PROBLEM LIST Rsd Lower Limb Lumbar Spondylosis Ddd (Degenerative Disc Disease), Lumbar Arthritis of Knee, Degenerative Htn (Hypertension) Dyslipidemia, Goal to Be Determined Anxiety Mood Swings (Hcc) Arthritis of Left Knee PAST MEDICAL HISTORY Diagnosis Date - Anxiety - Arthritis of left knee 09/04/2017 - Dyslipidemia, goal to be determined - HTN (hypertension) - Mood swings (HCC) - Osteoarthritis PAST SURGICAL HISTORY Procedure Laterality Date - CARPAL TUNNEL - KNEE SCOPE,FULL SYNOVECT Left - PART. HYSTERECTOMY W/WO RMVL OVARIES/TUBES - REMOVE TONSILS/ADENOIDS,<11 Y/O - TOTAL KNEE REPLACEMENT Right 2008 FAMILY HISTORY Problem Relation Age of Onset - Lipids Mother - Arthritis Mother - htn [OTHER] Mother - None Father Social History: Social History Substance Use Topics - Smoking status: Current Every Day Smoker Packs/day: 1.00 Years: 11.00 Types: Cigarettes Start date: 06/09/2005 - Smokeless tobacco: Never Used Comment: patient is trying to quit - down to 7 cigarettes per day - Alcohol use No No current facility-administered medications on file prior to encounter. Current Outpatient Prescriptions on File Prior to Encounter: LISINOPRIL 40 mg ORAL tablet DAILY AT 6 PM. SIMVASTATIN 40 mg ORAL tablet 40 mg DAILY AT 6 PM. hydrochlorothiazide 25 mg ORAL tablet Take 25 mg by mouth once daily. ALPRAZolam (XANAX) 0.5 mg ORAL tablet Take one tablet as needed for panic attacks Current Facility-Administered Medications: lactated ringers infusion 75 mL/hr INTRAVENOUS CONTINUOUS Violeta (Pac) Shedlock Last Rate: 75 mL/hr at 09/08/17918 75 mL/hr at 09/08/17918 clindamycin 600 mg in D5W 50 mL (CLEOCIN) 600 mg INTRAVENOUS Pre-Op Once Ivoleta (Pac) Shedlock tranexamic acid 1,000 mg in NaCl 0.9% 100 mL (CYKLOKAPRON) 1,000 mg INTRAVENOUS Pre-Op Once Violeta (Pac) Shedlock tranexamic acid 1,000 mg in NaCl 0.9% 100 mL (CYKLOKAPRON) 1,000 mg INTRAVENOUS ONCE Violeta (Pac) Shedlock Allergies: ALLERGIES Allergen Reactions - Omnicef [Cefdinir] Hives - Penicillins Hives - Vancomycin Hives - Zithromax [Azithrom* Hives - Cortisone Intolerance INCREASE IN BP FOR SEVERAL WEEKS. DOS EXAM: Adequate NPO Status: Yes Anesthetic Risks, Benefits, Alternatives, Personnel and Consent Discussed: Yes Patient agrees to proceed: Yes Previous Anesthesia: No history of adverse event Airway Assessment: MP 1; Neck ROM: Full ROM without neurologic symptoms; Airway Evaluation: No significant abnormalities Symptoms of Sleep Apnea: Hypertension and Age over 50 (52 year old) Dentition: Teeth intact Additional Physical Exam: Lungs: Patient health status unchanged since recent history and physical. See history and physical for exam findings. Cardiac: Patient health status unchanged since recent history and physical. See history and physical for exam findings. Additional Pertinent Findings: N/A Blood Products: Not anticipated for this procedure Anesthetic Plan: General Anesthetic Monitoring: Standard ASA Monitors Pain Management Plan: Parenteral or Oral and Peripheral Nerve Block ASA Class: 3 Other Medical Problems: None Chronic Beta Angelica medication administered within 24 hours: Yes I have interviewed and examined the patient. I have reviewed the medical record and/or the pre-anesthesia evaluation, pertinent labs, and test results. Significant changes in the patient's condition since the History and Physical, not otherwise documented in primary service progress notes: No This contains updated information obtained within 48 hours of Surgery/Procedure. SIGNATURE: Oriana Jimenes MD PATIENT NAME: Paulina Arellanokendrick DATE: September 08, 2017 TIME: 9:23 AM CSN: [id number] HOSP Observed: 08/18/2017 Status: COMPLETED Source: [place] 12:00 AM [facility] REPOSITORY Patient Update (ORMDNA) AAKASHPAULINA ([id number]) 1965 F Date Time Provider Department 08/18/17 VIOLETA LUNA ([facility]) ORMDNA During your visit today, we recorded the following information about you: Allergies As of Date: 08/18/2017 Noted Allergy Reaction OMNICEF (CEFDINIR) 12/15/2006 4 - Hives PENICILLINS 12/15/2006 4 - Hives VANCOMYCIN 12/15/2006 4 - Hives ZITHROMAX (AZITHROMYCIN) 12/15/2006 4 - Hives CORTISONE 12/15/2006 5 - Intolerance Comments: INCREASE IN BP FOR SEVERAL WEEKS. Date Reviewed: 05/29/2014 Reviewed by: Sophia (Rosita) ROSITA Peck - Fully Assessed Primary Visit Diagnosis:Pre-op testing [Z01.818] Order(s):SURGICAL REQUEST - ELECTIVE [[id number]] Order #: [id number]: 1 HANDP FOR SURGERY [[id number]] Order #: [id number] Prescriptions as of 08/18/2017 Sig: TAMSULOSIN 0.4 MG CAPSULE Take 1 capsule by mouth daily* LISINOPRIL 40 MG TABLET SIMVASTATIN 40 MG TABLET HYDROCHLOROTHIAZIDE 25 MG TAB* Take 25 mg by mouth once adam* SERTRALINE 100 MG TABLET Take 1 tablet by mouth once d* ALPRAZOLAM 0.5 MG TABLET Take one tablet as needed for* LOPRESSOR 50 MG TABLET Take one(1) tablet twice adam* Problem List As Of Date 08/18/2017 Noted Resolved LUMBAGO [M54.5] INVALID FOR* OSTEOARTHROS NOS-L/LEG [M17.10] INVALID FOR* PAIN IN JOINT, LOWER LEG [M25.569] INVALID FOR* SPRAIN CRUCIATE LIG KNEE [S83.509A] INVALID FOR* Tear of Medial Cartilage or Meniscus of Knee, C*INVALID FOR* Osteoarthritis of right knee [M17.11] INVALID FOR* Prepatellar bursitis [M70.40] INVALID FOR* RSD lower limb [G90.529] INVALID FOR* Mechanical complication of internal orthopedic *INVALID FOR*10/03/2011 Mechanical back pain [M54.9] INVALID FOR* Lumbar strain [S39.012A] INVALID FOR* Lumbar spondylosis [M47.816] INVALID FOR* DDD (degenerative disc disease), lumbar [M51.36]INVALID FOR* Arthritis of knee, degenerative [M17.10] INVALID FOR* More... Follow-up and Disposition History Recorded Encounter Status:Closed by Vega LUNA PA-C on 08/18/17 PROGRESS Observed: 08/08/2017 Status: COMPLETED Source: [place] 11:14 AM [facility] REPOSITORY HNO ID: [id number] Author: LAURO Booth (Ct) Service: (none) Author Type: Clinical Weatherseal Technician Type: Progress Notes Filed: 08/08/2017 11:15 AM Note Text: NAME:Paulina Finn DATE: August 08, 2017 CCF#: [id number] Lower Extremity X-Ray(s): Knee, AP / Lat / Tunne / Merchant Left and Wt. Bearing COMPLETED TECH ID SIGN: SKYLAR CLIFFORD PROGRESS Observed: 08/08/2017 Status: COMPLETED Source: [place] 10:19 AM [facility] [place] REPOSITORY HNO ID: [id number] Author: Vito Guillaume Service: (none) Author Type: Physician Type: Progress Notes Filed: 08/08/2017 10:41 AM Note Text: CONSULT ORTHOPAEDIC: KNEE PRIMARY CARE PHYSICIAN: Lise Garcia MD REFERRING PROVIDER: Lise Garcia MD [facility] [address] [address] ASSESSMENT AND PLAN Impression: Patient underwent successful right partial knee replacement by us over 8 years ago doing very well however her left knee shows a fixed varus or only at best partially correctable alignment. Patient wishes to pursue surgical correction. We discussed risks benefits goals expectations outcomes and complications regarding surgery. Plan is a left total knee replacement utilizing [place] triathlon however we will utilize cruciate retaining procedure. Consents are signed Left Knee Severe Degenerative Osteoarthritis, Primary Paulina Finn has radiograph and physical exam evidence of degenerative joint disease and wishes to pursue surgery. This patient appears to have sufficient symptoms to warrant surgical intervention and is an appropriate candidate for left Primary Total Knee Arthroplasty as evidenced by six months of unsuccessful non-operative treatment as outlined in the HPI below and progressive symptoms. Progressive Symptoms Include: Pain impacting sleep or causing fatigue Pain impacting work Pain worsened by weight bearing Pain effecting living situation Pain limiting ability to stay fit and healthy. This patient has the following risk factors requiring the use of antibiotic cement: Previous surgery We had a lengthy discussion regarding the risk and benefit of surgery, the alternatives, limitations and personnel involved. These included but were not limited to infection, persistent pain, instability, nerve injury, blood clots, and medical complications. We also discussed the pre-operative course, surgery itself and rehabilitation. Marlena-operative blood management and transfusion issues were discussed, and options clearly outlined. The patient has not consented to the use of the banked allogenic blood if medically necessary. The patient has elected to schedule surgery at this time or intends to call the office with a surgical date. Shared decision making occurred while obtaining informed consent. The patient will be scheduled for a pre-operative education class at which time they will have their nasal swab completed and will be given CHG cloths along with the verbal and written instructions for their use. The patient has been ordered: No orders placed today. CONSULTS: Patient does not require consults for optimization at this time. ACTIVE PROBLEM LIST Lumbago Osteoarthrosis, Unspecified Whether Generalized Or Localized, Lower Leg Pain in Joint, Lower Leg Sprain of Cruciate Ligament of Knee Tear of Medial Cartilage Or Meniscus of Knee, Current Osteoarthritis of Right Knee Prepatellar Bursitis Rsd Lower Limb Mechanical Back Pain Lumbar Strain Lumbar Spondylosis Ddd (Degenerative Disc Disease), Lumbar SUBJECTIVE CHIEF COMPLAINT: Knee Pain HPI: Paulina Finn is a 52 year old female here for evaluation and management of right knee pain. She has had progressive problems with the knee(s) constantly over the past 15 year(s) interfering with activities which include exercise, walking, rising from a sitting position, standing for prolonged periods of time, getting in and out of a car, dressing and climbing stairs. The problem began limiting activities 3+ years ago. Currently the pain in the joint is rated at 8 out of 10 with minimal activity. The pain is chronic and constant and is located along the inside aspect. The pain is described as aching, penetrating, radiating, severe and sharp. Relieving factors include rest and over the counter medication. There is no specific incident that brought about this pain. She has no additional complaints. FUNCTIONAL STATUS: Walk a block or two on level ground (2.75 METs) Preoperative Ambulatory Status: Independent Community Distances Number of Entry Steps: 4 Bedroom Location: Second floor Bathroom Location: First floor Caregiver Assistance: Inconsistent/None Home Location: Up to 150 miles PREVIOUS TREATMENTS: Medical Treatments: RX NSAIDS for 3 Months or Greater (ibuprofen), Viscosupplementation Left Knee Previous Surgery: Knee Arthroscopy REVIEW OF SYSTEMS: PAIN ASSESSMENT: See HPI. MUSCULOSKELETAL: See HPI. Surgical Risk Factors: Smoking PAST MEDICAL HISTORY Diagnosis Date - Anxiety - Dyslipidemia, goal to be determined - HTN (hypertension) - Mood swings (HCC) - Osteoarthritis PAST SURGICAL HISTORY Procedure Laterality Date - CARPAL TUNNEL - KNEE SCOPE,FULL SYNOVECT - PART. HYSTERECTOMY W/WO RMVL OVARIES/TUBES - TOTAL KNEE REPLACEMENT RT FAMILY HISTORY Problem Relation Age of Onset - htn [Other] [OTHER] Mother - Lipids Mother - Arthritis Mother Social History Marital status: Single Spouse name: Years of education: Number of children: Social History Main Topics Smoking status: Current Every Day Smoker Packs/day: 1.00 Years: 0.00 Types: Cigarettes Smokeless status: Never Used Comment: patient is trying to quit - down to 7 cigarettes per day Alcohol use: No ALLERGIES: Omnicef [Cefdinir]; Penicillins; Vancomycin; Zithromax [Azithromycin]; Cortisone MEDICATIONS: LISINOPRIL 40 mg ORAL tablet SIMVASTATIN 40 mg ORAL tablet hydrochlorothiazide 25 mg ORAL tablet Take 25 mg by mouth once daily. sertraline 100 mg ORAL tablet Take 1 tablet by mouth once daily. ALPRAZolam (XANAX) 0.5 mg ORAL tablet Take one tablet as needed for panic attacks metoprolol tartrate(LOPRESSOR 50 MG TAB) Take one(1) tablet twice daily. tamsulosin (FLOMAX) 0.4 mg cp24 Take 1 capsule by mouth daily at bedtime. PHYSICAL EXAM: Ht 160 cm (5' 3) Wt 49.9 kg (110 lb) BMI 19.49 kg/m2 All other systems deferred. GENERAL: Appears healthy, well-nourished, no deformities. HABITUS: Normal GAIT: Antalgic to the left KNEE EXAM: Right: Alignment: Neutral Range of motion is 0 degrees in extension and 130 degrees of flexion. Extension La degrees Pain with ROM: No Effusion: None Tender to the palpation of None Pain with patellar compression: No Stability: Anterior/Posterior stable and Varus/Valgus stable Hip Exam: flexion to 100+ degrees, full extension, internal/external rotation adequate and no pain with log roll Neurovascular Status: Sensation Intact and Moves foot and ankle up AND down Left: Alignment: Varus deformity, Partially Correctable Range of motion is lacking a few degrees secondary to tight hamstrings degrees in extension and 90 degrees of flexion. Extension La degrees Pain with ROM: Yes Effusion: Mild Tender to the palpation of Medial femoral condyle and Medial joint line Pain with patellar compression: Yes Stability: Anterior/Posterior stable and Varus/Valgus stable Hip Exam: no pain with log roll Neurovascular Status: Sensation Intact and Moves foot and ankle up AND down DATA: Diagnostic tests reviewed for today's visit: Left knee X-Ray: Medial joint space noted to have severe degenerative changes and Patellofemoral joint noted to have mild degenerative changes The following conditions were addressed during the office visit today: Smoking - Cessation counseling SIGNATURE: Vito Guillaume MD FACS PATIENT NAME: Paulina Finn DATE: August 08, 2017 TIME: 10:19 AM CNOV Observed: 08/08/2017 Status: COMPLETED Source: [place] 9:45 AM [facility] REPOSITORY Office Visit (ORMDNA) PAULINA FINN ([id number]) 1965 F Date Time Provider Department 08/08/17 9:45 AM VITO GUILLAUME During your visit today, we recorded the following information about you: Weight Height 49.9 kg 1.6 m Vito Guillaume MD [facility] 08/08/2017 10:41 AM Addendum CONSULT ORTHOPAEDIC: KNEE PRIMARY CARE PHYSICIAN: Lsie Garcia MD REFERRING PROVIDER: Lise Garcia MD [facility] [address] [place] [phone] ASSESSMENT ANDamp; PLAN Impression: Patient underwent successful right partial knee replacement by us over 8 years ago doing very well however her left knee shows a fixed varus or only at best partially correctable alignment. Patient wishes to pursue surgical correction. We discussed risks benefits goals expectations outcomes and complications regarding surgery. Plan is a left total knee replacement utilizing [place] triathlon however we will utilize cruciate retaining procedure. Consents are signed Left Knee Severe Degenerative Osteoarthritis, Primary Paulina Finn has radiograph and physical exam evidence of degenerative joint disease and wishes to pursue surgery. This patient appears to have sufficient symptoms to warrant surgical intervention and is an appropriate candidate for left Primary Total Knee Arthroplasty as evidenced by six months of unsuccessful non-operative treatment as outlined in the HPI below and progressive symptoms. Progressive Symptoms Include: Pain impacting sleep or causing fatigue Pain impacting work Pain worsened by weight bearing Pain effecting living situation Pain limiting ability to stay fit and healthy. This patient has the following risk factors requiring the use of antibiotic cement: Previous surgery We had a lengthy discussion regarding the risk and benefit of surgery, the alternatives, limitations and personnel involved. These included but were not limited to infection, persistent pain, instability, nerve injury, blood clots, and medical complications. We also discussed the pre-operative course, surgery itself and rehabilitation. Marlena-operative blood management and transfusion issues were discussed, and options clearly outlined. The patient has not consented to the use of the banked allogenic blood if medically necessary. The patient has elected to schedule surgery at this time or intends to call the office with a surgical date. Shared decision making occurred while obtaining informed consent. The patient will be scheduled for a pre- operative education class at which time they will have their nasal swab completed and will be given CHG cloths along with the verbal and written instructions for their use. The patient has been ordered: No orders placed today. CONSULTS: Patient does not require consults for optimization at this time. ACTIVE PROBLEM LIST Lumbago Osteoarthrosis, Unspecified Whether Generalized Or Localized, Lower Leg Pain in Joint, Lower Leg Sprain of Cruciate Ligament of Knee Tear of Medial Cartilage Or Meniscus of Knee, Current Osteoarthritis of Right Knee Prepatellar Bursitis Rsd Lower Limb Mechanical Back Pain Lumbar Strain Lumbar Spondylosis Ddd (Degenerative Disc Disease), Lumbar SUBJECTIVE CHIEF COMPLAINT: Knee Pain HPI: Paulina Finn is a 52 year old female here for evaluation and management of right knee pain. She has had progressive problems with the knee(s) constantly over the past 15 year(s) interfering with activities which include exercise, walking, rising from a sitting position, standing for prolonged periods of time, getting in and out of a car, dressing and climbing stairs. The problem began limiting activities 3+ years ago. Currently the pain in the joint is rated at 8 out of 10 with minimal activity. The pain is chronic and constant and is located along the inside aspect. The pain is described as aching, penetrating, radiating, severe and sharp. Relieving factors include rest and over the counter medication. There is no specific incident that brought about this pain. She has no additional complaints. FUNCTIONAL STATUS: Walk a block or two on level ground (2.75 METs) Preoperative Ambulatory Status: Independent Community Distances Number of Entry Steps: 4 Bedroom Location: Second floor Bathroom Location: First floor Caregiver Assistance: Inconsistent/None Home Location: Up to 150 miles PREVIOUS TREATMENTS: Medical Treatments: RX NSAIDS for 3 Months or Greater (ibuprofen), Viscosupplementation Left Knee Previous Surgery: Knee Arthroscopy REVIEW OF SYSTEMS: PAIN ASSESSMENT: See HPI. MUSCULOSKELETAL: See HPI. Surgical Risk Factors: Smoking PAST MEDICAL HISTORY Diagnosis Date - Anxiety - Dyslipidemia, goal to be determined - HTN (hypertension) - Mood swings (HCC) - Osteoarthritis PAST SURGICAL HISTORY Procedure Laterality Date - CARPAL TUNNEL - KNEE SCOPE,FULL SYNOVECT - PART. HYSTERECTOMY W/WO RMVL OVARIES/TUBES - TOTAL KNEE REPLACEMENT RT FAMILY HISTORY Problem Relation Age of Onset - htn [Other] [OTHER] Mother - Lipids Mother - Arthritis Mother Social History Marital status: Single Spouse name: Years of education: Number of children: Social History Main Topics Smoking status: Current Every Day Smoker Packs/day: 1.00 Years: 0.00 Types: Cigarettes Smokeless status: Never Used Comment: patient is trying to quit - down to 7 cigarettes per day Alcohol use: No ALLERGIES: Omnicef [Cefdinir]; Penicillins; Vancomycin; Zithromax [Azithromycin]; Cortisone MEDICATIONS: LISINOPRIL 40 mg ORAL tablet SIMVASTATIN 40 mg ORAL tablet hydrochlorothiazide 25 mg ORAL tablet Take 25 mg by mouth once daily. sertraline 100 mg ORAL tablet Take 1 tablet by mouth once daily. ALPRAZolam (XANAX) 0.5 mg ORAL tablet Take one tablet as needed for panic attacks metoprolol tartrate(LOPRESSOR 50 MG TAB) Take one(1) tablet twice daily. tamsulosin (FLOMAX) 0.4 mg cp24 Take 1 capsule by mouth daily at bedtime. PHYSICAL EXAM: Ht 160 cm (5' 3ANDquot;) Wt 49.9 kg (110 lb) BMI 19.49 kg/m2 All other systems deferred. GENERAL: Appears healthy, well-nourished, no deformities. HABITUS: Normal GAIT: Antalgic to the left KNEE EXAM: Right: Alignment: Neutral Range of motion is 0 degrees in extension and 130 degrees of flexion. Extension La degrees Pain with ROM: No Effusion: None Tender to the palpation of None Pain with patellar compression: No Stability: Anterior/Posterior stable and Varus/Valgus stable Hip Exam: flexion to 100+ degrees, full extension, internal/external rotation adequate and no pain with log roll Neurovascular Status: Sensation Intact and Moves foot and ankle up ANDamp; down Left: Alignment: Varus deformity, Partially Correctable Range of motion is lacking a few degrees secondary to tight hamstrings degrees in extension and 90 degrees of flexion. Extension La degrees Pain with ROM: Yes Effusion: Mild Tender to the palpation of Medial femoral condyle and Medial joint line Pain with patellar compression: Yes Stability: Anterior/Posterior stable and Varus/Valgus stable Hip Exam: no pain with log roll Neurovascular Status: Sensation Intact and Moves foot and ankle up ANDamp; down DATA: Diagnostic tests reviewed for today's visit: Left knee X-Ray: Medial joint space noted to have severe degenerative changes and Patellofemoral joint noted to have mild degenerative changes The following conditions were addressed during the office visit today: Smoking - Cessation counseling SIGNATURE: Vito Guillaume MD FACS PATIENT NAME: Paulina Finn DATE: August 08, 2017 TIME: 10:19 AM Referring Provider: LISE REID [[id number]] Allergies As of Date: 08/08/2017 Noted Allergy Reaction OMNICEF (CEFDINIR) 12/15/2006 4 - Hives PENICILLINS 12/15/2006 4 - Hives VANCOMYCIN 12/15/2006 4 - Hives ZITHROMAX (AZITHROMYCIN) 12/15/2006 4 - Hives CORTISONE 12/15/2006 5 - Intolerance Comments: INCREASE IN BP FOR SEVERAL WEEKS. Date Reviewed: 05/29/2014 Reviewed by: Sophia (Rn) ROSITA Peck - Fully Assessed Reason for Visit: New Patient [172] Left Knee Pain [1208] Primary Visit Diagnosis:Primary osteoarthritis of left knee [M17.12] Order(s):PATIENT PLACED ON JHON TKA CARE PATH [[id number]] Order #: [id number]: 1 Prescriptions as of 08/08/2017 Sig: LISINOPRIL 40 MG TABLET SIMVASTATIN 40 MG TABLET HYDROCHLOROTHIAZIDE 25 MG TAB* Take 25 mg by mouth once adam* SERTRALINE 100 MG TABLET Take 1 tablet by mouth once d* ALPRAZOLAM 0.5 MG TABLET Take one tablet as needed for* LOPRESSOR 50 MG TABLET Take one(1) tablet twice adam* TAMSULOSIN 0.4 MG CAPSULE Take 1 capsule by mouth daily* Problem List As Of Date 08/08/2017 Noted Resolved LUMBAGO [M54.5] INVALID FOR* OSTEOARTHROS NOS-L/LEG [M17.10] INVALID FOR* PAIN IN JOINT, LOWER LEG [M25.569] INVALID FOR* SPRAIN CRUCIATE LIG KNEE [S83.509A] INVALID FOR* Tear of Medial Cartilage or Meniscus of Knee, C*INVALID FOR* Osteoarthritis of right knee [M17.11] INVALID FOR* Prepatellar bursitis [M70.40] INVALID FOR* RSD lower limb [G90.529] INVALID FOR* Mechanical complication of internal orthopedic *INVALID FOR*10/03/2011 Mechanical back pain [M54.9] INVALID FOR* Lumbar strain [S39.012A] INVALID FOR* Lumbar spondylosis [M47.816] INVALID FOR* DDD (degenerative disc disease), lumbar [M51.36]INVALID FOR* Encounter Status:Closed by VITO GUILLAUME MD, FACS on 08/08/17 XR KNEE 4V AP/PA Observed: 08/08/2017 Status: F Source: [facility]+LAT/BERTHA LT 9:42 AM CLINIC OTHER CAMPUS REPOSITORY * * *Final Report* * * DATE OF EXAM: Aug 08 2017 9:42AM [facility]ERM[facility]N 5202 - XR KNEE 4V AP/PA BOTH+LAT/BERTHA LT / PROCEDURE REASON: B67-Pwgb, unspecified * * * * Physician Interpretation * * * * EXAM TITLE: XR KNEE 4V AP/PA BOTH+LAT/BERTHA LT EXAM DATE/TIME: 08/08/2017 9:42 AM COMPARISON: None. CLINICAL INDICATION/HISTORY: Left knee pain. TECHNIQUE: AP, lateral, sunrise and tunnel views of the left knee are presented. FINDINGS: Left knee: No fractures or subluxations are noted. Medial compartmental joint space narrowing is present. There is tricompartmental osteophyte formation. Patellar enthesophyte is present. There is a small joint effusion. The mineralization of the bones is normal. There is soft tissue swelling along the medial aspect. Right knee: Status post hemiarthroplasty. IMPRESSION: Findings are suggestive of osteoarthritis of the left knee, with small joint effusion. Flatwork Ironer: PSCB Transcribe Date/Time: Aug 08 2017 4:02P Dictated by : EKATERINA REAL MD This examination was interpreted and the report reviewed and electronically signed by: EKATERINA REAL MD on Aug 08 2017 4:04PM EST [id number] ALLERGIES ALLERGIES DATE TYPE / NAME / CODE REACTION SEVERITY SOURCE CODE 02/26/2018 Drug Penicillins/[id number] Rash [facility] [place] Allergy/41 0476(RXNORM) [facility] 7960959( Hospital OMED CT) Repository 02/26/2018 Drug cortisone/[id number] Other [facility] [place] Allergy/41 45(RXNORM) [facility] 8340899( [facility] OMED [facility]) Repository 12/15/2006 [facility] [place] 1436580(SN Repository OMED CT) 12/15/2006 Drug PENICILLINS HIVES [facility] Class/4195 Other [place] [address](SNOM Repository ED CT) 12/15/2006 [facility] [place] 2010897(SN Repository OMED CT) 12/15/2006 [facility]UG [facility]YCIN [facility] [place] 5013798( Repository OMED CT) 12/15/2006 [facility] [place] 5041462( Repository OMED CT) ENCOUNTERS ENCOUNTERS ADMIT/DISCHARGE ACCOUNT NUMBER ADMITTING ENCOUNTER LOCATION SOURCE CLASS 05/20/2018/05/21/20 [id number] Ambulatory [address] [place] Repository 05/13/2018/05/18/20 [id number] Ambulatory [address] [place] Repository 05/05/2018/05/10/20 [id number] ADAIR, Inpatient [address] Other [place] Repository 05/04/2018 [id number] Ambulatory [facility] ding:LABSPEC Repository 02/26/2018/02/27/20 [id number] Ambulatory BMSBuilding: [address] Repository 02/11/2018 [id number] Emergency Buildin[facility] ERRoom: System [id number]: Repository [id number] 02/05/2018 [id number] Emergency Buildin[facility] ERRoom: System [id number]: Repository [id number] 11/05/2017/11/07/19 [id number] Ambulatory [address] [place] Repository 09/22/2017/09/24/19 [id number] Ambulatory [address] [place] Repository 09/08/2017/09/10/19 [id number] ALBERTO, Inpatient [address] Other [place] Repository 09/04/2017 [id number] Ambulatory [facility] Repository 09/04/2017/09/05/19 [id number] Ambulatory [address] Other [place] Repository 09/04/2017/09/05/19 [id number] Ambulatory [address] Other [place] Repository 09/04/2017/09/05/19 [id number] Ambulatory [address] Repository 08/08/2017/08/20/19 [id number] Ambulatory [address] Repository 08/08/2017/08/09/19 [id number] Ambulatory [address] Other [place] Repository PAYERS PAYERS ENCOUNTER GUARANTOR PAYER SUBSCRIBER SOURCE 05/04/2018 PAULINA A Primary Insurance:[facility] PAULINA A [place] [id number] [facility] ZINSMEISTERDOB: [facility], 1929–1983LV, Number: [id number] [facility] 24737Dbk: [id number] Repository Date:[id number] [address] [address]OI: 05/04/2018 Secondary NOT GIVENUNK [place] Insurance:SELF PAY [facility] Number: Effective Repository Date:2018-05-04 02/26/2018 PAULINA Primary Insurance:[facility] PAULINA Dar[place] [id number] [facility]: [facility] Number: [id number] [id number] [place] [address]Cds: Date:[id number] [address] [place] [id number]: 02/26/2018 Secondary NOT GIVENUNK [place] Insurance:SELF PAY [facility] Number: Effective Repository Date:2018-02-26 02/11/2018 Paulina A Primary Paulina A [facility] ZinsmeisterDOB: Insurance:[place] RolandnsmeisterDOB: System [id number] [facility] [id number] [place] Number: Effective [facility] [place] [place] [place] Date: [address]Tey: () 02/05/2018 Paulina A Primary Paulina A [facility] ZinsmeisterDOB: [facility] [id number] [facility] [id number] Repository [place] Number: [facility] [place] Date: [address]Zwu: ()
== END ==
PROVIDERS: Family Provider Internal Medicine; PCP Internal Medicine; Referring Provider Nurse Practitioner; Visit Provider Nurse Practitioner
DX: L02.222 Furuncle of back [any part, except buttock and flank] (principal); Z22.322 Carrier or suspected carrier of Methicillin resistant Staphylococcus aureus
CPT/HCPCS: 87070; 87075; 87077; 87186; 87205

== ENCOUNTER 2024-09-04 11:07 | Emergency (ER) | payer MEDICAID, SELFPAY ==
[2024-09-04 11:08] VITALS: BP 161/91; PULSE 66; RESP 12; TEMP 36.3; O2SAT 94; BMI 27.3
[2024-09-04 11:11] VITALS: BP 161/91; PULSE 65; RESP 18; TEMP 36.4; O2SAT 95
--- NOTE | 2024-09-04 11:40 | EX.ED.DYSGE1 ---
HPI <ANJEL Welch - Last Filed: 09/04/24 14:10> History of Present Illness Chief Complaint: General Illness Narrative Narrative: Patient is a 59-year-old female with history of hypertension, anxiety, tobacco use, chronic pain who presents to the [facility] for 2 days of generalized malaise, feeling weak. Patient states that every now and then she feels dizzy which she describes as a room spinning. Patient denies any fever or chills. He denies any sick contacts. Patient she has had decreased urine output. She states she just feels very dry. Denies any specific pain, denies any recent surgery. Patient states in 2 weeks she is having a hip replacement [facility] <ANJEL Welch - Last Filed: 09/04/24 14:10> [facility] Medical History (Updated 09/04/24 @ 12:[address] Enrico Lovell MD) Anxiety Arthritis History of substance abuse Hypertension Home Medications ?Medication ?Instructions ?Recorded ?Last Taken ?Type acetaminophen 500 mg tablet 500 mg PO BID PRN fever or pain 02/26/18 Unknown Rx (Tylenol Extra Strength) #60 tabs buspirone 5 mg tablet 5 mg PO BID #60 tabs 02/26/18 Unknown Rx guaifenesin 600 mg tablet, 600 mg PO Q12H #20 tabs 02/26/18 Unknown Rx extended release 12 hr (Mucinex) loperamide 2 mg tablet (Imodium 2 mg PO BID PRN loose stool #10 02/26/18 Unknown Rx A-D) tabs melatonin 10 mg tablet 10 mg PO HS PRN sleep #30 tabs 02/26/18 Unknown Rx sertraline 100 mg tablet (Zoloft) 200 mg PO DAILY 02/26/18 Unknown History simvastatin 40 mg tablet 40 mg PO QHS 02/26/18 Unknown History lisinopril 40 mg tablet 40 mg PO QHS #30 tabs 05/04/18 Unknown Rx gabapentin 300 mg capsule 300 mg PO TID 09/04/24 Unknown History hydrochlorothiazide 25 mg tablet 25 mg PO DAILY 09/04/24 Unknown History metoprolol tartrate 50 mg tablet 50 mg PO Q12.TCU 09/04/24 Unknown History ondansetron 4 mg disintegrating 4 mg PO Q8H PRN PRN Nausea #10 tabs 09/04/24 Unknown Rx tablet rosuvastatin 20 mg tablet 20 mg PO QHS 09/04/24 Unknown History Allergy/AdvReac Type Severity Reaction Status Date / Time Penicillins Allergy Severe rash Verified 09/04/24 11:08 cefdinir (From Omnicef) Allergy Rash Verified 09/04/24 11:08 vancomycin Allergy Rash Verified 09/04/24 11:08 cortisone AdvReac Severe Other Verified 09/04/24 11:08 Family History (System 04/10/21 @ 12:18 by Bossman Ramirez) Mother Arthritis Hypertension Diabetes Father Arthritis Anxiety Grandmother Cancer pancreas Surgical History History of carpal tunnel release History of hysterectomy History of knee replacement Social History (System 04/10/21 @ 12:18 by Bossman Ramirez) Smoking Status: Current every day smoker tobacco type: cigarettes alcohol intake: never substance use type: former substance user 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 Positive for weakness Eyes: Negative for vision loss, vision change, double vision ENT: Negative for any sore throat, ear pain. Positive for congestion Cardiovascular: Negative for any chest pain, tightness, palpitations Respiratory: Negative for any cough, sputum production, hemoptysis, dyspnea, dyspnea on exertion, orthopnea Gastrointestinal: Negative for any abdominal pain, vomiting, diarrhea, constipation, blood in stool, blood in vomit. Positive for nausea : Negative for any urinary frequency, dysuria, retention, blood in urine. Positive for decreased urine output Muscle skeletal: Negative for any neck pain, back pain Neurological: Negative for any headache, syncope, dizziness Skin: Negative for any rashes, itching, abrasions, lacerations Psychiatric: Negative for any depression, anxiety, stress, suicidal ideation, homicidal ideation Hematologic: Negative for any excessive bruising, easy bleeding EXAM <ANJEL Welch - Last Filed: 09/04/24 14:10> Physical Exam Narrative Exam Narrative: Vital signs reviewed. HEET: Head normocephalic atraumatic, TMs clear bilaterally. Posterior pharynx is clear, dry mucous membranes. Nares clear bilaterally. Neck: Supple with no lymphadenopathy or tenderness. No signs of meningismus. Cardiac: Regular rate and rhythm no murmurs gallops or rubs, equal peripheral pulses bilaterally. Respiratory: Lungs clear to auscultation bilaterally. No chest tenderness. Abdomen: Soft, nondistended. No abdominal bruit or pulsatile masses. No hepatosplenomegaly. Slight pain to the mid abdomen however this was not consistent, sometimes she was stated there is pain sometimes not, it is mostly generalized. Active bowel sounds in all quadrants. Extremities: No peripheral edema, no signs of gross trauma or deformity. Active full range of motion of all extremities. Neuro: Cranial nerves II through XII intact, no focal neurological deficits. Negative for any nystagmus, [place]-Hallpike was negative. Skin: Clean dry and intact with no rash, purpura, petechiae, vesicles or pustules. Backs/flank: No CVA tenderness, no midline spinal tenderness, no deformity. Psych: Normal mood and affect. No SI, HI or acute psychosis. Const Vital Signs: 09/04/24 11:08 09/04/24 11:11 09/04/24 11:11 Temperature 97.4 F L 97.6 F L Temperature Source Oral Oral Pulse Rate 66 65 Respiratory Rate 12 18 Respiratory Effort Normal Respiratory Pattern Normal Blood Pressure 161/91 H 161/91 H Blood Pressure Mean 114 114 Pulse Ox 94 95 Oxygen Delivery Method Room Air Room Air 09/04/24 12:23 Temperature Temperature Source Pulse Rate 56 L Respiratory Rate 14 Respiratory Effort Respiratory Pattern Blood Pressure 138/90 H Blood Pressure Mean 106 Pulse Ox 93 Oxygen Delivery Method Room Air Positive unkempt General Appearance ED: unkempt Psych Appearance: unkempt <Dr. Enrico Lovell MD - Last Filed: 09/04/24 12:11> Physical Exam Const Vital Signs: 09/04/24 11:08 09/04/24 11:11 09/04/24 11:11 Temperature 97.4 F L 97.6 F L Temperature Source Oral Oral Pulse Rate 66 65 Respiratory Rate 12 18 Respiratory Effort Normal Respiratory Pattern Normal Blood Pressure 161/91 H 161/91 H Blood Pressure Mean 114 114 Pulse Ox 94 95 Oxygen Delivery Method Room Air Room Air 09/04/24 12:23 Temperature Temperature Source Pulse Rate 56 L Respiratory Rate 14 Respiratory Effort Respiratory Pattern Blood Pressure 138/90 H Blood Pressure Mean 106 Pulse Ox 93 Oxygen Delivery Method Room Air [facility] <Mukund DianeANJEL - Last Filed: 09/04/24 14:10> [facility] Lab Data Labs: Laboratory Results - last 24 hr 09/04/24 09/04/24 11:25 12:05 WBC 6.9 RBC 4.36 Hgb 13.3 Hct 37.4 MCV 85.8 MCH 30.5 MCHC 35.6 RDW Std Deviation 37.3 RDW Coeff of Liz 12.0 Plt Count 244 MPV 9.1 Immature Gran % (Auto) 0.600 Neut % (Auto) 76.5 H Lymph % (Auto) 16.3 L [place] % (Auto) 5.4 Eos % (Auto) 0.9 Baso % (Auto) 0.3 Absolute Neuts (auto) 5.3 Absolute Lymphs (auto) 1.12 Nucleated RBC % 0 Sodium 135 Potassium 3.8 Chloride 99 Carbon Dioxide 24.4 Anion Gap 11 BUN 14 Creatinine 0.65 L Estim Creat Clear Calc 83.84 Est GFR (MDRD) Non-Af 101 BUN/Creatinine Ratio 20.7 H Glucose 174 H Calcium 9.2 Total Bilirubin 0.55 AST 72 H ALT 31 Alkaline Phosphatase 106 H Total Protein 6.8 Albumin 3.8 Globulin 3.0 Albumin/Globulin Ratio 1.3 Lipase 29 Urine Color Yellow Urine Clarity Sl. Cloudy Urine pH 8.0 Ur Specific [place] 1.010 Urine Protein 15 H Urine Glucose (UA) Normal Urine Ketones Negative Urine Occult Blood Negative Urine Nitrite Negative Urine Bilirubin Negative Urine Urobilinogen Normal Ur Leukocyte Esterase Negative Urine RBC 0 SEEN Urine WBC 0 SEEN Ur Squamous Epith Cells 0 SEEN Urine Bacteria 0 SEEN Urine Mucus 0 SEEN Treatment and Re-Evaluation :: Differential diagnosis includes however is not limited to: COVID-19, influenza, RSV, dehydration, JOSE, electrolyte imbalance, other viral-like illness Patient appears generally well, vital signs are stable, patient is nontoxic-appearing. Presenting to the emergency department for complaints of feeling dehydrated, weakness, dizziness. Patient had negative [place]-Hallpike, no nystagmus. Patient be given basic laboratory values, CBC CMP lipase, urinalysis. Patient will receive 1 L normal saline, IV Zofran. Patient will need to be reevaluated. Patient CBC was unremarkable, patient's chemistry panel was unremarkable. Glucose 174, lipase 29 negative. Patient's urinalysis was negative for any infection. After 1 L normal saline, IV Zofran, the patient felt much better, was able to pass a p.o. challenge. At this time, patient be discharged home. She be given hydroxyzine because she felt anxious. Patient instructed to maintain hydration at home, eat and drink normally. All questions answered, stable for discharge <Dr. Enrico Lovell MD - Last Filed: 09/04/24 12:11> [facility] MDM Narrative Medical decision making narrative: I have personally performed a face to face assessment of the patient and have reviewed the DERREK Note. I performed a substantive portion of the visit including all aspects of the following. My lamas findings include: History is [59-year-old female had nausea and vomiting on Friday. This has not felt well. Nasal congestion. Mild sore throat. No diarrhea. No dysuria.] Exam is [59-year-old female vital signs are stable afebrile does not look septic toxic. No acute distress. Pulse ox 95% on room air no hypoxia. H EENT exam pupils round react light. Mildly dry mucous membranes. Posterior pharynx unremarkable. No trouble swallowing or breathing. No stridor or drooling. Neck nontender no meningismus. No lymphadenopathy. Trachea midline. Lungs clear to auscultation bilaterally. No rales, rhonchi or wheezing. Heart regular rhythm rate about 65 no murmur. Chest wall ribs nontender. Abdomen soft nontender. Patient moving all 4 extremities. Nontender no edema. Neurologically she is awake and alert answering questions following commands. Back nontender.] Medical Decision Making [59-year-old suspect viral syndrome. IV fluids for mild dehydration labs.] Other additions or changes: [None] History & Record Review Discussion w/independent historian: Patient Additional record(s) reviewed:: Prior inpatient record, Prior outpatient record, Prior ED visit and Prior labs Lab Data Attestation: I reviewed the patient's lab results. Lab results narrative: CBC normal. White count of 6. H&H 13 and 37. Platelets 244. Labs: Laboratory Results - last 24 hr 09/04/24 09/04/24 11:25 12:05 WBC 6.9 RBC 4.36 Hgb 13.3 Hct 37.4 MCV 85.8 MCH 30.5 MCHC 35.6 RDW Std Deviation 37.3 RDW Coeff of Liz 12.0 Plt Count 244 MPV 9.1 Immature Gran % (Auto) 0.600 Neut % (Auto) 76.5 H Lymph % (Auto) 16.3 L [place] % (Auto) 5.4 Eos % (Auto) 0.9 Baso % (Auto) 0.3 Absolute Neuts (auto) 5.3 Absolute Lymphs (auto) 1.12 Nucleated RBC % 0 Sodium 135 Potassium 3.8 Chloride 99 Carbon Dioxide 24.4 Anion Gap 11 BUN 14 Creatinine 0.65 L Estim Creat Clear Calc 83.84 Est GFR (MDRD) Non-Af 101 BUN/Creatinine Ratio 20.7 H Glucose 174 H Calcium 9.2 Total Bilirubin 0.55 AST 72 H ALT 31 Alkaline Phosphatase 106 H Total Protein 6.8 Albumin 3.8 Globulin 3.0 Albumin/Globulin Ratio 1.3 Lipase 29 Urine Color Yellow Urine Clarity Sl. Cloudy Urine pH 8.0 Ur Specific [place] 1.010 Urine Protein 15 H Urine Glucose (UA) Normal Urine Ketones Negative Urine Occult Blood Negative Urine Nitrite Negative Urine Bilirubin Negative Urine Urobilinogen Normal Ur Leukocyte Esterase Negative Urine RBC 0 SEEN Urine WBC 0 SEEN Ur Squamous Epith Cells 0 SEEN Urine Bacteria 0 SEEN Urine Mucus 0 SEEN Discharge Plan Triage Chief Complaint: General Illness ED Midlevel Provider: Mukund Diane ED Provider: Enrico Lovell Dx/Rx/DC Orders Clinical Impression: Viral syndrome Instructions: ED Viral Syndrome (Adult) Prescriptions: New ondansetron 4 mg tablet,disintegrating 4 mg PO Q8H PRN PRN (Reason: Nausea) Qty: 10 0RF No Action simvastatin 40 mg tablet 40 mg PO QHS sertraline [Zoloft] 100 mg tablet 200 mg PO DAILY buspirone 5 mg tablet 5 mg PO BID Qty: 60 1RF loperamide [Imodium A-D] 2 mg tablet 2 mg PO BID PRN (Reason: loose stool) Qty: 10 0RF Rx Instructions: do not exceed 16 mg total dose in 24 hrs acetaminophen [Tylenol Extra Strength] 500 mg tablet 500 mg PO BID PRN (Reason: fever or pain) Qty: 60 0RF melatonin 10 mg tablet 10 mg PO HS PRN (Reason: sleep) Qty: 30 1RF guaifenesin [Mucinex] 600 mg tablet extended release 12hr 600 mg PO Q12H Qty: 20 0RF lisinopril 40 mg tablet 40 mg PO QHS Qty: 30 0RF metoprolol tartrate 50 mg tablet 50 mg PO Q12.TCU gabapentin 300 mg capsule 300 mg PO TID hydrochlorothiazide 25 mg tablet 25 mg PO DAILY rosuvastatin 20 mg tablet 20 mg PO QHS Primary Care Provider: Care Physician,No Primary Referrals: Care Physician,No Primary [Primary Care Provider] - Print Language: Andorran Disposition Disposition: Home, Self Care
[2024-09-04] MEDS: 0.9% Normal Saline (1000mL) 1,000 ML 999 ML IV (11:52)
[2024-09-04] MEDS: Ondansetron 4 MG/2 ML Vial IV (11:53)
[2024-09-04 11:55] LABS: Absolute Lymphocyte Count 1.12 X10^3/uL (0.83-4.51); Absolute Neutrophil Count 5.3 X10^3/uL (2.0-7.7); Basophil# 0.02 X10^3/uL; Basophil% 0.3 % (0-1); Eosinophil# 0.06 X10^3/uL; Eosinophils% 0.9 % (0-5); Hematocrit 37.4 % (37-47); Hemoglobin 13.3 g/dL (12.0-15.0); Lymphocyte # 1.12 X10^3/ul (0.83-4.51); Lymphocyte % 16.3 % (19-41); Mean Corp Hgb Conc 35.6 g/dL (32-36); Mean Corpuscular Hgb 30.5 pg (27.0-32.0); Mean Corpuscular Volume 85.8 fL (81-99); Mean Platelet Vol. 9.1 fl (6.2-12.0); Monocyte# 0.37 X10^3/uL; Monocyte% 5.4 % (0-10); NRBC Flagged by Analyzer 0 % (0-5); Neutrophil # 5.26 X10^3/uL (2.7-7.7); Neutrophil % 76.5 % (47-70); Platelet Count 244 K/mm3 (150-450); RBC Distribution Width SD 37.3 fl (35.1-43.9); Red Blood Count 4.36 M/mm3 (4.2-5.4); White Blood Count 6.9 K/mm3 (4.4-11.0)
[2024-09-04 12:18] LABS: Bacteria 0 SEEN /hpf (None Seen); Mucous, Urine 0 SEEN /hpf (<or=2+); Squamous Epithelial Cells - UA 0 SEEN /hpf (5-10); White Blood Cells 0 SEEN /hpf (0-5)
[2024-09-04 12:22] LABS: Color, Urine Yellow (Yellow); Glucose, Dipstick Normal (Normal); Ketone-Dipstick Negative (Negative); Leukocyte Esterase-Dipstick Negative /ul (Negative); Nitrite-Dipstick Negative (Negative); Occult Blood-Urine Negative /ul (Negative); Protein-Dipstick 15 mg/dl (Negative); Urine Bilirubin Dipstick Negative (Negative); Urine Clarity Sl. Cloudy (Clear); Urine Urobilinogen Normal (Normal)
[2024-09-04 12:23] VITALS: BP 138/90; PULSE 56; RESP 14; O2SAT 93
[2024-09-04 12:53] LABS: ALB/GLOB Ratio 1.3 RATIO (0.9-2.4); AST(SGOT) 72 U/L (<=31); Alanine Aminotransfer ALT/SGPT 31 U/L (<=34); Albumin, Serum 3.8 g/dL (3.4-4.8); Alkaline Phosphatase 106 U/L (35-104); Anion Gap 11 (5-15); BUN 14 mg/dL (4-19); BUN/Creat Ratio 20.7 RATIO (10-20); Calcium,Total 9.2 mg/dL (7.6-11.0); Carbon Dioxide 24.4 mmol/L (21.0-32.0); Chloride 99 mmol/L (98-108); Creatinine, Serum 0.65 mg/dL (0.70-1.20); EST Glomerular Filtration Rate 101 (>60); Estimated Creatinine Clearance 83.84 ml/min (50-250); Glucose 174 mg/dL (70-99); Lipase 29 U/L (13-75); Potassium 3.8 mmol/L (3.3-5.1); Protein, Total 6.8 g/dL (5.9-8.4); Sodium Level 135 mmol/L (133-145); Total Bilirubin 0.55 mg/dL (0.00-1.30)
[2024-09-04 14:05] LABS: Red Blood Cells-Urine 0 SEEN /hpf (0-5)
[2024-09-04 14:18] VITALS: BP 146/78; PULSE 76; RESP 18; TEMP 36.8; O2SAT 95
[2024-09-04] MEDS: hydrOXYzine PAM 25 MG Capsule PO (14:21)
== END 2024-09-04 14:25 | disposition home or self-care (01) ==
PROVIDERS: Nurse Practitioner; Emergency Provider Emergency Medicine; Visit Provider Emergency Medicine
DX: R53.81 Other malaise (principal); B34.9 Viral infection, unspecified; F17.210 Nicotine dependence, cigarettes, uncomplicated; I10 Essential (primary) hypertension; F41.9 Anxiety disorder, unspecified; Z79.899 Other long term (current) drug therapy; Z90.710 Acquired absence of both cervix and uterus; Z96.659 Presence of unspecified artificial knee joint; R53.1 Weakness
CPT/HCPCS: 80053; 81001; 83690; 85025; 96361; 96374; 99285; A4216; J2405